=== PATIENT | male | born 1940 | race Caucasian/White ===

== ENCOUNTER → 2016-11-18 | Outpatient (CLI) | payer MEDICARE ==
--- NOTE | 2016-11-18 11:03 | XR ---
EXAMINATION TYPE: XR Hip Complete LT DATE OF EXAM: 11/18/2016 10:59 AM COMPARISON: NONE HISTORY: Hip pain TECHNIQUE: 2 view left hip FINDINGS: Femoral head articulate with the acetabulum. Mild joint space narrowing is present. No acut e fractures are evident. Vascular calcification is noted. IMPRESSION: 1. No acute osseous abnormality left hip
== END | disposition home or self-care (01) ==
LOC: RADXRMAIN 10:39
PROVIDERS: ATTEND Family Medicine
DX: M25.552 Pain in left hip (principal)
CPT/HCPCS: 73502

== ENCOUNTER → 2018-04-13 | Outpatient (CLI) | payer MEDICARE ==
--- NOTE | 2018-04-13 18:49 | BD ---
EXAMINATION TYPE: Axial Bone Density DATE OF EXAM: 04/13/2018 COMPARISON: NONE CLINICAL HISTORY: 77 YR OLD MALE.....ICD-10 CODE M85.89 OTHER , C61 PROSTATE CA Height: 65.5 Weight: 250 FRAX RISK QUESTIONS: Current Tobacco Use: QUIT 1998 RISK FACTORS HISTORY OF: Diet low in dairy products/other sources of calcium: NO Lost more than 2 inches in height since high school: MEDICATIONS: Additional Medications: PROSTATE MEDS, CALCIUM, CHOLESTEROL MEDS, Additional History: PROSTATE CANCER, EXAM MEASUREMENTS: Bone mineral densitometry was performed using the FunnelFire System. Bone mineral density as measured about the Lumbar spine is: ----- L1-L4(G/cm2): 1.162 T Score Values are as follows: ----- L1: 0.0 ----- L2: -0.2 ----- L3: -0.3 ----- L4: -0.2 ----- L1-L4: -0.1 Bone mineral density FIRST BONE DENSITY.....BASELINE STUDY Bone mineral density about the R hip (g/cm2): 0.990 Bone mineral density about the L hip (g/cm2): 1.035 T Score values are as follows: -----R Neck: -1.4 -----L Neck: -1.5 -----R Total: -0.1 -----L Total: 0.2 Bone mineral density BASELINE STUDY FRAX%s: THERE IS A 7.0% CHANCE FOR A MAJOR OSTEOPOROTIC FX AND A 2.3% FOR HIP FX....PROBABILITY OF FX IN 10 YRS TIME IMPRESSION: Osteopenia (T Score between -2.5 and -1). There is slightly increased risk of fracture and the patient may be considered for treatment. Re-Screen 2-5 years. NOTE: T-SCORE=SD OF THE YOUNG ADULT MEAN.
== END | disposition home or self-care (01) ==
LOC: RADBDWWP 12:12
PROVIDERS: ATTEND Nurse Practitioner
DX: M85.80 Other specified disorders of bone density and structure, unspecified site (principal)
CPT/HCPCS: 77080

== ENCOUNTER → 2019-01-04 | Outpatient (CLI) | payer MEDICARE ==
--- NOTE | 2019-01-04 14:15 | US ---
EXAMINATION TYPE: US abdomen complete DATE OF EXAM: 01/04/2019 COMPARISON: NONE CLINICAL HISTORY: R74.8 Elevated liver enzymes, R94.4 Abnormal Kidne. abnormal labs, no pain, NPO EXAM MEASUREMENTS: Liver Length: 14.2 cm Gallbladder Wall: 0.2 cm CBD: 0.5 cm Spleen: 8.2 cm Right Kidney: 10.2 x 5.4 x 5.8 cm Left Kidney: 9.9 x 4.6 x cm Extremely limited exam due to overlying bowel gas and patient body habitus Pancreas: Obscured by bowel gas Liver: Limited visualization, scanned through ribs. There is increased echogenicity of the hepatic p arenchyma with diminished visualization of the portal triads most commonly relating to hepatic steato sis and limiting evaluation for underlying hepatic masses. Gallbladder: Limited visualization, wnl Evidence for sonographic Malone's sign: neg CBD: wnl CHD: wnl Spleen: wnl Right Kidney: Cortical thinning, no prominent masses or lesions seen Left Kidney: Cortical thinning, no prominent masses or lesions seen Upper IVC: Obscured by overlying bowel gas Abd Aorta: Proximal and mid portion obscured by overlying bowel gas IMPRESSION: 1. Sonographic sequela of medical renal disease with cortical renal thinning bilaterally however ther e is no hydronephrosis or nephrolithiasis seen. 2. Sonographic findings most commonly related to hepatic steatosis, correlate with liver function ivelisse t results. 3. Obscuration of the upper inferior vena cava, proximal abdominal aorta, and pancreas by overlying b owel gas.
== END | disposition home or self-care (01) ==
LOC: RADUSWWP 12:55
PROVIDERS: ATTEND Family Medicine
DX: K76.0 Fatty (change of) liver, not elsewhere classified (principal); R94.4 Abnormal results of kidney function studies
CPT/HCPCS: 76700

== ENCOUNTER 2021-12-29 07:23 | Day surgery (SDC) | payer MEDICARE ==
[2021-12-24 14:15] VITALS: BMI 38.7
[~2021-12-29 07:23] MED LIST: ALPRAZolam 0.25 MG TAB PO PRN; ALPRAZolam 0.5 MG TAB PO PRN; ASPIRIN 325 MG TAB PO STA; ATORVASTATIN 80 MG TAB PO STA; HEPARIN SODIUM,PORCINE 10,000 UNIT in SODIUM CHLORIDE 0.9% 1,000 ML IRRIGATION PRN; HEPARIN SODIUM,PORCINE 2,500 UNIT in SODIUM CHLORIDE 0.9% 250 ML IRRIGATION PRN; NITROGLYCERIN SL TABS 0.4 MG TAB SUBLINGUAL PRN
[2021-12-29] MEDS: SODIUM CHLORIDE 0.9% 1,000 ML in EMPTY BAG 1 BAG IV SCH ×2 (08:04→16:40)
[2021-12-29 08:09] LABS: Basophils % (A) 1 %; Eosinophils # (A) 0.3 k/uL (0-0.7); Eosinophils % (A) 5 %; HGB 14.5 gm/dL (13.0-17.5); Lymphocytes # (A) 2.1 k/uL (1.0-4.8); Lymphocytes % (A) 30 %; MCH 31.9 pg (25.0-35.0); MCHC 34.6 g/dL (31.0-37.0); Mean Platelet Volume 7.2; Monocytes # (A) 0.4 k/uL (0-1.0); Monocytes % (A) 6 %; Neutrophils # (A) 3.9 k/uL (1.3-7.7); Neutrophils % (A) 56 %; Platelet Count 267 k/uL (150-450); RBC 4.57 m/uL (4.30-5.90); RDW 13.5 % (11.5-15.5)
[2021-12-29 08:20] LABS: African American GFR (CKD) >90 (>60 ml/min/1.73 sqM); Anion Gap 8 mmol/L; Blood Urea Nitrogen 22 mg/dL (9-20); Calcium 9.1 mg/dL (8.4-10.2); Carbon Dioxide 23 mmol/L (22-30); Chloride 108 mmol/L (98-107); Glucose 109 mg/dL (74-99); Non-African American GFR(CKD) 82 (>60 ml/min/1.73 sqM); Potassium 4.3 mmol/L (3.5-5.1); Sodium 139 mmol/L (137-145)
[2021-12-29] MEDS ORDERED: METOPROLOL SUCCINATE (ER) 50 MG TAB.ER.24H PO STA (08:43)
[2021-12-29] MEDS ORDERED: ISOSORBIDE MONONITRATE ER 30 MG TAB.ER.24H PO STA (08:43)
[2021-12-29] MEDS ORDERED: HEPARIN SODIUM 1,000 UN/ML (10ML VL) ONE (09:09)
[2021-12-29] MEDS ORDERED: VERAPAMIL 2.5 MG/ML 2 ML AMP ONE (09:09)
[2021-12-29] MEDS ORDERED: fentaNYL (PF) 50 MCG/ML 2 ML AMP ONE (09:10)
[2021-12-29] MEDS ORDERED: LIDOCAINE 1% PF 10 MG/ML (5 ML AMP) SQ ONE ×2 (09:31→09:39)
[2021-12-29] MEDS ORDERED: MIDAZOLAM 2 MG/2 ML VIAL IV ONE (09:31)
[2021-12-29] MEDS ORDERED: fentaNYL (PF) 50 MCG/ML 2 ML AMP IV ONE (09:31)
[2021-12-29] MEDS ORDERED: HEPARIN SODIUM 1,000 UN/ML (10ML VL) IV ONE (09:33)
[2021-12-29] MEDS ORDERED: VERAPAMIL SYRINGE (5 MG/10 ML) INTRAARTER ONE (09:33)
[2021-12-29] MEDS ORDERED: IOPAMIDOL-370 125ML BTL INJ ONE (09:53)
[2021-12-29] MEDS ORDERED: RX INFO: IV CONTRAST WAS GIVEN 1 EACH MISC MISCELLANE PRN (09:55)
[2021-12-29] MEDS ORDERED: SODIUM CHLORIDE 0.9% 1,000 ML IV SCH (10:00)
--- NOTE | 2021-12-29 10:01 | P.PCN ---
Date of Procedure: 12/29/21 Operative Findings: CARDIAC CATHETERIZATION PERFORMING PHYSICIAN: José Luis Farris MD, RPVI PROCEDURE PERFORMED: 1. Selective right and left coronary angiogram 2. Left heart catheterization INDICATION: Chest discomfort in this 81-year-old gentleman who underwent myocardial perfusion imaging stress that showed large area of reversibility concerning for ischemia in the inferolateral segment COMPLICATION: None APPROACH: Right common femoral artery LEVEL OF SEDATION: Moderate to sedation length of 20 minutes PROCEDURE DESCRIPTION: After obtaining an informed consent, the patient was brought to cardiac cathode washer. Initially I attempted right radial approach but the right radial artery is very tortuous Local anesthesia was performed using lidocaine subcutaneously. The right common femoral artery was cannulated using Seldinger technique, the guidewire passed easily, following that we advanced a 6 Luxembourger sheath dilator assembly, the wire and dilator were removed and sheath was flushed. Selective right and left coronary angiogram using a 6-Luxembourger JR4 and JL catheters. Following that we did left heart catheterization using 6-Luxembourger pigtail catheter. The procedure was completed there was no complication. SELECTIVE CORONARY ANGIOGRAM: The right coronary artery: Is a large caliber vessel and a dominant vessel. The RCA is calcified. There is proximal lesion appears to be in the range of 70% and mid lesion appeared to be in the range of 60%. [id number] collaterals seen filling the left circumflex Left main: Is a large caliber vessel was mid shaft lesion appeared to be in the range of 70-80%. The left circumflex: Large caliber vessel and a codominant vessel. The proximal LCx has a lesion appeared to be in the range of 50%. Gives rises into an OM branch which worked as a ramus intermedius appeared to be disease in the range of 50%. Second OM branch is a large caliber vessel was mild disease only. There is competitive flow in the mid left circumflex. The competitive flow from the antegrade and retrograde flow from collateral The left anterior descending artery: Is a large caliber vessel. The proximal LAD has a lesion appeared to be in the range of 50% the mid and distal LAD appears to have mild disease only. HEMODYNAMICS: The LVEDP was 12 mmHg was no significant gradient across aortic valve CONCLUSION: 1. Severe disease involving the RCA 2. Severe disease involving the mid shaft of the left main 3. Intermediate disease involving the proximal LAD POSTPROCEDURE MANAGEMENT: Consider referring the patient for evaluation of coronary artery bypass grafting
[2021-12-29] MEDS ORDERED: HYDROmorphone 0.5 MG/0.5 ML SYRINGE IVP STA (11:23)
[2021-12-29 13:56] VITALS: BP 120/65; PULSE 76; RESP 20; TEMP 97.4
== END 2021-12-29 17:58 | disposition home or self-care (01) ==
LOC: CATHCVL 07:23 → 6NMEDSUR 10:00 → CATHCVL 17:58
PROVIDERS: ATTEND Internal Medicine Interventional Cardiology
DX: I25.110 Atherosclerotic heart disease of native coronary artery with unstable angina pectoris (principal); I25.84 Coronary atherosclerosis due to calcified coronary lesion; R94.39 Abnormal result of other cardiovascular function study; E78.5 Hyperlipidemia, unspecified; E66.3 Overweight; Z72.0 Tobacco use; I10 Essential (primary) hypertension; Z86.718 Personal history of other venous thrombosis and embolism; Z85.46 Personal history of malignant neoplasm of prostate; Z95.828 Presence of other vascular implants and grafts; Z79.01 Long term (current) use of anticoagulants; Z79.899 Other long term (current) drug therapy; Z88.0 Allergy status to penicillin
CPT/HCPCS: 93458; 80048; 85025; 87635; C1769 ×4; C1894; J2250; J2001; J3010; J1644; J1170; Q9967

== ENCOUNTER → 2022-01-04 | Outpatient (CLI) | payer MEDICARE ==
--- NOTE | 2022-01-04 16:02 | CT ---
EXAMINATION TYPE: CT chest wo con CT DLP: 569.1 mGycm, Automated exposure control for dose reduction was used. DATE OF EXAM: 01/04/2022 3:46 PM COMPARISON: None. CLINICAL INDICATION:Male, 81 years old with history of I25.10; PHH, pre-op open heart TECHNIQUE: Multiple axial images were obtained through the chest without IV contrast. Lack of IV or o ral contrast limits evaluation of solid and hollow organ viscera. FINDINGS: Examination is limited due to lack of IV contrast. LUNGS/ PLEURA: No pneumothorax or pleural effusion. Scattered subpleural reticular opacities demonstr ated throughout the lungs. A few enlarged pulmonary nodules demonstrated within the bilateral lungs. Examples include a left upper lobe 8 mm nodule (series 4, image 21), left upper lobe 6 mm pulmonary nodule (series 4, image 18). Right upper lobe 8 mm pulmonary nodule (series 4, image 27). Right middl e lobe 8 mm pulmonary nodule (series 4, image 32). Additional smaller nodules identified. AIRWAY: Patent and unremarkable. HEART: Mildly prominent. No pericardial effusion. MEDIASTINUM: No gross evidence of adenopathy. VASCULATURE: Atherosclerotic calcifications are present throughout the aorta and its branches. No th oracic aortic aneurysm. Dense coronary artery calcifications identified. Mitral and aortic valvular c alcification noted. MUSCULOSKELETAL: Mild disc degeneration changes are present throughout the thoracolumbar spine. No ac xavier osseous adenopathy. SOFT TISSUES/LYMPH NODES: Unremarkable. LOWER NECK: No significant findings. UPPER ABDOMEN: No significant findings. IMPRESSION: 1. Several scattered pulmonary nodules with largest measuring up to 8 mm. Follow-up examination in 3- 6 months is recommended to assess for stability. 2. Dense coronary artery calcifications which are indication of coronary atherosclerotic disease.
[2022-01-04 23:27] LABS: Appearance,Urine Clear (Clear); Bilirubin,Urine Negative (Negative); Blood,Urine Negative (Negative); Color,Urine Yellow (Yellow); Ketones,Urine Negative (Negative); Nitrite,Urine Negative (Negative); Specific Gravity,Urine 1.012 (1.001-1.030); Urobilinogen,Urine 0.2 (0.2,1.0)
[2022-01-04 23:35] LABS: ALT 9 U/L (10-49); AST 25 U/L (14-35); African American GFR (CKD) 81.5 (60.0-200.0); Albumin 3.9 g/dL (3.8-4.9); Albumin/Globulin Ratio 1.43 (1.60-3.17); Alkaline Phosphatase 118 U/L (41-126); Blood Urea Nitrogen 20.9 mg/dL (9.0-27.0); Calcium 9.7 mg/dL (8.7-10.3); Carbon Dioxide 23.3 mmol/L (20.0-27.5); Chloride 103 mmol/L (96-109); Chol/HDL Ratio 2.87 Ratio; Globulin 2.7 g/dL (1.6-3.3); Glucose 107 mg/dL (70-110); LDL Cholesterol,Calculated 78.8 mg/dL (0.0-131.0); Non-African American GFR(CKD) 70.3 (60.0-200.0); Potassium 4.2 mmol/L (3.5-5.5); Sodium 138 mmol/L (135-145); Total Protein 6.7 g/dL (6.2-8.2); VLDL Calculation 13.04 mg/dL (5.00-40.00)
[2022-01-04 23:53] LABS: Hepatitis A Antibody IgM Nonreactive (Nonreactive); Hepatitis B Core IgM Nonreactive (Nonreactive); Hepatitis B Surface Antigen Nonreactive (Nonreactive); Hepatitis C IgG Antibody Nonreactive (Nonreactive)
== END | disposition home or self-care (01) ==
LOC: RADCTMAIN 15:27
PROVIDERS: ATTEND Surgery
DX: Z01.812 Encounter for preprocedural laboratory examination (principal); I10 Essential (primary) hypertension; R91.8 Other nonspecific abnormal finding of lung field; I25.10 Atherosclerotic heart disease of native coronary artery without angina pectoris
CPT/HCPCS: 71250; 80053; 80061; 80074; 81003; 83036; 84443; 87070; 87086

== ENCOUNTER → 2022-01-05 | Outpatient (CLI) | payer MEDICARE ==
--- NOTE | 2022-01-05 12:05 | US ---
EXAMINATION TYPE: US carotid duplex BILAT DATE OF EXAM: 01/05/2022 COMPARISON: NONE CLINICAL HISTORY: I25.10 ATHSCL HEART DISEASE OF [place] CORONARY ARTERY W/O AN. Open Heart Surgery EXAM MEASUREMENTS: RIGHT: Peak Systolic Velocity (PSV) cm/sec ----- Right CCA: 63.2 ----- Right ICA: 85.6 ----- Right ECA: 126.4 ICA/CCA ratio: 1.6 RIGHT: End Diastole cm/sec ----- Right CCA: 14.2 ----- Right ICA: 12.1 ----- Right ECA: 0.0 LEFT: Peak Systolic Velocity (PSV) cm/sec ----- Left CCA: 56.4 ----- Left ICA: 82.8 ----- Left ECA: 121.4 ICA/CCA ratio: 1.5 LEFT: End Diastole cm/sec ----- Left CCA: 8.4 ----- Left ICA: 17.5 ----- Left ECA: 13.3 VERTEBRALS (direction of flow): Right Vertebral: Antegrade Left Vertebral: Antegrade Rhythm: Normal Plaque noted in bilateral bulb areas IMPRESSION: No evidence for hemodynamically significant stenosis. Criteria for Assigning % of Stenosis / Diameter reduction (Estimation based on the indirect measurements of the internal carotid artery velocities (ICA PSV). 1. Normal (no stenosis)=ICA PSV < 125 cm/s: ratio < 2.0: ICA EDV<40 cm/s. 2. Less than 50% stenosis=ICA PSV < 125 cm/s: ratio < 2.0: ICA EDV<40 cm/s. 3. 50 to 69% stenosis=ICA PSV of 125 to 230 cm/s: ration 2.0 ? 4.0: ICA EDV 40-100 cm/s. 4. Greater than 70% stenosis to near occlusion= ICA PSV > 230 cm/s: ratio > 4.0: ICA EDV > 100 cm/s. 5. Near occlusion= ICA PSV velocities may be low or undetectable: variable ratio and ICA EDV. 6. Total occlusion=unable to detect flow.
--- NOTE | 2022-01-06 15:23 | US ---
EXAMINATION TYPE: US vein mapping BILAT DATE OF EXAM: 01/05/2022 11:30 AM COMPARISON: NONE CLINICAL HISTORY: I25.10ATHSCL HEART DISEASE OF [place] CORONARY ARTERY W/O ANG. SIDE PERFORMED: Bilateral TECHNIQUE: Lower extremity saphenous vein is examined and measured utilizing real time linear array sonography. Patient History: Vascular Surgery: Yes Discoloration: No Paralysis: No Varicosities: No Edema: No DUPLEX FINDINGS: Greater Saphenous: Color flow seen Measurements in mm: Right Greater Saphenous: Groin: 7.3 x 6.0 mm High Thigh: 5.7 x 4.9 mm Mid Thigh: 3.0 x 2.8 mm Above Knee: 3.5 x 2.5 mm Knee: 4.3 x 3.2 mm Below Knee: 3.9 x 2.3 mm Mid Calf: 3.3 x 2.9 mm At Ankle: 4.6 x 3.8 mm Left Greater Saphenous: Groin: 7.2 x 6.9 mm High Thigh: 5.1 x 5.1 mm Mid Thigh: 4.8 x 4.7 mm Above Knee: 3.8 x 3.8 mm Knee: 4.9 x 3.5 mm Below Knee: 4.4 x 3.2 mm Mid Calf: 2.0 x 2.0 mm At Ankle: 4.7 x 3.5 mm IMPRESSION: 1. Bilateral GSV measurements listed above. 2. Performing surgeon to determine viability as conduit.
== END ==
LOC: CPPFTMAIN 09:16
PROVIDERS: ATTEND Surgery
DX: I25.10 Atherosclerotic heart disease of native coronary artery without angina pectoris (principal); R55 Syncope and collapse; Z88.0 Allergy status to penicillin
CPT/HCPCS: 93880; 93970; 94150

== ENCOUNTER → 2022-01-06 | Outpatient (CLI) | payer MEDICARE ==
[2022-01-06 16:28] LABS: Partial Thromboplastin Time 25.7 sec (22.0-30.0); Prothrombin Time 10.6 sec (9.0-12.0)
--- NOTE | 2022-01-06 17:38 | P.PN ---
Progress Note - Text Progress Note Date: 01/06/22 5 meter walk test completed: #1 3.18 sec #2 3.48 sec #3 3.50 sec Patient tolerated without difficulty
== END | disposition home or self-care (01) ==
LOC: LABWHC1 15:30
PROVIDERS: ATTEND Surgery
DX: I25.10 Atherosclerotic heart disease of native coronary artery without angina pectoris (principal)
CPT/HCPCS: 36415; 83735; 85610; 85730

== ENCOUNTER 2022-01-08 05:38 | Inpatient (IN) | payer MEDICARE ==
[~2022-01-08 05:38] MED LIST changes: +ALBUMIN HUMAN 25% 50 ML IV ONE; +ALBUMIN HUMAN 5% 500 ML IVPB ONE; -ALPRAZolam 0.25 MG TAB PO PRN; -ALPRAZolam 0.5 MG TAB PO PRN; +ASPIRIN 325 MG TAB PO ONE; -ASPIRIN 325 MG TAB PO STA; +ATORVASTATIN 10 MG TAB PO ONE; -ATORVASTATIN 80 MG TAB PO STA; +CALCIUM CHLORIDE 100 MG/ML 10 ML SYRINGE IV ONE; +CHLORHEXIDINE GLUCONATE 15 ML CUP MUCOUS MEM ONE; +CLEVIDIPINE BUTYRATE 25 MG in EMPTY BAG 1 BAG IV ONE; +ELECTROLYTE-A SOLUTION 1,000 ML with POTASSIUM CHLORIDE 100 MEQ, MAGNESIUM SULFATE 16 M... IV ONE; +ELECTROLYTE-A SOLUTION 1,000 ML with POTASSIUM CHLORIDE 40 MEQ, MAGNESIUM SULFATE 16 ME... IV ONE; +HEPARIN SODIUM 1,000 UN/ML (10ML VL) IV ONE; -HEPARIN SODIUM,PORCINE 10,000 UNIT in SODIUM CHLORIDE 0.9% 1,000 ML IRRIGATION PRN; -HEPARIN SODIUM,PORCINE 2,500 UNIT in SODIUM CHLORIDE 0.9% 250 ML IRRIGATION PRN; +HEPARIN SODIUM,PORCINE 5,000 UNIT in SODIUM CHLORIDE 0.9% 500 ML 500 ML IV ONE; +INSULIN REGULAR 100 UNIT in SODIUM CHLORIDE 0.9% 100 ML IV ONE; +LACTATED RINGERS 1,000 ML IV ONE; +LACTATED RINGERS 1,000 ML IV SCH; +MAGNESIUM SULFATE 16.24 MEQ in EMPTY SYRINGE 1 SYR IV ONE; +MANNITOL 25% 12.5 GM/50 ML VIAL IV ONE; +METOPROLOL TARTRATE 12.5 MG TAB PO ONE; +MIDAZOLAM 2 MG/2 ML VIAL IV PRN; +NITROGLYCERIN SL TABS 0.4 MG TAB SUBLINGUAL ONE; -NITROGLYCERIN SL TABS 0.4 MG TAB SUBLINGUAL PRN; +NITROGLYCERIN-D5W PMX 25 MG/250 ML BTL IV ONE; +NITROGLYCERIN-D5W PMX 50 MG in DEXTROSE/WATER 1 250ML.BAG IV ONE; +NOREPINEPHRINE 4 MG in SODIUM CHLORIDE 0.9% 250 ML IV ONE; +PAPAVERINE 360 MG in SODIUM CHLORIDE 0.9% 90 ML IV ONE; +PHENYLEPHRINE 10 MG/ML VIAL IV ONE; +PHENYLEPHRINE 40 MG in SODIUM CHLORIDE 0.9% 250 ML IV ONE; +PROTAMINE SULFATE 10 MG/ML 25 ML VIAL IV ONE; +PROTAMINE SULFATE 250 MG in EMPTY BAG 1 BAG IV ONE; +SODIUM BICARB 8.4% 50 ML SYR (1 MEQ/ML) IV ONE; +SODIUM CHLORIDE 0.9% 1,000 ML IV ONE; +TRANEXAMIC ACID 2,000 MG in SODIUM CHLORIDE 0.9% 80 ML IV ONE; +ceFAZolin 1,000 MG in SODIUM CHLORIDE 0.9% IRRIGATIO 1,000 ML IRRIGATION ONE; +ceFAZolin 3 GM in SODIUM CHLORIDE 0.9% 100 ML IVPB ONE; +propofoL 1,000 MG/100 ML VIAL IV ONE
[2022-01-08] MEDS ORDERED: LACTATED RINGERS 1,000 ML IV ONE (06:27)
[2022-01-08] MEDS ORDERED: WATER FOR INJECTION, STERILE 10 ML VIAL IV ONE (07:40)
[2022-01-08] MEDS ORDERED: LIDOCAINE 2% SYG (PF) 100 MG/5 ML ONE (07:40)
[2022-01-08] MEDS ORDERED: PROPOFOL 10 MG/ML 20 ML VIAL IV ONE (07:40)
[2022-01-08] MEDS ORDERED: MIDAZOLAM HCL 10 MG/10 ML VIAL ONE (07:40)
[2022-01-08] MEDS ORDERED: ALBUMIN HUMAN 5% (25gm) 500 ML VIAL IVPB ONE (07:40)
[2022-01-08] MEDS ORDERED: MAGNESIUM SULFATE 4 MEQ/ML 10ML VIAL ONE (07:40)
[2022-01-08] MEDS ORDERED: PROTAMINE SULFATE 10 MG/ML 25 ML VIAL IV ONE (07:40)
[2022-01-08] MEDS ORDERED: SODIUM CHLORIDE 0.9% IRRIG 1,000 ML BTL IRRIGATION ONE (07:40)
[2022-01-08] MEDS ORDERED: CALCIUM CHLORIDE 100 MG/ML 10 ML SYRINGE ONE (07:40)
[2022-01-08] MEDS ORDERED: HEPARIN SODIUM,PORCINE 10,000 UNIT/ML 1 ML VIAL ONE (07:40)
[2022-01-08] MEDS ORDERED: TRANEXAMIC ACID IN NACL,ISO-OS 1,000 MG/100 ML BAG ONE (07:40)
[2022-01-08] MEDS ORDERED: NITROGLYCERIN-D5W PMX 50 MG/250 ML BOTTLE IV ONE (07:40)
[2022-01-08] MEDS ORDERED: ELECTROLYTE-R (PH 7.4) 1,000 ML IV.SOLN IV ONE (07:40)
[2022-01-08] MEDS ORDERED: fentaNYL (PF) 50 MCG/ML 50 ML VIAL ONE (07:40)
[2022-01-08] MEDS ORDERED: VECURONIUM 10 MG VIAL IV ONE (07:40)
[2022-01-08] MEDS ORDERED: SODIUM CHLORIDE 0.9% 100 ML with ceFAZolin 3,000 MG IV ONE ×2 (08:05)
[2022-01-08] MEDS ORDERED: PAPAVERINE 360 MG in SODIUM CHLORIDE 0.9% 90 ML IV ONE (09:16)
[2022-01-08] MEDS ORDERED: SODIUM CHLORIDE 0.9% 500 ML 500 ML with HEPARIN SODIUM,PORCINE 5,000 UNIT IV ONE ×2 (09:16)
--- NOTE | 2022-01-08 09:19 | P.ANPRN ---
Procedure Note - Anesthesia - Invasive Line Right Arterial Line Time Out Performed: Yes Date of Procedure: 01/08/22 Time of Procedure: 07:10 Location of Patient: PreOp Preparation: Sterile Prep, Sterile Dressing Arterial Line Location: Radial Ultrasound Used: No Narrative: Right radial line placed by LOCAL OWNER OPERATOR TRUCK DRIVER Right Central Line Time Out Performed: Yes Date of Procedure: 01/08/22 Time of Procedure: 07:30 Location of Patient: PreOp Preparation: Sterile Prep, Sterile Dressing Ultrasound Used: Yes Purpose - Visualization and Identification of Vasculature: Yes Needle Guage: 18 Image Stored and Saved: Yes Narrative: 9F cordis placed using Seldinger technique Right [place] Ubaldo Time Out Performed: Yes Date of Procedure: 01/08/22 Time of Procedure: 07:36 Location of Patient: PreOp Preparation: Sterile Prep, Sterile Dressing Narrative: SWAN placed under sterile conditions. Secured at 43 cm with good PA waveform.
[2022-01-08] MEDS ORDERED: NITROGLYCERIN-D5W PMX 50 MG in DEXTROSE/WATER 1 250ML.BAG IV SCH (14:35)
[2022-01-08] MEDS ORDERED: ONDANSETRON 4 MG/2 ML VIAL IVP PRN (14:35)
[2022-01-08] MEDS ORDERED: METOCLOPRAMIDE 5 MG/ML 2 ML VIAL IVP PRN (14:35)
[2022-01-08] MEDS ORDERED: Potassium Replacement Protocol 1 EACH MISC MISCELLANE PRN (14:35)
[2022-01-08] MEDS ORDERED: AMIODARONE 360 MG in DEXTROSE 5% IN WATER 200 ML IV PRN ×2 (14:35)
[2022-01-08] MEDS ORDERED: hydrALAZINE HCL 20 MG/ML 1 ML VIAL IVP PRN (14:35)
[2022-01-08] MEDS ORDERED: INSULIN REGULAR 100 UNIT in SODIUM CHLORIDE 0.9% 100 ML IV SCH (14:35)
[2022-01-08] MEDS ORDERED: BENZOCAINE/MENTHOL LOZENG 1 EACH LOZENGE MUCOUS MEM PRN (14:35)
[2022-01-08] MEDS ORDERED: Magnesium Replacement Protocol 1 EACH MISC MISCELLANE PRN (14:35)
[2022-01-08] MEDS ORDERED: AMIODARONE 450 MG in DEXTROSE 5% IN WATER 250 ML IV PRN ×2 (14:35)
[2022-01-08] MEDS ORDERED: CALCIUM GLUCONATE IN NACL 2 GM in SALINE 1 100ML.BAG IVPB PRN (14:35)
[2022-01-08] MEDS ORDERED: IPRATROPIUM-ALBUTEROL 3 ML NEB INHALATION PRN (14:35)
[2022-01-08] MEDS ORDERED: DEXMEDETOMIDINE/0.9% NACL(PMX) 400 MCG in EMPTY BAG 1 BAG IV SCH (14:35)
[2022-01-08 15:07] LABS: Glucose,Whole Blood 137 mg/dL (70-110)
[2022-01-08 15:23] LABS: Basophils % (A) 0 %; Eosinophils # (A) 0.1 k/uL (0-0.7); Eosinophils % (A) 1 %; Lymphocytes # (A) 1.5 k/uL (1.0-4.8); Lymphocytes % (A) 16 %; MCH 31.5 pg (25.0-35.0); MCHC 34.3 g/dL (31.0-37.0); MCV 91.9 fL (80.0-100.0); Mean Platelet Volume 7.6; Monocytes # (A) 0.5 k/uL (0-1.0); Monocytes % (A) 5 %; Neutrophils # (A) 7.5 k/uL (1.3-7.7); Neutrophils % (A) 78 %; Platelet Count 152 k/uL (150-450); RBC 3.05 m/uL (4.30-5.90); RDW 13.2 % (11.5-15.5); WBC 9.7 k/uL (3.8-10.6)
[2022-01-08 15:24] LABS: Ionized Calcium 4.6 mg/dL (4.5-5.3)
--- NOTE | 2022-01-08 15:26 | P.ANPRN ---
Procedure Note - Anesthesia - JOSUE Intraop Pre Bypass JOSUE Intraop - Anesthesia Indication: CAD AI Date of Procedure: 01/08/22 Pre-operative Diagnosis: CAD, AI Post-operative Diagnosis: same Surgeon: Mark Caruso Left Ventricle: EF 40 Ejection Fraction: Other (Poor visualization in transgastric windows) Regional Wall Motion Abnormalities: None R. Ventricle Function: Normal Anatomy: Trileaflet Aortic Stenosis: None Aortic Regurgitation: Mild Mitral Stenosis: None Mitral Regurgitation: None Tricuspid Stenosis: None Tricuspid Regurgitation: None Pulmonic Stenosis: None Pulmonic Regurgitation: None R. Atrial Dilation: No R. Atrial PFO: No L. Atrial Dilation: No Aortic Dissection: No Aortic Calcification: Moderate Plural Effusion: None - JOSUE Intraop Post Bypass JOSUE Intraop Post Bypass Procedure Performed: CABG Ejection Fraction: Normal (Poor visualization in transgastric windows) R. Ventricle Function: Normal Aortic Valve: increase in AI to mild-moderate Mitral Valve: Mild MR Tricuspid: Unchanged Pulmonic: Unchanged Aortic Dissection: No
[2022-01-08] MEDS: LACTATED RINGERS 1,000 ML IV SCH (15:28)
[2022-01-08] MEDS: MILRINONE-D5W PMX 20 MG in DEXTROSE/WATER 1 100ML.BAG IV SCH (15:28)
[2022-01-08] MEDS: NOREPINEPHRINE 4 MG in SODIUM CHLORIDE 0.9% 250 ML IV SCH ×2 (15:30→22:26)
[2022-01-08 15:31] LABS: INR 1.2 (<1.2); Partial Thromboplastin Time 28.4 sec (22.0-30.0); Prothrombin Time 12.9 sec (9.0-12.0)
[2022-01-08] MEDS: ALBUMIN HUMAN 5% 250 ML in EMPTY BAG 1 BAG IVPB PRN ×3 (15:31→21:29)
[2022-01-08 15:33] LABS: ALT 8 U/L (4-49); AST 50 U/L (17-59); African American GFR (CKD) >90 (>60 ml/min/1.73 sqM); Albumin 3.1 g/dL (3.5-5.0); Alkaline Phosphatase 56 U/L (38-126); Anion Gap 6 mmol/L; Blood Urea Nitrogen 17 mg/dL (9-20); Calcium 7.9 mg/dL (8.4-10.2); Carbon Dioxide 23 mmol/L (22-30); Chloride 109 mmol/L (98-107); Glucose 130 mg/dL (74-99); Magnesium 2.5 mg/dL (1.6-2.3); Non-African American GFR(CKD) >90 (>60 ml/min/1.73 sqM); Potassium 4.4 mmol/L (3.5-5.1); Sodium 138 mmol/L (137-145); Total Bilirubin 1.1 mg/dL (0.2-1.3); Total Protein 4.9 g/dL (6.3-8.2)
[2022-01-08 15:33] LABS: ABG Base Excess -3.5 mmol/L; ABG HCO3 22 mmol/L (21-25); ABG PCO2 42 mmHg (35-45); ABG PH 7.33 (7.35-7.45); ABG PO2 279 mmHg (83-108); ABG TCO2 24 mmol/L (19-24)
[2022-01-08 15:34] LABS: HGB 9.6 gm/dL (13.0-17.5)
[2022-01-08 15:36] LABS: Allen Test Performed? no
--- NOTE | 2022-01-08 15:53 | XR ---
EXAMINATION TYPE: XR chest 1V portable DATE OF EXAM: 01/08/2022 3:39 PM COMPARISON: Chest radiographs from CT chest 01/04/2022 TECHNIQUE: XR chest 1V portable Portable AP radiograph of the chest. CLINICAL INDICATION:Male, 81 years old with history of Post Operative Cardiac Surgery; FINDINGS: Lungs/Pleura: Small bilateral pleural effusions. No evidence of focal consolidation. There is no evid ence of pneumothorax. Pulmonary vascularity: Pulmonary vascular congestion. Heart/mediastinum: Cardiomediastinal silhouette is unremarkable. Left atrial appendage occlusion lucas ce is present. Musculoskeletal: No acute osseous pathology. Midline sternotomy fixation are noted. Lines/Tubes: Endotracheal tube with distal tip 4.2 cm above the chely Nasogastric tube with its distal tip and side-port projecting under the diaphragm. There is a Satanta-Ubaldo catheter with tip projecting over the spine. Drainage tubes with tips projecting over the mediastinum. Left thoracotomy tube is present without evidence of pneumothorax. IMPRESSION: 1. Postsurgical changes with lines and tubes as described above. 2. Cardiomegaly, bilateral pleural effusions and pulmonary vascular congestion.
[2022-01-08 16:02] LABS: Glucose,Whole Blood 119 mg/dL (70-110)
--- NOTE | 2022-01-08 16:09 | P.CNPUL ---
History of Present Illness Consult date: 01/08/22 Requesting physician: Mark Caruso Reason for consult: other (Mechanical ventilator/critical care management) Chief complaint: Coronary artery disease History of present illness: This is a 81-year-old male patient with a known history of hyperlipidemia, hypertension, morbid obesity, prostate cancer, DVT of the left lower extremity with previous IVC filter placement maintained on Xarelto, aortic insufficiency. He had been having issues with chest discomfort and shortness of breath and it undergone cardiac catheterization by Dr. Farris on 12/29/2021 her son has significant coronary artery disease. Pulmonary function testing revealed good lung function with an FEV1 value of 2.21 L and 90% of predicted. He is a nonsmoker. He presented here today for an elective coronary artery bypass aiyana ting surgery done by Dr. Caruso. He did receive a SAMUELS to the LAD, saphenous vein graft to the RCA, saphenous vein graft to the OM1, exclusion of left atrial appendage utilizing the 35mm 8 treat clip. He was returned to the ICU today at approximately 1500. Remains intubated on mechanical ventilator. Current settings reveal assist-control mode with a rate of 14, tidal 500, FiO2 100% and a PEEP of 10 based on his BMI 41.3 kg per metered squared. He has lactated Ringer's running at 50 ML's per hour. Norepinephrine at 0.03 mcg/kg/m. Nitroglycerin drip at 5 mcg/m. Milrinone at 0.3 mcg/kg/m and propofol at 20 mcg/kg/m. Cardiac output 4.7. Cardiac index 2.1. PA pressure 43/21. He is atrial pacing at 80. Right internal jugular Rogers-Ubaldo catheter in place. Right radial arterial line in place. Chest x-ray reveals 2 mediastinal chest tubes and 1 left pleural chest tube. Both connected to wall suction. No leaks noted. White count 9.7. Hemoglobin 9.6. Pletal it's 152. INR 1.2. Sodium 138. Potassium 4.4. Chloride 109. Bicarb 23. BUN 17. Creatinine 0.66. Glucose 130. AST 50. ALT 8. Albumin 3.1. Magnesium 2.5. Calcium 7.9. Ionized calcium 4.6. Review of Systems ROS unobtainable: due to endotracheal tube Past Medical History Past Medical History: Cancer, Chest Pain / Angina, COPD, Deep Vein Thrombosis (DVT), Hyperlipidemia, Hypertension, Prostate Disorder Additional Past Medical History / Comment(s): prostate cancer-radiation tx, edema of legs, "low potassium", chest tightness, SOB, constipation, hx. DVT leg 3 years ago History of Any Multi-Drug Resistant Organisms: None Reported Past Surgical History: Heart Catheterization, Prostate Surgery, Tonsillectomy Additional Past Surgical History / Comment(s): surgery for kidney stones, hemorrhoidectomy, tara cataracts, Past Anesthesia/Blood Transfusion Reactions: No Reported Reaction Smoking Status: Former smoker - Past Family History Mother Family Medical History: No Reported History Medications and Allergies Home Medications Medication Instructions Recorded Confirmed Type Atorvastatin [Lipitor] 80 mg PO HS 12/24/21 01/06/22 History Furosemide [Lasix] 80 mg PO DAILY 12/24/21 01/06/22 History Metoprolol Succinate [Metoprolol 50 mg PO DAILY 12/24/21 01/06/22 History Succinate ER] Potassium Chloride [Klor-Con M10] 10 meq PO DAILY 12/24/21 01/06/22 History Rivaroxaban [Xarelto] 20 mg PO DAILY 12/24/21 01/06/22 History Aspirin 325 mg PO DAILY 12/29/21 01/06/22 History Isosorbide Mononitrate ER [Imdur] 30 mg PO DAILY 12/29/21 01/06/22 History Allergies Allergy/AdvReac Type Severity Reaction Status Date / Time Penicillins Allergy hives Verified 01/06/22 15:40 Physical Exam Vitals: Vital Signs Temp Pulse Resp BP BP Pulse Ox FiO2 01/08/22 15:35 60 01/08/22 15:00 100 01/08/22 14:47 100 01/08/22 06:00 97.3 F L 60 18 153/81 165/79 97 Intake and Output 01/08/22 01/08/22 01/08/22 06:59 14:59 22:59 Intake Total 50 102 Output Total 1999 Balance 50 -1898 Intake: IV 50 102 Output: Urine 1000 Estimated Blood Loss 1000 Other: Weight 119.6 kg GENERAL EXAM: Intubated, sedated, obese 81-year-old male patient on mechanical ventilator, in no apparent distress. HEAD: Normocephalic. EYES: Sluggish reaction of pupils, equal size. NOSE: Clear with pink turbinates. THROAT: Oral endotracheal and gastric tube secured in place. No erythema or exudates. NECK: Right IJ Rogers-Ubaldo catheter in place. No masses, no JVD. CHEST: Sternal dressing dry and intact. Heart Hugger in place. 2 mediastinal, 1 left pleural chest tubes in place. 2 wall suction. No leak. LUNGS: Equal air entry with no crackles, wheeze, rhonchi or dullness. CVS: S1 and S2 normal with no audible murmur, regular rhythm. Paced rhythm at 80 bpm. Pacer wires in place connected generator. ABDOMEN: No hepatosplenomegaly, no guarding or rigidity. SPINE: No scoliosis or deformity SKIN: No rashes CENTRAL NERVOUS SYSTEM: Sedated, intubated. Tone is normal in all 4 extremities. EXTREMITIES: Right radial arterial line in place. Thuan wrap support bilateral lower extremities. There is no peripheral edema. Peripheral pulses are intact. Results - Laboratory Findings CBC and BMP: 01/08/22 15:10 01/08/22 15:10 ABG ABG pH 7.33 (7.35-7.45) L 01/08/22 15:32 ABG pCO2 42 mmHg (35-45) 01/08/22 15:32 ABG pO2 279 mmHg (83-108) H 01/08/22 15:32 ABG O2 Saturation 100.0 % (94-97) H 01/08/22 15:32 PT/INR, D-dimer PT 12.9 sec (9.0-12.0) H 01/08/22 15:10 INR 1.2 (<1.2) H 01/08/22 15:10 Abnormal lab findings: Abnormal Labs 01/06/22 01/08/22 01/08/22 15:45 15:05 15:10 RBC 3.05 L Hgb 9.6 L D Hct 28.0 L PT INR ABG pH ABG pO2 ABG O2 Saturation Chloride Glucose POC Glucose (mg/dL) 137 H Calcium Magnesium Total Protein Albumin Crossmatch See Detail 01/08/22 01/08/22 01/08/22 15:10 15:10 15:32 RBC Hgb Hct PT 12.9 H INR 1.2 H ABG pH 7.33 L ABG pO2 279 H ABG O2 Saturation 100.0 H Chloride 109 H Glucose 130 H POC Glucose (mg/dL) Calcium 7.9 L Magnesium 2.5 H Total Protein 4.9 L Albumin 3.1 L Crossmatch - Diagnostic Findings Chest x-ray: image reviewed Assessment and Plan Assessment: Coronary artery disease, status post coronary artery bypass grafting 3 with a SAMUELS to LAD, SVG to the OM1, SVG to the RCA. Left atrial appendage clipping with a 35 mm Atriclip. Postoperative day #0 Anemia, expected, current hemoglobin 9.6 Morbid obesity with a BMI of 41.3 kg/m Hypertension, history of Hyperlipidemia Prostate cancer History of left lower extremity DVT, previous filter placed, maintained on Xarelto on outpatient setting Nonsmoker, FEV1 value 2.21 L Plan: The patient was seen and evaluated Chest x-ray, ABGs, labs and medications reviewed Decrease the FiO2 to 60% Plan for early extubation protocol as tolerated Encouraged use the incentive spirometer once extubated Follow-up chest x-ray and labs in a.m. We will continue to follow and make further recommendations based on his clinical status I have personally seen and examined the patient, performed the documentation and the assessment and plan as written. Number of minutes spent on the visit: 20.
[2022-01-08] MEDS: IPRATROPIUM-ALBUTEROL 3 ML NEB INHALATION SCH ×3 (16:18→20:00)
[2022-01-08] MEDS: HEPARIN SODIUM,PORCINE/PF 5,000 UNIT/0.5 ML SYRINGE SQ SCH (16:35)
[2022-01-08 17:04] LABS: Glucose,Whole Blood 128 mg/dL (70-110)
[2022-01-08] MEDS: KETOROLAC 15 MG/ML 1 ML VIAL IVP SCH (17:38)
[2022-01-08] MEDS: ACETAMINOPHEN IV (For NPO) 1,000 MG in EMPTY BAG 1 BAG IVPB SCH (17:59)
[2022-01-08 18:10] LABS: Glucose,Whole Blood 154 mg/dL (70-110)
[2022-01-08 18:23] LABS: Basophils % (A) 0 %; Eosinophils % (A) 0 %; HCT 25.6 % (39.0-53.0); HGB 8.7 gm/dL (13.0-17.5); Lymphocytes # (A) 1.2 k/uL (1.0-4.8); Lymphocytes % (A) 13 %; MCH 31.1 pg (25.0-35.0); MCHC 33.9 g/dL (31.0-37.0); MCV 91.6 fL (80.0-100.0); Mean Platelet Volume 7.6; Monocytes # (A) 0.5 k/uL (0-1.0); Monocytes % (A) 6 %; Neutrophils # (A) 7.4 k/uL (1.3-7.7); Neutrophils % (A) 80 %; Platelet Count 185 k/uL (150-450); RBC 2.79 m/uL (4.30-5.90); RDW 13.4 % (11.5-15.5); WBC 9.2 k/uL (3.8-10.6)
[2022-01-08 19:15] LABS: Glucose,Whole Blood 135 mg/dL (70-110)
[2022-01-08 20:14] LABS: Glucose,Whole Blood 164 mg/dL (70-110)
--- NOTE | 2022-01-08 20:41 | OP ---
OPERATIVE REPORT DATE OF SURGERY: 01/08/2022 PREOPERATIVE DIAGNOSIS: Coronary artery disease. POSTOPERATIVE DIAGNOSIS: Coronary artery disease. PROCEDURE: 1. Coronary artery bypass grafting x 3 vessels (left internal mammary artery to left anterior descending artery, saphenous vein graft to obtuse marginal artery, saphenous vein graft to distal right coronary artery). 2. Endoscopic harvest of right greater saphenous vein. 3. Ligation of left atrial appendage using 35 mm AtriClip. 4. Epiaortic ultrasound. 5. Transesophageal echocardiogram. 6. Closure of sternum using titanium plating system. SURGEON: Mark Caruso M.D. ASSISTANTS: 1. Phillip Curiel PA-C. 2. WILY Mendez. ANESTHESIA: General. SPECIMENS: None. COMPLICATIONS: None. INDICATION: The patient is an 81-year-old male with a history of hypertension, morbid obesity, prostate cancer, status post radiation therapy, kidney stones, and a history of lower extremity DVT, status post IVC filter, currently on Xarelto, who reports worsening chest pain with minimal exertion for the past several months. Workup revealed multivessel coronary artery disease. A coronary artery bypass was recommended. The risks, benefits and alternatives of this procedure were discussed with the patient. All of his questions were answered. Consent was obtained. FINDINGS: The left internal mammary artery was a good conduit with brisk flow. The saphenous vein was a good conduit. The LAD was diffusely calcified and measured 1.3 mm in diameter. The obtuse marginal artery measured 1.5 mm. The posterior descending artery was too small for bypass. The distal right coronary was heavily calcified and measured 1.0 mm. PROCEDURE IN DETAIL: The patient was taken to the operating room and placed supine on the operating table. After the induction of general anesthesia, he was prepped and draped in the usual sterile fashion. Preoperative transesophageal echocardiogram confirmed a preserved ejection fraction with mild aortic insufficiency. A median sternotomy was performed. The left internal mammary artery was harvested in the standard fashion, taking care to clip all branches. Intravenous heparin was administered. The vessel was transected distally, revealing brisk flow. Simultaneously, greater saphenous vein was harvested from the right lower extremity using endoscopic technique. All branches were tied. Both the mammary artery and saphenous vein were good conduits. A pericardial cradle was created. The ascending aorta was palpated. There was no significant calcific plaque noted. Epiaortic ultrasound was then performed on the ascending aorta. Again no calcific plaque or atheromatous disease was identified. Of note, there was a significant amount of fat within the mediastinum. An arterial cannula was placed in the distal ascending aorta. A venous cannula was placed through the right atrial appendage and directed into the IVC. Both antegrade and retrograde catheters were placed as well. The patient was then placed on cardiopulmonary bypass with good decompression of the heart. The aortic crossclamp was applied. Cold blood potassium cardioplegia was delivered in both antegrade and retrograde fashion to achieve arrest of the heart. Of note, cardioplegia was delivered every 15 to 20 minutes while the patient remained under crossclamp. I began by identifying the left atrial appendage. A 35 mm AtriClip was placed across its base to ensure ligation. Next, attention was turned to the inferior wall. The posterior descending artery was identified. It was dissected free. It was extremely small in size and not amenable for bypass. Next, the distal right coronary was identified and dissected free. I traced it for several centimeters; however, it contained diffuse calcific disease throughout its course. I found one soft spot that was amenable for bypass. A small arteriotomy was created. Using saphenous vein in a reverse fashion, an end-to-side anastomosis was created. This was performed using a running 7- 0 Prolene suture. The graft was hemostatic and had adequate flow. Next, attention was turned to the lateral wall. The obtuse marginal artery was identified. It was dissected free in a proximal location. A small arteriotomy was created. This vessel accepted a 1.5 mm probe. Using saphenous vein in reverse fashion, an end-to-side anastomosis was created. This was performed using a running 7-0 Prolene suture. The graft was hemostatic and had good flow. Finally, attention was turned to the anterior wall. The left anterior descending artery was palpated. It contained diffuse calcific disease throughout its course. A soft spot amenable for bypass was noted in its mid to distal region. This area was dissected free, but it still contained calcium. A small arteriotomy was created. The vessel barely accepted a 1.0 mm probe. Using the left internal mammary artery, an end-to-side anastomosis was created. This was performed using a running 8-0 Prolene suture. The graft was hemostatic. The mammary pedicle was then tacked down to the anterior surface of the heart. Attention was then turned to the proximal anastomoses. These were both performed in an end-to-side fashion using running 6-0 Prolene suture. One liter of warm blood was delivered in retrograde fashion. Both lidocaine and magnesium were administered as well. The aortic crossclamp was removed. The vein grafts were de-aired in the standard fashion. Distal anastomoses were inspected and appeared to be hemostatic. Temporary atrial and ventricular pacing wires were placed and brought through the skin. The patient was then weaned off cardiopulmonary bypass. He with the addition of low-dose milrinone and low-dose Levophed. Follow-up transesophageal echocardiogram confirmed a preserved ejection fraction with no change in valvular pathology. Protamine was administered. There were no adverse reactions. The remaining cannulas were then removed. The mediastinum was copiously irrigated with warm saline solution. Again, all surgical sites were inspected and appeared to be hemostatic. Soft tissue was reapproximated over the ascending aorta as well as over the apex of the heart. Chest tubes were placed in both the left pleural space and mediastinum. These were all secured to the skin using sutures. Due to the patient's obesity, I elected to reapproximate the sternum using a combination of titanium plates and [place] cables. In total, 3 [place] cables, 2 X plates and a V-plate were used. A combination of 16 mm and 14 mm screws was used as well. At the completion of closure, the sternum was well aligned. The remainder of the wound was closed in layers. Sterile dressing was applied. The patient appeared to tolerate the procedure well. There were no immediate complications. He returned to the ICU in critical but stable condition. He did not receive any intraoperative blood products. MMODL / IJN: [id number] / MTDD
[2022-01-08 21:23] LABS: ABG Base Excess -4.1 mmol/L; ABG HCO3 21 mmol/L (21-25); ABG Oxygen Saturation 99.5 % (94-97); ABG PCO2 37 mmHg (35-45); ABG PH 7.37 (7.35-7.45); ABG PO2 142 mmHg (83-108); ABG TCO2 22 mmol/L (19-24); Allen Test Performed? Yes
[2022-01-08 21:55] LABS: Basophils % (A) 0 %; Eosinophils % (A) 0 %; HCT 24.5 % (39.0-53.0); HGB 8.1 gm/dL (13.0-17.5); Lymphocytes # (A) 0.9 k/uL (1.0-4.8); Lymphocytes % (A) 8 %; MCH 30.4 pg (25.0-35.0); MCHC 33.2 g/dL (31.0-37.0); MCV 91.5 fL (80.0-100.0); Mean Platelet Volume 8.1; Monocytes # (A) 0.6 k/uL (0-1.0); Monocytes % (A) 6 %; Neutrophils % (A) 85 %; Platelet Count 186 k/uL (150-450); RBC 2.67 m/uL (4.30-5.90); RDW 13.5 % (11.5-15.5); WBC 10.6 k/uL (3.8-10.6)
[2022-01-08] MEDS ORDERED: ALBUMIN HUMAN 5% 250 ML in EMPTY BAG 1 BAG IVPB ONE (22:05)
[2022-01-08] MEDS ORDERED: SODIUM BICARB 8.4% 50 ML SYR (1 MEQ/ML) IV STA (22:11)
[2022-01-08 22:18] LABS: Glucose,Whole Blood 181 mg/dL (70-110)
[2022-01-08 23:08] LABS: ABG Base Excess -0.9 mmol/L; ABG HCO3 24 mmol/L (21-25); ABG Oxygen Saturation 99.3 % (94-97); ABG PCO2 37 mmHg (35-45); ABG PH 7.42 (7.35-7.45); ABG PO2 113 mmHg (83-108); ABG TCO2 25 mmol/L (19-24); Allen Test Performed? Yes
[2022-01-08 23:25] LABS: Glucose,Whole Blood 161 mg/dL (70-110)
[2022-01-09 00:28] LABS: Glucose,Whole Blood 143 mg/dL (70-110)
[2022-01-09] MEDS: MILRINONE-D5W PMX 20 MG in DEXTROSE/WATER 1 100ML.BAG IV SCH ×2 (00:29→10:27)
[2022-01-09] MEDS: ACETAMINOPHEN IV (For NPO) 1,000 MG in EMPTY BAG 1 BAG IVPB SCH (00:31)
[2022-01-09] MEDS: HEPARIN SODIUM,PORCINE/PF 5,000 UNIT/0.5 ML SYRINGE SQ SCH ×4 (00:33→23:24)
[2022-01-09] MEDS: KETOROLAC 15 MG/ML 1 ML VIAL IVP SCH ×5 (00:33→23:23)
[2022-01-09 01:09] LABS: Glucose,Whole Blood 137 mg/dL (70-110)
[2022-01-09] MEDS ORDERED: HYDROcodone/APAP 5-325MG 1 EACH TAB PO PRN (02:00)
[2022-01-09 02:12] LABS: Glucose,Whole Blood 152 mg/dL (70-110)
[2022-01-09 03:17] LABS: Glucose,Whole Blood 162 mg/dL (70-110)
[2022-01-09] MEDS: ALBUMIN HUMAN 5% 250 ML in EMPTY BAG 1 BAG IVPB PRN (04:18)
[2022-01-09 04:31] LABS: Glucose,Whole Blood 173 mg/dL (70-110)
[2022-01-09 04:51] LABS: Ionized Calcium 4.6 mg/dL (4.5-5.3)
[2022-01-09 04:54] LABS: Basophils % (A) 0 %; Eosinophils % (A) 0 %; Lymphocytes # (A) 0.9 k/uL (1.0-4.8); Lymphocytes % (A) 10 %; MCH 31.3 pg (25.0-35.0); MCHC 33.6 g/dL (31.0-37.0); MCV 93.1 fL (80.0-100.0); Mean Platelet Volume 8.5; Monocytes # (A) 0.5 k/uL (0-1.0); Monocytes % (A) 6 %; Neutrophils % (A) 82 %; Platelet Count 158 k/uL (150-450); RBC 2.14 m/uL (4.30-5.90); RDW 14.2 % (11.5-15.5); WBC 8.5 k/uL (3.8-10.6)
[2022-01-09 04:58] LABS: ALT 9 U/L (4-49); AST 38 U/L (17-59); African American GFR (CKD) >90 (>60 ml/min/1.73 sqM); Albumin 3.1 g/dL (3.5-5.0); Alkaline Phosphatase 40 U/L (38-126); Anion Gap 8 mmol/L; Blood Urea Nitrogen 20 mg/dL (9-20); Calcium 7.9 mg/dL (8.4-10.2); Carbon Dioxide 26 mmol/L (22-30); Chloride 106 mmol/L (98-107); Glucose 150 mg/dL (74-99); HCT 19.9 % (39.0-53.0); HGB 6.7 gm/dL (13.0-17.5); Magnesium 2.2 mg/dL (1.6-2.3); Non-African American GFR(CKD) 78 (>60 ml/min/1.73 sqM); Potassium 3.9 mmol/L (3.5-5.1); Sodium 140 mmol/L (137-145); Total Bilirubin 0.8 mg/dL (0.2-1.3); Total Protein 4.6 g/dL (6.3-8.2)
[2022-01-09 05:58] LABS: Glucose,Whole Blood 155 mg/dL (70-110)
[2022-01-09 06:28] LABS: Glucose,Whole Blood 141 mg/dL (70-110)
[2022-01-09 06:58] LABS: Glucose,Whole Blood 139 mg/dL (70-110)
--- NOTE | 2022-01-09 07:07 | XR ---
EXAMINATION TYPE: XR chest 1V portable DATE OF EXAM: 01/09/2022 HISTORY: Post Operative Cardiac Surgery COMPARISON: 01/08/2022 TECHNIQUE: Single view of the chest is submitted. FINDINGS: Endotracheal tube and NG tube have been removed. Left-sided chest tube and mediastinal drains remain in place as does the Milroy-Ubaldo catheter. Post operative changes of CABG. No sizeable pneumothorax. Scattered Pleural-parenchymal opacities may reflect atelectasis. The heart is enlarged. IMPRESSION: 1. Post operative changes of CABG.
[2022-01-09] MEDS: IPRATROPIUM-ALBUTEROL 3 ML NEB INHALATION SCH ×4 (08:04→19:47)
[2022-01-09 08:41] LABS: Glucose,Whole Blood 112 mg/dL (70-110)
[2022-01-09] MEDS: ASPIRIN 325 MG TAB PO SCH (08:54)
[2022-01-09] MEDS: ATORVASTATIN 40 MG TAB PO SCH (08:54)
[2022-01-09] MEDS: CLOPIDOGREL 75 MG TAB PO SCH (08:54)
[2022-01-09] MEDS: POTASSIUM CHLORIDE 10 MEQ in WATER FOR INJECTION 1 100ML.BAG IVPB SCH ×2 (08:56→10:28)
[2022-01-09] MEDS ORDERED: MAGNESIUM HYDROXIDE 2,400 MG/10 ML CUP PO PRN (09:00)
[2022-01-09] MEDS ORDERED: METOPROLOL TARTRATE 12.5 MG TAB PO SCH (09:00)
[2022-01-09] MEDS ORDERED: PANTOPRAZOLE 40 MG/10 ML VIAL IVP SCH (09:00)
[2022-01-09 09:55] LABS: Glucose,Whole Blood 155 mg/dL (70-110)
[2022-01-09] MEDS: HYDROcodone/APAP 5-325MG 1 EACH TAB PO PRN (10:28)
--- NOTE | 2022-01-09 11:07 | P.PN ---
Subjective Progress Note Date: 01/09/22 Principal diagnosis: Coronary artery disease. Past medical history significant for hypertension, hyperlipidemia, morbid obesity with a BMI of 41.3 kg/m, history of prostate cancer, status post radiation therapy, left lower extremity DVT with previous IVC filter placement and is maintained on Xarelto on an outpatient basis, history of kidney stones and nonrheumatic aortic valve insufficiency. POD #1 coronary artery bypass grafting 3 vessels with left internal mammary artery to left anterior descending coronary artery, a greater saphenous vein graft to the obtuse marginal coronary artery, and a greater saphenous vein graft to the distal right coronary artery. Endoscopic harvesting of the right greater saphenous vein, ligation of left atrial appendage using a 35 mm Atriclip, epi- aortic ultrasound, intraoperative transesophageal echocardiogram and closure of the sternum using titanium plating system. Postoperative acute blood loss anemia, expected given hemodilution and cardiopulmonary bypass. The patient was seen and examined today 01/09/2022 at his bedside in the intensive care unit. Currently, the patient is laying in bed, is awake, alert and oriented 3 and is in no acute apparent distress. He was successfully extubated at 2:50 AM today and is currently on 4 L nasal cannula with his oxygen saturations 93%. He remains hemodynamically stable and is currently on no inotropic or pressor support. His norepinephrine drip was discontinued this morning around 6:30 AM. He continues on Primacor at 0.01 mcg/kg/m. Right IJ Cordis and Wayne-Ubaldo catheter remains in place with current hemodynamic showing a cardiac output 5.6, cardiac index 2.5, PA pressures 39/14 and a CVP of 12 mmHg. SVR is 699 at this time. Mediastinal and left pleural chest tubes remain in place to low continuous wall suction -20 cm H2O. No air leak is present. Draining thin serosanguineous drainage with 170 mL output from his mediastinal chest tube in the last 8 hours and 470 mL since surgery. Left pleural chest tube drained 440 mL output in the last 8 hours in 900 mL output since surgery. Right lower extremity GUNJAN drain remains in place with 140 mL output of thin sero sanguineous drainage since surgery. Laboratory results this morning show a WBC count of 8.5, hemoglobin 6.7, hematocrit 19.9, platelets 158, sodium 140, potassium 3.9, BUN 20, creatinine 0.92, calcium 7.9, ionized calcium 4.6 and magnesium 2.2. He is being transfused for 1 unit of packed red blood cells at this time. Bedside telemetry is showing normal sinus rhythm heart rate 73 bpm. Objective - Vital Signs Vital signs: Vital Signs Temp 97.7 F 01/09/22 10:00 Pulse 72 01/09/22 10:15 Resp 17 01/09/22 10:15 BP 96/38 01/09/22 10:15 Pulse Ox 94 L 01/09/22 10:15 FiO2 50 01/09/22 08:02 Intake & Output 01/08/22 01/09/22 01/09/22 18:59 06:59 18:59 Intake Total 1854.297 2645.508 849.586 Output Total 2655 1517 395 Balance -1414.503 872.508 454.586 Intake: IV 102 1849 286 ACETAMINOPHEN IV (For NPO 100 ) 1,000 mg In Empty Bag 1 bag @ 400 mls/hr IVPB Q6HR [facility] Rx#:[id number] Albumin Human 5% 250 ml 750 In Empty Bag 1 bag @ 250 mls/hr IVPB ONCE ONE Rx#: [id number] CO/CI flush 300 50 Lactated Ringers 1,000 ml 550 200 @ 50 mls/hr IV .Q20H [facility] Rx#:[id number] Pressure Lines 99 36 ceFAZolin 2 gm In Sodium 50 Chloride 0.9% 50 ml @ 100 mls/hr IVPB Q8HR AUDREY Rx# :[id number] Intake, IV Titration 1138.497 540.508 203.586 Amount ACETAMINOPHEN IV (For NPO 100 ) 1,000 mg In Empty Bag 1 bag @ 400 mls/hr IVPB Q6HR AUDREY Rx#:[id number] Albumin Human 5% 250 ml 500 In Empty Bag 1 bag @ 250 mls/hr IVPB Q1HR PRN Rx#: [id number] Insulin Regular 100 unit 37.401 3.586 In Sodium Chloride 0.9% 100 ml @ Per Protocol IV .Q0M [facility]UD[facility] Rx#:[id number] Lactated Ringers 1,000 ml 200 50 @ 50 mls/hr IV .Q20H [facility] Rx#:[id number] Milrinone-D5w Pmx 20 mg 43.2 110.800 In Dextrose/Water 1 100ml .bag @ 0.3 MCG/KG/MIN 10. 764 mls/hr IV .Q9H18M [facility] Rx#:[id number] Nitroglycerin-D5w Pmx 50 6.0 1.5 mg In Dextrose/Water 1 250ml.bag @ 5 MCG/MIN 1.5 mls/hr IV .Q24H [facility] Rx#: [id number] Norepinephrine 4 mg In 157.706 340.807 Sodium Chloride 0.9% 250 ml @ 0.02 MCG/KG/MIN 9. 114 mls/hr IV .Q24H [facility] Rx#:[id number] Potassium Chloride 10 meq 200 In Water For Injection 1 100ml.bag @ 100 mls/hr IVPB Q1H [facility] Rx#: [id number] ceFAZolin 2 gm In Sodium 50 Chloride 0.9% 50 ml @ 100 mls/hr IVPB Q8HR [facility] Rx# :[id number] propofoL 1,000 mg In 81.591 Empty Bag 1 bag @ Titrate IV .Q0M [facility] Rx#: [id number] Blood Product 0 310 Rc As-1 Unit 0 310 [id number] Other 50 Rc As-1 Unit 50 [id number] Output: Drainage 460 980 230 Left Chest 250 680 140 Medial Chest 190 180 90 Right Thigh 20 120 Urine 1195 537 165 Estimated Blood Loss 1000 Other: Voiding Method Indwelling Catheter Indwelling Catheter ABP, PAP, CO, CI - Last Documented Arterial Blood Pressure 126/37 Pulmonary Artery Pressure 43/16 Cardiac Output 6.0 Cardiac Index 2.6 - Exam CONSTITUTIONAL: Laying in bed in the intensive care unit, appears comfortable, cooperative, no apparent acute distress. HEENT: Neck is supple, no JVD, no lymphadenopathy. Right IJ Cordis and Wayne- Ubaldo catheter in place and functioning. RESPIRATORY: Lungs sounds essentially clear throughout, diminished to his bilateral bases. Respirations are symmetrical and nonlabored. Currently on 3 L nasal cannula with oxygen saturations 93%. Able to achieve 1000 mL on his incentive spirometry. Strong cough. CARDIOVASCULAR: Regular rhythm and rate. S1 and S2 present, negative for S3, gallop or murmur. Sternum is stable. Palpable peripheral pulses bilaterally, +1 edema to his bilateral lower extremities. No calf pain or tenderness noted. Heart hugger in place with patient demonstrating appropriate use. Knee-high AMANDA hose and sequential compression devices in place to his bilateral lower extremities. GASTROINTESTINAL: Abdomen soft, nontender, nondistended. Hypoactive bowel sounds present 4 quadrants. Tolerating diet. Denies passing flatus. No guarding or rigidity. GENITOURINARY: Oconnell present draining clear, yellow urine. Output 350 mL in the last 8 hours INTEGUMENTARY: Skin is warm and dry with no evidence of clubbing or cyanosis. Midline sternal incision clean dry and well approximated, covered with dry intact dressing. Right lower extremity EVH sites well approximated without redness or drainage. MUSKULOSKELETAL: Able to move all extremities, strength equal bilaterally, generalized weakness. PSYCHIATRIC: Alert and oriented to person place and time, appropriate affect, intact judgment and insight. INVASIVE LINES AND TUBES: Mediastinal/left pleural chest tubes present and connected to low continuous wall suction, no air leaks present. Mediastinal tube with 170 mL of thin serosanguineous drainage overnight, 470 mL output since surgery. Left pleural chest tube with 440 mL of thin serosanguineous drainage overnight, 900 mL output since surgery. Atrial and ventricular epicardial pacemaker wires present, connected to generator, VVI backup rate 50 bpm. Right internal jugular Wayne/Cordis, right radial arterial line present. Last CO 5.6, CI 2.5, PA 39/14 and CVP 12 mmHg. Right lower extremity GUNJAN drain in place draining thin serosanguineous drainage with 140 mL output since surgery. - Allied health notes Allied health notes reviewed: nursing - Labs CBC & Chem 7: 01/09/22 04:30 01/09/22 04:30 Labs: Abnormal Lab Results - Last 24 Hours (Table) 01/06/22 01/08/22 01/08/22 Range/Units 15:45 15:05 15:10 RBC 3.05 L (4.30-5.90) m/uL Hgb 9.6 L D (13.0-17.5) gm/dL Hct 28.0 L (39.0-53.0) % Neutrophils # (1.3-7.7) k/uL Lymphocytes # (1.0-4.8) k/uL PT (9.0-12.0) sec INR (<1.2) Fibrinogen (200-500) mg/dL ABG pH (7.35-7.45) ABG pO2 (83-108) mmHg ABG Total CO2 (19-24) mmol/L ABG O2 Saturation (94-97) % Chloride (98-107) mmol/L Glucose (74-99) mg/dL POC Glucose (mg/dL) 137 H (70-110) mg/dL Calcium (8.4-10.2) mg/dL Magnesium (1.6-2.3) mg/dL Total Protein (6.3-8.2) g/dL Albumin (3.5-5.0) g/dL Crossmatch See Detail 01/08/22 01/08/22 01/08/22 Range/Units 15:10 15:10 15:10 RBC (4.30-5.90) m/uL Hgb (13.0-17.5) gm/dL Hct (39.0-53.0) % Neutrophils # (1.3-7.7) k/uL Lymphocytes # (1.0-4.8) k/uL PT 12.9 H (9.0-12.0) sec INR 1.2 H (<1.2) Fibrinogen 194 L (200-500) mg/dL ABG pH (7.35-7.45) ABG pO2 (83-108) mmHg ABG Total CO2 (19-24) mmol/L ABG O2 Saturation (94-97) % Chloride 109 H (98-107) mmol/L Glucose 130 H (74-99) mg/dL POC Glucose (mg/dL) (70-110) mg/dL Calcium 7.9 L (8.4-10.2) mg/dL Magnesium 2.5 H (1.6-2.3) mg/dL Total Protein 4.9 L (6.3-8.2) g/dL Albumin 3.1 L (3.5-5.0) g/dL Crossmatch 01/08/22 01/08/22 01/08/22 Range/Units 15:32 15:59 17:02 RBC (4.30-5.90) m/uL Hgb (13.0-17.5) gm/dL Hct (39.0-53.0) % Neutrophils # (1.3-7.7) k/uL Lymphocytes # (1.0-4.8) k/uL PT (9.0-12.0) sec INR (<1.2) Fibrinogen (200-500) mg/dL ABG pH 7.33 L (7.35-7.45) ABG pO2 279 H (83-108) mmHg ABG Total CO2 (19-24) mmol/L ABG O2 Saturation 100.0 H (94-97) % Chloride (98-107) mmol/L Glucose (74-99) mg/dL POC Glucose (mg/dL) 119 H 128 H (70-110) mg/dL Calcium (8.4-10.2) mg/dL Magnesium (1.6-2.3) mg/dL Total Protein (6.3-8.2) g/dL Albumin (3.5-5.0) g/dL Crossmatch 01/08/22 01/08/22 01/08/22 Range/Units 18:09 18:10 19:13 RBC 2.79 L (4.30-5.90) m/uL Hgb 8.7 L (13.0-17.5) gm/dL Hct 25.6 L (39.0-53.0) % Neutrophils # (1.3-7.7) k/uL Lymphocytes # (1.0-4.8) k/uL PT (9.0-12.0) sec INR (<1.2) Fibrinogen (200-500) mg/dL ABG pH (7.35-7.45) ABG pO2 (83-108) mmHg ABG Total CO2 (19-24) mmol/L ABG O2 Saturation (94-97) % Chloride (98-107) mmol/L Glucose (74-99) mg/dL POC Glucose (mg/dL) 154 H 135 H (70-110) mg/dL Calcium (8.4-10.2) mg/dL Magnesium (1.6-2.3) mg/dL Total Protein (6.3-8.2) g/dL Albumin (3.5-5.0) g/dL Crossmatch 01/08/22 01/08/22 01/08/22 Range/Units 20:12 21:22 21:35 RBC 2.67 L (4.30-5.90) m/uL Hgb 8.1 L (13.0-17.5) gm/dL Hct 24.5 L (39.0-53.0) % Neutrophils # 9.0 H (1.3-7.7) k/uL Lymphocytes # 0.9 L (1.0-4.8) k/uL PT (9.0-12.0) sec INR (<1.2) Fibrinogen (200-500) mg/dL ABG pH (7.35-7.45) ABG pO2 142 H (83-108) mmHg ABG Total CO2 (19-24) mmol/L ABG O2 Saturation 99.5 H (94-97) % Chloride (98-107) mmol/L Glucose (74-99) mg/dL POC Glucose (mg/dL) 164 H (70-110) mg/dL Calcium (8.4-10.2) mg/dL Magnesium (1.6-2.3) mg/dL Total Protein (6.3-8.2) g/dL Albumin (3.5-5.0) g/dL Crossmatch 01/08/22 01/08/22 01/08/22 Range/Units 22:16 22:27 23:06 RBC (4.30-5.90) m/uL Hgb (13.0-17.5) gm/dL Hct (39.0-53.0) % Neutrophils # (1.3-7.7) k/uL Lymphocytes # (1.0-4.8) k/uL PT (9.0-12.0) sec INR (<1.2) Fibrinogen (200-500) mg/dL ABG pH (7.35-7.45) ABG pO2 113 H (83-108) mmHg ABG Total CO2 25 H (19-24) mmol/L ABG O2 Saturation 99.3 H (94-97) % Chloride (98-107) mmol/L Glucose (74-99) mg/dL POC Glucose (mg/dL) 181 H 161 H (70-110) mg/dL Calcium (8.4-10.2) mg/dL Magnesium (1.6-2.3) mg/dL Total Protein (6.3-8.2) g/dL Albumin (3.5-5.0) g/dL Crossmatch 07/16/22 07/16/22 07/16/22 Range/Units 00:08 01:07 02:12 RBC (4.30-5.90) m/uL Hgb (13.0-17.5) gm/dL Hct (39.0-53.0) % Neutrophils # (1.3-7.7) k/uL Lymphocytes # (1.0-4.8) k/uL PT (9.0-12.0) sec INR (<1.2) Fibrinogen (200-500) mg/dL ABG pH (7.35-7.45) ABG pO2 (83-108) mmHg ABG Total CO2 (19-24) mmol/L ABG O2 Saturation (94-97) % Chloride (98-107) mmol/L Glucose (74-99) mg/dL POC Glucose (mg/dL) 143 H 137 H 152 H (70-110) mg/dL Calcium (8.4-10.2) mg/dL Magnesium (1.6-2.3) mg/dL Total Protein (6.3-8.2) g/dL Albumin (3.5-5.0) g/dL Crossmatch 01/09/22 01/09/22 01/09/22 Range/Units 03:15 04:30 04:30 RBC 2.14 L (4.30-5.90) m/uL Hgb 6.7 L* (13.0-17.5) gm/dL Hct 19.9 L* (39.0-53.0) % Neutrophils # (1.3-7.7) k/uL Lymphocytes # 0.9 L (1.0-4.8) k/uL PT (9.0-12.0) sec INR (<1.2) Fibrinogen (200-500) mg/dL ABG pH (7.35-7.45) ABG pO2 (83-108) mmHg ABG Total CO2 (19-24) mmol/L ABG O2 Saturation (94-97) % Chloride (98-107) mmol/L Glucose 150 H (74-99) mg/dL POC Glucose (mg/dL) 162 H (70-110) mg/dL Calcium 7.9 L (8.4-10.2) mg/dL Magnesium (1.6-2.3) mg/dL Total Protein 4.6 L (6.3-8.2) g/dL Albumin 3.1 L (3.5-5.0) g/dL Crossmatch 01/09/22 01/09/22 01/09/22 Range/Units 04:30 05:57 06:26 RBC (4.30-5.90) m/uL Hgb (13.0-17.5) gm/dL Hct (39.0-53.0) % Neutrophils # (1.3-7.7) k/uL Lymphocytes # (1.0-4.8) k/uL PT (9.0-12.0) sec INR (<1.2) Fibrinogen (200-500) mg/dL ABG pH (7.35-7.45) ABG pO2 (83-108) mmHg ABG Total CO2 (19-24) mmol/L ABG O2 Saturation (94-97) % Chloride (98-107) mmol/L Glucose (74-99) mg/dL POC Glucose (mg/dL) 173 H 155 H 141 H (70-110) mg/dL Calcium (8.4-10.2) mg/dL Magnesium (1.6-2.3) mg/dL Total Protein (6.3-8.2) g/dL Albumin (3.5-5.0) g/dL Crossmatch 01/09/22 01/09/22 01/09/22 Range/Units 06:55 08:40 09:48 RBC (4.30-5.90) m/uL Hgb (13.0-17.5) gm/dL Hct (39.0-53.0) % Neutrophils # (1.3-7.7) k/uL Lymphocytes # (1.0-4.8) k/uL PT (9.0-12.0) sec INR (<1.2) Fibrinogen (200-500) mg/dL ABG pH (7.35-7.45) ABG pO2 (83-108) mmHg ABG Total CO2 (19-24) mmol/L ABG O2 Saturation (94-97) % Chloride (98-107) mmol/L Glucose (74-99) mg/dL POC Glucose (mg/dL) 139 H 112 H 155 H (70-110) mg/dL Calcium (8.4-10.2) mg/dL Magnesium (1.6-2.3) mg/dL Total Protein (6.3-8.2) g/dL Albumin (3.5-5.0) g/dL Crossmatch - Imaging and Cardiology Chest x-ray: report reviewed, image reviewed Assessment and Plan Assessment: 1. Coronary artery disease, status post three-vessel coronary artery bypass grafting surgery 2. History of hypertension 3. Hyperlipidemia 4. History of nonrheumatic aortic valve insufficiency 5. History of left lower extremity DVT with previous IVC filter placement, maintained on Xarelto on an outpatient basis 6. Morbid obesity with a BMI of 41.3 kg/m 7. History of prostate cancer, status post radiation therapy 8. History of kidney stones 9. Postoperative acute blood loss anemia, expected Plan: 1. Continue aspirin, statin, Plavix, beta charles. We will increase metoprolol tartrate 25 mg by mouth twice a day. 2. Wean O2 as tolerated. Encourage incentive spirometry is 10 times every hour while awake. Bronchodilators per pulmonology. Patient needs strong encouragement for pulmonary toileting. 3. Increase activity as tolerated. PT/OT/cardiac rehab consulted. 4. Will monitor daily labs and chest x-rays. Electrolyte replacement per protocol. Will transfuse 1 unit PRBCs, for hemoglobin of 6.7. 5. Insulin management per primary care service. Patient is not a diabetic, preoperative hemoglobin A1c 6.0% 6. Pain control with current medication regimen. 7. Continue right IJ cordis and Wayne-Ubaldo catheter for another 24 hours. 8. Continue chest tubes for another 24 hours, monitor output. 9. Continue Oconnell catheter for another 24 hours for strict accurate intake and output. Daily weights. 10. GI/DVT prophylaxis. 11. Discontinue Primacor drip. 12. More recommendations to follow based on patient's progress Time with Patient: Greater than 30
--- NOTE | 2022-01-09 11:20 | P.PN ---
Subjective Progress Note Date: 01/09/22 Principal diagnosis: Coronary artery disease status post coronary artery bypass grafting This is a 81-year-old male patient with a known history of hyperlipidemia, hypertension, morbid obesity, prostate cancer, DVT of the left lower extremity with previous IVC filter placement maintained on Xarelto, aortic insufficiency. He had been having issues with chest discomfort and shortness of breath and it undergone cardiac catheterization by Dr. Farris on 12/29/2021 her son has sign ificant coronary artery disease. Pulmonary function testing revealed good lung function with an FEV1 value of 2.21 L and 90% of predicted. He is a nonsmoker. He presented here today for an elective coronary artery bypass grafting surgery done by Dr. Caruso. He did receive a SAMUELS to the LAD, saphenous vein graft to the RCA, saphenous vein graft to the OM1, exclusion of left atrial appendage utilizing the 35mm 8 treat clip. He was returned to the ICU today at approximately 1500. Remains intubated on mechanical ventilator. Current settings reveal assist-control mode with a rate of 14, tidal 500, FiO2 100% and a PEEP of 10 based on his BMI 41.3 kg per metered squared. He has lactated Ringer's running at 50 ML's per hour. Norepinephrine at 0.03 mcg/kg/m. Nitroglycerin drip at 5 mcg/m. Milrinone at 0.3 mcg/kg/m and propofol at 20 mcg/kg/m. Cardiac output 4.7. Cardiac index 2.1. PA pressure 43/21. He is atrial pacing at 80. Right internal jugular Ewing-Ubaldo catheter in place. Right radial arterial line in place. Chest x-ray reveals 2 mediastinal chest tubes and 1 left pleural chest tube. Both connected to wall suction. No leaks noted. White count 9.7. Hemoglobin 9.6. Pletal it's 152. INR 1.2. Sodium 138. Potassium 4.4. Chloride 109. Bicarb 23. BUN 17. Creatinine 0.66. Glucose 130. AST 50. ALT 8. Albumin 3.1. Magnesium 2.5. Calcium 7.9. Ionized calcium 4.6. The patient is seen today 01/09/2022 in follow-up. Postoperative day #1. He was extubated approximately 3:00 this morning. He is having issues with labile blood pressure and required a unit of packed red blood cells. Current hemoglobin 6.7. Platelets 158. Another unit of packed red blood cells are pending. White count 8.5. Sodium 140. Potassium 3.9. Bicarb 26. BUN 20. Creatinine 0.92. Glucose 150. Calcium 7.9. Albumin 3.1. AST 30. ALT 9. He is currently on lactated Ringer's at 50 MLS per hour. Milrinone at 0.1 mcg/kg/m. Insulin drip at 1.5 units per hour. He is maintaining good O2 saturations in the 90s on 4 L/m per nasal cannula. He is afebrile. Mean arterial pressure 59. PA pressure 43/16. CVP 13. Cardiac output 6.0. Cardiac index 2.6. Chest x-ray reveals no sizable pneumothorax. Left-sided and mediastinal chest tubes remain in place. Some scattered pleural parenchymal opacities most likely atelectasis. Encouraged regarding these incentive rasheed meter. Continue bronchodilators. Heparin for DVT prophylaxis. He did receive albumin earlier this morning. Currently in a -541, balance. Objective - Vital Signs Vital signs: Vital Signs Temp 97.7 F 01/09/22 10:00 Pulse 72 01/09/22 10:15 Resp 17 01/09/22 10:15 BP 96/38 01/09/22 10:15 Pulse Ox 94 L 01/09/22 10:15 FiO2 50 01/09/22 08:02 Intake & Output 01/08/22 01/09/22 01/09/22 18:59 06:59 18:59 Intake Total 1118.996 0236.508 849.586 Output Total 2655 1517 395 Balance -1414.503 872.508 454.586 Intake: IV 102 1849 286 ACETAMINOPHEN IV (For NPO 100 ) 1,000 mg In Empty Bag 1 bag @ 400 mls/hr IVPB Q6HR [facility] Rx#:[id number] Albumin Human 5% 250 ml 750 In Empty Bag 1 bag @ 250 mls/hr IVPB ONCE ONE Rx#: [id number] CO/CI flush 300 50 Lactated Ringers 1,000 ml 550 200 @ 50 mls/hr IV .Q20H [facility] Rx#:[id number] Pressure Lines 99 36 ceFAZolin 2 gm In Sodium 50 Chloride 0.9% 50 ml @ 100 mls/hr IVPB Q8HR [facility] Rx# :[id number] Intake, IV Titration 1138.497 540.508 203.586 Amount ACETAMINOPHEN IV (For NPO 100 ) 1,000 mg In Empty Bag 1 bag @ 400 mls/hr IVPB Q6HR [facility] Rx#:[id number] Albumin Human 5% 250 ml 500 In Empty Bag 1 bag @ 250 mls/hr IVPB Q1HR PRN Rx#: [id number] Insulin Regular 100 unit 37.401 3.586 In Sodium Chloride 0.9% 100 ml @ Per Protocol IV .Q0M [facility] Rx#:[id number] Lactated Ringers 1,000 ml 200 50 @ 50 mls/hr IV .Q20H [facility] Rx#:[id number] Milrinone-D5w Pmx 20 mg 43.2 110.800 In Dextrose/Water 1 100ml .bag @ 0.3 MCG/KG/MIN 10. 764 mls/hr IV .Q9H18M [facility] Rx#:[id number] Nitroglycerin-D5w Pmx 50 6.0 1.5 mg In Dextrose/Water 1 250ml.bag @ 5 MCG/MIN 1.5 mls/hr IV .Q24H [facility] Rx#: [id number] Norepinephrine 4 mg In 157.706 340.807 Sodium Chloride 0.9% 250 ml @ 0.02 MCG/KG/MIN 9. 114 mls/hr IV .Q24H [facility] Rx#:[id number] Potassium Chloride 10 meq 200 In Water For Injection 1 100ml.bag @ 100 mls/hr IVPB Q1H [facility] Rx#: [id number] ceFAZolin 2 gm In Sodium 50 Chloride 0.9% 50 ml @ 100 mls/hr IVPB Q8HR [facility] Rx# :[id number] propofoL 1,000 mg In 81.591 Empty Bag 1 bag @ Titrate IV .Q0M [facility] Rx#: [id number] Blood Product 0 310 Rc As-1 Unit 0 310 [id number] Other 50 Rc As-1 Unit 50 [id number] Output: Drainage 460 980 230 Left Chest 250 680 140 Medial Chest 190 180 90 Right Thigh 20 120 Urine 1195 537 165 Estimated Blood Loss 1000 Other: Voiding Method Indwelling Catheter Indwelling Catheter ABP, PAP, CO, CI - Last Documented Arterial Blood Pressure 126/37 Pulmonary Artery Pressure 43/16 Cardiac Output 6.0 Cardiac Index 2.6 - Exam GENERAL EXAM: Awake, alert obese 81-year-old male patient on 4 L nasal cannula, in no apparent distress. HEAD: Normocephalic. EYES: Normal reaction of pupils, equal size. NOSE: Clear with pink turbinates. THROAT: No erythema or exudates. NECK: Right IJ Ewing-Ubaldo catheter in place. No masses, no JVD. CHEST: Sternal dressing dry and intact. Heart Hugger in place. 2 mediastinal, 1 left pleural chest tubes in place. To wall suction. No leak. LUNGS: Equal air entry with no crackles, wheeze, rhonchi or dullness. CVS: S1 and S2 normal with no audible murmur, regular rhythm. Back pacing at 50 bpm Pacer wires in place connected generator. ABDOMEN: No hepatosplenomegaly, no guarding or rigidity. SPINE: No scoliosis or deformity SKIN: No rashes CENTRAL NERVOUS SYSTEM: Alert, oriented. Tone is normal in all 4 extremities. EXTREMITIES: Right radial arterial line in place. Thuan wrap support bilateral lower extremities. GUNJAN in place to the right lower extremity. There is 1+ peripheral edema. Peripheral pulses are intact. - Labs CBC & Chem 7: 01/09/22 04:30 01/09/22 04:30 Labs: Abnormal Lab Results - Last 24 Hours (Table) 01/06/22 01/08/22 01/08/22 Range/Units 15:45 15:05 15:10 RBC 3.05 L (4.30-5.90) m/uL Hgb 9.6 L D (13.0-17.5) gm/dL Hct 28.0 L (39.0-53.0) % Neutrophils # (1.3-7.7) k/uL Lymphocytes # (1.0-4.8) k/uL PT (9.0-12.0) sec INR (<1.2) Fibrinogen (200-500) mg/dL ABG pH (7.35-7.45) ABG pO2 (83-108) mmHg ABG Total CO2 (19-24) mmol/L ABG O2 Saturation (94-97) % Chloride (98-107) mmol/L Glucose (74-99) mg/dL POC Glucose (mg/dL) 137 H (70-110) mg/dL Calcium (8.4-10.2) mg/dL Magnesium (1.6-2.3) mg/dL Total Protein (6.3-8.2) g/dL Albumin (3.5-5.0) g/dL Crossmatch See Detail 01/08/22 01/08/22 01/08/22 Range/Units 15:10 15:10 15:10 RBC (4.30-5.90) m/uL Hgb (13.0-17.5) gm/dL Hct (39.0-53.0) % Neutrophils # (1.3-7.7) k/uL Lymphocytes # (1.0-4.8) k/uL PT 12.9 H (9.0-12.0) sec INR 1.2 H (<1.2) Fibrinogen 194 L (200-500) mg/dL ABG pH (7.35-7.45) ABG pO2 (83-108) mmHg ABG Total CO2 (19-24) mmol/L ABG O2 Saturation (94-97) % Chloride 109 H (98-107) mmol/L Glucose 130 H (74-99) mg/dL POC Glucose (mg/dL) (70-110) mg/dL Calcium 7.9 L (8.4-10.2) mg/dL Magnesium 2.5 H (1.6-2.3) mg/dL Total Protein 4.9 L (6.3-8.2) g/dL Albumin 3.1 L (3.5-5.0) g/dL Crossmatch 01/08/22 01/08/22 01/08/22 Range/Units 15:32 15:59 17:02 RBC (4.30-5.90) m/uL Hgb (13.0-17.5) gm/dL Hct (39.0-53.0) % Neutrophils # (1.3-7.7) k/uL Lymphocytes # (1.0-4.8) k/uL PT (9.0-12.0) sec INR (<1.2) Fibrinogen (200-500) mg/dL ABG pH 7.33 L (7.35-7.45) ABG pO2 279 H (83-108) mmHg ABG Total CO2 (19-24) mmol/L ABG O2 Saturation 100.0 H (94-97) % Chloride (98-107) mmol/L Glucose (74-99) mg/dL POC Glucose (mg/dL) 119 H 128 H (70-110) mg/dL Calcium (8.4-10.2) mg/dL Magnesium (1.6-2.3) mg/dL Total Protein (6.3-8.2) g/dL Albumin (3.5-5.0) g/dL Crossmatch 01/08/22 01/08/22 01/08/22 Range/Units 18:09 18:10 19:13 RBC 2.79 L (4.30-5.90) m/uL Hgb 8.7 L (13.0-17.5) gm/dL Hct 25.6 L (39.0-53.0) % Neutrophils # (1.3-7.7) k/uL Lymphocytes # (1.0-4.8) k/uL PT (9.0-12.0) sec INR (<1.2) Fibrinogen (200-500) mg/dL ABG pH (7.35-7.45) ABG pO2 (83-108) mmHg ABG Total CO2 (19-24) mmol/L ABG O2 Saturation (94-97) % Chloride (98-107) mmol/L Glucose (74-99) mg/dL POC Glucose (mg/dL) 154 H 135 H (70-110) mg/dL Calcium (8.4-10.2) mg/dL Magnesium (1.6-2.3) mg/dL Total Protein (6.3-8.2) g/dL Albumin (3.5-5.0) g/dL Crossmatch 01/08/22 01/08/22 01/08/22 Range/Units 20:12 21:22 21:35 RBC 2.67 L (4.30-5.90) m/uL Hgb 8.1 L (13.0-17.5) gm/dL Hct 24.5 L (39.0-53.0) % Neutrophils # 9.0 H (1.3-7.7) k/uL Lymphocytes # 0.9 L (1.0-4.8) k/uL PT (9.0-12.0) sec INR (<1.2) Fibrinogen (200-500) mg/dL ABG pH (7.35-7.45) ABG pO2 142 H (83-108) mmHg ABG Total CO2 (19-24) mmol/L ABG O2 Saturation 99.5 H (94-97) % Chloride (98-107) mmol/L Glucose (74-99) mg/dL POC Glucose (mg/dL) 164 H (70-110) mg/dL Calcium (8.4-10.2) mg/dL Magnesium (1.6-2.3) mg/dL Total Protein (6.3-8.2) g/dL Albumin (3.5-5.0) g/dL Crossmatch 01/08/22 01/08/22 01/08/22 Range/Units 22:16 22:27 23:06 RBC (4.30-5.90) m/uL Hgb (13.0-17.5) gm/dL Hct (39.0-53.0) % Neutrophils # (1.3-7.7) k/uL Lymphocytes # (1.0-4.8) k/uL PT (9.0-12.0) sec INR (<1.2) Fibrinogen (200-500) mg/dL ABG pH (7.35-7.45) ABG pO2 113 H (83-108) mmHg ABG Total CO2 25 H (19-24) mmol/L ABG O2 Saturation 99.3 H (94-97) % Chloride (98-107) mmol/L Glucose (74-99) mg/dL POC Glucose (mg/dL) 181 H 161 H (70-110) mg/dL Calcium (8.4-10.2) mg/dL Magnesium (1.6-2.3) mg/dL Total Protein (6.3-8.2) g/dL Albumin (3.5-5.0) g/dL Crossmatch 01/09/22 01/09/22 01/09/22 Range/Units 00:08 01:07 02:12 RBC (4.30-5.90) m/uL Hgb (13.0-17.5) gm/dL Hct (39.0-53.0) % Neutrophils # (1.3-7.7) k/uL Lymphocytes # (1.0-4.8) k/uL PT (9.0-12.0) sec INR (<1.2) Fibrinogen (200-500) mg/dL ABG pH (7.35-7.45) ABG pO2 (83-108) mmHg ABG Total CO2 (19-24) mmol/L ABG O2 Saturation (94-97) % Chloride (98-107) mmol/L Glucose (74-99) mg/dL POC Glucose (mg/dL) 143 H 137 H 152 H (70-110) mg/dL Calcium (8.4-10.2) mg/dL Magnesium (1.6-2.3) mg/dL Total Protein (6.3-8.2) g/dL Albumin (3.5-5.0) g/dL Crossmatch 01/09/22 01/09/22 01/09/22 Range/Units 03:15 04:30 04:30 RBC 2.14 L (4.30-5.90) m/uL Hgb 6.7 L* (13.0-17.5) gm/dL Hct 19.9 L* (39.0-53.0) % Neutrophils # (1.3-7.7) k/uL Lymphocytes # 0.9 L (1.0-4.8) k/uL PT (9.0-12.0) sec INR (<1.2) Fibrinogen (200-500) mg/dL ABG pH (7.35-7.45) ABG pO2 (83-108) mmHg ABG Total CO2 (19-24) mmol/L ABG O2 Saturation (94-97) % Chloride (98-107) mmol/L Glucose 150 H (74-99) mg/dL POC Glucose (mg/dL) 162 H (70-110) mg/dL Calcium 7.9 L (8.4-10.2) mg/dL Magnesium (1.6-2.3) mg/dL Total Protein 4.6 L (6.3-8.2) g/dL Albumin 3.1 L (3.5-5.0) g/dL Crossmatch 01/09/22 01/09/22 01/09/22 Range/Units 04:30 05:57 06:26 RBC (4.30-5.90) m/uL Hgb (13.0-17.5) gm/dL Hct (39.0-53.0) % Neutrophils # (1.3-7.7) k/uL Lymphocytes # (1.0-4.8) k/uL PT (9.0-12.0) sec INR (<1.2) Fibrinogen (200-500) mg/dL ABG pH (7.35-7.45) ABG pO2 (83-108) mmHg ABG Total CO2 (19-24) mmol/L ABG O2 Saturation (94-97) % Chloride (98-107) mmol/L Glucose (74-99) mg/dL POC Glucose (mg/dL) 173 H 155 H 141 H (70-110) mg/dL Calcium (8.4-10.2) mg/dL Magnesium (1.6-2.3) mg/dL Total Protein (6.3-8.2) g/dL Albumin (3.5-5.0) g/dL Crossmatch 01/09/22 01/09/22 01/09/22 Range/Units 06:55 08:40 09:48 RBC (4.30-5.90) m/uL Hgb (13.0-17.5) gm/dL Hct (39.0-53.0) % Neutrophils # (1.3-7.7) k/uL Lymphocytes # (1.0-4.8) k/uL PT (9.0-12.0) sec INR (<1.2) Fibrinogen (200-500) mg/dL ABG pH (7.35-7.45) ABG pO2 (83-108) mmHg ABG Total CO2 (19-24) mmol/L ABG O2 Saturation (94-97) % Chloride (98-107) mmol/L Glucose (74-99) mg/dL POC Glucose (mg/dL) 139 H 112 H 155 H (70-110) mg/dL Calcium (8.4-10.2) mg/dL Magnesium (1.6-2.3) mg/dL Total Protein (6.3-8.2) g/dL Albumin (3.5-5.0) g/dL Crossmatch Assessment and Plan Assessment: Coronary artery disease, status post coronary artery bypass grafting 3 with a SAMUELS to LAD, SVG to the OM1, SVG to the RCA. Left atrial appendage clipping with a 35 mm Atriclip. Postoperative day #1 Anemia, expected, current hemoglobin 6.7, receiving a second unit of packed red blood cells Morbid obesity with a BMI of 41.3 kg/m Hypertension, history of Hyperlipidemia Prostate cancer History of left lower extremity DVT, previous filter placed, maintained on Xarelto on outpatient setting Nonsmoker, FEV1 value 2.21 L Plan: The patient was seen and evaluated Chest x-ray, labs and medications reviewed Encouraged the use of the incentive spirometer Continue bronchodilators Titrate the FiO2 as tolerated Increase his activity as tolerated Follow-up chest x-ray and labs in a.m. We will continue to follow I have personally seen and examined the patient, performed the documentation and the assessment and plan as written. Number of minutes spent on the visit: 10.
[2022-01-09 11:21] LABS: Glucose,Whole Blood 150 mg/dL (70-110)
[2022-01-09] MEDS: LACTATED RINGERS 1,000 ML IV SCH (11:24)
[2022-01-09 11:29] LABS: HCT 22.7 % (39.0-53.0); HGB 7.8 gm/dL (13.0-17.5); MCH 32.1 pg (25.0-35.0); MCHC 34.2 g/dL (31.0-37.0); MCV 94.1 fL (80.0-100.0); Mean Platelet Volume 8.8; Platelet Count 122 k/uL (150-450); RBC 2.41 m/uL (4.30-5.90); RDW 14.2 % (11.5-15.5); WBC 7.2 k/uL (3.8-10.6)
[2022-01-09 11:52] LABS: Glucose,Whole Blood 133 mg/dL (70-110)
--- NOTE | 2022-01-09 12:10 | P.CONS ---
History of Present Illness - Reason for Consult Consult date: 01/09/22 medical management - Chief Complaint chest pain - History of Present Illness 81 yo male with a Hx of CAD, HTN, DVT on Xarelto who has been complaining of ongoing chest discomfort and shortness of breath for several weeks. On 12/29/2021, he underwent a cardiac catheterization by Dr. Farris which revealed significant coronary disease and then underwent elective coronary artery bypass graft surgery done by Dr. Caruso. She remained intubated after surgery and returned to the ICU, he was extubated at 3 AM today. He appears to be doing fairly well this morning, his pain is well-controlled, he is on nasal cannula oxygen saturation high 90s, denies any shortness of breath, no chest pain, but he is complaining of a persistent dry cough that is causing chest wall pain. His hemoglobin dropped down to 6.7 from 8.6 today, he received 1 unit of blood. He is currently on a norepinephrine drip, milrinone, IV fluids. His blood pressure and heart rate have been fairly stable. He has 2 mediastinal chest tubes and one left pleural chest tube, all of which are connected to suction with no leaks. Review of Systems Constitutional: Reports lethargy, Denies chills, Denies fever Cardiovascular: Reports chest pain, Reports dyspnea on exertion, Reports high blood pressure, Reports leg edema Gastrointestinal: Reports nausea, Denies vomiting Musculoskeletal: Denies frequent falls, Denies myalgias, Denies neck pain Integumentary: Denies rash Neurological: Denies confusion, Denies headaches, Denies lack of coordination, Denies motor disturbance, Denies numbness, Denies syncope Past Medical History Past Medical History: Cancer, Chest Pain / Angina, COPD, Deep Vein Thrombosis (DVT), Hyperlipidemia, Hypertension, Prostate Disorder Additional Past Medical History / Comment(s): prostate cancer-radiation tx, edema of legs, "low potassium", chest tightness, SOB, constipation, hx. DVT leg 3 years ago History of Any Multi-Drug Resistant Organisms: None Reported Past Surgical History: Heart Catheterization, Prostate Surgery, Tonsillectomy Additional Past Surgical History / Comment(s): surgery for kidney stones, hemorrhoidectomy, tara cataracts, Past Anesthesia/Blood Transfusion Reactions: No Reported Reaction Smoking Status: Former smoker - Past Family History Mother Family Medical History: No Reported History Medications and Allergies Home Medications Medication Instructions Recorded Confirmed Type Atorvastatin [Lipitor] 80 mg PO HS 12/24/21 01/06/22 History Furosemide [Lasix] 80 mg PO DAILY 12/24/21 01/06/22 History Metoprolol Succinate [Metoprolol 50 mg PO DAILY 12/24/21 01/06/22 History Succinate ER] Potassium Chloride [Klor-Con M10] 10 meq PO DAILY 12/24/21 01/06/22 History Rivaroxaban [Xarelto] 20 mg PO DAILY 12/24/21 01/06/22 History Aspirin 325 mg PO DAILY 12/29/21 01/06/22 History Isosorbide Mononitrate ER [Imdur] 30 mg PO DAILY 12/29/21 01/06/22 History Allergies Allergy/AdvReac Type Severity Reaction Status Date / Time Penicillins Allergy hives Verified 01/06/22 15:40 Physical Exam Osteopathic Statement: *. No significant issues noted on an osteopathic structural exam other than those noted in the History and Physical/Consult. Vitals: Vital Signs Temp Pulse Resp BP Pulse Ox FiO2 01/09/22 11:00 86 20 96/38 94 L 01/09/22 10:30 73 17 92 L 01/09/22 10:15 72 17 96/38 94 L 01/09/22 10:00 97.7 F 70 16 94/42 94 L 01/09/22 09:45 78 21 94/42 93 L 01/09/22 09:30 78 21 94/42 90 L 01/09/22 09:15 75 16 94/42 92 L 01/09/22 09:00 97.5 F L 78 20 106/42 93 L 01/09/22 08:45 74 17 106/42 93 L 01/09/22 08:30 71 17 106/42 97 01/09/22 08:16 71 16 01/09/22 08:15 69 17 106/42 99 01/09/22 08:04 73 20 01/09/22 08:02 98 50 01/09/22 08:00 97.5 F L 67 16 93/37 97 50 01/09/22 07:45 72 18 93/37 96 01/09/22 07:30 78 19 93/37 96 01/09/22 07:15 75 20 93/44 96 01/09/22 07:00 75 22 101/48 96 01/09/22 06:55 97.7 F 75 22 101/48 01/09/22 06:45 83 19 103/47 95 01/09/22 06:30 80 19 116/49 95 01/09/22 06:25 97.7 F 80 24 116/49 95 01/09/22 06:15 97.7 F 77 20 100/47 95 01/09/22 06:00 76 19 98 01/09/22 05:45 73 15 100/50 97 01/09/22 05:30 82 18 100/50 95 01/09/22 05:15 89 6 L 86/50 86 L 01/09/22 05:00 86 13 97/42 93 L 01/09/22 04:45 78 17 93 L 01/09/22 04:30 68 21 95 01/09/22 04:15 76 21 97/42 93 L 01/09/22 04:00 81 15 94 L 01/09/22 03:45 75 19 93 L 01/09/22 03:30 79 16 94 L 01/09/22 03:24 93 L 50 01/09/22 03:15 75 18 90/47 98 01/09/22 03:00 76 15 91 L 01/09/22 02:45 81 3 L 97 01/09/22 02:30 77 20 98 01/09/22 02:15 76 2 L 94/43 98 01/09/22 02:00 76 18 107/51 100 01/09/22 01:45 89 0 L 107/51 97 01/09/22 01:30 80 22 107/51 98 01/09/22 01:15 76 25 H 107/51 98 01/09/22 01:00 84 8 L 98/48 99 01/09/22 00:45 74 18 98/48 100 01/09/22 00:30 86 8 L 98/48 99 01/09/22 00:15 84 20 98/48 100 01/09/22 00:00 76 24 105/44 99 50 01/08/22 23:45 84 26 H 105/44 99 01/08/22 23:30 88 23 105/44 100 01/08/22 23:15 88 17 105/44 100 01/08/22 23:13 50 01/08/22 23:00 89 26 H 100 07/15/22 22:45 87 24 100 01/08/22 22:30 84 24 100 01/08/22 22:15 82 23 112/44 100 01/08/22 22:00 84 24 120/43 99 01/08/22 21:45 82 24 98 01/08/22 21:30 91 26 H 98 01/08/22 21:15 91 25 H 98 01/08/22 21:00 91 24 98 01/08/22 20:45 90 22 99 01/08/22 20:30 90 24 98 01/08/22 20:15 75 22 99 01/08/22 20:11 92 01/08/22 20:02 71 01/08/22 20:00 74 22 100 60 01/08/22 19:45 75 20 100 01/08/22 19:30 78 19 100 01/08/22 19:15 82 22 100 01/08/22 19:00 98.1 F 72 22 100 01/08/22 18:45 20 100 01/08/22 18:30 85 23 100 01/08/22 18:15 86 19 100 01/08/22 18:00 98.1 F 86 20 100 01/08/22 17:45 84 19 100 01/08/22 17:30 80 18 100 01/08/22 17:15 84 21 100 01/08/22 17:00 97.5 F L 83 23 100 01/08/22 16:45 81 14 100 01/08/22 16:30 71 14 100 01/08/22 16:20 67 01/08/22 16:19 50 01/08/22 16:15 71 14 100 01/08/22 16:00 96.6 F L 80 14 100 60 01/08/22 15:45 80 14 100 01/08/22 15:35 60 01/08/22 15:30 80 14 100 01/08/22 15:15 96.4 F L 80 14 01/08/22 15:00 14 100 01/08/22 14:47 100 Intake and Output 01/08/22 01/09/22 01/09/22 22:59 06:59 14:59 Intake Total 2236.891 1291.114 961.995 Output Total 1085 1087 550 Balance 1151.891 204.114 411.995 Intake: IV 767 1082 395 ACETAMINOPHEN IV (For NPO 100 ) 1,000 mg In Empty Bag 1 bag @ 400 mls/hr IVPB Q6HR [facility] Rx#:[id number] Albumin Human 5% 250 ml 500 250 In Empty Bag 1 bag @ 250 mls/hr IVPB ONCE ONE Rx#: [id number] CO/CI flush 90 210 50 Lactated Ringers 1,000 ml 150 400 250 @ 20 mls/hr IV .Q24H [facility] Rx#:[id number] Pressure Lines 27 72 45 ceFAZolin 2 gm In Sodium 50 50 Chloride 0.9% 50 ml @ 100 mls/hr IVPB Q8HR [facility] Rx# :[id number] Intake, IV Titration 1469.891 209.114 206.995 Amount ACETAMINOPHEN IV (For NPO 100 ) 1,000 mg In Empty Bag 1 bag @ 400 mls/hr IVPB Q6HR [facility] Rx#:[id number] Albumin Human 5% 250 ml 500 In Empty Bag 1 bag @ 250 mls/hr IVPB Q1HR PRN Rx#: [id number] Insulin Regular 100 unit 12.218 25.183 3.586 In Sodium Chloride 0.9% 100 ml @ Per Protocol IV .Q0M [facility] Rx#:[id number] Lactated Ringers 1,000 ml 250 @ 20 mls/hr IV .Q24H [facility] Rx#:[id number] Milrinone-D5w Pmx 20 mg 115.355 38.645 3.409 In Dextrose/Water 1 100ml .bag @ 0.3 MCG/KG/MIN 10. 764 mls/hr IV .Q9H18M [facility] Rx#:[id number] Nitroglycerin-D5w Pmx 50 7.5 mg In Dextrose/Water 1 250ml.bag @ 5 MCG/MIN 1.5 mls/hr IV .Q24H [facility] Rx#: [id number] Norepinephrine 4 mg In 353.227 145.286 Sodium Chloride 0.9% 250 ml @ 0.02 MCG/KG/MIN 9. 114 mls/hr IV .Q24H [facility] Rx#:[id number] Potassium Chloride 10 meq 200 In Water For Injection 1 100ml.bag @ 100 mls/hr IVPB Q1H [facility] Rx#: [id number] ceFAZolin 2 gm In Sodium 50 Chloride 0.9% 50 ml @ 100 mls/hr IVPB Q8HR [facility] Rx# :[id number] propofoL 1,000 mg In 81.591 Empty Bag 1 bag @ Titrate IV .Q0M [facility] Rx#: [id number] Blood Product 0 310 Rc As-1 Unit 0 310 [id number] Other 50 Rc As-1 Unit 50 [id number] Output: Drainage 710 730 340 Left Chest 490 440 190 Medial Chest 200 170 150 Right Thigh 20 120 Urine 375 357 210 Other: Voiding Method Indwelling Catheter Indwelling Catheter ABP, PAP, CO, CI - Last 8 Hours Arterial Blood Pressure 140/39 Arterial Blood Pressure 129/37 Arterial Blood Pressure 126/37 Arterial Blood Pressure 128/38 Arterial Blood Pressure 131/39 Arterial Blood Pressure 130/38 Arterial Blood Pressure 135/39 Arterial Blood Pressure 144/43 Arterial Blood Pressure 134/39 Arterial Blood Pressure 128/38 Arterial Blood Pressure 129/40 Arterial Blood Pressure 142/45 Arterial Blood Pressure 132/39 Arterial Blood Pressure 132/41 Arterial Blood Pressure 124/31 Arterial Blood Pressure 125/35 Arterial Blood Pressure 151/41 Arterial Blood Pressure 139/40 Arterial Blood Pressure 137/40 Arterial Blood Pressure 121/35 Arterial Blood Pressure 135/40 Arterial Blood Pressure 128/42 Arterial Blood Pressure 131/41 Arterial Blood Pressure 110/36 Arterial Blood Pressure 137/42 Arterial Blood Pressure 140/42 Arterial Blood Pressure 134/40 Pulmonary Artery Pressure 38/12 Pulmonary Artery Pressure 45/16 Pulmonary Artery Pressure 43/16 Pulmonary Artery Pressure 44/15 Pulmonary Artery Pressure 46/19 Pulmonary Artery Pressure 41/18 Pulmonary Artery Pressure 43/16 Pulmonary Artery Pressure 43/19 Pulmonary Artery Pressure 44/18 Pulmonary Artery Pressure 41/14 Pulmonary Artery Pressure 41/16 Pulmonary Artery Pressure 42/15 Pulmonary Artery Pressure 40/14 Pulmonary Artery Pressure 43/17 Pulmonary Artery Pressure 33/8 Pulmonary Artery Pressure 31/10 Pulmonary Artery Pressure 29/9 Pulmonary Artery Pressure 43/14 Pulmonary Artery Pressure 36/10 Pulmonary Artery Pressure 41/10 Pulmonary Artery Pressure 40/9 Pulmonary Artery Pressure 40/11 Pulmonary Artery Pressure 34/10 Pulmonary Artery Pressure 40/11 Pulmonary Artery Pressure 45/10 Pulmonary Artery Pressure 40/9 Pulmonary Artery Pressure 40/10 Pulmonary Artery Pressure 37/7 Cardiac Output 6.0 Cardiac Output 5.6 Cardiac Output 5.7 Cardiac Output 5.7 Cardiac Output 5.7 Cardiac Output 5.7 Cardiac Index 2.6 Cardiac Index 2.5 Cardiac Index 2.5 Cardiac Index 2.5 Cardiac Index 2.5 Cardiac Index 2.5 GENERAL EXAM: Ax0x3, in NAD HEAD: Normocephalic, atraumatic EYES: Pupils equal round reactive to light, extraocular muscles intact, dry mucous membranes NECK: Right IJ [place]Ubaldo catheter in place. No masses, no JVD. CHEST: Sternal dressing dry and intact. Heart Hugger in place. [address], minimal serosanguineous fluid, connected to suction, no leak LUNGS: Diminished breath sounds in the bases, no wheezing, no rhonchi, symmetrical chest rise CVS: S1 and S2 normal with no audible murmur, regular rhythm. ABDOMEN: Soft, nontender, nondistended, hypoactive bowel sounds SKIN: No rashes Neuro: No cranial nerve deficits, moving all extremities spontaneously, strength is equal bilaterally Results CBC & Chem 7: 01/09/22 11:20 01/09/22 04:30 Labs: Abnormal Lab Results - Last 24 Hours (Table) 01/06/22 01/08/22 01/08/22 Range/Units 15:45 15:05 15:10 RBC 3.05 L (4.30-5.90) m/uL Hgb 9.6 L D (13.0-17.5) gm/dL Hct 28.0 L (39.0-53.0) % Plt Count (150-450) k/uL Neutrophils # (1.3-7.7) k/uL Lymphocytes # (1.0-4.8) k/uL PT (9.0-12.0) sec INR (<1.2) Fibrinogen (200-500) mg/dL ABG pH (7.35-7.45) ABG pO2 (83-108) mmHg ABG Total CO2 (19-24) mmol/L ABG O2 Saturation (94-97) % Chloride (98-107) mmol/L Glucose (74-99) mg/dL POC Glucose (mg/dL) 137 H (70-110) mg/dL Calcium (8.4-10.2) mg/dL Magnesium (1.6-2.3) mg/dL Total Protein (6.3-8.2) g/dL Albumin (3.5-5.0) g/dL Crossmatch See Detail 01/08/22 01/08/22 01/08/22 Range/Units 15:10 15:10 15:10 RBC (4.30-5.90) m/uL Hgb (13.0-17.5) gm/dL Hct (39.0-53.0) % Plt Count (150-450) k/uL Neutrophils # (1.3-7.7) k/uL Lymphocytes # (1.0-4.8) k/uL PT 12.9 H (9.0-12.0) sec INR 1.2 H (<1.2) Fibrinogen 194 L (200-500) mg/dL ABG pH (7.35-7.45) ABG pO2 (83-108) mmHg ABG Total CO2 (19-24) mmol/L ABG O2 Saturation (94-97) % Chloride 109 H (98-107) mmol/L Glucose 130 H (74-99) mg/dL POC Glucose (mg/dL) (70-110) mg/dL Calcium 7.9 L (8.4-10.2) mg/dL Magnesium 2.5 H (1.6-2.3) mg/dL Total Protein 4.9 L (6.3-8.2) g/dL Albumin 3.1 L (3.5-5.0) g/dL Crossmatch 01/08/22 01/08/22 01/08/22 Range/Units 15:32 15:59 17:02 RBC (4.30-5.90) m/uL Hgb (13.0-17.5) gm/dL Hct (39.0-53.0) % Plt Count (150-450) k/uL Neutrophils # (1.3-7.7) k/uL Lymphocytes # (1.0-4.8) k/uL PT (9.0-12.0) sec INR (<1.2) Fibrinogen (200-500) mg/dL ABG pH 7.33 L (7.35-7.45) ABG pO2 279 H (83-108) mmHg ABG Total CO2 (19-24) mmol/L ABG O2 Saturation 100.0 H (94-97) % Chloride (98-107) mmol/L Glucose (74-99) mg/dL POC Glucose (mg/dL) 119 H 128 H (70-110) mg/dL Calcium (8.4-10.2) mg/dL Magnesium (1.6-2.3) mg/dL Total Protein (6.3-8.2) g/dL Albumin (3.5-5.0) g/dL Crossmatch 01/08/22 01/08/22 01/08/22 Range/Units 18:09 18:10 19:13 RBC 2.79 L (4.30-5.90) m/uL Hgb 8.7 L (13.0-17.5) gm/dL Hct 25.6 L (39.0-53.0) % Plt Count (150-450) k/uL Neutrophils # (1.3-7.7) k/uL Lymphocytes # (1.0-4.8) k/uL PT (9.0-12.0) sec INR (<1.2) Fibrinogen (200-500) mg/dL ABG pH (7.35-7.45) ABG pO2 (83-108) mmHg ABG Total CO2 (19-24) mmol/L ABG O2 Saturation (94-97) % Chloride (98-107) mmol/L Glucose (74-99) mg/dL POC Glucose (mg/dL) 154 H 135 H (70-110) mg/dL Calcium (8.4-10.2) mg/dL Magnesium (1.6-2.3) mg/dL Total Protein (6.3-8.2) g/dL Albumin (3.5-5.0) g/dL Crossmatch 01/08/22 01/08/22 01/08/22 Range/Units 20:12 21:22 21:35 RBC 2.67 L (4.30-5.90) m/uL Hgb 8.1 L (13.0-17.5) gm/dL Hct 24.5 L (39.0-53.0) % Plt Count (150-450) k/uL Neutrophils # 9.0 H (1.3-7.7) k/uL Lymphocytes # 0.9 L (1.0-4.8) k/uL PT (9.0-12.0) sec INR (<1.2) Fibrinogen (200-500) mg/dL ABG pH (7.35-7.45) ABG pO2 142 H (83-108) mmHg ABG Total CO2 (19-24) mmol/L ABG O2 Saturation 99.5 H (94-97) % Chloride (98-107) mmol/L Glucose (74-99) mg/dL POC Glucose (mg/dL) 164 H (70-110) mg/dL Calcium (8.4-10.2) mg/dL Magnesium (1.6-2.3) mg/dL Total Protein (6.3-8.2) g/dL Albumin (3.5-5.0) g/dL Crossmatch 01/08/22 01/08/22 01/08/22 Range/Units 22:16 22:27 23:06 RBC (4.30-5.90) m/uL Hgb (13.0-17.5) gm/dL Hct (39.0-53.0) % Plt Count (150-450) k/uL Neutrophils # (1.3-7.7) k/uL Lymphocytes # (1.0-4.8) k/uL PT (9.0-12.0) sec INR (<1.2) Fibrinogen (200-500) mg/dL ABG pH (7.35-7.45) ABG pO2 113 H (83-108) mmHg ABG Total CO2 25 H (19-24) mmol/L ABG O2 Saturation 99.3 H (94-97) % Chloride (98-107) mmol/L Glucose (74-99) mg/dL POC Glucose (mg/dL) 181 H 161 H (70-110) mg/dL Calcium (8.4-10.2) mg/dL Magnesium (1.6-2.3) mg/dL Total Protein (6.3-8.2) g/dL Albumin (3.5-5.0) g/dL Crossmatch 01/09/22 01/09/22 01/09/22 Range/Units 00:08 01:07 02:12 RBC (4.30-5.90) m/uL Hgb (13.0-17.5) gm/dL Hct (39.0-53.0) % Plt Count (150-450) k/uL Neutrophils # (1.3-7.7) k/uL Lymphocytes # (1.0-4.8) k/uL PT (9.0-12.0) sec INR (<1.2) Fibrinogen (200-500) mg/dL ABG pH (7.35-7.45) ABG pO2 (83-108) mmHg ABG Total CO2 (19-24) mmol/L ABG O2 Saturation (94-97) % Chloride (98-107) mmol/L Glucose (74-99) mg/dL POC Glucose (mg/dL) 143 H 137 H 152 H (70-110) mg/dL Calcium (8.4-10.2) mg/dL Magnesium (1.6-2.3) mg/dL Total Protein (6.3-8.2) g/dL Albumin (3.5-5.0) g/dL Crossmatch 01/09/22 01/09/22 01/09/22 Range/Units 03:15 04:30 04:30 RBC 2.14 L (4.30-5.90) m/uL Hgb 6.7 L* (13.0-17.5) gm/dL Hct 19.9 L* (39.0-53.0) % Plt Count (150-450) k/uL Neutrophils # (1.3-7.7) k/uL Lymphocytes # 0.9 L (1.0-4.8) k/uL PT (9.0-12.0) sec INR (<1.2) Fibrinogen (200-500) mg/dL ABG pH (7.35-7.45) ABG pO2 (83-108) mmHg ABG Total CO2 (19-24) mmol/L ABG O2 Saturation (94-97) % Chloride (98-107) mmol/L Glucose 150 H (74-99) mg/dL POC Glucose (mg/dL) 162 H (70-110) mg/dL Calcium 7.9 L (8.4-10.2) mg/dL Magnesium (1.6-2.3) mg/dL Total Protein 4.6 L (6.3-8.2) g/dL Albumin 3.1 L (3.5-5.0) g/dL Crossmatch 01/09/22 01/09/22 01/09/22 Range/Units 04:30 05:57 06:26 RBC (4.30-5.90) m/uL Hgb (13.0-17.5) gm/dL Hct (39.0-53.0) % Plt Count (150-450) k/uL Neutrophils # (1.3-7.7) k/uL Lymphocytes # (1.0-4.8) k/uL PT (9.0-12.0) sec INR (<1.2) Fibrinogen (200-500) mg/dL ABG pH (7.35-7.45) ABG pO2 (83-108) mmHg ABG Total CO2 (19-24) mmol/L ABG O2 Saturation (94-97) % Chloride (98-107) mmol/L Glucose (74-99) mg/dL POC Glucose (mg/dL) 173 H 155 H 141 H (70-110) mg/dL Calcium (8.4-10.2) mg/dL Magnesium (1.6-2.3) mg/dL Total Protein (6.3-8.2) g/dL Albumin (3.5-5.0) g/dL Crossmatch 01/09/22 01/09/22 01/09/22 Range/Units 06:55 08:40 09:48 RBC (4.30-5.90) m/uL Hgb (13.0-17.5) gm/dL Hct (39.0-53.0) % Plt Count (150-450) k/uL Neutrophils # (1.3-7.7) k/uL Lymphocytes # (1.0-4.8) k/uL PT (9.0-12.0) sec INR (<1.2) Fibrinogen (200-500) mg/dL ABG pH (7.35-7.45) ABG pO2 (83-108) mmHg ABG Total CO2 (19-24) mmol/L ABG O2 Saturation (94-97) % Chloride (98-107) mmol/L Glucose (74-99) mg/dL POC Glucose (mg/dL) 139 H 112 H 155 H (70-110) mg/dL Calcium (8.4-10.2) mg/dL Magnesium (1.6-2.3) mg/dL Total Protein (6.3-8.2) g/dL Albumin (3.5-5.0) g/dL Crossmatch 01/09/22 01/09/22 Range/Units 11:19 11:20 RBC 2.41 L (4.30-5.90) m/uL Hgb 7.8 L (13.0-17.5) gm/dL Hct 22.7 L (39.0-53.0) % Plt Count 122 L (150-450) k/uL Neutrophils # (1.3-7.7) k/uL Lymphocytes # (1.0-4.8) k/uL PT (9.0-12.0) sec INR (<1.2) Fibrinogen (200-500) mg/dL ABG pH (7.35-7.45) ABG pO2 (83-108) mmHg ABG Total CO2 (19-24) mmol/L ABG O2 Saturation (94-97) % Chloride (98-107) mmol/L Glucose (74-99) mg/dL POC Glucose (mg/dL) 150 H (70-110) mg/dL Calcium (8.4-10.2) mg/dL Magnesium (1.6-2.3) mg/dL Total Protein (6.3-8.2) g/dL Albumin (3.5-5.0) g/dL Crossmatch Assessment and Plan Assessment: # Coronary artery disease -s/p cardiac cath on 12/29/21 -status post coronary artery bypass grafting 3 on 01/08/22. Postoperative day # 1 -extubated early this am, respiratory status stable on 4L N/C # Anemia of acute blood loss -Hemoglobin 6.7 today -Secondary to operative blood loss -Received 1 unit of care to see transfuse today -Repeat hemoglobin this afternoon and transfuse as needed # History of left lower extremity DVT IVC filter in place patient is also on Eliquis, resume once cleared by cardiovascular surgery # Acute Hypoxic Respiratory Failure -extubated early this am -no Hx of home oxygen, currently on 4L -continue to wean -most likely secondary to post surgical atelectasis -incentive spirometry, Duoneb as needed # Hx of Hypertension -currently hypotensive on Levophed -resume home meds once pressors discontinued and BP stable # Morbid obesity with a BMI of 41.3 kg/m #Hyperlipidemia -continue statin # Hx of Prostate cancer Time with Patient: Greater than 30
[2022-01-09] MEDS: ASCORBIC ACID 500 MG TAB PO SCH (12:29)
[2022-01-09] MEDS: FERROUS SULFATE 325 MG TAB PO SCH (12:29)
--- NOTE | 2022-01-09 12:46 | P.CRDCN ---
History of Present Illness Consult date: 01/09/22 Reason for Consult (text): CABG 3 Chief complaint: Status post CABG 3 History of present illness: This is Alton Givens NP, I'm dictating on behalf of Dr. Philip's H&P and A&P The patient was interviewed and examined. HPI: Patient is a pleasant 81-year-old male who presented to the hospital with a scheduled CABG, and had three-vessel grafting completed on 01/08/2022. We are consulted post cardiac surgery. Patient has a past history of hypertension, morbid obesity, prostate cancer, radiation therapy, kidney stones, lower extremity DVT with IVC filter placement, who had reported worsening chest pain with minimal exertion. Patient underwent three-vessel grafting as previously described, and currently reports he is doing well today. He has not reporting any chest pain or shortness of breath symptoms at this time. Telemetry demonstrates normal sinus rhythm, his blood pressure, pulse, and respirations are all within normal limits. Patient has a backup external pacemaker that is functioning. ROS: [No fever, chills, or rigors] [no cough, phlegm, or expectoration] [no nausea, vomiting, or diarrhea] [no hematuria, dysuria] [no musculoskelatal complaints] [no strokes or seizures] [no skin lesions] EXAMINATION: GENERAL: Well-appearing, well-nourished and in no acute distress. NECK: Supple without JVD or thyromegaly. LUNGS: Breath sounds clear to auscultation bilaterally. Respiration equal and unlabored. No wheezes, rales or rhonchi. HEART: Regular rate and rhythm without murmurs, rubs or gallops. S1 and S2 heard. EXTREMITIES: Normal range of motion, no edema. No clubbing or cyanosis. Peripheral pulses intact and strong. REVIEW OF LABS, ECG & MEDICAL DATA: LABS: White count 7.2, hemoglobin 7.8, sodium 140, potassium 3.9, BUN 20, creatinine 0.92, calcium 7.9, magnesium 2.2 EKG: Normal sinus rhythm IMAGING: Chest x-ray dated 01/08/2022 demonstrates postsurgical changes with lines and tubes in place, and cardiomegaly with bilateral pleural effusions and pulmonary vascular congestion. Chest x-ray dated 01/09/2022 demonstrates postoperative changes of CABG. VITALS: Temp 98.1, pulse 71, respirations 18, blood pressure 109/62, O2 saturation 98% on 4 L supplemental oxygen via nasal cannula IMPRESSION: 1. Coronary artery disease, status post triple-vessel bypass 2. Postoperative acute blood loss anemia 3. History of hypertension 4. History hyperlipidemia PLAN: Continue medications as ordered Recommend patient increase activity Surgical management from cardiothoracic team Incentive spirometry Further recommendations based on the patient's clinical course Thank you for the consult and allowing us to participate in the care of this patient. Past Medical History Past Medical History: Cancer, Chest Pain / Angina, COPD, Deep Vein Thrombosis (DVT), Hyperlipidemia, Hypertension, Prostate Disorder Additional Past Medical History / Comment(s): prostate cancer-radiation tx, edema of legs, "low potassium", chest tightness, SOB, constipation, hx. DVT leg 3 years ago History of Any Multi-Drug Resistant Organisms: None Reported Past Surgical History: Heart Catheterization, Prostate Surgery, Tonsillectomy Additional Past Surgical History / Comment(s): surgery for kidney stones, hemorrhoidectomy, tara cataracts, Past Anesthesia/Blood Transfusion Reactions: No Reported Reaction Smoking Status: Former smoker - Past Family History Mother Family Medical History: No Reported History Medications and Allergies Home Medications Medication Instructions Recorded Confirmed Type Atorvastatin [Lipitor] 80 mg PO HS 12/24/21 01/06/22 History Furosemide [Lasix] 80 mg PO DAILY 12/24/21 01/06/22 History Metoprolol Succinate [Metoprolol 50 mg PO DAILY 12/24/21 01/06/22 History Succinate ER] Potassium Chloride [Klor-Con M10] 10 meq PO DAILY 12/24/21 01/06/22 History Rivaroxaban [Xarelto] 20 mg PO DAILY 12/24/21 01/06/22 History Aspirin 325 mg PO DAILY 12/29/21 01/06/22 History Isosorbide Mononitrate ER [Imdur] 30 mg PO DAILY 12/29/21 01/06/22 History Allergies Allergy/AdvReac Type Severity Reaction Status Date / Time Penicillins Allergy hives Verified 01/06/22 15:40 Physical Exam Vitals: Vital Signs Temp Pulse Resp BP Pulse Ox FiO2 01/09/22 12:00 98.1 F 71 18 109/62 98 01/09/22 11:58 72 20 01/09/22 11:49 72 20 01/09/22 11:30 72 18 94 L 01/09/22 11:00 86 20 96/38 94 L 01/09/22 10:30 73 17 92 L 01/09/22 10:15 72 17 96/38 94 L 01/09/22 10:00 97.7 F 70 16 94/42 94 L 01/09/22 09:45 78 21 94/42 93 L 01/09/22 09:30 78 21 94/42 90 L 01/09/22 09:15 75 16 94/42 92 L 01/09/22 09:00 97.5 F L 78 20 106/42 93 L 01/09/22 08:45 74 17 106/42 93 L 01/09/22 08:30 71 17 106/42 97 01/09/22 08:16 71 16 01/09/22 08:15 69 17 106/42 99 01/09/22 08:04 73 20 01/09/22 08:02 98 50 01/09/22 08:00 97.5 F L 67 16 93/37 97 50 01/09/22 07:45 72 18 93/37 96 01/09/22 07:30 78 19 93/37 96 01/09/22 07:15 75 20 93/44 96 01/09/22 07:00 75 22 101/48 96 01/09/22 06:55 97.7 F 75 22 101/48 01/09/22 06:45 83 19 103/47 95 01/09/22 06:30 80 19 116/49 95 01/09/22 06:25 97.7 F 80 24 116/49 95 01/09/22 06:15 97.7 F 77 20 100/47 95 01/09/22 06:00 76 19 98 01/09/22 05:45 73 15 100/50 97 01/09/22 05:30 82 18 100/50 95 01/09/22 05:15 89 6 L 86/50 86 L 01/09/22 05:00 86 13 97/42 93 L 01/09/22 04:45 78 17 93 L 01/09/22 04:30 68 21 95 01/09/22 04:15 76 21 97/42 93 L 01/09/22 04:00 81 15 94 L 01/09/22 03:45 75 19 93 L 01/09/22 03:30 79 16 94 L 01/09/22 03:24 93 L 50 01/09/22 03:15 75 18 90/47 98 01/09/22 03:00 76 15 91 L 01/09/22 02:45 81 3 L 97 01/09/22 02:30 77 20 98 01/09/22 02:15 76 2 L 94/43 98 01/09/22 02:00 76 18 107/51 100 01/09/22 01:45 89 0 L 107/51 97 01/09/22 01:30 80 22 107/51 98 01/09/22 01:15 76 25 H 107/51 98 01/09/22 01:00 84 8 L 98/48 99 01/09/22 00:45 74 18 98/48 100 01/09/22 00:30 86 8 L 98/48 99 01/09/22 00:15 84 20 98/48 100 01/09/22 00:00 76 24 105/44 99 50 01/08/22 23:45 84 26 H 105/44 99 01/08/22 23:30 88 23 105/44 100 01/08/22 23:15 88 17 105/44 100 01/08/22 23:13 50 01/08/22 23:00 89 26 H 100 01/08/22 22:45 87 24 100 01/08/22 22:30 84 24 100 01/08/22 22:15 82 23 112/44 100 01/08/22 22:00 84 24 120/43 99 01/08/22 21:45 82 24 98 01/08/22 21:30 91 26 H 98 01/08/22 21:15 91 25 H 98 01/08/22 21:00 91 24 98 01/08/22 20:45 90 22 99 01/08/22 20:30 90 24 98 01/08/22 20:15 75 22 99 01/08/22 20:11 92 01/08/22 20:02 71 01/08/22 20:00 74 22 100 60 01/08/22 19:45 75 20 100 01/08/22 19:30 78 19 100 01/08/22 19:15 82 22 100 01/08/22 19:00 98.1 F 72 22 100 01/08/22 18:45 20 100 01/08/22 18:30 85 23 100 01/08/22 18:15 86 19 100 01/08/22 18:00 98.1 F 86 20 100 01/08/22 17:45 84 19 100 01/08/22 17:30 80 18 100 01/08/22 17:15 84 21 100 01/08/22 17:00 97.5 F L 83 23 100 01/08/22 16:45 81 14 100 01/08/22 16:30 71 14 100 01/08/22 16:20 67 01/08/22 16:19 50 01/08/22 16:15 71 14 100 01/08/22 16:00 96.6 F L 80 14 100 60 01/08/22 15:45 80 14 100 01/08/22 15:35 60 01/08/22 15:30 80 14 100 01/08/22 15:15 96.4 F L 80 14 01/08/22 15:00 14 100 01/08/22 14:47 100 Intake and Output 01/08/22 01/09/22 01/09/22 22:59 06:59 14:59 Intake Total 2236.891 2515.154 1022.050 Output Total 1085 1087 610 Balance 1151.891 204.114 404.050 Intake: IV 767 1082 444 ACETAMINOPHEN IV (For NPO 100 ) 1,000 mg In Empty Bag 1 bag @ 400 mls/hr IVPB Q6HR [facility] Rx#:[id number] Albumin Human 5% 250 ml 500 250 In Empty Bag 1 bag @ 250 mls/hr IVPB ONCE ONE Rx#: [id number] CO/CI flush 90 210 70 Lactated Ringers 1,000 ml 150 400 270 @ 20 mls/hr IV .Q24H [facility] Rx#:[id number] Pressure Lines 27 72 54 ceFAZolin 2 gm In Sodium 50 50 Chloride 0.9% 50 ml @ 100 mls/hr IVPB Q8HR [facility] Rx# :[id number] Intake, IV Titration 1469.891 209.114 210.050 Amount ACETAMINOPHEN IV (For NPO 100 ) 1,000 mg In Empty Bag 1 bag @ 400 mls/hr IVPB Q6HR [facility] Rx#:[id number] Albumin Human 5% 250 ml 500 In Empty Bag 1 bag @ 250 mls/hr IVPB Q1HR PRN Rx#: [id number] Insulin Regular 100 unit 12.218 25.183 6.641 In Sodium Chloride 0.9% 100 ml @ Per Protocol IV .Q0M [facility] Rx#:[id number] Lactated Ringers 1,000 ml 250 @ 20 mls/hr IV .Q24H [facility] Rx#:[id number] Milrinone-D5w Pmx 20 mg 115.355 38.645 3.409 In Dextrose/Water 1 100ml .bag @ 0.3 MCG/KG/MIN 10. 764 mls/hr IV .Q9H18M [facility] Rx#:[id number] Nitroglycerin-D5w Pmx 50 7.5 mg In Dextrose/Water 1 250ml.bag @ 5 MCG/MIN 1.5 mls/hr IV .Q24H [facility] Rx#: [id number] Norepinephrine 4 mg In 353.227 145.286 Sodium Chloride 0.9% 250 ml @ 0.02 MCG/KG/MIN 9. 114 mls/hr IV .Q24H [facility] Rx#:[id number] Potassium Chloride 10 meq 200 In Water For Injection 1 100ml.bag @ 100 mls/hr IVPB Q1H [facility] Rx#: [id number] ceFAZolin 2 gm In Sodium 50 Chloride 0.9% 50 ml @ 100 mls/hr IVPB Q8HR [facility] Rx# :[id number] propofoL 1,000 mg In 81.591 Empty Bag 1 bag @ Titrate IV .Q0M [facility] Rx#: [id number] Blood Product 0 310 Rc As-1 Unit 0 310 [id number] Other 50 Rc As-1 Unit 50 [id number] Output: Drainage 710 730 370 Left Chest 490 440 190 Medial Chest 200 170 180 Right Thigh 20 120 Urine 375 357 240 Other: Voiding Method Indwelling Catheter Indwelling Catheter Weight 119.6 kg ABP, PAP, CO, CI - Last 8 Hours Arterial Blood Pressure 104/37 Arterial Blood Pressure 106/36 Arterial Blood Pressure 140/39 Arterial Blood Pressure 129/37 Arterial Blood Pressure 126/37 Arterial Blood Pressure 128/38 Arterial Blood Pressure 131/39 Arterial Blood Pressure 130/38 Arterial Blood Pressure 135/39 Arterial Blood Pressure 144/43 Arterial Blood Pressure 134/39 Arterial Blood Pressure 128/38 Arterial Blood Pressure 129/40 Arterial Blood Pressure 142/45 Arterial Blood Pressure 132/39 Arterial Blood Pressure 132/41 Arterial Blood Pressure 124/31 Arterial Blood Pressure 125/35 Arterial Blood Pressure 151/41 Arterial Blood Pressure 139/40 Arterial Blood Pressure 137/40 Arterial Blood Pressure 121/35 Arterial Blood Pressure 135/40 Arterial Blood Pressure 128/42 Arterial Blood Pressure 131/41 Arterial Blood Pressure 110/36 Arterial Blood Pressure 137/42 Pulmonary Artery Pressure 35/15 Pulmonary Artery Pressure 41/13 Pulmonary Artery Pressure 38/12 Pulmonary Artery Pressure 45/16 Pulmonary Artery Pressure 43/16 Pulmonary Artery Pressure 44/15 Pulmonary Artery Pressure 46/19 Pulmonary Artery Pressure 41/18 Pulmonary Artery Pressure 43/16 Pulmonary Artery Pressure 43/19 Pulmonary Artery Pressure 44/18 Pulmonary Artery Pressure 41/14 Pulmonary Artery Pressure 41/16 Pulmonary Artery Pressure 42/15 Pulmonary Artery Pressure 40/14 Pulmonary Artery Pressure 43/17 Pulmonary Artery Pressure 33/8 Pulmonary Artery Pressure 31/10 Pulmonary Artery Pressure 29/9 Pulmonary Artery Pressure 43/14 Pulmonary Artery Pressure 36/10 Pulmonary Artery Pressure 41/10 Pulmonary Artery Pressure 40/9 Pulmonary Artery Pressure 40/11 Pulmonary Artery Pressure 34/10 Pulmonary Artery Pressure 40/11 Pulmonary Artery Pressure 45/10 Pulmonary Artery Pressure 40/9 Cardiac Output 5.4 Cardiac Output 6.0 Cardiac Output 5.6 Cardiac Output 5.7 Cardiac Output 5.7 Cardiac Output 5.7 Cardiac Index 2.4 Cardiac Index 2.6 Cardiac Index 2.5 Cardiac Index 2.5 Cardiac Index 2.5 Cardiac Index 2.5 Results 01/09/22 11:20 01/09/22 04:30 Cardiac Enzymes 01/08/22 01/09/22 Range/Units 15:10 04:30 AST 50 38 (17-59) U/L Coagulation 01/08/22 Range/Units 15:10 PT 12.9 H (9.0-12.0) sec APTT 28.4 (22.0-30.0) sec CBC 01/08/22 01/08/22 01/08/22 Range/Units 15:10 18:10 21:35 WBC 9.7 9.2 10.6 (3.8-10.6) k/uL RBC 3.05 L 2.79 L 2.67 L (4.30-5.90) m/uL Hgb 9.6 L D 8.7 L 8.1 L (13.0-17.5) gm/dL Hct 28.0 L 25.6 L 24.5 L (39.0-53.0) % Plt Count 152 185 186 (150-450) k/uL 01/09/22 01/09/22 Range/Units 04:30 11:20 WBC 8.5 7.2 (3.8-10.6) k/uL RBC 2.14 L 2.41 L (4.30-5.90) m/uL Hgb 6.7 L* 7.8 L (13.0-17.5) gm/dL Hct 19.9 L* 22.7 L (39.0-53.0) % Plt Count 158 122 L (150-450) k/uL Comprehensive Metabolic Panel 01/08/22 01/09/22 Range/Units 15:10 04:30 Sodium 138 140 (137-145) mmol/L Potassium 4.4 3.9 (3.5-5.1) mmol/L Chloride 109 H 106 (98-107) mmol/L Carbon Dioxide 23 26 (22-30) mmol/L BUN 17 20 (9-20) mg/dL Creatinine 0.66 0.92 (0.66-1.25) mg/dL Glucose 130 H 150 H (74-99) mg/dL Calcium 7.9 L 7.9 L (8.4-10.2) mg/dL AST 50 38 (17-59) U/L ALT 8 9 (4-49) U/L Alkaline Phosphatase 56 40 (38-126) U/L Total Protein 4.9 L 4.6 L (6.3-8.2) g/dL Albumin 3.1 L 3.1 L (3.5-5.0) g/dL Current Medications Generic Name Dose Route Start Last Admin Trade Name Freq PRN Reason Stop Dose Admin Hydrocodone Bitart/Acetaminophen 2 each 01/09/22 02:00 Hydrocodone/Apap 5-325mg 1 Each Tab PO Q4HR PRN Severe Pain Hydrocodone Bitart/Acetaminophen 1 each 01/09/22 02:00 01/09/22 10:28 Hydrocodone/Apap 5-325mg 1 Each Tab PO 1 each Q4HR PRN Administration Moderate Pain Albuterol/Ipratropium 3 ml 01/08/22 14:35 Ipratropium-Albuterol 3 Ml Neb INHALATION RT-Q2H PRN Shortness Of Breath Or Wheezing Albuterol/Ipratropium 3 ml 01/08/22 20:00 01/09/22 11:49 Ipratropium-Albuterol 3 Ml Neb INHALATION 3 ml RT-QID [facility] Administration Ascorbic Acid 500 mg 01/09/22 12:30 Ascorbic Acid 500 Mg Tab PO W/LUNCH [facility] Aspirin 325 mg 01/09/22 09:00 01/09/22 08:54 Aspirin 325 Mg Tab PO 325 mg DAILY [facility] Administration Atorvastatin Calcium 40 mg 01/09/22 09:00 01/09/22 08:54 Atorvastatin 40 Mg Tab PO 40 mg DAILY [facility] Administration Benzocaine/Menthol 1 each 01/08/22 14:35 Benzocaine/Menthol Lozeng 1 Each Lozenge MUCOUS MEM Q2H PRN Sore Throat Bisacodyl 10 mg 01/09/22 09:00 Bisacodyl 10 Mg Supp RECTAL DAILY PRN Constipation Clopidogrel Bisulfate 75 mg 01/09/22 09:00 01/09/22 08:54 Clopidogrel 75 Mg Tab PO 75 mg DAILY [facility] Administration Ferrous Sulfate 325 mg 01/09/22 12:30 Ferrous Sulfate 325 Mg Tab PO W/LUNCH [facility] Heparin Sodium (Porcine) 5,000 unit 01/08/22 16:00 01/09/22 08:54 Heparin Sodium,Porcine/Pf 5,000 Unit/0.5 Ml Syringe SQ 5,000 unit Q8HR [facility] Administration Hydralazine HCl 10 mg 01/08/22 14:35 Hydralazine Hcl 20 Mg/Ml 1 Ml Vial IVP Q1H PRN Blood Pressure - High Amiodarone HCl 150 mg/ 103 mls @ 618 mls/hr 01/08/22 14:35 Dextrose/Water IV .Q10M PRN A.FIB/FLUTTER Protocol Amiodarone HCl 360 mg/ 207.2 mls @ 34.533 mls/hr 01/08/22 14:35 Dextrose/Water IV .Q6H PRN A.FIB/FLUTTER Protocol 1 MG/MIN Amiodarone HCl 450 mg/ 250 mls @ 16.667 mls/hr 01/08/22 14:35 Dextrose/Water IV .Q15H PRN A.FIB/FLUTTER Protocol 0.5 MG/MIN Albumin Human 250 ml/ IV 250 mls @ 250 mls/hr 01/08/22 14:35 01/09/22 04:18 Solution IVPB 01/10/22 14:36 250 mls/hr Q1HR PRN Administration For Volume Protocol Dexmedetomidine HCl 400 mcg/ 100 mls @ 0 mls/hr 01/08/22 14:35 IV Solution IV 01/09/22 14:35 .Q0M [facility] Protocol Titrate Calcium Gluconate/Sodium 100 mls @ 100 mls/hr 01/08/22 14:35 Chloride 2 gm/ IV Solution IVPB 01/17/22 14:36 ONCE PRN Ionized Calcium less than 4.4 Lactated Ringer's 1,000 mls @ 20 mls/hr 01/08/22 14:35 01/09/22 11:24 Lactated Ringers IV 20 mls/hr .Q24H [facility] Administration Insulin Human Regular 100 unit 101 mls @ 0 mls/hr 01/08/22 14:35 01/09/22 11:51 / Sodium Chloride IV 1 unit/hr .Q0M [facility] 1.01 mls/hr Titration Protocol Per Protocol Calcium Gluconate/Sodium 100 mls @ 100 mls/hr 01/09/22 13:00 Chloride 1 gm/ IV Solution IVPB 01/09/22 13:59 ONCE ONE Ketorolac Tromethamine 15 mg 01/08/22 18:00 01/09/22 07:30 Ketorolac 15 Mg/Ml 1 Ml Vial IVP 01/11/22 16:02 15 mg Q6HR [facility] Administration Magnesium Hydroxide 2,400 mg 01/09/22 09:00 Magnesium Hydroxide 2,400 Mg/10 Ml Cup PO BID PRN Constipation Metoclopramide HCl 10 mg 01/08/22 14:35 Metoclopramide 5 Mg/Ml 2 Ml Vial IVP Q4H PRN Nausea And Vomiting Metoprolol Tartrate 25 mg 01/09/22 21:00 Metoprolol Tartrate 25 Mg Tab PO BID [facility] Miscellaneous Information 1 each 01/08/22 14:35 Potassium Replacement Protocol 1 Each Misc MISCELLANE DAILY PRN Per Protocol Protocol Miscellaneous Information 1 each 01/08/22 14:35 Magnesium Replacement Protocol 1 Each Misc MISCELLANE DAILY PRN Per Protocol Protocol Ondansetron HCl 4 mg 01/08/22 14:35 Ondansetron 4 Mg/2 Ml Vial IVP Q6HR PRN Nausea And Vomiting Senna/Docusate Sodium 2 each 01/09/22 21:00 Sennosides-Docusate Sodium 1 Each Tab PO HS [facility] Sodium Chloride 10 ml 01/08/22 21:00 01/09/22 08:57 Sodium Chloride 0.9% Flush 10 Ml Syringe IV Not Given BID [facility] Intake and Output 01/08/22 01/09/22 01/09/22 22:59 06:59 14:59 Intake Total 2236.891 5840.113 9742.050 Output Total 1085 1087 610 Balance 1151.891 204.114 404.050 Intake: IV 767 1082 444 ACETAMINOPHEN IV (For NPO 100 ) 1,000 mg In Empty Bag 1 bag @ 400 mls/hr IVPB Q6HR [facility] Rx#:[id number] Albumin Human 5% 250 ml 500 250 In Empty Bag 1 bag @ 250 mls/hr IVPB ONCE ONE Rx#: [id number] CO/CI flush 90 210 70 Lactated Ringers 1,000 ml 150 400 270 @ 20 mls/hr IV .Q24H [facility] Rx#:[id number] Pressure Lines 27 72 54 ceFAZolin 2 gm In Sodium 50 50 Chloride 0.9% 50 ml @ 100 mls/hr IVPB Q8HR [facility] Rx# :[id number] Intake, IV Titration 1469.891 209.114 210.050 Amount ACETAMINOPHEN IV (For NPO 100 ) 1,000 mg In Empty Bag 1 bag @ 400 mls/hr IVPB Q6HR [facility] Rx#:[id number] Albumin Human 5% 250 ml 500 In Empty Bag 1 bag @ 250 mls/hr IVPB Q1HR PRN Rx#: [id number] Insulin Regular 100 unit 12.218 25.183 6.641 In Sodium Chloride 0.9% 100 ml @ Per Protocol IV .Q0M [facility] Rx#:[id number] Lactated Ringers 1,000 ml 250 @ 20 mls/hr IV .Q24H [facility] Rx#:[id number] Milrinone-D5w Pmx 20 mg 115.355 38.645 3.409 In Dextrose/Water 1 100ml .bag @ 0.3 MCG/KG/MIN 10. 764 mls/hr IV .Q9H18M [facility] Rx#:[id number] Nitroglycerin-D5w Pmx 50 7.5 mg In Dextrose/Water 1 250ml.bag @ 5 MCG/MIN 1.5 mls/hr IV .Q24H [facility] Rx#: [id number] Norepinephrine 4 mg In 353.227 145.286 Sodium Chloride 0.9% 250 ml @ 0.02 MCG/KG/MIN 9. 114 mls/hr IV .Q24H [facility] Rx#:[id number] Potassium Chloride 10 meq 200 In Water For Injection 1 100ml.bag @ 100 mls/hr IVPB Q1H [facility] Rx#: [id number] ceFAZolin 2 gm In Sodium 50 Chloride 0.9% 50 ml @ 100 mls/hr IVPB Q8HR [facility] Rx# :[id number] propofoL 1,000 mg In 81.591 Empty Bag 1 bag @ Titrate IV .Q0M [facility] Rx#: [id number] Blood Product 0 310 Rc As-1 Unit 0 310 [id number] Other 50 Rc As-1 Unit 50 [id number] Output: Drainage 710 730 370 Left Chest 490 440 190 Medial Chest 200 170 180 Right Thigh 20 120 Urine 375 357 240 Other: Voiding Method Indwelling Catheter Indwelling Catheter Weight 119.6 kg Patient Weight 01/10/22 06:59 Weight 119.6 kg 01/09/22 11:20 01/09/22 04:30
[2022-01-09] MEDS ORDERED: CALCIUM GLUCONATE IN NACL 1 GM in SALINE 1 100ML.BAG IVPB ONE (13:00)
[2022-01-09 13:32] LABS: Glucose,Whole Blood 128 mg/dL (70-110)
[2022-01-09 15:04] LABS: Glucose,Whole Blood 138 mg/dL (70-110)
[2022-01-09 16:50] LABS: Glucose,Whole Blood 123 mg/dL (70-110)
[2022-01-09] MEDS: DEXTROSE 5% IN WATER 100 ML with AMIODARONE 150 MG IV PRN ×3 (17:31→23:22)
[2022-01-09 18:19] LABS: Glucose,Whole Blood 142 mg/dL (70-110)
[2022-01-09] MEDS: METOPROLOL TARTRATE 25 MG TAB PO SCH (20:52)
[2022-01-09] MEDS: SENNOSIDES-DOCUSATE SODIUM 1 EACH TAB PO SCH (21:15)
[2022-01-09 21:24] LABS: Glucose,Whole Blood 179 mg/dL (70-110)
[2022-01-09 23:33] LABS: Glucose,Whole Blood 145 mg/dL (70-110)
[2022-01-10 01:21] LABS: Glucose,Whole Blood 140 mg/dL (70-110)
[2022-01-10] MEDS: HYDROcodone/APAP 5-325MG 1 EACH TAB PO PRN ×3 (04:38→21:42)
[2022-01-10 04:49] LABS: Glucose,Whole Blood 147 mg/dL (70-110)
[2022-01-10] MEDS: DEXTROSE 5% IN WATER 100 ML with AMIODARONE 150 MG IV PRN (05:08)
[2022-01-10 05:29] LABS: Basophils % (A) 0 %; Eosinophils % (A) 1 %; HCT 22.8 % (39.0-53.0); HGB 7.9 gm/dL (13.0-17.5); Lymphocytes # (A) 0.9 k/uL (1.0-4.8); Lymphocytes % (A) 11 %; MCH 32.5 pg (25.0-35.0); MCHC 34.5 g/dL (31.0-37.0); MCV 94.2 fL (80.0-100.0); Mean Platelet Volume 8.1; Monocytes # (A) 0.6 k/uL (0-1.0); Monocytes % (A) 8 %; Neutrophils # (A) 6.2 k/uL (1.3-7.7); Neutrophils % (A) 79 %; Platelet Count 126 k/uL (150-450); RBC 2.43 m/uL (4.30-5.90); RDW 13.9 % (11.5-15.5); WBC 7.8 k/uL (3.8-10.6)
[2022-01-10 05:35] LABS: Ionized Calcium 4.8 mg/dL (4.5-5.3)
[2022-01-10 05:43] LABS: ALT 7 U/L (4-49); AST 35 U/L (17-59); African American GFR (CKD) >90 (>60 ml/min/1.73 sqM); Alkaline Phosphatase 52 U/L (38-126); Anion Gap 5 mmol/L; Blood Urea Nitrogen 23 mg/dL (9-20); Calcium 8.2 mg/dL (8.4-10.2); Carbon Dioxide 25 mmol/L (22-30); Chloride 105 mmol/L (98-107); Glucose 131 mg/dL (74-99); Non-African American GFR(CKD) 80 (>60 ml/min/1.73 sqM); Potassium 3.9 mmol/L (3.5-5.1); Sodium 135 mmol/L (137-145); Total Bilirubin 0.7 mg/dL (0.2-1.3); Total Protein 4.9 g/dL (6.3-8.2)
[2022-01-10] MEDS ORDERED: POTASSIUM CHLORIDE ER 20 MEQ TAB.ER PO SCH (07:00)
[2022-01-10] MEDS: IPRATROPIUM-ALBUTEROL 3 ML NEB INHALATION SCH ×4 (07:44→19:53)
--- NOTE | 2022-01-10 07:45 | XR ---
EXAMINATION TYPE: XR chest 1V portable DATE OF EXAM: 01/10/2022 COMPARISON: 01/09/2022 HISTORY: Postoperative cardiac surgery FINDINGS: [place] catheter, mediastinal drains and left-sided chest tubes remain in place. No evidence for pn eumothorax. No change in bibasilar opacities. Stable appearance of the cardio-mediastinal structures at this time. Small Pleural effusion unchanged. IMPRESSION: 1. Stable portable chest. Clinical correlation and follow up until resolution is recommended.
[2022-01-10 08:13] LABS: Glucose,Whole Blood 134 mg/dL (70-110)
[2022-01-10] MEDS: KETOROLAC 15 MG/ML 1 ML VIAL IVP SCH ×4 (08:17→23:24)
[2022-01-10] MEDS ORDERED: POTASSIUM CHLORIDE ER 10 MEQ TAB.ER.PRT PO STA (08:32)
[2022-01-10] MEDS: AMIODARONE 200 MG TAB PO SCH ×2 (08:34→21:43)
[2022-01-10] MEDS: ATORVASTATIN 40 MG TAB PO SCH (08:34)
[2022-01-10] MEDS: CLOPIDOGREL 75 MG TAB PO SCH (08:34)
[2022-01-10] MEDS: HEPARIN SODIUM,PORCINE/PF 5,000 UNIT/0.5 ML SYRINGE SQ SCH ×3 (08:35→23:24)
[2022-01-10] MEDS: ASPIRIN 325 MG TAB PO SCH (08:35)
[2022-01-10] MEDS: METOPROLOL TARTRATE 25 MG TAB PO SCH (08:35)
[2022-01-10] MEDS ORDERED: FUROSEMIDE 10 MG/ML 2 ML VIAL IV ONE (08:45)
[2022-01-10] MEDS ORDERED: METOPROLOL TARTRATE 25 MG TAB PO STA (09:02)
--- NOTE | 2022-01-10 10:02 | P.PN ---
Subjective Progress Note Date: 01/10/22 Principal diagnosis: Coronary artery disease. Past medical history significant for hypertension, hyperlipidemia, morbid obesity with a BMI of 41.3 kg/m, history of prostate cancer, status post radiation therapy, left lower extremity DVT with previous IVC filter placement and is maintained on Xarelto on an outpatient basis, history of kidney stones and nonrheumatic aortic valve insufficiency. POD #2 coronary artery bypass grafting 3 vessels with left internal mammary artery to left anterior descending coronary artery, a greater saphenous vein graft to the obtuse marginal coronary artery, and a greater saphenous vein graft to the distal right coronary artery. Endoscopic harvesting of the right greater saphenous vein, ligation of left atrial appendage using a 35 mm Atriclip, epi- aortic ultrasound, intraoperative transesophageal echocardiogram and closure of the sternum using titanium plating system. Postoperative acute blood loss anemia, expected given hemodilution and cardiopulmonary bypass. Paroxysmal atrial fibrillation, a known common occurrence after cardiac surgery. The patient was seen and examined today 01/10/2022 at his bedside in the intensive care unit. Currently the patient is sitting up to the bedside chair, is awake, alert, oriented 3 and is in no acute apparent distress. Denies any complaints of shortness of breath or pain at this time, although is complaining of some generalized postoperative weakness. Oxygen saturation are 95% on 4 L nasal cannula and he is achieving 1000 mL on his incentive spirometry with much encouragement. Bedside telemetry showing atrial fibrillation heart rate 90 BPM. Amiodarone drip is infusing at 0.5 mg per hour per amiodarone protocol. He remains hemodynamically stable and is currently on no inotropic or pressor support. Right IJ Cordis and Ponce De Leon-Ubaldo catheter remains in place with current hemodynamic showing a cardiac output of 5.0, cardiac index 2.2, PA pressures 36/16 and a CVP of 12 mmHg. Oconnell catheter remains in place for accurate I's and O's with 240 mL of urine output in the last 8 hours. Laboratory results this morning show a WBC count of 7.8, hemoglobin 7.9, hematocrit 22.8, platelets 126, sodium 135, potassium 3.9, BUN 23, creatinine 0.90, glucose 131, calcium 8.2 and ionized calcium 4.8. Mediastinal and left pleural chest tubes remain in place to low continuous wall suction -20 cm H2O. No air leak is present. Mediastinal chest tubes drained 110 mL output in the last 8 hours and 400 mL output in the last 24 hours. Left pleural chest tube drained 50 mL output in th e last 8 hours and 480 mL in the last 24 hours. Left leg GUNJAN drain remains in place with 60 mL of thin serosanguineous drainage output in the last 8 hours. Objective - Vital Signs Vital signs: Vital Signs Temp 98.1 F 01/09/22 16:00 Pulse 106 H 01/10/22 09:00 Resp 17 01/10/22 09:00 BP 106/43 01/10/22 09:00 Pulse Ox 92 L 01/10/22 09:00 FiO2 50 01/09/22 08:02 Intake & Output 01/09/22 01/10/22 01/10/22 18:59 06:59 18:59 Intake Total 6816.748 1651.137 288.545 Output Total 965 740 105 Balance 667.175 390.137 183.545 Weight 119.6 kg 119.4 kg Intake: IV 658 629 168 CO/CI flush 110 60 80 Lactated Ringers 1,000 ml 390 470 70 @ 20 mls/hr IV .Q24H [facility] Rx#:[id number] Pressure Lines 108 99 18 ceFAZolin 2 gm In Sodium 50 Chloride 0.9% 50 ml @ 100 mls/hr IVPB Q8HR [facility] Rx# :[id number] Intake, IV Titration 314.175 351.137 20.545 Amount Amiodarone 360 mg In 34 16 Dextrose 5% in Water 200 ml @ 1 MG/MIN 34.533 mls/ hr IV .Q6H PRN Rx#: [id number] Calcium Gluconate in NaCl 100 1 gm In Saline 1 100ml. bag @ 100 mls/hr IVPB ONCE ONE Rx#:[id number] Dextrose 5% in Water 100 300 ml @ 618 mls/hr IV .Q10M PRN with Amiodarone 150 mg Rx#:[id number] Insulin Regular 100 unit 10.766 17.137 4.545 In Sodium Chloride 0.9% 100 ml @ Per Protocol IV .Q0M [facility] Rx#:[id number] Milrinone-D5w Pmx 20 mg 3.409 In Dextrose/Water 1 100ml .bag @ 0.3 MCG/KG/MIN 10. 764 mls/hr IV .Q9H18M ON LICENSE OF [facility] Rx#:[id number] Potassium Chloride 10 meq 200 In Water For Injection 1 100ml.bag @ 100 mls/hr IVPB Q1H [facility] Rx#: [id number] Oral 100 150 100 Tube Feeding 200 Blood Product 310 Rc As-1 Unit 310 [id number] Other 50 Rc As-1 Unit 50 [id number] Output: Drainage 520 310 40 Left Chest 250 60 20 Medial Chest 270 130 20 Right Thigh 120 Urine 445 430 65 Other: Voiding Method Indwelling Catheter Indwelling Catheter ABP, PAP, CO, CI - Last Documented Arterial Blood Pressure 140/48 Pulmonary Artery Pressure 37/18 Cardiac Output 5 Cardiac Index 2.2 - Exam CONSTITUTIONAL: Sitting up to the bedside chair in the intensive care unit, appears comfortable, cooperative, no apparent acute distress. HEENT: Neck is supple, no JVD, no lymphadenopathy. Right IJ Cordis and Ponce De Leon- Ubaldo catheter in place and functioning. RESPIRATORY: Lungs sounds essentially clear throughout, diminished to his bilateral bases. Respirations are symmetrical and nonlabored. Currently on 4 L nasal cannula with oxygen saturations 95%. Able to achieve 1000 mL on his incentive spirometry. Strong cough. CARDIOVASCULAR: Regular rhythm and rate. S1 and S2 present, negative for S3, gallop or murmur. Sternum is stable. Palpable peripheral pulses bilaterally, +2 edema to his bilateral lower extremities. No calf pain or tenderness noted. Heart hugger in place with patient demonstrating appropriate use. Knee-high AMANDA hose and sequential compression devices in place to his bilateral lower extremities. GASTROINTESTINAL: Abdomen soft, nontender, nondistended. Hypoactive bowel sounds present 4 quadrants. Tolerating diet. Passing flatus. No guarding or rigidity. GENITOURINARY: Oconnell present draining clear, yellow urine. Output 240 mL in the last 8 hours INTEGUMENTARY: Skin is warm and dry with no evidence of clubbing or cyanosis. Midline sternal incision clean dry and well approximated, covered with dry intact dressing. Right lower extremity EVH sites well approximated without redness or drainage. MUSKULOSKELETAL: Able to move all extremities, strength equal bilaterally, generalized weakness. PSYCHIATRIC: Alert and oriented to person place and time, appropriate affect, intact judgment and insight. INVASIVE LINES AND TUBES: Mediastinal/left pleural chest tubes present and connected to low continuous wall suction, no air leaks present. Mediastinal tube with 110 mL of thin serosanguineous drainage overnight, 400 mL output in the last 24 hours. Left pleural chest tube with 50 mL of thin serosanguineous drainage overnight, 480 mL output in the last 24 hours. Atrial and ventricular epicardial pacemaker wires present, connected to generator, VVI backup rate 50 bpm. Right internal jugular Ponce De Leon/Cordis, right radial arterial line present. Last CO 5.0, CI 2.2, PA 36/16 and CVP 12 mmHg. Right lower extremity GUNJAN drain in place draining thin serosanguineous drainage with 120 mL output in the last 24 hours. - Allied health notes Allied health notes reviewed: nursing - Labs CBC & Chem 7: 01/10/22 04:50 01/10/22 04:50 Labs: Abnormal Lab Results - Last 24 Hours (Table) 01/06/22 01/09/22 01/09/22 Range/Units 15:45 09:48 11:19 RBC (4.30-5.90) m/uL Hgb (13.0-17.5) gm/dL Hct (39.0-53.0) % Plt Count (150-450) k/uL Lymphocytes # (1.0-4.8) k/uL Sodium (137-145) mmol/L BUN (9-20) mg/dL Glucose (74-99) mg/dL POC Glucose (mg/dL) 155 H 150 H (70-110) mg/dL Calcium (8.4-10.2) mg/dL Total Protein (6.3-8.2) g/dL Albumin (3.5-5.0) g/dL Crossmatch See Detail 01/09/22 01/09/22 01/09/22 Range/Units 11:20 11:50 13:31 RBC 2.41 L (4.30-5.90) m/uL Hgb 7.8 L (13.0-17.5) gm/dL Hct 22.7 L (39.0-53.0) % Plt Count 122 L (150-450) k/uL Lymphocytes # (1.0-4.8) k/uL Sodium (137-145) mmol/L BUN (9-20) mg/dL Glucose (74-99) mg/dL POC Glucose (mg/dL) 133 H 128 H (70-110) mg/dL Calcium (8.4-10.2) mg/dL Total Protein (6.3-8.2) g/dL Albumin (3.5-5.0) g/dL Crossmatch 01/09/22 01/09/22 01/09/22 Range/Units 15:02 16:48 18:17 RBC (4.30-5.90) m/uL Hgb (13.0-17.5) gm/dL Hct (39.0-53.0) % Plt Count (150-450) k/uL Lymphocytes # (1.0-4.8) k/uL Sodium (137-145) mmol/L BUN (9-20) mg/dL Glucose (74-99) mg/dL POC Glucose (mg/dL) 138 H 123 H 142 H (70-110) mg/dL Calcium (8.4-10.2) mg/dL Total Protein (6.3-8.2) g/dL Albumin (3.5-5.0) g/dL Crossmatch 01/09/22 01/09/22 01/10/22 Range/Units 21:23 23:32 01:20 RBC (4.30-5.90) m/uL Hgb (13.0-17.5) gm/dL Hct (39.0-53.0) % Plt Count (150-450) k/uL Lymphocytes # (1.0-4.8) k/uL Sodium (137-145) mmol/L BUN (9-20) mg/dL Glucose (74-99) mg/dL POC Glucose (mg/dL) 179 H 145 H 140 H (70-110) mg/dL Calcium (8.4-10.2) mg/dL Total Protein (6.3-8.2) g/dL Albumin (3.5-5.0) g/dL Crossmatch 01/10/22 01/10/22 01/10/22 Range/Units 04:47 04:50 04:50 RBC 2.43 L (4.30-5.90) m/uL Hgb 7.9 L (13.0-17.5) gm/dL Hct 22.8 L (39.0-53.0) % Plt Count 126 L (150-450) k/uL Lymphocytes # 0.9 L (1.0-4.8) k/uL Sodium 135 L (137-145) mmol/L BUN 23 H (9-20) mg/dL Glucose 131 H (74-99) mg/dL POC Glucose (mg/dL) 147 H (70-110) mg/dL Calcium 8.2 L (8.4-10.2) mg/dL Total Protein 4.9 L (6.3-8.2) g/dL Albumin 3.0 L (3.5-5.0) g/dL Crossmatch 01/10/22 Range/Units 08:12 RBC (4.30-5.90) m/uL Hgb (13.0-17.5) gm/dL Hct (39.0-53.0) % Plt Count (150-450) k/uL Lymphocytes # (1.0-4.8) k/uL Sodium (137-145) mmol/L BUN (9-20) mg/dL Glucose (74-99) mg/dL POC Glucose (mg/dL) 134 H (70-110) mg/dL Calcium (8.4-10.2) mg/dL Total Protein (6.3-8.2) g/dL Albumin (3.5-5.0) g/dL Crossmatch - Imaging and Cardiology Chest x-ray: report reviewed, image reviewed Assessment and Plan Assessment: 1. Coronary artery disease, status post three-vessel coronary artery bypass grafting surgery 2. History of hypertension 3. Hyperlipidemia 4. History of nonrheumatic aortic valve insufficiency 5. History of left lower extremity DVT with previous IVC filter placement, maintained on Xarelto on an outpatient basis 6. Morbid obesity with a BMI of 41.3 kg/m 7. History of prostate cancer, status post radiation therapy 8. History of kidney stones 9. Postoperative acute blood loss anemia, expected 10. Paroxysmal atrial fibrillation, a known common occurrence after cardiac surgery Plan: 1. Continue aspirin, statin, Plavix, beta charles. We will increase metoprolol tartrate 50 mg by mouth twice a day. 2. Wean O2 as tolerated. Encourage incentive spirometry is 10 times every hour while awake. Bronchodilators per pulmonology. Patient needs strong encouragement for pulmonary toileting. 3. Increase activity as tolerated. PT/OT/cardiac rehab following. 4. Will monitor daily labs and chest x-rays. Electrolyte replacement per protocol. No blood transfusion today. 5. Insulin management per primary care service. Patient is not a diabetic, preoperative hemoglobin A1c 6.0% 6. Pain control with current medication regimen. 7. Remove Ponce De Leon-Ubaldo catheter, keep right IJ cordis in place with continuous CVP monitoring. 8. Continue chest tubes for another 24 hours, monitor output. 9. Continue Oconnell catheter for another 24 hours for strict accurate intake and output. Daily weights. 10. GI/DVT prophylaxis. 11. Continue amiodarone drip until current IV piggyback bag is infused, start amiodarone 400 mg by mouth twice a day for atrial fibrillation prophylaxis. 12. Start melatonin 5 mg by mouth daily at bedtime. 13. Keep right lower extremity GUNJAN drain in place for another 24 hours. 14. Lasix 20 mg IV 1 now and potassium chloride 10 mEq by mouth 1 now. 15. More recommendations to follow based on patient's progress Time with Patient: Greater than 30
--- NOTE | 2022-01-10 10:33 | P.PN ---
Subjective Progress Note Date: 01/10/22 Principal diagnosis: Coronary artery disease status post coronary artery bypass grafting This is a 81-year-old male patient with a known history of hyperlipidemia, hypertension, morbid obesity, prostate cancer, DVT of the left lower extremity with previous IVC filter placement maintained on Xarelto, aortic insufficiency. He had been having issues with chest discomfort and shortness of breath and it undergone cardiac catheterization by Dr. Farris on 12/29/2021 her son has sign ificant coronary artery disease. Pulmonary function testing revealed good lung function with an FEV1 value of 2.21 L and 90% of predicted. He is a nonsmoker. He presented here today for an elective coronary artery bypass grafting surgery done by Dr. Caruso. He did receive a SAMUELS to the LAD, saphenous vein graft to the RCA, saphenous vein graft to the OM1, exclusion of left atrial appendage utilizing the 35mm 8 treat clip. He was returned to the ICU today at approximately 1500. Remains intubated on mechanical ventilator. Current settings reveal assist-control mode with a rate of 14, tidal 500, FiO2 100% and a PEEP of 10 based on his BMI 41.3 kg per metered squared. He has lactated Ringer's running at 50 ML's per hour. Norepinephrine at 0.03 mcg/kg/m. Nitroglycerin drip at 5 mcg/m. Milrinone at 0.3 mcg/kg/m and propofol at 20 mcg/kg/m. Cardiac output 4.7. Cardiac index 2.1. PA pressure 43/21. He is atrial pacing at 80. Right internal jugular Norris-Ubaldo catheter in place. Right radial arterial line in place. Chest x-ray reveals 2 mediastinal chest tubes and 1 left pleural chest tube. Both connected to wall suction. No leaks noted. White count 9.7. Hemoglobin 9.6. Pletal it's 152. INR 1.2. Sodium 138. Potassium 4.4. Chloride 109. Bicarb 23. BUN 17. Creatinine 0.66. Glucose 130. AST 50. ALT 8. Albumin 3.1. Magnesium 2.5. Calcium 7.9. Ionized calcium 4.6. The patient is seen today 01/09/2022 in follow-up. Postoperative day #1. He was extubated approximately 3:00 this morning. He is having issues with labile blood pressure and required a unit of packed red blood cells. Current hemoglobin 6.7. Platelets 158. Another unit of packed red blood cells are pending. White count 8.5. Sodium 140. Potassium 3.9. Bicarb 26. BUN 20. Creatinine 0.92. Glucose 150. Calcium 7.9. Albumin 3.1. AST 30. ALT 9. He is currently on lactated Ringer's at 50 MLS per hour. Milrinone at 0.1 mcg/kg/m. Insulin drip at 1.5 units per hour. He is maintaining good O2 saturations in the 90s on 4 L/m per nasal cannula. He is afebrile. Mean arterial pressure 59. PA pressure 43/16. CVP 13. Cardiac output 6.0. Cardiac index 2.6. Chest x-ray reveals no sizable pneumothorax. Left-sided and mediastinal chest tubes remain in place. Some scattered pleural parenchymal opacities most likely atelectasis. Encouraged regarding these incentive rasheed meter. Continue bronchodilators. Heparin for DVT prophylaxis. He did receive albumin earlier this morning. Currently in a -541, balance. The patient is seen today 01/10/2022 in follow-up. Postoperative day #2. He is currently sitting up in a chair at the bedside. Awake and alert in no acute distress. He is maintaining O2 saturations in the 90s on 4 L/m per nasal cannula. Lactated Ringer's at 20 ML's per hour. Chest x-ray reveals bibasilar opacities. Stable. Norris-Ubaldo catheter, mediastinal and left chest tubes remain in place. No evidence of pneumothorax. He is status post 1 unit of packed red blood cells. Current hemoglobin 7.9. Platelets 126. White count 7.8. Sodium 135. Potassium 3.9. BUN 23. Creatinine 0.90. Glucose 131. He is currently in a -540 ML balance. Currently sinus rhythm. He remains on oral amiodarone. Heparin for DVT prophylaxis. He needs to need increased encouragement regarding the incentive spirometer use. Mean arterial pressure 66. PA pressures 38/19. CVP 15. Cardiac output 5. Cardiac index 2.2. Objective - Vital Signs Vital signs: Vital Signs Temp 98.1 F 01/09/22 16:00 Pulse 106 H 01/10/22 09:00 Resp 17 01/10/22 09:00 BP 106/43 01/10/22 09:00 Pulse Ox 92 L 01/10/22 09:00 FiO2 50 01/09/22 08:02 Intake & Output 01/09/22 01/10/22 01/10/22 18:59 06:59 18:59 Intake Total 6895.776 7236.137 288.545 Output Total 965 740 105 Balance 667.175 390.137 183.545 Weight 119.6 kg 119.4 kg Intake: IV 658 629 168 CO/CI flush 110 60 80 Lactated Ringers 1,000 ml 390 470 70 @ 20 mls/hr IV .Q24H [facility] Rx#:[id number] Pressure Lines 108 99 18 ceFAZolin 2 gm In Sodium 50 Chloride 0.9% 50 ml @ 100 mls/hr IVPB Q8HR [facility] Rx# :[id number] Intake, IV Titration 314.175 351.137 20.545 Amount Amiodarone 360 mg In 34 16 Dextrose 5% in Water 200 ml @ 1 MG/MIN 34.533 mls/ hr IV .Q6H [facility] Rx#: [id number] Calcium Gluconate in NaCl 100 1 gm In Saline 1 100ml. bag @ 100 mls/hr IVPB ONCE ONE Rx#:[id number] Dextrose 5% in Water 100 300 ml @ 618 mls/hr IV .Q10M PRN with Amiodarone 150 mg Rx#:[id number] Insulin Regular 100 unit 10.766 17.137 4.545 In Sodium Chloride 0.9% 100 ml @ Per Protocol IV .Q0M [facility] Rx#:[id number] Milrinone-D5w Pmx 20 mg 3.409 In Dextrose/Water 1 100ml .bag @ 0.3 MCG/KG/MIN 10. 764 mls/hr IV .Q9H18M [facility] Rx#:[id number] Potassium Chloride 10 meq 200 In Water For Injection 1 100ml.bag @ 100 mls/hr IVPB Q1H [facility] Rx#: [id number] Oral 100 150 100 Tube Feeding 200 Blood Product 310 Rc As-1 Unit 310 [id number] Other 50 Rc As-1 Unit 50 [id number] Output: Drainage 520 310 40 Left Chest 250 60 20 Medial Chest 270 130 20 Right Thigh 120 Urine 445 430 65 Other: Voiding Method Indwelling Catheter Indwelling Catheter ABP, PAP, CO, CI - Last Documented Arterial Blood Pressure 140/48 Pulmonary Artery Pressure 37/18 Cardiac Output 5 Cardiac Index 2.2 - Exam GENERAL EXAM: Awake, alert, obese 81-year-old male patient on 4 L nasal cannula, up in a chair at the bedside, in no apparent distress. HEAD: Normocephalic. EYES: Normal reaction of pupils, equal size. NOSE: Clear with pink turbinates. THROAT: No erythema or exudates. NECK: Right IJ Norris-Ubaldo catheter in place. No masses, no JVD. CHEST: Sternal dressing dry and intact. Heart Hugger in place. 2 mediastinal, 1 left pleural chest tubes in place. To wall suction. No leak. LUNGS: Equal air entry with no crackles, wheeze, rhonchi or dullness. CVS: S1 and S2 normal with no audible murmur, regular rhythm. Back pacing at 50 bpm Pacer wires in place connected generator. ABDOMEN: No hepatosplenomegaly, no guarding or rigidity. SPINE: No scoliosis or deformity SKIN: No rashes CENTRAL NERVOUS SYSTEM: Alert, oriented. Tone is normal in all 4 extremities. EXTREMITIES: Right radial arterial line in place. Thuan wrap support bilateral lower extremities. GUNJAN in place to the right lower extremity. There is 1+ perip heral edema. Peripheral pulses are intact. - Labs CBC & Chem 7: 01/10/22 04:50 01/10/22 04:50 Labs: Abnormal Lab Results - Last 24 Hours (Table) 01/06/22 01/09/22 01/09/22 Range/Units 15:45 11:19 11:20 RBC 2.41 L (4.30-5.90) m/uL Hgb 7.8 L (13.0-17.5) gm/dL Hct 22.7 L (39.0-53.0) % Plt Count 122 L (150-450) k/uL Lymphocytes # (1.0-4.8) k/uL Sodium (137-145) mmol/L BUN (9-20) mg/dL Glucose (74-99) mg/dL POC Glucose (mg/dL) 150 H (70-110) mg/dL Calcium (8.4-10.2) mg/dL Total Protein (6.3-8.2) g/dL Albumin (3.5-5.0) g/dL Crossmatch See Detail 01/09/22 01/09/22 01/09/22 Range/Units 11:50 13:31 15:02 RBC (4.30-5.90) m/uL Hgb (13.0-17.5) gm/dL Hct (39.0-53.0) % Plt Count (150-450) k/uL Lymphocytes # (1.0-4.8) k/uL Sodium (137-145) mmol/L BUN (9-20) mg/dL Glucose (74-99) mg/dL POC Glucose (mg/dL) 133 H 128 H 138 H (70-110) mg/dL Calcium (8.4-10.2) mg/dL Total Protein (6.3-8.2) g/dL Albumin (3.5-5.0) g/dL Crossmatch 01/09/22 01/09/22 01/09/22 Range/Units 16:48 18:17 21:23 RBC (4.30-5.90) m/uL Hgb (13.0-17.5) gm/dL Hct (39.0-53.0) % Plt Count (150-450) k/uL Lymphocytes # (1.0-4.8) k/uL Sodium (137-145) mmol/L BUN (9-20) mg/dL Glucose (74-99) mg/dL POC Glucose (mg/dL) 123 H 142 H 179 H (70-110) mg/dL Calcium (8.4-10.2) mg/dL Total Protein (6.3-8.2) g/dL Albumin (3.5-5.0) g/dL Crossmatch 01/09/22 01/10/22 01/10/22 Range/Units 23:32 01:20 04:47 RBC (4.30-5.90) m/uL Hgb (13.0-17.5) gm/dL Hct (39.0-53.0) % Plt Count (150-450) k/uL Lymphocytes # (1.0-4.8) k/uL Sodium (137-145) mmol/L BUN (9-20) mg/dL Glucose (74-99) mg/dL POC Glucose (mg/dL) 145 H 140 H 147 H (70-110) mg/dL Calcium (8.4-10.2) mg/dL Total Protein (6.3-8.2) g/dL Albumin (3.5-5.0) g/dL Crossmatch 01/10/22 01/10/22 01/10/22 Range/Units 04:50 04:50 08:12 RBC 2.43 L (4.30-5.90) m/uL Hgb 7.9 L (13.0-17.5) gm/dL Hct 22.8 L (39.0-53.0) % Plt Count 126 L (150-450) k/uL Lymphocytes # 0.9 L (1.0-4.8) k/uL Sodium 135 L (137-145) mmol/L BUN 23 H (9-20) mg/dL Glucose 131 H (74-99) mg/dL POC Glucose (mg/dL) 134 H (70-110) mg/dL Calcium 8.2 L (8.4-10.2) mg/dL Total Protein 4.9 L (6.3-8.2) g/dL Albumin 3.0 L (3.5-5.0) g/dL Crossmatch Assessment and Plan Assessment: Coronary artery disease, status post coronary artery bypass grafting 3 with a SAMUELS to LAD, SVG to the OM1, SVG to the RCA. Left atrial appendage clipping with a 35 mm Atriclip. Postoperative day #2 Anemia, expected, current hemoglobin 7.9, received 1 unit of packed red blood cells this admission Morbid obesity with a BMI of 41.3 kg/m Hypertension, history of Hyperlipidemia Prostate cancer History of left lower extremity DVT, previous filter placed, maintained on Xarelto on outpatient setting Nonsmoker, FEV1 value 2.21 L Plan: The patient was seen and evaluated Chest x-ray, labs and medications reviewed Again, encouraged the use of the incentive spirometer Increase his activity as tolerated Follow-up chest x-ray and labs in a.m. We will continue to follow I have personally seen and examined the patient, performed the documentation and the assessment and plan as written. Number of minutes spent on the visit: 10.
--- NOTE | 2022-01-10 11:17 | P.PN ---
Subjective Progress Note Date: 01/10/22 This is Alton Givens NP, I'm dictating on behalf of Dr. Philip's H&P and A&P. Patient was interviewed and examined. Patient is a pleasant 81-year-old male who initially presented to the hospital with CAD and is currently status post 3 vessel grafting completed on 01/08/2022. Patient is doing okay at this time. Nursing reports following cardiothoracic surgery general protocol, and switch the patient's amiodarone to by mouth this morning. His blood pressure is doing well at this time. Breath sounds are diminished in the lower lung rivera. Otherwise the patient does not complain of any significant chest pain, shortness of breath with ambulation. GENERAL: Well-appearing, well-nourished and in no acute distress. NECK: Supple without JVD or thyromegaly. LUNGS: Breath sounds clear to auscultation bilaterally. Respiration equal and unlabored. No wheezes, rales or rhonchi. HEART: Regular rate and rhythm without murmurs, rubs or gallops. S1 and S2 heard. EXTREMITIES: Normal range of motion, no edema. No clubbing or cyanosis. Peripheral pulses intact and strong. VITALS: Pulse 95, respirations 21, blood pressure 116/53, O2 saturation 91% on 4 L via nasal cannula TELEMETRY: Normal sinus rhythm LABS: White count 7.8, hemoglobin 7.9, platelets 126, sodium 135, potassium 3.9, BUN 23, creatinine 0.9, calcium 8.2 IMPRESSION: 1. Coronary artery disease, status post triple-vessel bypass 2. Postoperative acute blood loss anemia 3. History of hypertension 4. History of hyperlipidemia PLAN: Continue medications as ordered Continue to increase activity Surgical management from cardiothoracic team Patient needs to continue incentive spirometry, he may need coaching and encouragement to complete this Further recommendations based on the patient's clinical course Objective - Vital Signs Vital signs: Vital Signs Temp 98.1 F 01/09/22 16:00 Pulse 106 H 01/10/22 09:00 Resp 17 01/10/22 09:00 BP 106/43 01/10/22 09:00 Pulse Ox 92 L 01/10/22 09:00 FiO2 50 01/09/22 08:02 Intake & Output 01/09/22 01/10/22 01/10/22 18:59 06:59 18:59 Intake Total 5660.342 4910.137 288.545 Output Total 965 740 105 Balance 667.175 390.137 183.545 Weight 119.6 kg 119.4 kg Intake: IV 658 629 168 CO/CI flush 110 60 80 Lactated Ringers 1,000 ml 390 470 70 @ 20 mls/hr IV .Q24H [facility] Rx#:[id number] Pressure Lines 108 99 18 ceFAZolin 2 gm In Sodium 50 Chloride 0.9% 50 ml @ 100 mls/hr IVPB Q8HR [facility] Rx# :[id number] Intake, IV Titration 314.175 351.137 20.545 Amount Amiodarone 360 mg In 34 16 Dextrose 5% in Water 200 ml @ 1 MG/MIN 34.533 mls/ hr IV .Q6H [facility] Rx#: [id number] Calcium Gluconate in NaCl 100 1 gm In Saline 1 100ml. bag @ 100 mls/hr IVPB ONCE ONE Rx#:[id number] Dextrose 5% in Water 100 300 ml @ 618 mls/hr IV .Q10M PRN with Amiodarone 150 mg Rx#:[id number] Insulin Regular 100 unit 10.766 17.137 4.545 In Sodium Chloride 0.9% 100 ml @ Per Protocol IV .Q0M [facility] Rx#:[id number] Milrinone-D5w Pmx 20 mg 3.409 In Dextrose/Water 1 100ml .bag @ 0.3 MCG/KG/MIN 10. 764 mls/hr IV .Q9H18M [facility] Rx#:[id number] Potassium Chloride 10 meq 200 In Water For Injection 1 100ml.bag @ 100 mls/hr IVPB Q1H [facility] Rx#: [id number] Oral 100 150 100 Tube Feeding 200 Blood Product 310 Rc As-1 Unit 310 [id number] Other 50 Rc As-1 Unit 50 [id number] Output: Drainage 520 310 40 Left Chest 250 60 20 Medial Chest 270 130 20 Right Thigh 120 Urine 445 430 65 Other: Voiding Method Indwelling Catheter Indwelling Catheter ABP, PAP, CO, CI - Last Documented Arterial Blood Pressure 140/48 Pulmonary Artery Pressure 37/18 Cardiac Output 5 Cardiac Index 2.2 - Labs CBC & Chem 7: 01/10/22 04:50 01/10/22 04:50 Labs: Abnormal Lab Results - Last 24 Hours (Table) 01/06/22 01/09/22 01/09/22 Range/Units 15:45 11:19 11:20 RBC 2.41 L (4.30-5.90) m/uL Hgb 7.8 L (13.0-17.5) gm/dL Hct 22.7 L (39.0-53.0) % Plt Count 122 L (150-450) k/uL Lymphocytes # (1.0-4.8) k/uL Sodium (137-145) mmol/L BUN (9-20) mg/dL Glucose (74-99) mg/dL POC Glucose (mg/dL) 150 H (70-110) mg/dL Calcium (8.4-10.2) mg/dL Total Protein (6.3-8.2) g/dL Albumin (3.5-5.0) g/dL Crossmatch See Detail 01/09/22 01/09/22 01/09/22 Range/Units 11:50 13:31 15:02 RBC (4.30-5.90) m/uL Hgb (13.0-17.5) gm/dL Hct (39.0-53.0) % Plt Count (150-450) k/uL Lymphocytes # (1.0-4.8) k/uL Sodium (137-145) mmol/L BUN (9-20) mg/dL Glucose (74-99) mg/dL POC Glucose (mg/dL) 133 H 128 H 138 H (70-110) mg/dL Calcium (8.4-10.2) mg/dL Total Protein (6.3-8.2) g/dL Albumin (3.5-5.0) g/dL Crossmatch 01/09/22 01/09/22 01/09/22 Range/Units 16:48 18:17 21:23 RBC (4.30-5.90) m/uL Hgb (13.0-17.5) gm/dL Hct (39.0-53.0) % Plt Count (150-450) k/uL Lymphocytes # (1.0-4.8) k/uL Sodium (137-145) mmol/L BUN (9-20) mg/dL Glucose (74-99) mg/dL POC Glucose (mg/dL) 123 H 142 H 179 H (70-110) mg/dL Calcium (8.4-10.2) mg/dL Total Protein (6.3-8.2) g/dL Albumin (3.5-5.0) g/dL Crossmatch 01/09/22 01/10/22 01/10/22 Range/Units 23:32 01:20 04:47 RBC (4.30-5.90) m/uL Hgb (13.0-17.5) gm/dL Hct (39.0-53.0) % Plt Count (150-450) k/uL Lymphocytes # (1.0-4.8) k/uL Sodium (137-145) mmol/L BUN (9-20) mg/dL Glucose (74-99) mg/dL POC Glucose (mg/dL) 145 H 140 H 147 H (70-110) mg/dL Calcium (8.4-10.2) mg/dL Total Protein (6.3-8.2) g/dL Albumin (3.5-5.0) g/dL Crossmatch 01/10/22 01/10/22 01/10/22 Range/Units 04:50 04:50 08:12 RBC 2.43 L (4.30-5.90) m/uL Hgb 7.9 L (13.0-17.5) gm/dL Hct 22.8 L (39.0-53.0) % Plt Count 126 L (150-450) k/uL Lymphocytes # 0.9 L (1.0-4.8) k/uL Sodium 135 L (137-145) mmol/L BUN 23 H (9-20) mg/dL Glucose 131 H (74-99) mg/dL POC Glucose (mg/dL) 134 H (70-110) mg/dL Calcium 8.2 L (8.4-10.2) mg/dL Total Protein 4.9 L (6.3-8.2) g/dL Albumin 3.0 L (3.5-5.0) g/dL Crossmatch
[2022-01-10] MEDS: FERROUS SULFATE 325 MG TAB PO SCH (11:53)
[2022-01-10] MEDS: LACTATED RINGERS 1,000 ML IV SCH (11:53)
[2022-01-10] MEDS: ASCORBIC ACID 500 MG TAB PO SCH (11:53)
[2022-01-10 11:55] LABS: Glucose,Whole Blood 134 mg/dL (70-110)
[2022-01-10] MEDS: INSULIN ASPART (NovoLOG) 100 UNIT/ML VIAL SQ SCH ×3 (12:10→21:04)
--- NOTE | 2022-01-10 13:44 | P.PN ---
Subjective Progress Note Date: 01/10/22 Hospital course Patient is a pleasant 81-year-old male who presented to the hospital with a scheduled CABG, and had three-vessel grafting completed on 01/08/2022. We are consulted post cardiac surgery. Patient has a past history of hypertension, morbid obesity, prostate cancer, radiation therapy, kidney stones, lower extremity DVT with IVC filter placement, Patient underwent three-vessel grafting as previously described, and currently reports he is doing well today. He has not reporting any chest pain or shortness of breath symptoms at this time. His blood pressure is doing well at this time. Breath sounds are diminished in the lower lung rivera. Otherwise the patient does not complain of any significant chest pain, shortness of breath with ambulation. Subjective Patient seen at bedside , he sitting in chair, chest drains in place, patient hemodynamically stable no acute distress Objective Physicial exam GENERAL EXAM: Awake, alert x 3 HEAD: Normocephalic. EYES: Normal reaction of pupils, equal size. NOSE: Clear with pink turbinates. THROAT: No erythema or exudates. NECK: Right IJ [place]-Ubaldo catheter in place. No masses, no JVD. CHEST: Sternal dressing dry and intact. Heart Hugger in place. 2 mediastinal, 1 left pleural chest tubes in place. To wall suction. No leak. LUNGS: Equal air entry with no crackles, wheeze, rhonchi or dullness. CVS: S1 and S2 normal with no audible murmur, regular rhythm. Back pacing at 50 bpm Pacer wires in place connected generator. ABDOMEN: No hepatosplenomegaly, no guarding or rigidity. EXTREMITIES: Right radial arterial line in place. Thuan wrap support bilateral lower extremities. GUNJAN in place to the right lower extremity. There is 1+ peripheral edema. Peripheral pulses are intact. CENTRAL NERVOUS SYSTEM: Alert, oriented. Tone is normal in all 4 extremities. Assessment and Plan # Coronary artery disease s/p cardiac cath on 12/29/21 -status post coronary artery bypass grafting 3 on 01/08/22. -Currently on aspirin and Plavix statin and metoprolol and amiodarone -Cardiology and cardiology thoracic surgery following # Acute Hypoxic Respiratory Failure - Postoperative status post extubation on 01/09/2022 # Anemia of acute blood loss -Secondary to operative blood loss -Received 1 unit of care to see transfuse on 01/09/2022 -Repeat hemoglobin this afternoon and transfuse as needed # History of left lower extremity DVT - IVC filter on place was on Eliquis at home, decision to resume anticoagulation pending clearance from cardiology thoracic surgery # Hx of Hypertension -Currently on metoprolol #Hyperlipidemia -continue statin # Morbid obesity with a BMI of 41.3 kg/m -Will benefit from outpatient sleep study # Hx of Prostate cancer Disposal: Likely to rehab pending clinical improvement in clearance from cardiac thoracic surgery Objective - Vital Signs Vital signs: Vital Signs Temp 98.8 F 01/10/22 12:00 Pulse 90 01/10/22 13:00 Resp 15 01/10/22 13:00 BP 96/62 01/10/22 13:00 Pulse Ox 96 01/10/22 13:00 FiO2 50 01/09/22 08:02 Intake & Output 01/09/22 01/10/22 01/10/22 18:59 06:59 18:59 Intake Total 5468.954 6304.137 780.055 Output Total 965 740 400 Balance 667.175 390.137 380.055 Weight 119.6 kg 119.4 kg Intake: IV 658 629 298 CO/CI flush 110 60 80 Lactated Ringers 1,000 ml 390 470 170 @ 20 mls/hr IV .Q24H [facility] Rx#:[id number] Pressure Lines 108 99 48 ceFAZolin 2 gm In Sodium 50 Chloride 0.9% 50 ml @ 100 mls/hr IVPB Q8HR [facility] Rx# :[id number] Intake, IV Titration 314.175 351.137 182.055 Amount Amiodarone 360 mg In 34 16 Dextrose 5% in Water 200 ml @ 1 MG/MIN 34.533 mls/ hr IV .Q6H [facility]N Rx#: [id number] Amiodarone 450 mg In 161.114 Dextrose 5% in Water 250 ml @ 0.5 MG/MIN 16.667 mls/hr IV .Q15H PRN Rx#: [id number] Calcium Gluconate in NaCl 100 1 gm In Saline 1 100ml. bag @ 100 mls/hr IVPB ONCE ONE Rx#:[id number] Dextrose 5% in Water 100 300 ml @ 618 mls/hr IV .Q10M PRN with Amiodarone 150 mg Rx#:[id number] Insulin Regular 100 unit 10.766 17.137 4.941 In Sodium Chloride 0.9% 100 ml @ Per Protocol IV .Q0M [facility] Rx#:[id number] Milrinone-D5w Pmx 20 mg 3.409 In Dextrose/Water 1 100ml .bag @ 0.3 MCG/KG/MIN 10. 764 mls/hr IV .Q9H18M [facility] Rx#:[id number] Potassium Chloride 10 meq 200 In Water For Injection 1 100ml.bag @ 100 mls/hr IVPB Q1H [facility] Rx#: [id number] Oral 100 150 300 Tube Feeding 200 Blood Product 310 Rc As-1 Unit 310 [id number] Other 50 Rc As-1 Unit 50 [id number] Output: Drainage 520 310 100 Left Chest 250 60 50 Medial Chest 270 130 50 Right Thigh 120 Urine 445 430 300 Other: Voiding Method Indwelling Catheter Indwelling Catheter Indwelling Catheter ABP, PAP, CO, CI - Last Documented Arterial Blood Pressure 107/47 Pulmonary Artery Pressure 37/18 Cardiac Output 5 Cardiac Index 2.2 - Labs CBC & Chem 7: 01/10/22 04:50 01/10/22 04:50 Labs: Abnormal Lab Results - Last 24 Hours (Table) 01/06/22 01/09/22 01/09/22 Range/Units 15:45 15:02 16:48 RBC (4.30-5.90) m/uL Hgb (13.0-17.5) gm/dL Hct (39.0-53.0) % Plt Count (150-450) k/uL Lymphocytes # (1.0-4.8) k/uL Sodium (137-145) mmol/L BUN (9-20) mg/dL Glucose (74-99) mg/dL POC Glucose (mg/dL) 138 H 123 H (70-110) mg/dL Calcium (8.4-10.2) mg/dL Total Protein (6.3-8.2) g/dL Albumin (3.5-5.0) g/dL Crossmatch See Detail 01/09/22 01/09/22 01/09/22 Range/Units 18:17 21:23 23:32 RBC (4.30-5.90) m/uL Hgb (13.0-17.5) gm/dL Hct (39.0-53.0) % Plt Count (150-450) k/uL Lymphocytes # (1.0-4.8) k/uL Sodium (137-145) mmol/L BUN (9-20) mg/dL Glucose (74-99) mg/dL POC Glucose (mg/dL) 142 H 179 H 145 H (70-110) mg/dL Calcium (8.4-10.2) mg/dL Total Protein (6.3-8.2) g/dL Albumin (3.5-5.0) g/dL Crossmatch 01/10/22 01/10/22 01/10/22 Range/Units 01:20 04:47 04:50 RBC 2.43 L (4.30-5.90) m/uL Hgb 7.9 L (13.0-17.5) gm/dL Hct 22.8 L (39.0-53.0) % Plt Count 126 L (150-450) k/uL Lymphocytes # 0.9 L (1.0-4.8) k/uL Sodium (137-145) mmol/L BUN (9-20) mg/dL Glucose (74-99) mg/dL POC Glucose (mg/dL) 140 H 147 H (70-110) mg/dL Calcium (8.4-10.2) mg/dL Total Protein (6.3-8.2) g/dL Albumin (3.5-5.0) g/dL Crossmatch 01/10/22 01/10/22 01/10/22 Range/Units 04:50 08:12 11:53 RBC (4.30-5.90) m/uL Hgb (13.0-17.5) gm/dL Hct (39.0-53.0) % Plt Count (150-450) k/uL Lymphocytes # (1.0-4.8) k/uL Sodium 135 L (137-145) mmol/L BUN 23 H (9-20) mg/dL Glucose 131 H (74-99) mg/dL POC Glucose (mg/dL) 134 H 134 H (70-110) mg/dL Calcium 8.2 L (8.4-10.2) mg/dL Total Protein 4.9 L (6.3-8.2) g/dL Albumin 3.0 L (3.5-5.0) g/dL Crossmatch
[2022-01-10 16:35] LABS: Glucose,Whole Blood 116 mg/dL (70-110)
[2022-01-10 20:33] LABS: Glucose,Whole Blood 115 mg/dL (70-110)
[2022-01-10] MEDS ORDERED: METOPROLOL TARTRATE 25 MG TAB PO SCH (21:00)
[2022-01-10] MEDS ORDERED: METOPROLOL TARTRATE 50 MG TAB PO SCH (21:00)
[2022-01-10] MEDS: SENNOSIDES-DOCUSATE SODIUM 1 EACH TAB PO SCH (21:42)
[2022-01-10] MEDS: MELATONIN 5 MG TABLET PO SCH (21:42)
[2022-01-10] MEDS ORDERED: ALBUMIN HUMAN 5% 250 ML in EMPTY BAG 1 BAG IVPB STA (23:13)
[2022-01-11] MEDS ORDERED: FUROSEMIDE 10 MG/ML 4 ML VIAL IV STA ×2 (00:46→08:03)
[2022-01-11] MEDS: NOREPINEPHRINE 4 MG in SODIUM CHLORIDE 0.9% 250 ML IV SCH (00:59)
[2022-01-11 04:17] LABS: Basophils % (A) 0 %; Eosinophils # (A) 0.2 k/uL (0-0.7); Eosinophils % (A) 2 %; HGB 7.3 gm/dL (13.0-17.5); Lymphocytes # (A) 1.3 k/uL (1.0-4.8); Lymphocytes % (A) 15 %; MCH 31.2 pg (25.0-35.0); MCHC 33.1 g/dL (31.0-37.0); MCV 94.2 fL (80.0-100.0); Mean Platelet Volume 8.7; Monocytes # (A) 0.6 k/uL (0-1.0); Monocytes % (A) 6 %; Neutrophils # (A) 6.5 k/uL (1.3-7.7); Neutrophils % (A) 74 %; Platelet Count 136 k/uL (150-450); RBC 2.34 m/uL (4.30-5.90); RDW 13.9 % (11.5-15.5); WBC 8.7 k/uL (3.8-10.6)
[2022-01-11 04:35] LABS: Albumin 3.1 g/dL (3.5-5.0); Potassium 4.3 mmol/L (3.5-5.1); Total Bilirubin 0.7 mg/dL (0.2-1.3); Total Protein 5.1 g/dL (6.3-8.2)
[2022-01-11 06:33] LABS: Glucose,Whole Blood 107 mg/dL (70-110)
[2022-01-11] MEDS: INSULIN ASPART (NovoLOG) 100 UNIT/ML VIAL SQ SCH ×4 (06:52→20:58)
[2022-01-11] MEDS: KETOROLAC 15 MG/ML 1 ML VIAL IVP SCH ×2 (06:54→12:39)
--- NOTE | 2022-01-11 07:25 | XR ---
EXAMINATION TYPE: XR chest 1V portable DATE OF EXAM: 01/11/2022 COMPARISON: 01/10/2022 HISTORY: Postoperative cardiac surgery FINDINGS: [place]-Ubaldo catheter has been removed. Right IJ sheath is in place. Left-sided chest tube and mediastin al drain remain in place. Left atrial clip identified. No change in bibasilar opacities. Stable appearance of the cardio-mediastinal structures at this time. IMPRESSION: 1. Stable portable chest. Indwelling tubes and lines as noted. Clinical correlation and follow up u ntil resolution is recommended.
[2022-01-11] MEDS ORDERED: POTASSIUM CHLORIDE ER 10 MEQ TAB.ER.PRT PO STA (08:03)
[2022-01-11] MEDS: ASPIRIN 325 MG TAB PO SCH (08:23)
[2022-01-11] MEDS: METOPROLOL TARTRATE 12.5 MG TAB PO SCH ×2 (08:23→21:01)
[2022-01-11] MEDS: CLOPIDOGREL 75 MG TAB PO SCH (08:24)
[2022-01-11] MEDS: ATORVASTATIN 40 MG TAB PO SCH (08:24)
[2022-01-11] MEDS: HEPARIN SODIUM,PORCINE/PF 5,000 UNIT/0.5 ML SYRINGE SQ SCH ×3 (08:24→23:52)
[2022-01-11] MEDS: AMIODARONE 200 MG TAB PO SCH ×2 (08:24→21:01)
[2022-01-11] MEDS: IPRATROPIUM-ALBUTEROL 3 ML NEB INHALATION SCH ×4 (08:53→21:40)
--- NOTE | 2022-01-11 09:17 | P.PN ---
Subjective Progress Note Date: 01/11/22 The patient is an 81-year-old male who is currently admitted to the hospital after undergoing coronary bypass 3. Postoperative complications include acute blood loss anemia. The patient was interviewed and examined lying in bed. Chest tubes being removed by cardiothoracic team. The patient does report chest discomfort at this time. Overnight the patient developed hypotension and was placed on norep inephrine. GENERAL: Well-appearing, well-nourished and in no acute distress. NECK: Supple without JVD or thyromegaly. LUNGS: Breath sounds diminished to auscultation bilaterally. Respiration equal and unlabored. No wheezes, rales or rhonchi. HEART: Regular rate and rhythm without murmurs, rubs or gallops. S1 and S2 heard. EXTREMITIES: Normal range of motion, no edema. No clubbing or cyanosis. P eripheral pulses intact and strong. VITALS: Blood pressure 118/47, pulse 68, respiratory rate 16, SpO2 97% on 4 L nasal cannula TELEMETRY: Sinus rhythm overnight LABS: WBC 8.7, hemoglobin 7.3, hematocrit 22.0, platelet 136, sodium 135, potassium 4.3, BUN 28, creatinine 1.01 IMPRESSION: Multivessel coronary artery disease Status post triple-vessel bypass Postoperative acute blood loss anemia History of hypertension History of hyperlipidemia PLAN: Continue supportive treatment Aggressive pulmonary hygiene Further recommendations will be based on patient's clinical course I am dictating on behalf of Dr Beto Philip's history/physical and assessment/plan. Objective - Vital Signs Vital signs: Vital Signs Temp 97.5 F L 01/11/22 04:00 Pulse 68 01/11/22 07:00 Resp 16 01/11/22 07:00 BP 112/46 01/11/22 07:00 Pulse Ox 97 01/11/22 07:00 FiO2 50 01/09/22 08:02 Intake & Output 01/10/22 01/11/22 01/11/22 18:59 06:59 18:59 Intake Total 1010.055 618.099 47.38 Output Total 740 810 60 Balance 270.055 -191.901 -12.62 Weight 127.5 kg Intake: IV 428 338 26 CO/CI flush 80 Lactated Ringers 1,000 ml 270 260 20 @ 20 mls/hr IV .Q24H [facility] Rx#:[id number] Pressure Lines 78 78 6 Intake, IV Titration 182.055 280.099 21.38 Amount Albumin Human 5% 250 ml 250 In Empty Bag 1 bag @ 250 mls/hr IVPB ONCE [facility] Rx#: [id number] Amiodarone 360 mg In 16 Dextrose 5% in Water 200 ml @ 1 MG/MIN 34.533 mls/ hr IV .Q6H [facility] Rx#: [id number] Amiodarone 450 mg In 161.114 Dextrose 5% in Water 250 ml @ 0.5 MG/MIN 16.667 mls/hr IV .Q15H [facility] Rx#: [id number] Insulin Regular 100 unit 4.941 In Sodium Chloride 0.9% 100 ml @ Per Protocol IV .Q0M [facility] Rx#:[id number] Norepinephrine 4 mg In 30.099 21.38 Sodium Chloride 0.9% 250 ml @ 0.02 MCG/KG/MIN 9. 098 mls/hr IV .Q24H [facility] Rx#:[id number] Oral 400 Output: Chest Tube Drainage 110 Left Pleaural 50 Mediastinal 60 Drainage 250 120 Left Chest 100 0 Medial Chest 100 0 Right Thigh 50 120 Urine 490 580 60 Other: Voiding Method Indwelling Catheter Indwelling Catheter ABP, PAP, CO, CI - Last Documented Arterial Blood Pressure 118/47 Pulmonary Artery Pressure 37/18 Cardiac Output 6 Cardiac Index 2.6 - Labs CBC & Chem 7: 01/11/22 04:00 01/11/22 04:00 Labs: Abnormal Lab Results - Last 24 Hours (Table) 01/10/22 01/10/22 01/10/22 Range/Units 11:53 16:33 20:31 RBC (4.30-5.90) m/uL Hgb (13.0-17.5) gm/dL Hct (39.0-53.0) % Plt Count (150-450) k/uL Sodium (137-145) mmol/L BUN (9-20) mg/dL Glucose (74-99) mg/dL POC Glucose (mg/dL) 134 H 116 H 115 H (70-110) mg/dL Calcium (8.4-10.2) mg/dL Total Protein (6.3-8.2) g/dL Albumin (3.5-5.0) g/dL 01/11/22 01/11/22 Range/Units 04:00 04:00 RBC 2.34 L (4.30-5.90) m/uL Hgb 7.3 L (13.0-17.5) gm/dL Hct 22.0 L (39.0-53.0) % Plt Count 136 L (150-450) k/uL Sodium 135 L (137-145) mmol/L BUN 28 H (9-20) mg/dL Glucose 118 H (74-99) mg/dL POC Glucose (mg/dL) (70-110) mg/dL Calcium 8.0 L (8.4-10.2) mg/dL Total Protein 5.1 L (6.3-8.2) g/dL Albumin 3.1 L (3.5-5.0) g/dL
--- NOTE | 2022-01-11 10:43 | P.PN ---
Subjective Progress Note Date: 01/11/22 Principal diagnosis: Coronary artery disease. Past medical history significant for hypertension, hyperlipidemia, morbid obesity with a BMI of 41.3 kg/m, history of prostate cancer, status post radiation therapy, left lower extremity DVT with previous IVC filter placement and is maintained on Xarelto on an outpatient basis, history of kidney stones and nonrheumatic aortic valve insufficiency. POD #3 coronary artery bypass grafting 3 vessels with left internal mammary artery to left anterior descending coronary artery, a greater saphenous vein graft to the obtuse marginal coronary artery, and a greater saphenous vein graft to the distal right coronary artery. Endoscopic harvesting of the right greater saphenous vein, ligation of left atrial appendage using a 35 mm Atriclip, epi- aortic ultrasound, intraoperative transesophageal echocardiogram and closure of the sternum using titanium plating system. Postoperative acute blood loss anemia, expected given hemodilution and cardiopulmonary bypass. Paroxysmal atrial fibrillation, a known common occurrence after cardiac surgery. The patient was seen and examined today 01/11/2022 at his bedside in the intensive care unit. The patient is sitting up to the bedside chair, is awake, alert, oriented 3 and is in no acute distress. Denies any complaints of pain or shortness of breath at this time, although is complaining of some generalized postoperative weakness. Oxygen saturations are 97% on 4 L nasal cannula and he is achieving 1000 mL on his incentive spirometry with much encouragement. Bedside telemetry showing atrial fibrillation with heart rate 93 BPM. He remains on amiodarone 400 mg by mouth twice. Currently is on norepinephrine drip at 0.01 mcg/kg/m as he had an episode of hypotension throughout the night. Right IJ cordis remains in place with current CVP pressure 8 mmHg. Current blood pressure is 129/46 on the arterial line with a map of 74 mmHg. Mediastinal and left pleural chest tubes remain in place to low continuous wall suction -20 cm H2O. No air leak is present. Draining thin serosanguineous drainage. Left pleural chest tube drained 30 mL output in the last 8 hours and 150 mL output in the last 24 hours. Mediastinal chest tubes put out 40 mL output in the last 8 hours and 160 mL output in the last 24 hours. Laboratory results morning show a WBC count of 8.7, hemoglobin 7.3, hematocrit 22.0, platelets 136, sodium 135, potassium 4.3, BUN 28, creatinine 1.01, glucose 118, calcium 8.0 and magnesium 2.2. Oconnell catheter remains in place for accurate I's and O's at he had 480 mL of urine output in the last 8 hours. He has been up ambulating with assistance from nursing and therapy staff. Objective - Vital Signs Vital signs: Vital Signs Temp 97.5 F L 01/11/22 04:00 Pulse 68 01/11/22 07:00 Resp 16 01/11/22 07:00 BP 112/46 01/11/22 07:00 Pulse Ox 97 01/11/22 07:00 FiO2 50 01/09/22 08:02 Intake & Output 01/10/22 01/11/22 01/11/22 18:59 06:59 18:59 Intake Total 1010.055 618.099 103.853 Output Total 740 810 235 Balance 270.055 -191.901 -131.147 Weight 127.5 kg Intake: IV 428 338 78 CO/CI flush 80 Lactated Ringers 1,000 ml 270 260 60 @ 20 mls/hr IV .Q24H [facility] Rx#:[id number] Pressure Lines 78 78 18 Intake, IV Titration 182.055 280.099 25.853 Amount Albumin Human 5% 250 ml 250 In Empty Bag 1 bag @ 250 mls/hr IVPB ONCE [facility] Rx#: [id number] Amiodarone 360 mg In 16 Dextrose 5% in Water 200 ml @ 1 MG/MIN 34.533 mls/ hr IV .Q6H PRN Rx#: [id number] Amiodarone 450 mg In 161.114 Dextrose 5% in Water 250 ml @ 0.5 MG/MIN 16.667 mls/hr IV .Q15H [facility]N Rx#: [id number] Insulin Regular 100 unit 4.941 In Sodium Chloride 0.9% 100 ml @ Per Protocol IV .Q0M [facility] Rx#:[id number] Norepinephrine 4 mg In 30.099 25.853 Sodium Chloride 0.9% 250 ml @ 0.02 MCG/KG/MIN 9. 098 mls/hr IV .Q24H [facility] Rx#:[id number] Oral 400 Output: Chest Tube Drainage 110 Left Pleaural 50 Mediastinal 60 Drainage 250 120 Left Chest 100 0 Medial Chest 100 0 Right Thigh 50 120 Urine 490 580 235 Other: Voiding Method Indwelling Catheter Indwelling Catheter ABP, PAP, CO, CI - Last Documented Arterial Blood Pressure 118/47 Pulmonary Artery Pressure 37/18 Cardiac Output 6 Cardiac Index 2.6 - Exam CONSTITUTIONAL: Sitting up to the bedside chair in the intensive care unit, appears comfortable, cooperative, no apparent acute distress. HEENT: Neck is supple, no JVD, no lymphadenopathy. Right IJ Cordis in place and functioning. RESPIRATORY: Lungs sounds essentially clear throughout, diminished to his bilateral bases. Respirations are symmetrical and nonlabored. Currently on 4 L nasal cannula with oxygen saturations 97%. Able to achieve 1000 mL on his incentive spirometry with much encouragement. Strong cough. CARDIOVASCULAR: Irregular rhythm and controlled rate. S1 and S2 present, negative for S3, gallop or murmur. Sternum is stable. Palpable peripheral pulses bilaterally, +2 edema to his bilateral lower extremities. No calf pain or tenderness noted. Heart hugger in place with patient demonstrating appropriate use. Knee-high AMANDA hose and sequential compression devices in place to his bilateral lower extremities. Bedside telemetry showing atrial fibrillation heart rate 93 BPM. GASTROINTESTINAL: Abdomen soft, nontender, nondistended. Active bowel sounds present 4 quadrants. Tolerating diet. Passing flatus. No guarding or rigidity. GENITOURINARY: Oconnell present draining clear, yellow urine. Output 480 mL in the last 8 hours. INTEGUMENTARY: Skin is warm and dry with no evidence of clubbing or cyanosis. Midline sternal incision clean dry and well approximated, covered with dry intact dressing. Right lower extremity EVH sites well approximated without redness or drainage. Pale. MUSKULOSKELETAL: Able to move all extremities, strength equal bilaterally, generalized weakness. PSYCHIATRIC: Alert and oriented to person place and time, appropriate affect, intact judgment and insight. INVASIVE LINES AND TUBES: Mediastinal/left pleural chest tubes present and connected to low continuous wall suction, no air leaks present. Mediastinal tube with 40 mL of thin serosanguineous drainage overnight, 160 mL output in the last 24 hours. Left pleural chest tube with 30 mL of thin serosanguineous drainage overnight, 150 mL output in the last 24 hours. Atrial and ventricular epicardial pacemaker wires present, connected to generator, VVI backup rate 50 bpm. Right internal jugular Cordis, right radial arterial line present. Current CVP 8 mmHg. Right lower extremity GUNJAN drain in place draining thin serosanguineous drainage with 160 mL output in the last 24 hours. - Allied health notes Allied health notes reviewed: nursing - Labs CBC & Chem 7: 01/11/22 04:00 01/11/22 04:00 Labs: Abnormal Lab Results - Last 24 Hours (Table) 01/10/22 01/10/22 01/10/22 Range/Units 11:53 16:33 20:31 RBC (4.30-5.90) m/uL Hgb (13.0-17.5) gm/dL Hct (39.0-53.0) % Plt Count (150-450) k/uL Sodium (137-145) mmol/L BUN (9-20) mg/dL Glucose (74-99) mg/dL POC Glucose (mg/dL) 134 H 116 H 115 H (70-110) mg/dL Calcium (8.4-10.2) mg/dL Total Protein (6.3-8.2) g/dL Albumin (3.5-5.0) g/dL 01/11/22 01/11/22 Range/Units 04:00 04:00 RBC 2.34 L (4.30-5.90) m/uL Hgb 7.3 L (13.0-17.5) gm/dL Hct 22.0 L (39.0-53.0) % Plt Count 136 L (150-450) k/uL Sodium 135 L (137-145) mmol/L BUN 28 H (9-20) mg/dL Glucose 118 H (74-99) mg/dL POC Glucose (mg/dL) (70-110) mg/dL Calcium 8.0 L (8.4-10.2) mg/dL Total Protein 5.1 L (6.3-8.2) g/dL Albumin 3.1 L (3.5-5.0) g/dL - Imaging and Cardiology Chest x-ray: report reviewed, image reviewed Assessment and Plan Assessment: 1. Coronary artery disease, status post three-vessel coronary artery bypass grafting surgery 2. History of hypertension 3. Hyperlipidemia 4. History of nonrheumatic aortic valve insufficiency 5. History of left lower extremity DVT with previous IVC filter placement, main tained on Xarelto on an outpatient basis 6. Morbid obesity with a BMI of 41.3 kg/m 7. History of prostate cancer, status post radiation therapy 8. History of kidney stones 9. Postoperative acute blood loss anemia, expected 10. Paroxysmal atrial fibrillation, a known common occurrence after cardiac surgery Plan: 1. Continue aspirin, statin, Plavix, beta charles. We will decrease metoprolol tartrate 12.5 mg by mouth twice a day. Continue amiodarone 400 mg by mouth twice a day for atrial fibrillation prophylaxis. 2. Wean O2 as tolerated. Encourage incentive spirometry is 10 times every hour while awake. Bronchodilators per pulmonology. Patient needs strong encouragement for pulmonary toileting. 3. Increase activity as tolerated. PT/OT/cardiac rehab following. 4. Will monitor daily labs and chest x-rays. Electrolyte replacement per protocol. No blood transfusion today. 5. Insulin management per primary care service. Patient is not a diabetic, p reoperative hemoglobin A1c 6.0% 6. Pain control with current medication regimen. [place] has been discontinued. 7. Continue right IJ cordis with continuous CVP monitoring. 8. We will remove his mediastinal and left pleural chest tubes today. 9. We will remove his Oconnell catheter after he has diuresed from his Lasix. Continue to record strict accurate intake and output. Daily weights. 10. GI/DVT prophylaxis. 11. Lasix 40 mg IV 1 now. 12. Continue melatonin 5 mg by mouth daily at bedtime. 13. Remove the right lower extremity GUNJAN drain. 14. Calcium gluconate 1 g IV piggyback 1 now. 15. More recommendations to follow based on patient's clinical course. Time with Patient: Greater than 30
[2022-01-11] MEDS: LACTATED RINGERS 1,000 ML IV SCH (10:52)
[2022-01-11 11:42] LABS: Glucose,Whole Blood 106 mg/dL (70-110)
[2022-01-11 12:01] VITALS: BMI 44.0
[2022-01-11] MEDS: FERROUS SULFATE 325 MG TAB PO SCH (12:39)
[2022-01-11] MEDS: ASCORBIC ACID 500 MG TAB PO SCH (12:39)
--- NOTE | 2022-01-11 13:34 | P.PN ---
Subjective Progress Note Date: 01/11/22 On today's evaluation on 01/12/2072, the patient is being seen for a follow-up. The patient is calm and comfortable. The patient has been doing very well. The patient is postop day #3 and the patient undergone three-vessel bypass surgery involving a SAMUELS to the LAD. The patient's is a morbidly obese male patient with a body mass index of 44. He is known to have other medical problems and comorbidities including previous history of a left lower extremity DVT and the patient has an IVC filter in place. The patient has a history of prostatism and prostate cancer and the patient has a Oconnell catheter in place and the patient was started on Flomax. The patient is also known to have history of kidney stones and hypertension hyperlipidemia. On today's evaluation, the patient using incentive spirometer rather adequately. The patient is able to generate adequate 1.5 L on his incentive spirometer. His cardiac rhythm is in atrial fibrillation and the patient is well-controlled with amiodarone. The patient remains on low-dose norepinephrine infusion which is running at 0.01 g respiratory and per minute and I'm hoping this to be discontinued today. The patient has a left pleural chest tube isn't draining around 30 mL over the past 8 hours and 150 mL over the past 24 hours. Mediastinal chest tubes and drains 40 she is over the past 8 hours and 160s over the past 24 hours. Rest of the blood work shows a hemoglobin of 7.3 with a white cell count of 8.7. Platelet counts are normal at 136. The BNP is a 28 with a creatinine of 1.0. No altered mentation. No focal neurological deficit. No other significant events overnight. No cardiac arrhythmias have been noted. Urology and the case regarding the patient's urine retention. Objective - Vital Signs Vital signs: Vital Signs Temp 97.5 F L 01/11/22 04:00 Pulse 68 01/11/22 07:00 Resp 16 01/11/22 07:00 BP 112/46 01/11/22 07:00 Pulse Ox 97 01/11/22 07:00 FiO2 50 01/09/22 08:02 Intake & Output 01/10/22 01/11/22 01/11/22 18:59 06:59 18:59 Intake Total 1010.055 618.099 77.853 Output Total 740 810 85 Balance 270.055 -191.901 -7.147 Weight 127.5 kg Intake: IV 428 338 52 CO/CI flush 80 Lactated Ringers 1,000 ml 270 260 40 @ 20 mls/hr IV .Q24H [facility] Rx#:[id number] Pressure Lines 78 78 12 Intake, IV Titration 182.055 280.099 25.853 Amount Albumin Human 5% 250 ml 250 In Empty Bag 1 bag @ 250 mls/hr IVPB ONCE STA Rx#: [id number] Amiodarone 360 mg In 16 Dextrose 5% in Water 200 ml @ 1 MG/MIN 34.533 mls/ hr IV .Q6H PRN Rx#: [id number] Amiodarone 450 mg In 161.114 Dextrose 5% in Water 250 ml @ 0.5 MG/MIN 16.667 mls/hr IV .Q15H [facility] Rx#: [id number] Insulin Regular 100 unit 4.941 In Sodium Chloride 0.9% 100 ml @ Per Protocol IV .Q0M [facility] Rx#:[id number] Norepinephrine 4 mg In 30.099 25.853 Sodium Chloride 0.9% 250 ml @ 0.02 MCG/KG/MIN 9. 098 mls/hr IV .Q24H [facility] Rx#:[id number] Oral 400 Output: Chest Tube Drainage 110 Left Pleaural 50 Mediastinal 60 Drainage 250 120 Left Chest 100 0 Medial Chest 100 0 Right Thigh 50 120 Urine 490 580 85 Other: Voiding Method Indwelling Catheter Indwelling Catheter ABP, PAP, CO, CI - Last Documented Arterial Blood Pressure 118/47 Pulmonary Artery Pressure 37/18 Cardiac Output 6 Cardiac Index 2.6 - Exam CONSTITUTIONAL: Sitting up to the bedside chair in the intensive care unit, appears comfortable, cooperative, no apparent acute distress. HEENT: Neck is supple, no JVD, no lymphadenopathy. Right IJ Cordis in place and functioning. RESPIRATORY: Lungs sounds essentially clear throughout, diminished to his bila teral bases. Respirations are symmetrical and nonlabored. Currently on 4 L nasal cannula with oxygen saturations 97%. Able to achieve 1000 mL on his incentive spirometry with much encouragement. Strong cough. CARDIOVASCULAR: Irregular rhythm and controlled rate. S1 and S2 present, negative for S3, gallop or murmur. Sternum is stable. Palpable peripheral pulses bilaterally, +2 edema to his bilateral lower extremities. No calf pain or tenderness noted. Heart hugger in place with patient demonstrating appropriate use. Knee-high AMANDA hose and sequential compression devices in place to his bilateral lower extremities. Bedside telemetry showing atrial fibrillation heart rate 93 BPM. GASTROINTESTINAL: Abdomen soft, nontender, nondistended. Active bowel sounds present 4 quadrants. Tolerating diet. Passing flatus. No guarding or rigidity. GENITOURINARY: Oconnell present draining clear, yellow urine. Output 480 mL in the last 8 hours. INTEGUMENTARY: Skin is warm and dry with no evidence of clubbing or cyanosis. Midline sternal incision clean dry and well approximated, covered with dry intact dressing. Right lower extremity EVH sites well approximated without redness or drainage. Pale. MUSKULOSKELETAL: Able to move all extremities, strength equal bilaterally, generalized weakness. PSYCHIATRIC: Alert and oriented to person place and time, appropriate affect, intact judgment and insight. INVASIVE LINES AND TUBES: Mediastinal/left pleural chest tubes present and con nected to low continuous wall suction, no air leaks present. Mediastinal tube with 40 mL of thin serosanguineous drainage overnight, 160 mL output in the last 24 hours. Left pleural chest tube with 30 mL of thin serosanguineous drainage overnight, 150 mL output in the last 24 hours. Atrial and ventricular epicardial pacemaker wires present, connected to generator, VVI backup rate 50 bpm. Right internal jugular Cordis, right radial arterial line present. Current CVP 8 mmHg. Right lower extremity GUNJAN drain in place draining thin serosanguineous drainage with 160 mL output in the last 24 hours. - Labs CBC & Chem 7: 01/11/22 04:00 01/11/22 04:00 Labs: Abnormal Lab Results - Last 24 Hours (Table) 01/10/22 01/10/22 01/10/22 Range/Units 11:53 16:33 20:31 RBC (4.30-5.90) m/uL Hgb (13.0-17.5) gm/dL Hct (39.0-53.0) % Plt Count (150-450) k/uL Sodium (137-145) mmol/L BUN (9-20) mg/dL Glucose (74-99) mg/dL POC Glucose (mg/dL) 134 H 116 H 115 H (70-110) mg/dL Calcium (8.4-10.2) mg/dL Total Protein (6.3-8.2) g/dL Albumin (3.5-5.0) g/dL 01/11/22 01/11/22 Range/Units 04:00 04:00 RBC 2.34 L (4.30-5.90) m/uL Hgb 7.3 L (13.0-17.5) gm/dL Hct 22.0 L (39.0-53.0) % Plt Count 136 L (150-450) k/uL Sodium 135 L (137-145) mmol/L BUN 28 H (9-20) mg/dL Glucose 118 H (74-99) mg/dL POC Glucose (mg/dL) (70-110) mg/dL Calcium 8.0 L (8.4-10.2) mg/dL Total Protein 5.1 L (6.3-8.2) g/dL Albumin 3.1 L (3.5-5.0) g/dL Assessment and Plan Plan: Coronary artery disease, status post coronary artery bypass grafting 3 with a SAMUELS to LAD, SVG to the OM1, SVG to the RCA. Left atrial appendage clipping with a 35 mm Atriclip. Postoperative day #3. The patient is doing well. Hemodynamically stable. Cardiac rhythm is still A. fib. The patient has been extubated adequately and the patient is currently on 2 L of nasal cannula with a pulse ox of 99% Post thoracotomy, currently patient has chest tubes in place Anemia, expected, current hemoglobin 7.3, received 1 unit of packed red blood cells this admission Morbid obesity with a BMI of 44 kg/m Hypertension, history of Hyperlipidemia Prostate cancer History of left lower extremity DVT, previous filter placed, maintained on Xarelto on outpatient setting Nonsmoker, FEV1 value 2.21 L Plan: Chest x-ray was reviewed Wean down the FiO2 Continue using incentive spirometer Continue metoprolol 12.5 mg twice a day and albuterol 4 mg by mouth twice a day in combination with aspirin, Plavix and Lipitor We'll remove the chest tubes today Lasix 40 mg IV push Remove the right lower extremity GUNJAN drain Replace calcium We'll continue to follow. Keep the patient ICU for another 24 hours.
--- NOTE | 2022-01-11 14:15 | P.PN ---
Subjective Progress Note Date: 01/11/22 (delayed charting seen at 1130) Patient is an 81-year-old male with a history of coronary artery disease, obesity, and dyslipidemia who presented for coronary artery bypass grafting 3. Patient seen and examined at bedside ICU. He states he was able to get up and walk today but has felt lightheaded due to the medications. He denies any nausea, vomiting. He has not had a bowel movement since surgery. He states his pain is fairly controlled. General: nontoxic, no distress, appears at stated age, obese Derm: warm, dry Head: atraumatic, normocephalic, symmetric Eyes: EOMI, no lid lag, anicteric sclera Mouth: no lip lesion, mucus membranes dry Cardiovascular: S1S2 reg, no murmur, positive posterior tibial pulse bilateral, Lungs: Decreased bilateral, no rhonchi, no rales , no accessory muscle use Abdominal: soft, nontender to palpation, no guarding, no appreciable organomegaly Ext: no gross muscle atrophy, trace edema, no contractures Neuro: CN II-XI grossly intact, no focal neuro deficits Psych: Alert, oriented, appropriate affect Assessment/plan: Coronary artery bypass grafting 3 Hypertension Dyslipidemia Paroxysmal atrial fibrillation - amio - ASA, plavix - lipitor - cardiothoracic surgery recs Constipation - milk of mag, if no improvement in AM then add miralax Prediabetes with recent A1c 6 -Currently on sliding scale insulin, has not required consistent dosing -He'll need outpatient follow-up with his primary Morbid obesity with BMI 41.3 on admission -Outpatient structured weight loss Postoperative acute blood loss anemia, anticipated outcome of surgery Normocytic anemia, common occurrence after surgery - oral iron to continue for 30 days. -Monitor CBC HX DVT DVT prophylaxis: Heparin Discussed with: patient, nursing A total of 25 minutes was spent on the care of this complex patient more than 50% of the time was spent in counseling and care coordination. Objective - Vital Signs Vital signs: Vital Signs Temp 98.3 F 01/11/22 12:00 Pulse 80 01/11/22 13:00 Resp 16 01/11/22 13:00 BP 109/66 01/11/22 13:00 Pulse Ox 99 01/11/22 13:00 FiO2 50 01/09/22 08:02 Intake & Output 01/10/22 01/11/22 01/11/22 18:59 06:59 18:59 Intake Total 1010.055 618.099 281.853 Output Total 740 810 660 Balance 270.055 -191.901 -378.147 Weight 127.5 kg 127.5 kg Intake: IV 428 338 156 CO/CI flush 80 Lactated Ringers 1,000 ml 270 260 120 @ 20 mls/hr IV .Q24H [facility] Rx#:[id number] Pressure Lines 78 78 36 Intake, IV Titration 182.055 280.099 25.853 Amount Albumin Human 5% 250 ml 250 In Empty Bag 1 bag @ 250 mls/hr IVPB ONCE STA Rx#: [id number] Amiodarone 360 mg In 16 Dextrose 5% in Water 200 ml @ 1 MG/MIN 34.533 mls/ hr IV .Q6H [facility] Rx#: [id number] Amiodarone 450 mg In 161.114 Dextrose 5% in Water 250 ml @ 0.5 MG/MIN 16.667 mls/hr IV .Q15H [facility] Rx#: [id number] Insulin Regular 100 unit 4.941 In Sodium Chloride 0.9% 100 ml @ Per Protocol IV .Q0M [facility] Rx#:[id number] Norepinephrine 4 mg In 30.099 25.853 Sodium Chloride 0.9% 250 ml @ 0.02 MCG/KG/MIN 9. 098 mls/hr IV .Q24H [facility] Rx#:[id number] Oral 400 100 Output: Chest Tube Drainage 110 Left Pleaural 50 Mediastinal 60 Drainage 250 120 50 Left Chest 100 0 Medial Chest 100 0 Right Thigh 50 120 50 Urine 490 580 610 Other: Voiding Method Indwelling Catheter Indwelling Catheter Indwelling Catheter ABP, PAP, CO, CI - Last Documented Arterial Blood Pressure 133/58 Pulmonary Artery Pressure 37/18 Cardiac Output 6 Cardiac Index 2.6 - Labs CBC & Chem 7: 01/11/22 04:00 01/11/22 04:00 Labs: Abnormal Lab Results - Last 24 Hours (Table) 01/10/22 01/10/22 01/11/22 Range/Units 16:33 20:31 04:00 RBC 2.34 L (4.30-5.90) m/uL Hgb 7.3 L (13.0-17.5) gm/dL Hct 22.0 L (39.0-53.0) % Plt Count 136 L (150-450) k/uL Sodium (137-145) mmol/L BUN (9-20) mg/dL Glucose (74-99) mg/dL POC Glucose (mg/dL) 116 H 115 H (70-110) mg/dL Calcium (8.4-10.2) mg/dL Total Protein (6.3-8.2) g/dL Albumin (3.5-5.0) g/dL 01/11/22 Range/Units 04:00 RBC (4.30-5.90) m/uL Hgb (13.0-17.5) gm/dL Hct (39.0-53.0) % Plt Count (150-450) k/uL Sodium 135 L (137-145) mmol/L BUN 28 H (9-20) mg/dL Glucose 118 H (74-99) mg/dL POC Glucose (mg/dL) (70-110) mg/dL Calcium 8.0 L (8.4-10.2) mg/dL Total Protein 5.1 L (6.3-8.2) g/dL Albumin 3.1 L (3.5-5.0) g/dL
--- NOTE | 2022-01-11 16:37 | CDI ---
Documentation Clarification Form Date: 01/11/2022 04:00:01 PM From: Sammie White RN, CCDS Admit Date: 01/08/2022 05:38:00 AM Patient Name: Blaise Medina Visit Number: [id number] Discharge Date: ATTENTION: The Clinical Documentation Specialists (CDI) and [facility] Coding Staff appreciate your assistance in clarifying documentation. Please respond to the clarification below the line at the bottom and electronically sign. The CDI & [facility] Coding staff will review the response and follow-up if needed. Please note: Queries are made part of the Legal Health Record. If you have any questions, please contact the author of this message via ITS. Dr. Mark Caruso Acute hypoxic respiratory failure most likely secondary to post-surgical atelectasis is documented in the medical consult on 01/09 and 01/10/22 and patient had CABG X3 on 01/08/22. Additional clarification is requested regarding the relationship, if any, that exists between the diagnosis and the procedure. Patients Admitting Diagnosis: Coronary artery disease Post-Operative Diagnosis: Same Procedure performed: Coronary artery bypass grafting x3 vessels (left internal mammary artery to left Anterior descending artery, saphenous vein graft to obtuse marginal artery, saphenous vein graft to distal right coronary artery). Endoscopic harvest of right greater saphenous vein. History/Risk Factors: Hypertension, Morbid obesity, Prostate cancer, DVT-Left lower extremity, Clinical Indicators: 81-year-old male with multivessel coronary artery disease present for elective CAGB. She was intubated and was extubated at 03:00 AM 01/09/22 to nasal cannula at 4/L. 01/11 vital sign: (08:45) 106/42 17 93 % 3/L NC, (09:30) 94/42 21 90 % 3/l NC, (12:00) 109/62 18 98 % 4/L NC 01/09 Labs: WBC 8.6, HGB 6.7, and HCT 19.9 01/09 Medical consult: Acute hypoxic respiratory failure most likely secondary to post-surgical atelectasis 01/09 pulmonary progress notes: Chest x-ray some scattered pleural parenchymal opacities most likely atelectasis. Treatment: Cardiac/Telemetry Mechanical ventilation (per pulmonary extubated 01/09 approximately 3:00 AM.) Titrate FIO2 as tolerated Duoneb 0.5Mg-3 MG/3 ML Soln RT-QID Encouraged incentive spirometer What relationship, if any, exists between the diagnosis of acute hypoxic respiratory failure most likely secondary to post-surgical atelectasis and the procedure? [ ] Post-surgical atelectasis is a complication of surgical procedure [x ] Post-surgical atelectasis is an expected outcome of the surgical procedure [ ] Post-surgical atelectasis is related to patients co-morbid condition(s) of [insert co-morbid dxs] & not a complication of the procedure [ ] Acute hypoxic respiratory failure and post-surgical atelectasis has been ruled out [ ] Other please specify ____ [ ] Unable to determine (Template Last Revised: August 2020) MTDD
[2022-01-11 16:43] LABS: Glucose,Whole Blood 98 mg/dL (70-110)
[2022-01-11 20:19] LABS: Glucose,Whole Blood 129 mg/dL (70-110)
[2022-01-11] MEDS: SENNOSIDES-DOCUSATE SODIUM 1 EACH TAB PO SCH (21:00)
[2022-01-11] MEDS: MELATONIN 5 MG TABLET PO SCH (21:01)
[2022-01-12] MEDS: NOREPINEPHRINE 4 MG in SODIUM CHLORIDE 0.9% 250 ML IV SCH (01:07)
[2022-01-12 04:57] LABS: Basophils % (A) 0 %; Eosinophils # (A) 0.2 k/uL (0-0.7); Eosinophils % (A) 2 %; HCT 22.3 % (39.0-53.0); HGB 7.4 gm/dL (13.0-17.5); Lymphocytes # (A) 1.2 k/uL (1.0-4.8); Lymphocytes % (A) 15 %; MCH 31.6 pg (25.0-35.0); MCHC 33.2 g/dL (31.0-37.0); MCV 95.1 fL (80.0-100.0); Mean Platelet Volume 8.4; Monocytes # (A) 0.4 k/uL (0-1.0); Monocytes % (A) 5 %; Neutrophils # (A) 5.9 k/uL (1.3-7.7); Neutrophils % (A) 76 %; Platelet Count 163 k/uL (150-450); RBC 2.35 m/uL (4.30-5.90); RDW 14.6 % (11.5-15.5); WBC 7.8 k/uL (3.8-10.6)
[2022-01-12 05:14] LABS: ALT 7 U/L (4-49); AST 26 U/L (17-59); African American GFR (CKD) >90 (>60 ml/min/1.73 sqM); Albumin 2.9 g/dL (3.5-5.0); Alkaline Phosphatase 62 U/L (38-126); Anion Gap 1 mmol/L; Blood Urea Nitrogen 32 mg/dL (9-20); Calcium 8.4 mg/dL (8.4-10.2); Carbon Dioxide 29 mmol/L (22-30); Chloride 106 mmol/L (98-107); Glucose 110 mg/dL (74-99); Non-African American GFR(CKD) 79 (>60 ml/min/1.73 sqM); Potassium 4.5 mmol/L (3.5-5.1); Sodium 136 mmol/L (137-145); Total Bilirubin 0.8 mg/dL (0.2-1.3); Total Protein 5.1 g/dL (6.3-8.2)
[2022-01-12 07:02] LABS: Glucose,Whole Blood 112 mg/dL (70-110)
[2022-01-12] MEDS: INSULIN ASPART (NovoLOG) 100 UNIT/ML VIAL SQ SCH ×4 (07:07→21:02)
--- NOTE | 2022-01-12 07:07 | XR ---
EXAMINATION TYPE: XR chest 2V DATE OF EXAM: 01/12/2022 COMPARISON: 01/11/2022 TECHNIQUE: PA and lateral views submitted. HISTORY: Postop cardiac surgery FINDINGS: Postsurgical changes with cardiomegaly, bilateral infiltrate and pleural effusion. No pneumothorax. A therosclerotic change aorta. Degenerative change of the spine. Could not exclude an epicardial lead. Chest tube has been removed. IMPRESSION: 1. Cardiomegaly with bilateral infiltrate and pleural effusion stable. Chest tube has been removed wi th no sizable pneumothorax.
[2022-01-12] MEDS: IPRATROPIUM-ALBUTEROL 3 ML NEB INHALATION SCH ×4 (08:00→19:58)
[2022-01-12] MEDS: bisacodyL 10 MG SUPP RECTAL PRN (08:19)
[2022-01-12] MEDS: HEPARIN SODIUM,PORCINE/PF 5,000 UNIT/0.5 ML SYRINGE SQ SCH ×2 (08:19→16:14)
[2022-01-12] MEDS: ATORVASTATIN 40 MG TAB PO SCH (08:20)
[2022-01-12] MEDS: CLOPIDOGREL 75 MG TAB PO SCH (08:20)
[2022-01-12] MEDS: AMIODARONE 200 MG TAB PO SCH ×2 (08:20→20:59)
[2022-01-12] MEDS: ASPIRIN 325 MG TAB PO SCH (08:20)
[2022-01-12] MEDS ORDERED: METOPROLOL TARTRATE 25 MG TAB PO SCH (09:00)
[2022-01-12] MEDS ORDERED: FUROSEMIDE 10 MG/ML 4 ML VIAL IV STA (09:19)
--- NOTE | 2022-01-12 09:41 | P.PN ---
Subjective Progress Note Date: 01/12/22 The patient is an 81-year-old male who is currently admitted to the hospital after undergoing coronary bypass 3. Postoperative complications include acute blood loss anemia. Chest tubes were removed yesterday. Patient has been weaned off of the low and is now up in the recliner chair. He does report some substernal discomfort but denies any chest heaviness. No dizziness or lightheadedness when ambulating to the chair. He states he is breathing well. GENERAL: Well-appearing, well-nourished and in no acute distress. NECK: Supple without JVD or thyromegaly. LUNGS: Breath sounds diminished to auscultation bilaterally. Respiration equal and unlabored. No wheezes, rales or rhonchi. HEART: Regular rate and rhythm without murmurs, rubs or gallops. S1 and S2 heard. EXTREMITIES: Normal range of motion. +2 edema. No clubbing or cyanosis. Peripheral pulses intact and strong. VITALS: Blood pressure 134/58, respiratory rate 15, pulse 102, SpO2 97% on 2 L is cannula TELEMETRY: Sinus rhythm overnight LABS: WBC 7.8, hemoglobin 7.4, hematocrit 22.3, platelet 163, sodium 136, potassium 4.5, BUN 32, creatinine 0.91, AST 26, ALT 7 IMPRESSION: Multivessel coronary artery disease Status post triple-vessel bypass Postoperative acute blood loss anemia History of hypertension History of hyperlipidemia PLAN: Continue supportive treatment Aggressive pulmonary hygiene Further recommendations will be based on patient's clinical course I am dictating on behalf of Dr Beto Philip's history/physical and assessment/plan. Objective - Vital Signs Vital signs: Vital Signs Temp 37.1 F L 01/12/22 00:00 Pulse 102 H 01/12/22 08:00 Resp 15 01/12/22 08:00 BP 102/60 01/12/22 08:00 Pulse Ox 97 01/12/22 08:00 FiO2 50 01/09/22 08:02 Intake & Output 01/11/22 01/12/22 01/12/22 18:59 06:59 18:59 Intake Total 651.853 312 172 Output Total 860 375 100 Balance -208.147 -63 72 Weight 127.5 kg 127.1 kg Intake: IV 286 312 52 Lactated Ringers 1,000 ml 220 240 40 @ 20 mls/hr IV .Q24H [facility] Rx#:[id number] Pressure Lines 66 72 12 Intake, IV Titration 25.853 Amount Norepinephrine 4 mg In 25.853 Sodium Chloride 0.9% 250 ml @ 0.02 MCG/KG/MIN 9. 098 mls/hr IV .Q24H [facility] Rx#:[id number] Oral 340 120 Output: Drainage 50 Right Thigh 50 Urine 810 375 100 Other: Voiding Method Indwelling Catheter Urinal Urinal ABP, PAP, CO, CI - Last Documented Arterial Blood Pressure 134/58 Pulmonary Artery Pressure 37/18 Cardiac Output 6 Cardiac Index 2.6 - Labs CBC & Chem 7: 01/12/22 04:48 01/12/22 04:48 Labs: Abnormal Lab Results - Last 24 Hours (Table) 01/11/22 01/12/22 01/12/22 Range/Units 20:17 04:48 04:48 RBC 2.35 L (4.30-5.90) m/uL Hgb 7.4 L (13.0-17.5) gm/dL Hct 22.3 L (39.0-53.0) % Sodium 136 L (137-145) mmol/L BUN 32 H (9-20) mg/dL Glucose 110 H (74-99) mg/dL POC Glucose (mg/dL) 129 H (70-110) mg/dL Total Protein 5.1 L (6.3-8.2) g/dL Albumin 2.9 L (3.5-5.0) g/dL 01/12/22 Range/Units 07:00 RBC (4.30-5.90) m/uL Hgb (13.0-17.5) gm/dL Hct (39.0-53.0) % Sodium (137-145) mmol/L BUN (9-20) mg/dL Glucose (74-99) mg/dL POC Glucose (mg/dL) 112 H (70-110) mg/dL Total Protein (6.3-8.2) g/dL Albumin (3.5-5.0) g/dL
--- NOTE | 2022-01-12 11:15 | P.PN ---
Subjective Progress Note Date: 01/12/22 Principal diagnosis: Coronary artery disease. Past medical history significant for hypertension, hyperlipidemia, morbid obesity with a BMI of 41.3 kg/m, history of prostate cancer, status post radiation therapy, left lower extremity DVT with previous IVC filter placement and is maintained on Xarelto on an outpatient basis, history of kidney stones and nonrheumatic aortic valve insufficiency. POD #4 coronary artery bypass grafting 3 vessels with left internal mammary artery to left anterior descending coronary artery, a greater saphenous vein graft to the obtuse marginal coronary artery, and a greater saphenous vein graft to the distal right coronary artery. Endoscopic harvesting of the right greater saphenous vein, ligation of left atrial appendage using a 35 mm Atriclip, epi- aortic ultrasound, intraoperative transesophageal echocardiogram and closure of the sternum using titanium plating system. Postoperative acute blood loss anemia, expected given hemodilution and cardiopulmonary bypass. Paroxysmal atrial fibrillation, a known common occurrence after cardiac surgery. The patient is seen and examined in follow-up today 01/12/2022 at his bedside in the intensive care unit. Denies any complaints of pain or shortness of breath at this time, although is complaining of some generalized postoperative weakness. He is sitting up to the bedside chair, is awake, alert, oriented 3 and is in no acute distress. Oxygen saturation are 95% on 2 L nasal cannula and he is achieving 1000 mL on his incentive spirometry with much encouragement. Bedside telemetry continues to show atrial fibrillation heart rate 102 BPM. He remained hemodynamically stable and is currently on no inotropic pressor support. His Oconnell catheter was removed yesterday without incident, and he has been voiding without difficulty and his urine output in the last 8 hours was 375 mL. His mediastinal and left pleural chest tubes removed yesterday without incident. Laboratory results this morning show a WBC count of 7.8, hemoglobin 7.4, hematocrit 22.3, platelets 163, sodium 136, potassium 4.5, BUN 32, creatinine 0.91, platelets 110, and calcium 8.4. The patient has been up a mbulating in the intensive care unit hallway with standby assistance from nursing and therapy staff. He has been afebrile the last 24 hours. Atrial and ventricular epicardial pacemaker wires remained in place and grounded. Objective - Vital Signs Vital signs: Vital Signs Temp 37.1 F L 01/12/22 00:00 Pulse 102 H 01/12/22 08:00 Resp 15 01/12/22 08:00 BP 102/60 01/12/22 08:00 Pulse Ox 97 01/12/22 08:00 FiO2 50 01/09/22 08:02 Intake & Output 01/11/22 01/12/22 01/12/22 18:59 06:59 18:59 Intake Total 651.853 312 172 Output Total 860 375 100 Balance -208.147 -63 72 Weight 127.5 kg 127.1 kg Intake: IV 286 312 52 Lactated Ringers 1,000 ml 220 240 40 @ 20 mls/hr IV .Q24H [facility] Rx#:[id number] Pressure Lines 66 72 12 Intake, IV Titration 25.853 Amount Norepinephrine 4 mg In 25.853 Sodium Chloride 0.9% 250 ml @ 0.02 MCG/KG/MIN 9. 098 mls/hr IV .Q24H [facility] Rx#:[id number] Oral 340 120 Output: Drainage 50 Right Thigh 50 Urine 810 375 100 Other: Voiding Method Indwelling Catheter Urinal Urinal ABP, PAP, CO, CI - Last Documented Arterial Blood Pressure 134/58 Pulmonary Artery Pressure 37/18 Cardiac Output 6 Cardiac Index 2.6 - Exam CONSTITUTIONAL: Sitting up to the bedside chair in the intensive care unit, appears comfortable, cooperative, no apparent acute distress. HEENT: Neck is supple, no JVD, no lymphadenopathy. RESPIRATORY: Lungs sounds essentially clear throughout, diminished to his bilateral bases. Respirations are symmetrical and nonlabored. Currently on 2 L nasal cannula with oxygen saturations 95%. Able to achieve 1000 mL on his incentive spirometry with much encouragement. Strong cough. CARDIOVASCULAR: Irregular rhythm and tachycardic rate. S1 and S2 present, nega tive for S3, gallop or murmur. Sternum is stable. Palpable peripheral pulses bilaterally, +1 edema to his bilateral lower extremities. No calf pain or tenderness noted. Heart hugger in place with patient demonstrating appropriate use. Knee-high AMANDA hose and sequential compression devices in place to his bilateral lower extremities. Bedside telemetry showing atrial fibrillation heart rate 102 BPM. GASTROINTESTINAL: Abdomen soft, nontender, nondistended. Active bowel sounds present 4 quadrants. Tolerating diet. Passing flatus. No guarding or rigidity. GENITOURINARY: Continues to void. 375 mL of urine output in the last 8 hours. INTEGUMENTARY: Skin is warm and dry with no evidence of clubbing or cyanosis. Midline sternal incision clean dry and well approximated, covered with dry intact dressing. Right lower extremity EVH sites well approximated without redness or drainage. Pale. MUSKULOSKELETAL: Able to move all extremities, strength equal bilaterally, generalized weakness. PSYCHIATRIC: Alert and oriented to person place and time, appropriate affect, intact judgment and insight. INVASIVE LINES AND TUBES: Right radial arterial line present. - Allied health notes Allied health notes reviewed: nursing - Labs CBC & Chem 7: 01/12/22 04:48 01/12/22 04:48 Labs: Abnormal Lab Results - Last 24 Hours (Table) 01/11/22 01/12/22 01/12/22 Range/Units 20:17 04:48 04:48 RBC 2.35 L (4.30-5.90) m/uL Hgb 7.4 L (13.0-17.5) gm/dL Hct 22.3 L (39.0-53.0) % Sodium 136 L (137-145) mmol/L BUN 32 H (9-20) mg/dL Glucose 110 H (74-99) mg/dL POC Glucose (mg/dL) 129 H (70-110) mg/dL Total Protein 5.1 L (6.3-8.2) g/dL Albumin 2.9 L (3.5-5.0) g/dL 01/12/22 Range/Units 07:00 RBC (4.30-5.90) m/uL Hgb (13.0-17.5) gm/dL Hct (39.0-53.0) % Sodium (137-145) mmol/L BUN (9-20) mg/dL Glucose (74-99) mg/dL POC Glucose (mg/dL) 112 H (70-110) mg/dL Total Protein (6.3-8.2) g/dL Albumin (3.5-5.0) g/dL - Imaging and Cardiology Chest x-ray: report reviewed, image reviewed Assessment and Plan Assessment: 1. Coronary artery disease, status post three-vessel coronary artery bypass grafting surgery 2. History of hypertension 3. Hyperlipidemia 4. History of nonrheumatic aortic valve insufficiency 5. History of left lower extremity DVT with previous IVC filter placement, maintained on Xarelto on an outpatient basis 6. Morbid obesity with a BMI of 41.3 kg/m 7. History of prostate cancer, status post radiation therapy 8. History of kidney stones 9. Postoperative acute blood loss anemia, expected 10. Paroxysmal atrial fibrillation, a known common occurrence after cardiac surgery Plan: 1. Continue aspirin, statin, Plavix, beta charles. We will increase metoprolol tartrate 25 mg by mouth 3 times a day. Continue amiodarone 400 mg by mouth twice a day for atrial fibrillation prophylaxis. 2. Wean O2 as tolerated. Encourage incentive spirometry is 10 times every hour while awake. Bronchodilators per pulmonology. Patient needs strong encouragement for pulmonary toileting. 3. Increase activity as tolerated. PT/OT/cardiac rehab following. 4. Will monitor daily labs and chest x-rays. Electrolyte replacement per p rotocol. No blood transfusion today. 5. Insulin management per primary care service. Patient is not a diabetic, preoperative hemoglobin A1c 6.0% 6. Pain control with current medication regimen. 7. Remove right IJ cordis. 8. We will remove his atrial and ventricular epicardial pacemaker wires today. Once his epicardial pacemaker wires have been removed he will need to be on bedrest for 1 hour post pacemaker wire removal. 9. Continue to record strict accurate intake and output. May bladder scan every 6 hours and when necessary postvoid residual. If greater than 300 mL of urine may straight cath. Daily weights. 10. GI/DVT prophylaxis. 11. Lasix 40 mg IV 1 now. 12. Continue melatonin 5 mg by mouth daily at bedtime. 13. Consult Dr. Field for inpatient rehab evaluation. 14. Discharge planning is in place, anticipate discharge within the next 24-48 hours. 15. More recommendations to follow based on patient's clinical course. Time with Patient: Greater than 30
--- NOTE | 2022-01-12 11:42 | P.CONS ---
History of Present Illness - Chief Complaint Cardiac debility - History of Present Illness I had the opportunity to see patient for inpatient rehab consultation with regard to cardiac debility. Patient admitted to [facility] January [address] Caruso with known cardiac disease recent Catheterization by Dr. Farris. Underwent CABG. Seen by Dr. Gipson for pulmonary and ICU care and seen by Dr. Le and Hina for medical. Has been seen by cardiology. Chest x-rays followed for cardiomegaly, infiltrates and effusions. Chest tubes noted. Has started therapy. PT reports two-person maximal assistance to stand and transfer and minimal assistance for gait 80 feet. Nurse reports patient ambulates around the hallway two-person assist. OT reports independent with feeding, moderate assistance for grooming and upper dressing, total assistance for lower dressing and toileting and maximal assistance for bathing. 2 person maximal assistance functional mobility and transfer. Previous functional history as elicited from patient: 81-year-old right-handed white male who is lives in one form with basement with . works full-time, 6 hours per day. They both can do the cooking, laundry, driving. Patient independent with standing shower and gait without device. PCP Dr. Peterson. Denies tobacco or alcohol. Review of Systems Review of systems: ENT: Denies sneezes or discharge. Eyes: Denies discharge or photophobia. Cardiac: Perhaps some sternal discomfort. Pulmonary: Mild shortness of breath. Gastrointestinal: Denies nausea, emesis, constipation, diarrhea. Genitourinary: Denies discharge or frequency. Musculoskeletal: Denies muscle or bone aches. Neurologic: Neural weakness. Endocrine: Denies shakes or sweats. Oncology: Denies cancers. Dermatologic: Denies rash, itching, pruritus. ALLERGY/immunology: Denies sneezes, rashes. Past Medical History Past Medical History: Cancer, Chest Pain / Angina, COPD, Deep Vein Thrombosis (DVT), Hyperlipidemia, Hypertension, Prostate Disorder Additional Past Medical History / Comment(s): prostate cancer-radiation tx, edema of legs, "low potassium", chest tightness, SOB, constipation, hx. DVT leg 3 years ago History of Any Multi-Drug Resistant Organisms: None Reported Past Surgical History: Heart Catheterization, Prostate Surgery, Tonsillectomy Additional Past Surgical History / Comment(s): surgery for kidney stones, hemorrhoidectomy, tara cataracts, Past Anesthesia/Blood Transfusion Reactions: No Reported Reaction Smoking Status: Former smoker - Past Family History Mother Family Medical History: No Reported History Medications and Allergies Home Medications Medication Instructions Recorded Confirmed Type Atorvastatin [Lipitor] 80 mg PO HS 12/24/21 01/06/22 History Furosemide [Lasix] 80 mg PO DAILY 12/24/21 01/06/22 History Metoprolol Succinate [Metoprolol 50 mg PO DAILY 12/24/21 01/06/22 History Succinate ER] Potassium Chloride [Klor-Con M10] 10 meq PO DAILY 12/24/21 01/06/22 History Rivaroxaban [Xarelto] 20 mg PO DAILY 12/24/21 01/06/22 History Aspirin 325 mg PO DAILY 12/29/21 01/06/22 History Isosorbide Mononitrate ER [Imdur] 30 mg PO DAILY 12/29/21 01/06/22 History Allergies Allergy/AdvReac Type Severity Reaction Status Date / Time Penicillins Allergy hives Verified 01/06/22 15:40 Physical Exam Vitals: Vital Signs Temp Pulse Resp BP Pulse Ox 01/12/22 10:00 100 12 97 01/12/22 09:00 98.4 F 96 16 94 L 01/12/22 08:00 102 H 15 102/60 97 01/12/22 07:00 105 H 14 98 01/12/22 06:00 109 H 13 95 01/12/22 05:00 79 17 98 01/12/22 04:00 90 12 98 01/12/22 03:00 96 14 95 01/12/22 02:00 83 35 H 92 L 01/12/22 01:00 89 16 96 01/12/22 00:00 37.1 F L 87 16 95 01/11/22 23:00 80 15 94 L 01/11/22 22:00 95 15 92 L 01/11/22 21:00 103 H 17 96 01/11/22 20:00 37.9 F L 92 19 96 01/11/22 19:00 109 H 16 97 01/11/22 18:10 97 15 95 01/11/22 17:00 96 16 98 01/11/22 16:00 98 F 75 14 98 01/11/22 15:00 87 18 97 01/11/22 14:19 80 17 96 01/11/22 13:00 80 16 109/66 99 01/11/22 12:00 98.3 F 89 14 111/55 98 Intake and Output 01/11/22 01/12/22 01/12/22 22:59 06:59 14:59 Intake Total 448 208 224 Output Total 200 375 101 Balance 248 -167 123 Intake: IV 208 208 104 Lactated Ringers 1,000 ml 160 160 80 @ 20 mls/hr IV .Q24H [facility] Rx#:[id number] Pressure Lines 48 48 24 Oral 240 120 Output: Urine 200 375 100 Stool 1 Other: Voiding Method Urinal Urinal Urinal Weight 127.1 kg ABP, PAP, CO, CI - Last 8 Hours Arterial Blood Pressure 140/80 Arterial Blood Pressure 119/48 Arterial Blood Pressure 134/58 Arterial Blood Pressure 111/41 Arterial Blood Pressure 160/59 Arterial Blood Pressure 128/49 Arterial Blood Pressure 114/42 Skin: Atrophic, intact. General: Obese build and comfortable appearance. Head: Normocephalic, atraumatic. Eyes: Symmetric. Pupils equal round. Ears: Symmetric. Hearing within normal limits. Mouth: Clear. Neck: Supple. Carotid without bruit. Cardiac: Regular rate and rhythm. Heart hugger. Lungs: Clear anteriorly and posteriorly. Abdomen: Soft active nontender. Overweight. Extremities: Normal tone. Wraps on lower legs. Neurological: Mental status: Alert, cooperative, pleasant. Cranial nerves: Symmetric facial tone and trapezius. Motor: Able to elevate arms, antigravity. Legs poor. Sensation: Intact throughout. DTRs: Symmetric and equal throughout. Mobility: Two-person assist per therapy notes and nursing. Results CBC & Chem 7: 01/12/22 04:48 01/12/22 04:48 Labs: Abnormal Lab Results - Last 24 Hours (Table) 01/11/22 01/12/22 01/12/22 Range/Units 20:17 04:48 04:48 RBC 2.35 L (4.30-5.90) m/uL Hgb 7.4 L (13.0-17.5) gm/dL Hct 22.3 L (39.0-53.0) % Sodium 136 L (137-145) mmol/L BUN 32 H (9-20) mg/dL Glucose 110 H (74-99) mg/dL POC Glucose (mg/dL) 129 H (70-110) mg/dL Total Protein 5.1 L (6.3-8.2) g/dL Albumin 2.9 L (3.5-5.0) g/dL 01/12/22 Range/Units 07:00 RBC (4.30-5.90) m/uL Hgb (13.0-17.5) gm/dL Hct (39.0-53.0) % Sodium (137-145) mmol/L BUN (9-20) mg/dL Glucose (74-99) mg/dL POC Glucose (mg/dL) 112 H (70-110) mg/dL Total Protein (6.3-8.2) g/dL Albumin (3.5-5.0) g/dL Assessment and Plan Plan: Impression: Cardiac debility with recent CABG. Comments and plan: At this time PT and OT are ongoing. Safety concerns noted. Would currently anticipate need and benefit of inpatient rehab when medically appropriate. Will continue to follow closely with yourself.
[2022-01-12 11:59] LABS: Glucose,Whole Blood 127 mg/dL (70-110)
[2022-01-12] MEDS: LACTATED RINGERS 1,000 ML IV SCH (12:03)
--- NOTE | 2022-01-12 12:26 | P.PN ---
Subjective Progress Note Date: 01/12/22 On today's evaluation on 01/12/2072, the patient is being seen for a follow-up. The patient is calm and comfortable. The patient has been doing very well. The patient is postop day #3 and the patient undergone three-vessel bypass surgery involving a SAMUELS to the LAD. The patient's is a morbidly obese male patient with a body mass index of 44. He is known to have other medical problems and comorbidities including previous history of a left lower extremity DVT and the patient has an IVC filter in place. The patient has a history of prostatism and prostate cancer and the patient has a Oconnell catheter in place and the patient was started on Flomax. The patient is also known to have history of kidney stones and hypertension hyperlipidemia. On today's evaluation, the patient using incentive spirometer rather adequately. The patient is able to generate adequate 1.5 L on his incentive spirometer. His cardiac rhythm is in atrial fibrillation and the patient is well-controlled with amiodarone. The patient remains on low-dose norepinephrine infusion which is running at 0.01 g respiratory and per minute and I'm hoping this to be discontinued today. The patient has a left pleural chest tube isn't draining around 30 mL over the past 8 hours and 150 mL over the past 24 hours. Mediastinal chest tubes and drains 40 she is over the past 8 hours and 160s over the past 24 hours. Rest of the blood work shows a hemoglobin of 7.3 with a white cell count of 8.7. Platelet counts are normal at 136. The BNP is a 28 with a creatinine of 1.0. No altered mentation. No focal neurological deficit. No other significant events overnight. No cardiac arrhythmias have been noted. Urology and the case regarding the patient's urine retention. On today's evaluation of 01/12/2022, the patient is doing well. The patient is calm and comfortable. The patient is postop day #4. The patient has no specific complaints. The patient is using incentive spirometer. The patient is pulling approximately 1000. He is on 2 L of O2 nasal cannula with a pulse ox of 95%. Cardiac rhythm is showing chronic atrial fibrillation the rate is controlled for now. Add metoprolol dose has been increased by cardiology. He is mediastinal left pleural chest tubes were removed yesterday without any complication. The patient is ambulating. No nausea no vomiting. No diarrhea. No chest pain. No focal neurological deficits. The H1N1 ventricular epicardial pacemaker wires remain in place and there is some background. On his blood work, the patient has a white cell count of 7.8 with hemoglobin of 7.4. He is a 32 with a creatinine of 0.9. Sodium is at 136. Chest x-ray shows Abnormalities. There is cardiomegaly and atelectatic changes in lung bases bilaterally. Objective - Vital Signs Vital signs: Vital Signs Temp 37.1 F L 01/12/22 00:00 Pulse 102 H 01/12/22 08:00 Resp 15 01/12/22 08:00 BP 102/60 01/12/22 08:00 Pulse Ox 97 01/12/22 08:00 FiO2 50 01/09/22 08:02 Intake & Output 01/11/22 01/12/22 01/12/22 18:59 06:59 18:59 Intake Total 651.853 312 172 Output Total 860 375 100 Balance -208.147 -63 72 Weight 127.5 kg 127.1 kg Intake: IV 286 312 52 Lactated Ringers 1,000 ml 220 240 40 @ 20 mls/hr IV .Q24H [facility] Rx#:[id number] Pressure Lines 66 72 12 Intake, IV Titration 25.853 Amount Norepinephrine 4 mg In 25.853 Sodium Chloride 0.9% 250 ml @ 0.02 MCG/KG/MIN 9. 098 mls/hr IV .Q24H [facility] Rx#:[id number] Oral 340 120 Output: Drainage 50 Right Thigh 50 Urine 810 375 100 Other: Voiding Method Indwelling Catheter Urinal Urinal ABP, PAP, CO, CI - Last Documented Arterial Blood Pressure 134/58 Pulmonary Artery Pressure 37/18 Cardiac Output 6 Cardiac Index 2.6 - Exam CONSTITUTIONAL: Sitting up to the bedside chair in the intensive care unit, appears comfortable, cooperative, no apparent acute distress. The patient remains on O2 at 2 L per minute nasal cannula. Breathing is nonlabored HHEENT: Neck is supple, no JVD, no lymphadenopathy. RESPIRATORY: Lungs sounds essentially clear throughout, diminished to his bilateral bases. Respirations are symmetrical and nonlabored. Currently on 2 L nasal cannula with oxygen saturations 95%. Able to achieve 1000 mL on his incentive spirometry with much encouragement. Strong cough. CARDIOVASCULAR: Irregular rhythm and tachycardic rate. S1 and S2 present, negative for S3, gallop or murmur. Sternum is stable. Palpable peripheral pulses bilaterally, +1 edema to his bilateral lower extremities. No calf pain or tenderness noted. Heart hugger in place with patient demonstrating appropriate use. Knee-high AMANDA hose and sequential compression devices in place to his bilateral lower extremities. Bedside telemetry showing atrial fibrillat ion heart rate 102 BPM. GASTROINTESTINAL: Abdomen soft, nontender, nondistended. Active bowel sounds present 4 quadrants. Tolerating diet. Passing flatus. No guarding or rigidity. GENITOURINARY: Continues to void. 375 mL of urine output in the last 8 hours. INTEGUMENTARY: Skin is warm and dry with no evidence of clubbing or cyanosis. Midline sternal incision clean dry and well approximated, covered with dry intact dressing. Right lower extremity EVH sites well approximated without red ness or drainage. Pale. MUSKULOSKELETAL: Able to move all extremities, strength equal bilaterally, generalized weakness. PSYCHIATRIC: Alert and oriented to person place and time, appropriate affect, intact judgment and insight. INVASIVE LINES AND TUBES: Right radial arterial line present. - Labs CBC & Chem 7: 01/12/22 04:48 01/12/22 04:48 Labs: Abnormal Lab Results - Last 24 Hours (Table) 01/11/22 01/12/22 01/12/22 Range/Units 20:17 04:48 04:48 RBC 2.35 L (4.30-5.90) m/uL Hgb 7.4 L (13.0-17.5) gm/dL Hct 22.3 L (39.0-53.0) % Sodium 136 L (137-145) mmol/L BUN 32 H (9-20) mg/dL Glucose 110 H (74-99) mg/dL POC Glucose (mg/dL) 129 H (70-110) mg/dL Total Protein 5.1 L (6.3-8.2) g/dL Albumin 2.9 L (3.5-5.0) g/dL 01/12/22 Range/Units 07:00 RBC (4.30-5.90) m/uL Hgb (13.0-17.5) gm/dL Hct (39.0-53.0) % Sodium (137-145) mmol/L BUN (9-20) mg/dL Glucose (74-99) mg/dL POC Glucose (mg/dL) 112 H (70-110) mg/dL Total Protein (6.3-8.2) g/dL Albumin (3.5-5.0) g/dL Assessment and Plan Plan: Coronary artery disease, status post coronary artery bypass grafting 3 with a SAMUELS to LAD, SVG to the OM1, SVG to the RCA. Left atrial appendage clipping with a 35 mm Atriclip. Postoperative day #4. The patient is doing well. Hemodynamically stable. Cardiac rhythm is still A. fib. The patient has been extubated adequately and the patient is currently on 2 L of nasal cannula with a pulse ox of 99%. paroxymal atrial fibrillation, controlled the patient is currently on oral amiodarone and Lopressor. No anticoagulants for now. Post thoracotomy, currently patient has chest tubes removed , and the chest x- ray showing some postsurgical changes Anemia, expected, current hemoglobin of 7.4 Morbid obesity with a BMI of 44 kg/m Hypertension, history of Hyperlipidemia Prostate cancer History of left lower extremity DVT, previous filter placed, maintained on Xarelto on outpatient setting Nonsmoker, FEV1 value 2.21 L Plan: Chest x-ray was reviewed Wean down the FiO2, currently on 2 L Continue using incentive spirometer Continue metoprolol 25 mg twice a day and amiodarone 400mg by mouth twice a day in combination with aspirin, Plavix and Lipitor chest tubes removed Lasix 40 mg IV push Removed the right lower extremity GUNJAN drain Increase mobility as tolerated and the patient will be ambulated We'll continue to follow Keep the patient ICU for another 24 hours.
--- NOTE | 2022-01-12 13:35 | P.PN ---
Subjective Progress Note Date: 01/12/22 (delayed charting seen at 1030) Patient is an 81-year-old male with a history of coronary artery disease, obesity, and dyslipidemia who presented for coronary artery bypass grafting 3. Patient seen and examined at bedside ICU. He is feeling tired after walking. He has a BM and feels better. He states that his breathing is stable. Pain is stable and controlled. General: nontoxic, no distress, appears at stated age, obese Derm: warm, dry Head: atraumatic, normocephalic, symmetric Eyes: EOMI, no lid lag, anicteric sclera Mouth: no lip lesion, mucus membranes dry Cardiovascular: S1S2 reg, no murmur, positive posterior tibial pulse bilateral, Lungs: Decreased bilateral, no wheeze, no accessory muscle use Abdominal: soft, nontender to palpation, no guarding, no appreciable organomegaly Ext: no gross muscle atrophy, trace edema, no contractures Neuro: CN II-XI grossly intact, no focal neuro deficits Psych: Alert, oriented, appropriate affect Assessment/plan: Coronary artery bypass grafting 3 Hypertension Dyslipidemia Paroxysmal atrial fibrillation - amio - ASA, plavix - lipitor - cardiothoracic surgery recs Constipation - milk of mag, if no improvement in AM then add miralax Prediabetes with recent A1c 6 -Currently on sliding scale insulin, has not required consistent dosing -He'll need outpatient follow-up with his primary Morbid obesity with BMI 41.3 on admission -Outpatient structured weight loss Postoperative acute blood loss anemia, anticipated outcome of surgery Normocytic anemia, common occurrence after surgery - oral iron to continue for 30 days. - Monitor CBC HX DVT DVT prophylaxis: Heparin Discussed with: patient, nursing A total of 25 minutes was spent on the care of this complex patient more than 50% of the time was spent in counseling and care coordination. Active Medications Generic Name Dose Route Start Last Admin Trade Name Freq PRN Reason Stop Dose Admin Acetaminophen 650 mg 01/11/22 08:33 Acetaminophen Tab 325 Mg Tab PO Q4HR PRN Fever and/ or Pain Albuterol/Ipratropium 3 ml 01/08/22 14:35 Ipratropium-Albuterol 3 Ml Neb INHALATION RT-Q2H PRN Shortness Of Breath Or Wheezing Albuterol/Ipratropium 3 ml 01/08/22 20:00 01/12/22 11:38 Ipratropium-Albuterol 3 Ml Neb INHALATION Not Given RT-QID [facility] Amiodarone HCl 400 mg 01/10/22 09:00 01/12/22 08:20 Amiodarone 200 Mg Tab PO 400 mg BID [facility] Administration Ascorbic Acid 500 mg 01/09/22 12:30 01/11/22 12:39 Ascorbic Acid 500 Mg Tab PO 500 mg W/LUNCH [facility] Administration Aspirin 325 mg 01/09/22 09:00 01/12/22 08:20 Aspirin 325 Mg Tab PO 325 mg DAILY [facility] Administration Atorvastatin Calcium 40 mg 01/09/22 09:00 01/12/22 08:20 Atorvastatin 40 Mg Tab PO 40 mg DAILY [facility] Administration Bisacodyl 10 mg 01/09/22 09:00 01/12/22 08:19 Bisacodyl 10 Mg Supp RECTAL 10 mg DAILY PRN Administration Constipation Clopidogrel Bisulfate 75 mg 01/09/22 09:00 01/12/22 08:20 Clopidogrel 75 Mg Tab PO 75 mg DAILY [facility] Administration Ferrous Sulfate 325 mg 01/09/22 12:30 01/11/22 12:39 Ferrous Sulfate 325 Mg Tab PO 325 mg W/LUNCH [facility] Administration Heparin Sodium (Porcine) 5,000 unit 01/08/22 16:00 01/12/22 08:19 Heparin Sodium,Porcine/Pf 5,000 Unit/0.5 Ml Syringe SQ 5,000 unit Q8HR [facility] Administration Calcium Gluconate/Sodium 100 mls @ 100 mls/hr 01/08/22 14:35 Chloride 2 gm/ IV Solution IVPB 01/17/22 14:36 ONCE PRN Ionized Calcium less than 4.4 Lactated Ringer's 1,000 mls @ 20 mls/hr 01/08/22 14:35 01/12/22 12:03 Lactated Ringers IV Not Given .Q24H [facility] Insulin Human Regular 100 unit 101 mls @ 0 mls/hr 01/08/22 14:35 01/10/22 09:00 / Sodium Chloride IV 0 unit/hr .Q0M [facility] 0 mls/hr Titration Protocol Per Protocol Norepinephrine Bitartrate 4 mg 254 mls @ 9.098 mls/hr 01/11/22 00:45 01/12/22 01:07 / Sodium Chloride IV Not Given .Q24H [facility] Protocol 0.02 MCG/KG/MIN Insulin Aspart 0 unit 01/10/22 12:30 01/12/22 12:02 Insulin Aspart (Novolog) 100 Unit/Ml Vial SQ Not Given ACHS [facility] Protocol Magnesium Hydroxide 2,400 mg 01/09/22 09:00 Magnesium Hydroxide 2,400 Mg/10 Ml Cup PO BID PRN Constipation Melatonin 5 mg 01/10/22 21:00 01/11/22 21:01 Melatonin 5 Mg Tablet PO 5 mg HS [facility] Administration Metoclopramide HCl 10 mg 01/08/22 14:35 Metoclopramide 5 Mg/Ml 2 Ml Vial IVP Q4H PRN Nausea And Vomiting Metoprolol Tartrate 25 mg 01/12/22 16:00 Metoprolol Tartrate 25 Mg Tab PO TID [facility] Miscellaneous Information 1 each 01/08/22 14:35 Potassium Replacement Protocol 1 Each Misc MISCELLANE DAILY PRN Per Protocol Protocol Miscellaneous Information 1 each 01/08/22 14:35 Magnesium Replacement Protocol 1 Each Misc MISCELLANE DAILY PRN Per Protocol Protocol Ondansetron HCl 4 mg 01/08/22 14:35 01/11/22 21:00 Ondansetron 4 Mg/2 Ml Vial IVP 4 mg Q6HR PRN Administration Nausea And Vomiting Senna/Docusate Sodium 2 each 01/09/22 21:00 01/11/22 21:00 Sennosides-Docusate Sodium 1 Each Tab PO 2 each HS [facility] Administration Sodium Chloride 10 ml 01/08/22 21:00 01/12/22 10:10 Sodium Chloride 0.9% Flush 10 Ml Syringe IV 10 ml BID [facility] Administration Objective - Vital Signs Vital signs: Vital Signs Temp 98.4 F 01/12/22 09:00 Pulse 84 01/12/22 12:00 Resp 8 L 01/12/22 12:00 BP 102/60 01/12/22 08:00 Pulse Ox 95 01/12/22 12:00 FiO2 50 01/09/22 08:02 Intake & Output 01/11/22 01/12/22 01/12/22 18:59 06:59 18:59 Intake Total 651.853 312 224 Output Total 860 375 377 Balance -208.147 -63 -153 Weight 127.5 kg 127.1 kg Intake: IV 286 312 104 Lactated Ringers 1,000 ml 220 240 80 @ 20 mls/hr IV .Q24H [facility] Rx#:[id number] Pressure Lines 66 72 24 Intake, IV Titration 25.853 Amount Norepinephrine 4 mg In 25.853 Sodium Chloride 0.9% 250 ml @ 0.02 MCG/KG/MIN 9. 098 mls/hr IV .Q24H [facility] Rx#:[id number] Oral 340 120 Output: Drainage 50 Right Thigh 50 Urine 810 375 375 Stool 2 Other: Voiding Method Indwelling Catheter Urinal Urinal ABP, PAP, CO, CI - Last Documented Arterial Blood Pressure 137/58 Pulmonary Artery Pressure 37/18 Cardiac Output 6 Cardiac Index 2.6 - Labs CBC & Chem 7: 01/12/22 04:48 01/12/22 04:48 Labs: Abnormal Lab Results - Last 24 Hours (Table) 01/11/22 01/12/22 01/12/22 Range/Units 20:17 04:48 04:48 RBC 2.35 L (4.30-5.90) m/uL Hgb 7.4 L (13.0-17.5) gm/dL Hct 22.3 L (39.0-53.0) % Sodium 136 L (137-145) mmol/L BUN 32 H (9-20) mg/dL Glucose 110 H (74-99) mg/dL POC Glucose (mg/dL) 129 H (70-110) mg/dL Total Protein 5.1 L (6.3-8.2) g/dL Albumin 2.9 L (3.5-5.0) g/dL 01/12/22 01/12/22 Range/Units 07:00 11:58 RBC (4.30-5.90) m/uL Hgb (13.0-17.5) gm/dL Hct (39.0-53.0) % Sodium (137-145) mmol/L BUN (9-20) mg/dL Glucose (74-99) mg/dL POC Glucose (mg/dL) 112 H 127 H (70-110) mg/dL Total Protein (6.3-8.2) g/dL Albumin (3.5-5.0) g/dL
[2022-01-12] MEDS: FERROUS SULFATE 325 MG TAB PO SCH (16:14)
[2022-01-12] MEDS: METOPROLOL TARTRATE 25 MG TAB PO SCH ×2 (16:14→20:59)
[2022-01-12] MEDS: ASCORBIC ACID 500 MG TAB PO SCH (16:15)
[2022-01-12 16:41] LABS: Glucose,Whole Blood 101 mg/dL (70-110)
[2022-01-12 20:51] LABS: Glucose,Whole Blood 130 mg/dL (70-110)
[2022-01-12] MEDS: SENNOSIDES-DOCUSATE SODIUM 1 EACH TAB PO SCH (20:58)
[2022-01-12] MEDS: MELATONIN 5 MG TABLET PO SCH (20:59)
[2022-01-13] MEDS: HEPARIN SODIUM,PORCINE/PF 5,000 UNIT/0.5 ML SYRINGE SQ SCH ×2 (00:24→08:40)
[2022-01-13] MEDS: NOREPINEPHRINE 4 MG in SODIUM CHLORIDE 0.9% 250 ML IV SCH (04:08)
[2022-01-13 06:15] LABS: Albumin 2.9 g/dL (3.5-5.0); Calcium 8.4 mg/dL (8.4-10.2); Magnesium 2.2 mg/dL (1.6-2.3); Potassium 4.6 mmol/L (3.5-5.1); Total Bilirubin 0.9 mg/dL (0.2-1.3); Total Protein 5.2 g/dL (6.3-8.2)
[2022-01-13 06:53] LABS: Glucose,Whole Blood 112 mg/dL (70-110)
[2022-01-13 06:55] LABS: Anisocytosis Slight; Basophils % (A) 0 %; Eosinophils # (A) 0.2 k/uL (0-0.7); Eosinophils % (A) 3 %; HCT 21.6 % (39.0-53.0); HGB 7.2 gm/dL (13.0-17.5); Lymphocytes # (A) 1.3 k/uL (1.0-4.8); Lymphocytes % (A) 18 %; MCH 32.2 pg (25.0-35.0); MCHC 33.4 g/dL (31.0-37.0); MCV 96.3 fL (80.0-100.0); Macrocytosis Slight; Mean Platelet Volume 8.4; Monocytes # (A) 0.6 k/uL (0-1.0); Monocytes % (A) 8 %; Neutrophils # (A) 4.9 k/uL (1.3-7.7); Neutrophils % (A) 67 %; Platelet Count 201 k/uL (150-450); RBC 2.24 m/uL (4.30-5.90); RDW 16.4 % (11.5-15.5); WBC 7.2 k/uL (3.8-10.6)
[2022-01-13] MEDS: METOPROLOL TARTRATE 25 MG TAB PO SCH ×3 (07:00→21:03)
[2022-01-13] MEDS: AMIODARONE 200 MG TAB PO SCH (07:00)
[2022-01-13] MEDS: INSULIN ASPART (NovoLOG) 100 UNIT/ML VIAL SQ SCH ×3 (07:04→16:52)
--- NOTE | 2022-01-13 08:20 | XR ---
EXAMINATION TYPE: XR chest 1V portable DATE OF EXAM: 01/13/2022 HISTORY: Shortness of breath. COMPARISON: 01/12/2022 TECHNIQUE: Single view of the chest is submitted. FINDINGS: Demonstrated are scattered senescent parenchymal change. Persistent cardiomegaly with pulmonary venous congestion. Small bilateral pleural effusions and scatt ered infiltrates. Hilar and mediastinal structures are within normal limits. Degenerative changes are seen of the dorsal spine. IMPRESSION: 1. Persistent cardiomegaly with pulmonary venous congestion. Small bilateral pleural effusions and s cattered infiltrates.
[2022-01-13] MEDS: ASPIRIN 325 MG TAB PO SCH (08:40)
[2022-01-13] MEDS: CLOPIDOGREL 75 MG TAB PO SCH (08:40)
[2022-01-13] MEDS: ATORVASTATIN 40 MG TAB PO SCH (08:40)
[2022-01-13] MEDS: IPRATROPIUM-ALBUTEROL 3 ML NEB INHALATION SCH ×4 (08:49→19:17)
--- NOTE | 2022-01-13 09:00 | P.PN ---
Subjective Progress Note Date: 01/13/22 Patient is an 81-year-old male with a history of coronary artery disease, obesity, and dyslipidemia who presented for coronary artery bypass grafting 3. Patient seen and examined at bedside ICU. He reports feeling very tired. He is not having much pain or shortness of breath. He denies any nausea. had BM yesterday. General: nontoxic, no distress, appears at stated age, obese Derm: warm, dry Head: atraumatic, normocephalic, symmetric Eyes: EOMI, no lid lag, anicteric sclera Mouth: no lip lesion, mucus membranes dry Cardiovascular: S1S2 reg, no murmur, positive posterior tibial pulse bilateral, Lungs: Decreased bilateral, no wheeze, no accessory muscle use Abdominal: soft, nontender to palpation, no guarding, no appreciable organomegaly Ext: no gross muscle atrophy, 1+ pedal edema, no contractures Neuro: CN II-XI grossly intact, no focal neuro deficits Psych: Alert, oriented, appropriate affect Assessment/plan: Coronary artery bypass grafting 3 Hypertension Dyslipidemia Paroxysmal atrial fibrillation - amio - ASA, plavix - lipitor - cardiothoracic surgery recs Prediabetes with recent A1c 6 -Currently on sliding scale insulin, has not required consistent dosing -He'll need outpatient follow-up with his primary Morbid obesity with BMI 41.3 on admission -Outpatient structured weight loss Postoperative acute blood loss anemia, anticipated outcome of surgery Normocytic anemia, common occurrence after surgery - oral iron to continue for 30 days. - Monitor CBC HX DVT Constipation, resolved DVT prophylaxis: Heparin Discussed with: patient, nursing A total of 25 minutes was spent on the care of this complex patient more than 50% of the time was spent in counseling and care coordination. Active Medications Generic Name Dose Route Start Last Admin Trade Name Freq PRN Reason Stop Dose Admin Acetaminophen 650 mg 01/11/22 08:33 Acetaminophen Tab 325 Mg Tab PO Q4HR PRN Fever and/ or Pain Albuterol/Ipratropium 3 ml 01/08/22 14:35 Ipratropium-Albuterol 3 Ml Neb INHALATION RT-Q2H PRN Shortness Of Breath Or Wheezing Albuterol/Ipratropium 3 ml 01/08/22 20:00 01/13/22 08:49 Ipratropium-Albuterol 3 Ml Neb INHALATION 3 ml RT-QID [facility] Administration Amiodarone HCl 400 mg 01/10/22 09:00 01/13/22 07:00 Amiodarone 200 Mg Tab PO 400 mg BID [facility] Administration Ascorbic Acid 500 mg 01/09/22 12:30 01/12/22 16:15 Ascorbic Acid 500 Mg Tab PO 500 mg W/LUNCH [facility] Administration Aspirin 325 mg 01/09/22 09:00 01/13/22 08:40 Aspirin 325 Mg Tab PO 325 mg DAILY [facility] Administration Atorvastatin Calcium 40 mg 01/09/22 09:00 01/13/22 08:40 Atorvastatin 40 Mg Tab PO 40 mg DAILY [facility] Administration Bisacodyl 10 mg 01/09/22 09:00 01/12/22 08:19 Bisacodyl 10 Mg Supp RECTAL 10 mg DAILY PRN Administration Constipation Clopidogrel Bisulfate 75 mg 01/09/22 09:00 01/13/22 08:40 Clopidogrel 75 Mg Tab PO 75 mg DAILY [facility] Administration Ferrous Sulfate 325 mg 01/09/22 12:30 01/12/22 16:14 Ferrous Sulfate 325 Mg Tab PO 325 mg W/LUNCH [facility] Administration Heparin Sodium (Porcine) 5,000 unit 01/08/22 16:00 01/13/22 08:40 Heparin Sodium,Porcine/Pf 5,000 Unit/0.5 Ml Syringe SQ 5,000 unit Q8HR [facility] Administration Calcium Gluconate/Sodium 100 mls @ 100 mls/hr 01/08/22 14:35 Chloride 2 gm/ IV Solution IVPB 01/17/22 14:36 ONCE PRN Ionized Calcium less than 4.4 Insulin Human Regular 100 unit 101 mls @ 0 mls/hr 01/08/22 14:35 01/10/22 09:00 / Sodium Chloride IV 0 unit/hr .Q0M [facility] 0 mls/hr Titration Protocol Per Protocol Norepinephrine Bitartrate 4 mg 254 mls @ 9.098 mls/hr 01/11/22 00:45 01/13/22 04:08 / Sodium Chloride IV Not Given .Q24H [facility] Protocol 0.02 MCG/KG/MIN Insulin Aspart 0 unit 01/10/22 12:30 01/13/22 07:04 Insulin Aspart (Novolog) 100 Unit/Ml Vial SQ Not Given ACHS [facility] Protocol Magnesium Hydroxide 2,400 mg 01/09/22 09:00 Magnesium Hydroxide 2,400 Mg/10 Ml Cup PO BID PRN Constipation Melatonin 5 mg 01/10/22 21:00 01/12/22 20:59 Melatonin 5 Mg Tablet PO 5 mg HS [facility] Administration Metoclopramide HCl 10 mg 01/08/22 14:35 Metoclopramide 5 Mg/Ml 2 Ml Vial IVP Q4H PRN Nausea And Vomiting Metoprolol Tartrate 25 mg 01/12/22 16:00 01/13/22 07:00 Metoprolol Tartrate 25 Mg Tab PO 25 mg TID [facility] Administration Miscellaneous Information 1 each 01/08/22 14:35 Potassium Replacement Protocol 1 Each Misc MISCELLANE DAILY PRN Per Protocol Protocol Miscellaneous Information 1 each 01/08/22 14:35 Magnesium Replacement Protocol 1 Each Misc MISCELLANE DAILY PRN Per Protocol Protocol Ondansetron HCl 4 mg 01/08/22 14:35 01/11/22 21:00 Ondansetron 4 Mg/2 Ml Vial IVP 4 mg Q6HR PRN Administration Nausea And Vomiting Senna/Docusate Sodium 2 each 01/09/22 21:00 01/12/22 20:58 Sennosides-Docusate Sodium 1 Each Tab PO 2 each HS [facility] Administration Sodium Chloride 10 ml 01/08/22 21:00 01/13/22 08:40 Sodium Chloride 0.9% Flush 10 Ml Syringe IV 10 ml BID [facility] Administration Objective - Vital Signs Vital signs: Vital Signs Temp 98.0 F 01/13/22 04:00 Pulse 85 01/13/22 08:00 Resp 13 01/13/22 08:00 BP 101/66 01/13/22 08:00 Pulse Ox 85 L 01/13/22 08:00 FiO2 50 01/09/22 08:02 Intake & Output 01/12/22 01/13/22 01/13/22 18:59 06:59 18:59 Intake Total 704 100 Output Total 977 426 Balance -273 -326 Weight 126 kg Intake: IV 104 Lactated Ringers 1,000 ml 80 @ 20 mls/hr IV .Q24H [facility] Rx#:[id number] Pressure Lines 24 Oral 600 100 Output: Urine 975 425 Stool 2 1 Other: Voiding Method Urinal Bedside Commode Bedside Commode Urinal Urinal # Voids 0 0 # Bowel Movements 0 0 ABP, PAP, CO, CI - Last Documented Arterial Blood Pressure 137/58 Pulmonary Artery Pressure 37/18 Cardiac Output 6 Cardiac Index 2.6 - Labs CBC & Chem 7: 01/13/22 05:32 01/13/22 05:27 Labs: Abnormal Lab Results - Last 24 Hours (Table) 01/12/22 01/12/22 01/13/22 Range/Units 11:58 20:50 05:27 RBC (4.30-5.90) m/uL Hgb (13.0-17.5) gm/dL Hct (39.0-53.0) % RDW (11.5-15.5) % Sodium 136 L (137-145) mmol/L BUN 35 H (9-20) mg/dL Glucose 102 H (74-99) mg/dL POC Glucose (mg/dL) 127 H 130 H (70-110) mg/dL Total Protein 5.2 L (6.3-8.2) g/dL Albumin 2.9 L (3.5-5.0) g/dL 01/13/22 01/13/22 Range/Units 05:32 06:51 RBC 2.24 L (4.30-5.90) m/uL Hgb 7.2 L (13.0-17.5) gm/dL Hct 21.6 L (39.0-53.0) % RDW 16.4 H (11.5-15.5) % Sodium (137-145) mmol/L BUN (9-20) mg/dL Glucose (74-99) mg/dL POC Glucose (mg/dL) 112 H (70-110) mg/dL Total Protein (6.3-8.2) g/dL Albumin (3.5-5.0) g/dL
--- NOTE | 2022-01-13 09:47 | P.PN ---
Subjective Progress Note Date: 01/13/22 The patient is an 81-year-old male who is currently admitted to the hospital after undergoing coronary bypass 3. Postoperative complications include acute blood loss anemia. Chest tubes were removed yesterday. Patient has been weaned off of the low and is now up in the recliner chair. The patient was resting comfortably at the initial time of my examination. He was easily awakened. He states other than being tired, he has no current complaints. His legs feel a little heavy when ambulating, but no dizziness or lightheadedness with positional changes. No difficulty breathing at rest. No chest pain or chest pressure. GENERAL: Well-appearing, well-nourished and in no acute distress. NECK: Supple without JVD or thyromegaly. LUNGS: Breath sounds diminished to auscultation bilaterally. Respiration equal and unlabored. Fine crackles in right lower lobe. HEART: Regular rate and rhythm without murmurs, rubs or gallops. S1 and S2 heard. EXTREMITIES: Normal range of motion. +2 edema. No clubbing or cyanosis. Peripheral pulses intact and strong. VITALS: Blood pressure 101/66, pulse 85, respiratory rate 13 TELEMETRY: Rate controlled atrial fibrillation LABS: WBC 7.2, hemoglobin 7.2, hematocrit 21.6, platelet 201, sodium 136, potassium 4.6, BUN 35, creatinine 0.97, AST 28, ALT 6 IMPRESSION: Multivessel coronary artery disease Status post triple-vessel bypass Postoperative acute blood loss anemia Postoperative atrial fibrillation, rate controlled with beta charles History of hypertension History of hyperlipidemia PLAN: Continue supportive treatment Aggressive pulmonary hygiene Agree with transfer to rehab facility I am dictating on behalf of Dr Beto Philip's history/physical and assessment/plan. Objective - Vital Signs Vital signs: Vital Signs Temp 98.0 F 01/13/22 04:00 Pulse 80 01/13/22 08:57 Resp 13 01/13/22 08:00 BP 101/66 01/13/22 08:00 Pulse Ox 85 L 01/13/22 08:00 FiO2 50 01/09/22 08:02 Intake & Output 01/12/22 01/13/22 01/13/22 18:59 06:59 18:59 Intake Total 704 100 Output Total 354 426 175 Balance -273 -326 -175 Weight 126 kg Intake: IV 104 Lactated Ringers 1,000 ml 80 @ 20 mls/hr IV .Q24H [facility] Rx#:[id number] Pressure Lines 24 Oral 600 100 Output: Urine 975 425 175 Stool 2 1 Other: Voiding Method Urinal Bedside Commode Bedside Commode Urinal Urinal # Voids 0 0 # Bowel Movements 0 0 ABP, PAP, CO, CI - Last Documented Arterial Blood Pressure 137/58 Pulmonary Artery Pressure 37/18 Cardiac Output 6 Cardiac Index 2.6 - Labs CBC & Chem 7: 01/13/22 05:32 01/13/22 05:27 Labs: Abnormal Lab Results - Last 24 Hours (Table) 01/12/22 01/12/22 01/13/22 Range/Units 11:58 20:50 05:27 RBC (4.30-5.90) m/uL Hgb (13.0-17.5) gm/dL Hct (39.0-53.0) % RDW (11.5-15.5) % Sodium 136 L (137-145) mmol/L BUN 35 H (9-20) mg/dL Glucose 102 H (74-99) mg/dL POC Glucose (mg/dL) 127 H 130 H (70-110) mg/dL Total Protein 5.2 L (6.3-8.2) g/dL Albumin 2.9 L (3.5-5.0) g/dL 01/13/22 01/13/22 Range/Units 05:32 06:51 RBC 2.24 L (4.30-5.90) m/uL Hgb 7.2 L (13.0-17.5) gm/dL Hct 21.6 L (39.0-53.0) % RDW 16.4 H (11.5-15.5) % Sodium (137-145) mmol/L BUN (9-20) mg/dL Glucose (74-99) mg/dL POC Glucose (mg/dL) 112 H (70-110) mg/dL Total Protein (6.3-8.2) g/dL Albumin (3.5-5.0) g/dL
--- NOTE | 2022-01-13 10:48 | P.PN ---
Subjective Progress Note Date: 01/13/22 On today's evaluation on 01/12/2072, the patient is being seen for a follow-up. The patient is calm and comfortable. The patient has been doing very well. The patient is postop day #3 and the patient undergone three-vessel bypass surgery involving a SAMUELS to the LAD. The patient's is a morbidly obese male patient with a body mass index of 44. He is known to have other medical problems and comorbidities including previous history of a left lower extremity DVT and the patient has an IVC filter in place. The patient has a history of prostatism and prostate cancer and the patient has a Oconnell catheter in place and the patient was started on Flomax. The patient is also known to have history of kidney stones and hypertension hyperlipidemia. On today's evaluation, the patient using incentive spirometer rather adequately. The patient is able to generate adequate 1.5 L on his incentive spirometer. His cardiac rhythm is in atrial fibrillation and the patient is well-controlled with amiodarone. The patient remains on low-dose norepinephrine infusion which is running at 0.01 g respiratory and per minute and I'm hoping this to be discontinued today. The patient has a left pleural chest tube isn't draining around 30 mL over the past 8 hours and 150 mL over the past 24 hours. Mediastinal chest tubes and drains 40 she is over the past 8 hours and 160s over the past 24 hours. Rest of the blood work shows a hemoglobin of 7.3 with a white cell count of 8.7. Platelet counts are normal at 136. The BNP is a 28 with a creatinine of 1.0. No altered mentation. No focal neurological deficit. No other significant events overnight. No cardiac arrhythmias have been noted. Urology and the case regarding the patient's urine retention. On today's evaluation of 01/12/2022, the patient is doing well. The patient is calm and comfortable. The patient is postop day #4. The patient has no specific complaints. The patient is using incentive spirometer. The patient is pulling approximately 1000. He is on 2 L of O2 nasal cannula with a pulse ox of 95%. Cardiac rhythm is showing chronic atrial fibrillation the rate is controlled for now. Add metoprolol dose has been increased by cardiology. He is mediastinal left pleural chest tubes were removed yesterday without any complication. The patient is ambulating. No nausea no vomiting. No diarrhea. No chest pain. No focal neurological deficits. The H1N1 ventricular epicardial pacemaker wires remain in place and there is some background. On his blood work, the patient has a white cell count of 7.8 with hemoglobin of 7.4. He is a 32 with a creatinine of 0.9. Sodium is at 136. Chest x-ray shows Abnormalities. There is cardiomegaly and atelectatic changes in lung bases bilaterally. On today's evaluation of 01/13/2022, the patient is postop day #5. The patient is clinically stable resting comfortably on his recliner chair. He is on oxygen at 2 L per minute nasal cannula and the patient is using incentive spirometer and is pulling approximately 1500 which is improved compared to yesterday. The chest x-ray from today shows postsurgical changes without any new complications. All of the chest as of removed. Cardiac rhythm is atrial fibrillation and the patient is on metoprolol for rate control at a dose of 25 mg by mouth twice a day and this was moved up to 3 times a day for better rate control. The patient will be also started on anticoagulation with Xarelto today. The atrial and ventricular epicardial pacemaker wires were removed Objective - Vital Signs Vital signs: Vital Signs Temp 98.0 F 01/13/22 04:00 Pulse 80 01/13/22 08:57 Resp 13 01/13/22 08:00 BP 101/66 01/13/22 08:00 Pulse Ox 85 L 01/13/22 08:00 FiO2 50 01/09/22 08:02 Intake & Output 01/12/22 01/13/22 01/13/22 18:59 06:59 18:59 Intake Total 704 100 Output Total 977 426 175 Balance -273 -326 -175 Weight 126 kg Intake: IV 104 Lactated Ringers 1,000 ml 80 @ 20 mls/hr IV .Q24H [facility] Rx#:[id number] Pressure Lines 24 Oral 600 100 Output: Urine 975 425 175 Stool 2 1 Other: Voiding Method Urinal Bedside Commode Bedside Commode Urinal Urinal # Voids 0 0 # Bowel Movements 0 0 ABP, PAP, CO, CI - Last Documented Arterial Blood Pressure 137/58 Pulmonary Artery Pressure 37/18 Cardiac Output 6 Cardiac Index 2.6 - Exam CONSTITUTIONAL: Sitting up to the bedside chair in the intensive care unit, appears comfortable, cooperative, no apparent acute distress. The patient remains on O2 at 2 L per minute nasal cannula. Breathing is nonlabored HHEENT: Neck is supple, no JVD, no lymphadenopathy. RESPIRATORY: Lungs sounds essentially clear throughout, diminished to his bilateral bases. Respirations are symmetrical and nonlabored. Currently on 2 L nasal cannula with oxygen saturations 95%. Able to achieve 1000 mL on his incentive spirometry with much encouragement. Strong cough. CARDIOVASCULAR: Irregular rhythm and tachycardic rate. S1 and S2 present, negative for S3, gallop or murmur. Sternum is stable. Palpable peripheral pulses bilaterally, +1 edema to his bilateral lower extremities. No calf pain or tenderness noted. Heart hugger in place with patient demonstrating appropriate use. Knee-high AMANDA hose and sequential compression devices in place to his bilateral lower extremities. Bedside telemetry showing atrial fibrillation heart rate 102 BPM. GASTROINTESTINAL: Abdomen soft, nontender, nondistended. Active bowel sounds present 4 quadrants. Tolerating diet. Passing flatus. No guarding or rigidity. GENITOURINARY: Continues to void. 375 mL of urine output in the last 8 hours. INTEGUMENTARY: Skin is warm and dry with no evidence of clubbing or cyanosis. Midline sternal incision clean dry and well approximated, covered with dry intact dressing. Right lower extremity EVH sites well approximated without redness or drainage. Pale. MUSKULOSKELETAL: Able to move all extremities, strength equal bilaterally, generalized weakness. PSYCHIATRIC: Alert and oriented to person place and time, appropriate affect, intact judgment and insight. INVASIVE LINES AND TUBES: Right radial arterial line present. - Labs CBC & Chem 7: 01/13/22 05:32 01/13/22 05:27 Labs: Abnormal Lab Results - Last 24 Hours (Table) 01/12/22 01/12/22 01/13/22 Range/Units 11:58 20:50 05:27 RBC (4.30-5.90) m/uL Hgb (13.0-17.5) gm/dL Hct (39.0-53.0) % RDW (11.5-15.5) % Sodium 136 L (137-145) mmol/L BUN 35 H (9-20) mg/dL Glucose 102 H (74-99) mg/dL POC Glucose (mg/dL) 127 H 130 H (70-110) mg/dL Total Protein 5.2 L (6.3-8.2) g/dL Albumin 2.9 L (3.5-5.0) g/dL 01/13/22 01/13/22 Range/Units 05:32 06:51 RBC 2.24 L (4.30-5.90) m/uL Hgb 7.2 L (13.0-17.5) gm/dL Hct 21.6 L (39.0-53.0) % RDW 16.4 H (11.5-15.5) % Sodium (137-145) mmol/L BUN (9-20) mg/dL Glucose (74-99) mg/dL POC Glucose (mg/dL) 112 H (70-110) mg/dL Total Protein (6.3-8.2) g/dL Albumin (3.5-5.0) g/dL Assessment and Plan Plan: Coronary artery disease, status post coronary artery bypass grafting 3 with a SAMUELS to LAD, SVG to the OM1, SVG to the RCA. Left atrial appendage clipping with a 35 mm Atriclip. Postoperative day #5. The patient is doing well. Hemodynamically stable. Cardiac rhythm is still A. fib. The patient has been extubated adequately and the patient is currently on 2 L of nasal cannula with a pulse ox of 99%. atrial fibrillation, controlled the patient is currently on oral amiodarone 400 mg by mouth twice a day and Lopressor 25 mg by mouth 3 times a day. Post thoracotomy, currently patient has chest tubes removed , and the chest x- ray showing some postsurgical changes Anemia, expected, current hemoglobin of 7.2 Morbid obesity with a BMI of 44 kg/m Hypertension, history of Hyperlipidemia Prostate cancer History of left lower extremity DVT, previous filter placed, maintained on Xarelto on outpatient setting Nonsmoker, FEV1 value 2.21 L Plan: Chest x-ray was reviewed Wean down the FiO2, currently on 2 L Continue using incentive spirometer Continue metoprolol 25 mg TID and amiodarone 400mg by mouth twice a day in combination with aspirin, Plavix and Lipitor chest tubes removed The pacemaker epicardial leads have been removed Chest x-ray from today showing hepatomegaly and limited atelectatic changes small effusion the lung bases bilaterally Increase mobility as tolerated and the patient will be ambulated We'll continue to follow Consider transferring this patient to ECF May transfer to telemetry today
[2022-01-13 11:42] LABS: Glucose,Whole Blood 120 mg/dL (70-110)
[2022-01-13] MEDS ORDERED: FUROSEMIDE 10 MG/ML 4 ML VIAL IV STA (11:48)
--- NOTE | 2022-01-13 12:57 | P.PN ---
Subjective Progress Note Date: 01/13/22 Principal diagnosis: Coronary artery disease. Past medical history significant for hypertension, hyperlipidemia, morbid obesity with a BMI of 41.3 kg/m, history of prostate cancer, status post radiation therapy, left lower extremity DVT with previous IVC filter placement and is maintained on Xarelto on an outpatient basis, history of kidney stones and nonrheumatic aortic valve insufficiency. POD #5 coronary artery bypass grafting 3 vessels with left internal mammary artery to left anterior descending coronary artery, a greater saphenous vein graft to the obtuse marginal coronary artery, and a greater saphenous vein graft to the distal right coronary artery. Endoscopic harvesting of the right greater saphenous vein, ligation of left atrial appendage using a 35 mm Atriclip, epi- aortic ultrasound, intraoperative transesophageal echocardiogram and closure of the sternum using titanium plating system. Postoperative acute blood loss anemia, expected given hemodilution and cardiopulmonary bypass. Paroxysmal atrial fibrillation, a known common occurrence after cardiac surgery. The patient was seen and examined in follow-up today 01/13/2022 at bedside in the intensive care unit. He reports he feels better today, although is still complaining of some generalized weakness mostly to his legs and continues to deny any pain or shortness of breath at this time. Oxygen saturation are 98% on 1 L nasal cannula and he is achieving 1750 mL on his incentive spirometry with encouragement. Bedside telemetry showing atrial fibrillation heart rate 79 BPM. He remains hemodynamically stable and is currently on no inotropic or pressor support. He has been up ambulating in the intensive care unit hallway with assistance from nursing and therapy staff. Bedside telemetry showing atrial fibrillation heart rate 79 BPM. His pacemaker wires were removed without incide nt yesterday and he has been restarted on Xarelto 20 mg by mouth daily per his home dose. Laboratory results this morning show a WBC count of 7.2, hemoglobin 7.2, hematocrit 21.6, platelets 201, sodium 136, potassium 4.6, BUN 35, creatinine 0.97 and calcium 8.4. He's been afebrile the last 24 hours. Discharge planning is in place which has been discussed with the patient and his . Objective - Vital Signs Vital signs: Vital Signs Temp 98.0 F 01/13/22 04:00 Pulse 80 01/13/22 08:57 Resp 13 01/13/22 08:00 BP 101/66 01/13/22 08:00 Pulse Ox 85 L 01/13/22 08:00 FiO2 50 01/09/22 08:02 Intake & Output 01/12/22 01/13/22 01/13/22 18:59 06:59 18:59 Intake Total 704 100 Output Total 977 426 175 Balance -273 -326 -175 Weight 126 kg Intake: IV 104 Lactated Ringers 1,000 ml 80 @ 20 mls/hr IV .Q24H [facility] Rx#:[id number] Pressure Lines 24 Oral 600 100 Output: Urine 975 425 175 Stool 2 1 Other: Voiding Method Urinal Bedside Commode Bedside Commode Urinal Urinal # Voids 0 0 # Bowel Movements 0 0 ABP, PAP, CO, CI - Last Documented Arterial Blood Pressure 137/58 Pulmonary Artery Pressure 37/18 Cardiac Output 6 Cardiac Index 2.6 - Exam CONSTITUTIONAL: Sitting up to the bedside chair in the intensive care unit, appears comfortable, cooperative, no apparent acute distress. HEENT: Neck is supple, no JVD, no lymphadenopathy. RESPIRATORY: Lungs sounds essentially clear throughout, diminished to his bilateral bases. Respirations are symmetrical and nonlabored. Currently on 1 L nasal cannula with oxygen saturations 98%. Able to achieve 1750 mL on his incentive spirometry with much encouragement. Strong cough. CARDIOVASCULAR: Irregular rhythm and controlled rate. S1 and S2 present, negative for S3, gallop or murmur. Sternum is stable. Palpable peripheral pulses bilaterally, +1 edema to his bilateral lower extremities. No calf pain or tenderness noted. Heart hugger in place with patient demonstrating appropriate use. Knee-high AMANDA hose and sequential compression devices in place to his bilateral lower extremities. Bedside telemetry showing atrial fibrillation heart rate 79 BPM. GASTROINTESTINAL: Abdomen soft, nontender, nondistended. Active bowel sounds present 4 quadrants. Tolerating diet. Passing flatus. No guarding or rigidity. Bowel movement yesterday 01/12/2022. GENITOURINARY: Continues to void. 375 mL of urine output in the last 8 hours. INTEGUMENTARY: Skin is warm and dry with no evidence of clubbing or cyanosis. Midline sternal incision clean dry and well approximated, covered with dry intact dressing. Right lower extremity EVH sites well approximated without redness or drainage. Pale. MUSKULOSKELETAL: Able to move all extremities, strength equal bilaterally, generalized weakness. PSYCHIATRIC: Alert and oriented to person place and time, appropriate affect, intact judgment and insight. - Allied health notes Allied health notes reviewed: nursing - Labs CBC & Chem 7: 01/13/22 05:32 01/13/22 05:27 Labs: Abnormal Lab Results - Last 24 Hours (Table) 01/12/22 01/12/22 01/13/22 Range/Units 11:58 20:50 05:27 RBC (4.30-5.90) m/uL Hgb (13.0-17.5) gm/dL Hct (39.0-53.0) % RDW (11.5-15.5) % Sodium 136 L (137-145) mmol/L BUN 35 H (9-20) mg/dL Glucose 102 H (74-99) mg/dL POC Glucose (mg/dL) 127 H 130 H (70-110) mg/dL Total Protein 5.2 L (6.3-8.2) g/dL Albumin 2.9 L (3.5-5.0) g/dL 01/13/22 01/13/22 Range/Units 05:32 06:51 RBC 2.24 L (4.30-5.90) m/uL Hgb 7.2 L (13.0-17.5) gm/dL Hct 21.6 L (39.0-53.0) % RDW 16.4 H (11.5-15.5) % Sodium (137-145) mmol/L BUN (9-20) mg/dL Glucose (74-99) mg/dL POC Glucose (mg/dL) 112 H (70-110) mg/dL Total Protein (6.3-8.2) g/dL Albumin (3.5-5.0) g/dL - Imaging and Cardiology Chest x-ray: report reviewed, image reviewed Assessment and Plan Assessment: 1. Coronary artery disease, status post three-vessel coronary artery bypass grafting surgery 2. History of hypertension 3. Hyperlipidemia 4. History of nonrheumatic aortic valve insufficiency 5. History of left lower extremity DVT with previous IVC filter placement, maintained on Xarelto on an outpatient basis 6. Morbid obesity with a BMI of 41.3 kg/m 7. History of prostate cancer, status post radiation therapy 8. History of kidney stones 9. Postoperative acute blood loss anemia, expected 10. Paroxysmal atrial fibrillation, a known common occurrence after cardiac surgery 11. Cardiac debility with recent CABG Plan: 1. Continue aspirin, statin, Plavix, beta charles. We will increase metoprolol as tolerated. 2. Wean O2 as tolerated. Encourage incentive spirometry is 10 times every hour while awake. Bronchodilators per pulmonology. Patient needs strong encouragement for pulmonary toileting. 3. Increase activity as tolerated. PT/OT/cardiac rehab following. 4. Will monitor daily labs and chest x-rays. Electrolyte replacement per protocol. 5. Insulin management per primary care service. Patient is not a diabetic, preoperative hemoglobin A1c 6.0% 6. Pain control with current medication regimen. 7. Continue amiodarone 400 mg by mouth twice a day for atrial fibrillation prophylaxis. We will taper his oral amiodarone as ordered. 8. Xarelto 20 mg by mouth daily started today per his home dose. 9. Continue to record strict accurate intake and output. May bladder scan every 6 hours and when necessary postvoid residual. If greater than 300 mL of urine may straight cath. Daily weights. 10. GI/DVT prophylaxis. 11. Lasix 40 mg IV 1 now. 12. Continue melatonin 5 mg by mouth daily at bedtime. 13. Consult Dr. Field consult note and appreciated. 14. Discharge planning is in place, anticipate discharge within the next 24-48 hours to inpatient rehab. Insurance operation patient pending. 15. Transfer orders have been placed to the third floor cardiac stepdown unit. 16. More recommendations to follow based on patient's clinical course. Time with Patient: Greater than 30
[2022-01-13] MEDS: ASCORBIC ACID 500 MG TAB PO SCH (13:50)
[2022-01-13] MEDS: RIVAROXABAN 20 MG TAB PO SCH (13:50)
[2022-01-13] MEDS: FERROUS SULFATE 325 MG TAB PO SCH (13:50)
--- NOTE | 2022-01-13 16:35 | P.CONS ---
History of Present Illness - Chief Complaint Cardiac debility - History of Present Illness I had the opportunity to see patient for inpatient rehab consultation with regard to cardiac debility. Patient admitted to [facility] January 08 with known cardiac disease, CABG performed by Dr. Caruso. Seen in ICU by Dr. Gipson. Was also seen by Dr. Patience Le appeared to by cardiology, known by Dr. Philip for CAD G and CABG. Chest x-rays followed cardiomegaly, congestion, and mild effusions. Has started therapies. PT reports minimal assistance for gait total 180 feet with IV pole, limited endurance. OT reports independent with feeding, minimal assistance for grooming and upper dressing and functional debility, maximal assistance lower dressing and toileting and moderate assistance for bathing. Previous functional history as elicited from patient: 81-year-old right-handed white male who is lives in one floor home with . Both are retired. They share the cooking, laundry, driving. Patient independent with sitdown or standup shower and gait without device. PCP Dr. Peterson. Denies tobacco or alcohol. Review of Systems Review of systems: ENT: Denies sneezes or discharge. Eyes: Denies discharge or photophobia. Cardiac: Mild sternal discomfort. Pulmonary: Mild shortness of breath. Gastrointestinal: Denies nausea, emesis, constipation, diarrhea. Genitourinary: Denies discharge or frequency. Musculoskeletal: Denies muscle or bone aches. Neurologic: Mild to moderate generalized weakness. Endocrine: Denies shakes or sweats. Oncology: Denies cancers. Dermatologic: Denies rash, itching, pruritus. ALLERGY/immunology: Denies sneezes, rashes. Past Medical History Past Medical History: Cancer, Chest Pain / Angina, COPD, Deep Vein Thrombosis (DVT), Hyperlipidemia, Hypertension, Prostate Disorder Additional Past Medical History / Comment(s): prostate cancer-radiation tx, edema of legs, "low potassium", chest tightness, SOB, constipation, hx. DVT leg 3 years ago History of Any Multi-Drug Resistant Organisms: None Reported Past Surgical History: Heart Catheterization, Prostate Surgery, Tonsillectomy Additional Past Surgical History / Comment(s): surgery for kidney stones, hemorrhoidectomy, tara cataracts, Past Anesthesia/Blood Transfusion Reactions: No Reported Reaction Smoking Status: Former smoker - Past Family History Mother Family Medical History: No Reported History Medications and Allergies Home Medications Medication Instructions Recorded Confirmed Type Atorvastatin [Lipitor] 80 mg PO HS 12/24/21 01/06/22 History Furosemide [Lasix] 80 mg PO DAILY 12/24/21 01/06/22 History Metoprolol Succinate [Metoprolol 50 mg PO DAILY 12/24/21 01/06/22 History Succinate ER] Potassium Chloride [Klor-Con M10] 10 meq PO DAILY 12/24/21 01/06/22 History Rivaroxaban [Xarelto] 20 mg PO DAILY 12/24/21 01/06/22 History Aspirin 325 mg PO DAILY 12/29/21 01/06/22 History Isosorbide Mononitrate ER [Imdur] 30 mg PO DAILY 12/29/21 01/06/22 History Allergies Allergy/AdvReac Type Severity Reaction Status Date / Time Penicillins Allergy hives Verified 01/06/22 15:40 Physical Exam Vitals: Vital Signs Temp Pulse Resp BP Pulse Ox 01/13/22 16:20 90 01/13/22 16:09 100 01/13/22 14:00 55 L 17 130/62 97 01/13/22 13:54 57 L 12 96 01/13/22 11:00 89 12 119/58 92 L 01/13/22 10:21 102 H 34 H 101/66 95 01/13/22 09:00 70 12 93/62 100 01/13/22 08:57 80 01/13/22 08:49 74 01/13/22 08:00 85 13 101/66 85 L 01/13/22 07:00 96 15 125/72 96 01/13/22 06:00 55 L 12 122/46 97 01/13/22 05:00 56 L 16 119/55 98 01/13/22 04:00 98.0 F 61 7 L 109/43 89 L 01/13/22 03:00 56 L 17 109/43 97 01/13/22 02:00 59 L 3 L 106/48 92 L 01/13/22 01:00 58 L 17 106/48 96 01/13/22 00:00 97.6 F 58 L 13 101/48 99 01/12/22 23:09 64 9 L 101/48 97 01/12/22 23:00 63 36 H 101/48 96 07/19/22 22:00 53 L 25 H 115/53 97 01/12/22 21:00 65 8 L 119/57 96 01/12/22 20:00 98.8 F 63 8 L 122/53 99 01/12/22 19:00 67 20 117/51 88 L 01/12/22 18:00 61 20 109/68 100 01/12/22 17:00 107 H 13 125/51 96 Intake and Output 01/13/22 01/13/22 01/13/22 06:59 14:59 22:59 Intake Total 240 Output Total 175 275 400 Balance -175 -35 -400 Intake: Oral 240 Output: Urine 175 275 400 Other: Voiding Method Bedside Commode Bedside Commode Urinal Urinal # Voids 0 0 # Bowel Movements 0 0 Weight 126 kg Skin: Atrophic, intact. General: Overweight build and comfortable appearance. Head: Normocephalic, atraumatic. Eyes: Symmetric. Pupils equal round. Ears: Symmetric. Hearing within normal limits. Mouth: Clear. Neck: Supple. Carotid without bruit. Cardiac: Regular rate and rhythm. Clean and dressed sternal incision. Heart hugger. Lungs: Clear anteriorly and posteriorly. Abdomen: Soft active nontender. Overweight. Extremities: Normal tone. Overweight. Thuan wraps lower legs. Neurological: Mental status: Alert, cooperative, pleasant. Cranial nerves: Symmetric facial tone and trapezius. Motor: Arms at least antigravity. Legs less than antigravity. Sensation: Intact throughout. DTRs: Symmetric and equal throughout. Mobility: Sitting in Rupinder chair. Requires assistance for any functional mobility.. Results CBC & Chem 7: 01/13/22 05:32 01/13/22 05:27 Labs: Abnormal Lab Results - Last 24 Hours (Table) 01/12/22 01/13/22 01/13/22 Range/Units 20:50 05:27 05:32 RBC 2.24 L (4.30-5.90) m/uL Hgb 7.2 L (13.0-17.5) gm/dL Hct 21.6 L (39.0-53.0) % RDW 16.4 H (11.5-15.5) % Sodium 136 L (137-145) mmol/L BUN 35 H (9-20) mg/dL Glucose 102 H (74-99) mg/dL POC Glucose (mg/dL) 130 H (70-110) mg/dL Total Protein 5.2 L (6.3-8.2) g/dL Albumin 2.9 L (3.5-5.0) g/dL 01/13/22 01/13/22 Range/Units 06:51 11:41 RBC (4.30-5.90) m/uL Hgb (13.0-17.5) gm/dL Hct (39.0-53.0) % RDW (11.5-15.5) % Sodium (137-145) mmol/L BUN (9-20) mg/dL Glucose (74-99) mg/dL POC Glucose (mg/dL) 112 H 120 H (70-110) mg/dL Total Protein (6.3-8.2) g/dL Albumin (3.5-5.0) g/dL Assessment and Plan Plan: Comments and plan: Patient appears to have cardiac debility with regard to CAD, CABG. Complication of overweight/obese. Has started therapies and safety concerns noted as is limited endurance. Suspect support for return to home would be . Must determine 's goals or return to home. This would help to determine inpatient rehab goals and appropriateness. Discussed with patient that insurance would have rules as well regard to IP admission.
[2022-01-13 16:49] LABS: Glucose,Whole Blood 108 mg/dL (70-110)
[2022-01-13] MEDS ORDERED: AMIODARONE 200 MG TAB PO SCH ×2 (21:00)
[2022-01-13] MEDS: SENNOSIDES-DOCUSATE SODIUM 1 EACH TAB PO SCH (21:04)
[2022-01-13] MEDS: MELATONIN 5 MG TABLET PO SCH (21:04)
[2022-01-13 21:10] LABS: Glucose,Whole Blood 139 mg/dL (70-110)
[2022-01-14 02:04] LABS: Glucose,Whole Blood 117 mg/dL (70-110)
[2022-01-14] MEDS: INSULIN ASPART (NovoLOG) 100 UNIT/ML VIAL SQ SCH ×5 (02:15→21:10)
[2022-01-14] MEDS: ACETAMINOPHEN TAB 325 MG TAB PO PRN ×2 (04:46→21:11)
[2022-01-14 06:39] LABS: Glucose,Whole Blood 111 mg/dL (70-110)
--- NOTE | 2022-01-14 07:19 | XR ---
EXAMINATION TYPE: XR chest 2V DATE OF EXAM: 01/14/2022 COMPARISON: 01/13/2022 HISTORY: 81-year-old male postoperative cardiac surgery TECHNIQUE: PA and lateral views FINDINGS: Median sternotomy wires as well as sternal plate and screw fixation is noted. Heart remains enlarged. Median sternotomy wires are demonstrated. Diffuse interstitial densities persist. Patchy bibasilar o pacities show slight improvement. Continued trace to small bilateral pleural effusions. IMPRESSION: Similar cardiomegaly and pulmonary vascular congestion. Patchy bibasilar opacities show some improvem ent. Continued trace to small bilateral pleural effusions.
[2022-01-14] MEDS: METOPROLOL TARTRATE 25 MG TAB PO SCH ×2 (08:04→17:39)
[2022-01-14] MEDS: RIVAROXABAN 20 MG TAB PO SCH (08:04)
[2022-01-14] MEDS: ASPIRIN 81 MG PO SCH (08:04)
[2022-01-14] MEDS: ATORVASTATIN 40 MG TAB PO SCH (08:04)
[2022-01-14] MEDS: AMIODARONE 200 MG TAB PO SCH ×2 (08:04→21:10)
[2022-01-14] MEDS: IPRATROPIUM-ALBUTEROL 3 ML NEB INHALATION SCH ×4 (08:27→20:14)
[2022-01-14 08:43] LABS: Anisocytosis Slight; HCT 24.9 % (39.0-53.0); Hypochromasia Slight; MCH 31.9 pg (25.0-35.0); MCV 99.8 fL (80.0-100.0); Macrocytosis Slight; Mean Platelet Volume 7.8; Platelet Count 298 k/uL (150-450); RDW 16.8 % (11.5-15.5); WBC 8.5 k/uL (3.8-10.6)
[2022-01-14 09:01] LABS: Calcium 8.7 mg/dL (8.4-10.2); Potassium 3.8 mmol/L (3.5-5.1)
[2022-01-14] MEDS ORDERED: FUROSEMIDE 10 MG/ML 4 ML VIAL IV STA (09:12)
--- NOTE | 2022-01-14 09:37 | P.PN ---
Subjective Progress Note Date: 01/14/22 Principal diagnosis: Coronary artery disease. Previous history of hypertension, hyperlipidemia, previous tobacco dependence, morbid obesity, prostate cancer approximately 2 years ago status post radiation therapy, left lower extremity DVT with previous IVC filter placement on Xarelto outpatient, kidney stones, and nonrheumatic aortic valve insufficiency. POD #6 coronary artery bypass grafting 3 vessels with left internal mammary artery to left anterior descending coronary artery, a greater saphenous vein graft to the obtuse marginal coronary artery, and a greater saphenous vein graft to the distal right coronary artery. Endoscopic harvesting of the right greater saphenous vein, ligation of left atrial appendage using a 35 mm Atriclip, epi- aortic ultrasound, intraoperative transesophageal echocardiogram and closure of the sternum using titanium plating system. Postoperative acute blood loss anemia, expected given hemodilution and cardiopulmonary bypass. Paroxysmal atrial fibrillation, a known common occurrence after cardiac surgery The patient was seen and examined this morning sitting up in a recliner on the cardiac stepdown unit in no acute distress although does appear very exhausted and a bit short of breath. Remains in sinus rhythm. Currently on 2 L nasal cannula with oxygen saturation in the mid to high 90s. Initially was only able to achieve 750 mL on incentive spirometry, after much encouragement was able to achieve 1500 mL on his incentive spirometry. Appears with generalized edema. Continues to void. Patient appears to have no energy and needs a lot of encouragement. He did ambulate this morning with nursing but with several josé luis ks. Being considered for inpatient rehab if insurance authorization is approved. Objective - Vital Signs Vital signs: Vital Signs Temp 97.4 F L 01/14/22 08:00 Pulse 60 01/14/22 08:00 Resp 20 01/14/22 08:00 BP 109/52 01/14/22 08:00 Pulse Ox 95 01/14/22 08:00 FiO2 50 01/09/22 08:02 Intake & Output 01/13/22 01/14/22 01/14/22 18:59 06:59 18:59 Intake Total 600 247 Output Total 1000 270 100 Balance -400 -270 147 Weight 123.6 kg Intake: IV 10 Invasive Line 5 10 Oral 600 237 Output: Urine 1000 270 100 Other: Voiding Method Bedside Commode Urinal Urinal Urinal # Voids 0 3 # Bowel Movements 0 ABP, PAP, CO, CI - Last Documented Arterial Blood Pressure 137/58 Pulmonary Artery Pressure 37/18 Cardiac Output 6 Cardiac Index 2.6 - Exam CONSTITUTIONAL: Appears exhausted, a bit short of breath, needs much encouragement RESPIRATORY: Lungs sounds very diminished bilaterally, left greater than right. Respirations even, nonlabored although appears a bit short of breath. Currently on 2 L nasal cannula with oxygen saturation 97%. Able to achieve 750- 1500 mL on incentive spirometry. Strong nonproductive cough. CARDIOVASCULAR: S1, S2 present. Regular rate and rhythm, sinus rhythm on telemetry. Sternum stable. Palpable peripheral pulses bilaterally. Generalized edema present. No calf pain or tenderness noted. Heart hugger in place with patient demonstrating appropriate use with encouragement. Antiembolism stockings, SCDs present. GASTROINTESTINAL: Abdomen soft, nontender, nondistended. Active bowel sounds present 4 quadrants. Tolerating diet. Positive bowel movement. GENITOURINARY: Continues to void. Output 1270 mL in the last 24 hours INTEGUMENTARY: Skin is warm and dry with evidence of good perfusion. Anterior chest incision well approximated and covered with dry intact dressing. Right lower extremity EVH site well approximated without redness or drainage. NEUROLOGIC: Cranial nerves II through XII intact MUSKULOSKELETAL: Able to move all extremities, strength equal bilaterally although generalized weakness present, gait normal but requires breaks PSYCHIATRIC: Alert and oriented to person place and time, appropriate affect, intact judgment and insight - Allied health notes Allied health notes reviewed: nursing - Labs CBC & Chem 7: 01/14/22 07:59 01/14/22 07:59 Labs: Abnormal Lab Results - Last 24 Hours (Table) 01/13/22 01/13/22 01/14/22 Range/Units 11:41 21:09 02:02 RBC (4.30-5.90) m/uL Hgb (13.0-17.5) gm/dL Hct (39.0-53.0) % RDW (11.5-15.5) % BUN (9-20) mg/dL Glucose (74-99) mg/dL POC Glucose (mg/dL) 120 H 139 H 117 H (70-110) mg/dL 01/14/22 01/14/22 01/14/22 Range/Units 06:38 07:59 07:59 RBC 2.50 L (4.30-5.90) m/uL Hgb 8.0 L (13.0-17.5) gm/dL Hct 24.9 L (39.0-53.0) % RDW 16.8 H (11.5-15.5) % BUN 31 H (9-20) mg/dL Glucose 104 H (74-99) mg/dL POC Glucose (mg/dL) 111 H (70-110) mg/dL - Imaging and Cardiology Chest x-ray: report reviewed, image reviewed Assessment and Plan Assessment: 1. Coronary artery disease, status post three-vessel CABG 2. History of hypertension 3. History of hyperlipidemia, treated 4. Previous tobacco dependence with preoperative FEV1 88% of predicted 5. Morbid obesity 6. Prostate cancer approximately 2 years ago status post radiation therapy 7. Left lower extremity DVT with previous IVC filter placement on Xarelto outpatient 8. History of kidney stones 9. Nonrheumatic aortic valve insufficiency. 10. Postoperative acute blood loss anemia, expected 11. Paroxysmal atrial fibrillation, currently sinus and amiodarone and Xarelto, status post left atrial appendage ligation 12. Cardiac debility after recent CABG Plan: 1. Continue aspirin, statin, beta charles. Will increase metoprolol as tolerated. 2. Continue amiodarone with weekly stepdown dose. Continue Xarelto 3. Wean O2 as tolerated. Encourage incentive spirometry is 10 times every hour while awake. Bronchodilators per pulmonology. Patient needs strong encouragement for pulmonary toileting. 4. Increase activity as tolerated. PT/OT/cardiac rehab following. 5. Will monitor daily labs and chest x-rays. Electrolyte replacement per pro tocol. Will give Lasix 40 mg IV push 1 6. Insulin management per primary care service. Patient is not a diabetic, preoperative hemoglobin A1c 6.0% 7. Pain control with current medication regimen. 8. Continue to record strict accurate intake and output. May bladder scan every 6 hours and when necessary postvoid residual. If greater than 300 mL of urine may straight cath. Daily weights. 9. GI/DVT prophylaxis. 10. Discharge planning is in place, anticipate discharge to inpatient rehab, pending insurance authorization. Patient needs daily physician visits and lab work 11. More recommendations to follow based on patient's clinical course.
[2022-01-14 10:52] LABS: Glucose,Whole Blood 119 mg/dL (70-110)
[2022-01-14] MEDS: ASCORBIC ACID 500 MG TAB PO SCH (10:54)
[2022-01-14] MEDS: FERROUS SULFATE 325 MG TAB PO SCH (10:54)
[2022-01-14] MEDS ORDERED: polyethylene glycoL 3350 17 GM POWD.PACK PO STA (11:26)
--- NOTE | 2022-01-14 12:45 | P.PN ---
Subjective Progress Note Date: 01/14/22 HISTORY OF PRESENT ILLNESS: This is an 81-year-old male who is postop day #6 CABG 3 vessels with left internal mammary artery to left anterior descending coronary artery, a greater s aphenous vein graft to the obtuse marginal coronary artery, and a greater saphenous vein graft to the distal right coronary artery. Patient examined this afternoon at the bedside. He is resting comfortably in bed. No complaints of chest pain or shortness of breath. Vital signs are stable. PHYSICAL EXAM: VITAL SIGNS: Reviewed. GENERAL: Well-developed in no acute distress. NECK: Supple. No JVD or thyromegaly LUNGS: Respirations even and unlabored. Lungs essentially clear to auscultation bilaterally, although diminished. HEART: Regular rate and rhythm. S1 and S2 heard. EXTREMITIES: Normal range of motion. No clubbing or cyanosis. Peripheral pulses intact. Trace lower extremity edema ASSESSMENT: Coronary artery disease, status post CABG 3 vessels Hypertension Hyperlipidemia History of DVT, on Xarelto Paroxysmal atrial fibrillation Morbid obesity Former nicotine dependence History of prostate cancer PLAN: Continue postoperative management per CTS Continue current cardiac medications Increase activity as tolerated Encouraged use of incentive spirometer Discharge planning is in place for inpatient rehab Further recommendations pending patient's course Patient to follow up post discharge with Dr. Farris Nurse practitioner note has been reviewed by physician. Signing provider agrees with the documented findings, assessment, and plan of care. Objective - Vital Signs Vital signs: Vital Signs Temp 97.6 F 01/14/22 11:08 Pulse 61 01/14/22 11:08 Resp 20 01/14/22 11:08 BP 118/57 01/14/22 11:08 Pulse Ox 98 01/14/22 11:08 FiO2 50 01/09/22 08:02 Intake & Output 01/13/22 01/14/22 01/14/22 18:59 06:59 18:59 Intake Total 600 497 Output Total 1000 270 450 Balance -400 -270 47 Weight 123.6 kg Intake: IV 20 Invasive Line 5 20 Oral 600 477 Output: Urine 1000 270 450 Other: Voiding Method Bedside Commode Urinal Urinal Urinal # Voids 0 3 1 # Bowel Movements 0 ABP, PAP, CO, CI - Last Documented Arterial Blood Pressure 137/58 Pulmonary Artery Pressure 37/18 Cardiac Output 6 Cardiac Index 2.6 - Labs CBC & Chem 7: 01/14/22 07:59 07/21/22 07:59 Labs: Abnormal Lab Results - Last 24 Hours (Table) 01/13/22 01/14/22 01/14/22 Range/Units 21:09 02:02 06:38 RBC (4.30-5.90) m/uL Hgb (13.0-17.5) gm/dL Hct (39.0-53.0) % RDW (11.5-15.5) % BUN (9-20) mg/dL Glucose (74-99) mg/dL POC Glucose (mg/dL) 139 H 117 H 111 H (70-110) mg/dL 01/14/22 01/14/22 01/14/22 Range/Units 07:59 07:59 10:50 RBC 2.50 L (4.30-5.90) m/uL Hgb 8.0 L (13.0-17.5) gm/dL Hct 24.9 L (39.0-53.0) % RDW 16.8 H (11.5-15.5) % BUN 31 H (9-20) mg/dL Glucose 104 H (74-99) mg/dL POC Glucose (mg/dL) 119 H (70-110) mg/dL
--- NOTE | 2022-01-14 13:55 | P.PN ---
Subjective Progress Note Date: 01/14/22 Principal diagnosis: CAD, status post CABG On 01/14/2022 patient seen in follow-up on selective care unit, he was transferred out of intensive care unit yesterday. He is fatigued, but awake and alert, responding to questions appropriately, a bit pale, but does not appear to be in any acute distress, he stated he is not sleeping well, he is been sleepy and tired. But responding to questions appropriate. Patient is on 3 L of oxygen pulse ox is 95-98%, vitals have been stable, no fever or chills, blood pressure is stable. Patient is postoperative day #6, status post coronary artery bypass grafting surgery 3. No acute events overnight, patient still in atrial fibrillation with a controlled rate. Patient is on oral amiodarone 400 mg twice daily, and has been started on Xarelto. Today's chest x-ray has been reviewed showing cardiac megaly pulmonary vascular congestion and patient received a dose of IV Lasix per CT surgery. Today's labs have been reviewed, with little quantity 0.5, hemoglobin is 8.0, a large joints and renal profile are unremarkable. Objective - Vital Signs Vital signs: Vital Signs Temp 97.6 F 01/14/22 11:08 Pulse 61 01/14/22 11:08 Resp 20 01/14/22 11:08 BP 118/57 01/14/22 11:08 Pulse Ox 98 01/14/22 11:08 FiO2 50 01/09/22 08:02 Intake & Output 01/13/22 01/14/22 01/14/22 18:59 06:59 18:59 Intake Total 600 497 Output Total 1000 270 450 Balance -400 -270 47 Weight 123.6 kg Intake: IV 20 Invasive Line 5 20 Oral 600 477 Output: Urine 1000 270 450 Other: Voiding Method Bedside Commode Urinal Urinal Urinal # Voids 0 3 1 # Bowel Movements 0 ABP, PAP, CO, CI - Last Documented Arterial Blood Pressure 137/58 Pulmonary Artery Pressure 37/18 Cardiac Output 6 Cardiac Index 2.6 - Exam GENERAL EXAM: Lethargic but arousable, 81-year-old white male, resting in bed, appears a bit pale and fatigued, but no acute distress was noted. Patient is currently on 3 L of oxygen with pulse ox of 90% HEAD: Normocephalic/atraumatic. EYES: Normal reaction of pupils, equal size. Conjunctiva pink, sclera white. NOSE: Clear with pink turbinates. THROAT: No erythema or exudates. NECK: No masses, no JVD, no thyroid enlargement, no adenopathy. CHEST: No chest wall deformity. Symmetrical expansion. Midsternal incision is clean dry and intact, former chest tube sites are clean dry and intact LUNGS: Equal air entry with no crackles, wheeze, rhonchi or dullness. CVS: Irregular rate and rhythm, normal S1 and S2, no gallops, no murmurs, no rubs ABDOMEN: Soft, nontender. No hepatosplenomegaly, normal bowel sounds, no guar ding or rigidity. EXTREMITIES: No clubbing, no edema, no cyanosis, 2+ pulses and upper and lower extremities. MUSCULOSKELETAL: Muscle strength and tone normal. SPINE: No scoliosis or deformity SKIN: No rashes CENTRAL NERVOUS SYSTEM: Alert and oriented -3. No focal deficits, tone is normal in all 4 extremities. PSYCHIATRIC: Alert and oriented -3. Appropriate affect. Intact judgment and insight. - Labs CBC & Chem 7: 01/14/22 07:59 01/14/22 07:59 Labs: Abnormal Lab Results - Last 24 Hours (Table) 01/13/22 01/14/22 01/14/22 Range/Units 21:09 02:02 06:38 RBC (4.30-5.90) m/uL Hgb (13.0-17.5) gm/dL Hct (39.0-53.0) % RDW (11.5-15.5) % BUN (9-20) mg/dL Glucose (74-99) mg/dL POC Glucose (mg/dL) 139 H 117 H 111 H (70-110) mg/dL 01/14/22 01/14/22 01/14/22 Range/Units 07:59 07:59 10:50 RBC 2.50 L (4.30-5.90) m/uL Hgb 8.0 L (13.0-17.5) gm/dL Hct 24.9 L (39.0-53.0) % RDW 16.8 H (11.5-15.5) % BUN 31 H (9-20) mg/dL Glucose 104 H (74-99) mg/dL POC Glucose (mg/dL) 119 H (70-110) mg/dL Assessment and Plan Plan: Assessment: Coronary artery disease, status post coronary artery bypass grafting 3 with a SAMUELS to LAD, SVG to the OM1, SVG to the RCA. Left atrial appendage clipping with a 35 mm Atriclip. Postoperative day #6. The patient is doing well. Hemodynamically stable. Cardiac rhythm is still A. fib. The patient has been extubated adequately and the patient is currently on 2 L of nasal cannula with a pulse ox of 99%. atrial fibrillation, controlled the patient is currently on oral amiodarone 400 mg by mouth twice a day and Lopressor 25 mg by mouth 3 times a day. Post thoracotomy, currently patient has chest tubes removed , and the chest x- ray showing some postsurgical changes Anemia, expected, current hemoglobin of 8.0 Morbid obesity with a BMI of 44 kg/m Hypertension, history of Hyperlipidemia Prostate cancer History of left lower extremity DVT, previous filter placed, maintained on Xarelto on outpatient setting Nonsmoker, FEV1 value 2.21 L Plan: Continue encouraging deep breathing and coughing And incentive spirometry use Hemodynamically stable Remains in A. fib with a controlled rate Rate control medications and anticoagulation per CT surgery and cardiology Chest x-ray has been reviewed showing pulmonary vessel congestion, small effusions, patient received a dose of Lasix Appears fatigued and lethargic today, Monitor neurological status Continue to follow I have personally seen and examined the patient, performed the documentation and the assessment and plan as written. I have personally seen and examined the patient and reviewed the documentation. I performed a joint evaluation with the nurse practitioner in this evaluation was done more than 20 minutes. I fully agree with the documentation above and the plan of care.. The patient is a bit more lethargic than usual. Nevertheless, hemodynamically stable. Chest x-ray is unchanged. We'll continue to follow. No focal neurological deficits for now. Time with Patient: Less than 30
--- NOTE | 2022-01-14 14:36 | P.PN ---
Subjective Progress Note Date: 01/14/22 (delayed charting seen at 1130) Patient is an 81-year-old male with a history of coronary artery disease, obesity, and dyslipidemia who presented for coronary artery bypass grafting 3. Patient seen and examined at bedside. He has no chest pain currently. He is very constipated currently. He feels very tired and is frustrated that his legs need to be lifted. General: nontoxic, no distress, appears at stated age, obese Derm: warm, dry Head: atraumatic, normocephalic, symmetric Eyes: EOMI, no lid lag, anicteric sclera Mouth: no lip lesion, mucus membranes dry Cardiovascular: S1S2 reg, no murmur, positive posterior tibial pulse bilateral, Lungs: Decreased bilateral, no wheeze, no accessory muscle use Abdominal: soft, nontender to palpation, no guarding, no appreciable organomegaly Ext: no gross muscle atrophy, 1+ pedal edema, no contractures Neuro: CN II-XI grossly intact, no focal neuro deficits Psych: Alert, oriented, appropriate affect Assessment/plan: Coronary artery bypass grafting 3 Hypertension Dyslipidemia Paroxysmal atrial fibrillation - amio - ASA, plavix - lipitor - cardiothoracic surgery recs Constipation - add miralax, if no BM by this afternoon nurse will alert me Prediabetes with recent A1c 6 -Currently on sliding scale insulin, has not required consistent dosing -He'll need outpatient follow-up with his primary, no plans for meds on discharge Morbid obesity with BMI 41.3 on admission -Outpatient structured weight loss Postoperative acute blood loss anemia, anticipated outcome of surgery Normocytic anemia, common occurrence after surgery - oral iron to continue for 30 days. - Monitor CBC HX DVT Constipation, resolved DVT prophylaxis: Heparin Discussed with: patient, nursing A total of 25 minutes was spent on the care of this complex patient more than 50% of the time was spent in counseling and care coordination. Active Medications Generic Name Dose Route Start Last Admin Trade Name Freq PRN Reason Stop Dose Admin Acetaminophen 650 mg 01/11/22 08:33 01/14/22 04:46 Acetaminophen Tab 325 Mg Tab PO 650 mg Q4HR PRN Administration Fever and/ or Pain Albuterol/Ipratropium 3 ml 01/08/22 14:35 Ipratropium-Albuterol 3 Ml Neb INHALATION RT-Q2H PRN Shortness Of Breath Or Wheezing Albuterol/Ipratropium 3 ml 01/08/22 20:00 01/14/22 11:58 Ipratropium-Albuterol 3 Ml Neb INHALATION Not Given RT-QID AUDREY Amiodarone HCl 400 mg 01/14/22 09:00 01/14/22 08:04 Amiodarone 200 Mg Tab PO 01/30/22 08:59 400 mg BID AUDREY Administration Taper Ascorbic Acid 500 mg 01/09/22 12:30 01/14/22 10:54 Ascorbic Acid 500 Mg Tab PO 500 mg W/LUNCH AUDREY Administration Aspirin 81 mg 01/14/22 09:00 01/14/22 08:04 Aspirin 81 Mg PO 81 mg DAILY AUDREY Administration Atorvastatin Calcium 40 mg 01/09/22 09:00 01/14/22 08:04 Atorvastatin 40 Mg Tab PO 40 mg DAILY AUDREY Administration Bisacodyl 10 mg 01/09/22 09:00 01/12/22 08:19 Bisacodyl 10 Mg Supp RECTAL 10 mg DAILY PRN Administration Constipation Ferrous Sulfate 325 mg 01/09/22 12:30 01/14/22 10:54 Ferrous Sulfate 325 Mg Tab PO 325 mg W/LUNCH AUDREY Administration Insulin Aspart 0 unit 01/10/22 12:30 01/14/22 10:55 Insulin Aspart (Novolog) 100 Unit/Ml Vial SQ Not Given ACHS [facility] Protocol Magnesium Hydroxide 2,400 mg 01/09/22 09:00 Magnesium Hydroxide 2,400 Mg/10 Ml Cup PO BID PRN Constipation Melatonin 5 mg 01/10/22 21:00 01/13/22 21:04 Melatonin 5 Mg Tablet PO 5 mg HS AUDREY Administration Metoclopramide HCl 10 mg 01/08/22 14:35 Metoclopramide 5 Mg/Ml 2 Ml Vial IVP Q4H PRN Nausea And Vomiting Metoprolol Tartrate 25 mg 01/12/22 16:00 01/14/22 08:04 Metoprolol Tartrate 25 Mg Tab PO 25 mg TID AUDREY Administration Miscellaneous Information 1 each 01/08/22 14:35 Potassium Replacement Protocol 1 Each Misc MISCELLANE DAILY PRN Per Protocol Protocol Miscellaneous Information 1 each 01/08/22 14:35 Magnesium Replacement Protocol 1 Each Misc MISCELLANE DAILY PRN Per Protocol Protocol Ondansetron HCl 4 mg 01/08/22 14:35 01/11/22 21:00 Ondansetron 4 Mg/2 Ml Vial IVP 4 mg Q6HR PRN Administration Nausea And Vomiting Rivaroxaban 20 mg 01/13/22 10:15 01/14/22 08:04 Rivaroxaban 20 Mg Tab PO 20 mg DAILY AUDREY Administration Protocol Senna/Docusate Sodium 2 each 01/09/22 21:00 01/13/22 21:04 Sennosides-Docusate Sodium 1 Each Tab PO 2 each HS AUDREY Administration Sodium Chloride 10 ml 01/08/22 21:00 01/14/22 08:04 Sodium Chloride 0.9% Flush 10 Ml Syringe IV 10 ml BID AUDREY Administration Objective - Vital Signs Vital signs: Vital Signs Temp 97.6 F 01/14/22 11:08 Pulse 61 01/14/22 11:08 Resp 20 01/14/22 11:08 BP 118/57 01/14/22 11:08 Pulse Ox 98 01/14/22 11:08 FiO2 50 01/09/22 08:02 Intake & Output 01/13/22 01/14/22 01/14/22 18:59 06:59 18:59 Intake Total 600 497 Output Total 1000 270 450 Balance -400 -270 47 Weight 123.6 kg Intake: IV 20 Invasive Line 5 20 Oral 600 477 Output: Urine 1000 270 450 Other: Voiding Method Bedside Commode Urinal Urinal Urinal # Voids 0 3 1 # Bowel Movements 0 ABP, PAP, CO, CI - Last Documented Arterial Blood Pressure 137/58 Pulmonary Artery Pressure 37/18 Cardiac Output 6 Cardiac Index 2.6 - Labs CBC & Chem 7: 01/14/22 07:59 01/14/22 07:59 Labs: Abnormal Lab Results - Last 24 Hours (Table) 01/13/22 01/14/22 01/14/22 Range/Units 21:09 02:02 06:38 RBC (4.30-5.90) m/uL Hgb (13.0-17.5) gm/dL Hct (39.0-53.0) % RDW (11.5-15.5) % BUN (9-20) mg/dL Glucose (74-99) mg/dL POC Glucose (mg/dL) 139 H 117 H 111 H (70-110) mg/dL 07/21/22 07/21/22 07/21/22 Range/Units 07:59 07:59 10:50 RBC 2.50 L (4.30-5.90) m/uL Hgb 8.0 L (13.0-17.5) gm/dL Hct 24.9 L (39.0-53.0) % RDW 16.8 H (11.5-15.5) % BUN 31 H (9-20) mg/dL Glucose 104 H (74-99) mg/dL POC Glucose (mg/dL) 119 H (70-110) mg/dL
[2022-01-14 16:48] LABS: Glucose,Whole Blood 121 mg/dL (70-110)
[2022-01-14] MEDS ORDERED: DEXTROSE 5% IN WATER 100 ML with AMIODARONE 150 MG IV ONE (17:00)
[2022-01-14 19:35] LABS: Glucose,Whole Blood 149 mg/dL (70-110)
[2022-01-14] MEDS: MELATONIN 5 MG TABLET PO SCH (21:10)
[2022-01-14] MEDS: SENNOSIDES-DOCUSATE SODIUM 1 EACH TAB PO SCH (21:10)
[2022-01-14] MEDS: METOPROLOL TARTRATE 50 MG TAB PO SCH (21:15)
[2022-01-14] MEDS ORDERED: ALPRAZolam 0.25 MG TAB PO STA (22:49)
[2022-01-15 06:31] LABS: Glucose,Whole Blood 112 mg/dL (70-110)
[2022-01-15] MEDS: INSULIN ASPART (NovoLOG) 100 UNIT/ML VIAL SQ SCH ×4 (06:49→20:36)
--- NOTE | 2022-01-15 07:36 | XR ---
EXAMINATION TYPE: XR chest 2V DATE OF EXAM: 01/15/2022 COMPARISON: 01/14/2022 HISTORY: Shortness of breath TECHNIQUE: Frontal and lateral views of the chest are obtained. FINDINGS: Scattered senescent parenchymal changes noted. Hyperinflation compatible with COPD. Persistent pulmonary venous congestion with interstitial edema as well as small effusions and cardiom egaly. Mediastinal structures are stable and grossly unremarkable. No evidence for hilar prominence. Degenerative changes dorsal spine. IMPRESSION: 1. Persistent pulmonary venous congestion with interstitial edema as well as small effusions and card iomegaly.
[2022-01-15] MEDS: IPRATROPIUM-ALBUTEROL 3 ML NEB INHALATION SCH ×4 (08:27→20:18)
[2022-01-15] MEDS: ACETAMINOPHEN TAB 325 MG TAB PO PRN (08:34)
[2022-01-15] MEDS: ASPIRIN 81 MG PO SCH (08:35)
[2022-01-15] MEDS: RIVAROXABAN 20 MG TAB PO SCH (08:35)
[2022-01-15] MEDS: AMIODARONE 200 MG TAB PO SCH ×2 (08:35→21:28)
--- NOTE | 2022-01-15 08:35 | P.PN ---
Subjective Progress Note Date: 01/15/22 Principal diagnosis: Coronary artery disease. Previous history of hypertension, hyperlipidemia, previous tobacco dependence, morbid obesity, prostate cancer approximately 2 years ago status post radiation therapy, left lower extremity DVT with previous IVC filter placement on Xarelto outpatient, kidney stones, and nonrheumatic aortic valve insufficiency. POD #7 coronary artery bypass grafting 3 vessels with left internal mammary artery to left anterior descending coronary artery, a greater saphenous vein graft to the obtuse marginal coronary artery, and a greater saphenous vein graft to the distal right coronary artery. Endoscopic harvesting of the right greater saphenous vein, ligation of left atrial appendage using a 35 mm Atriclip, epi- aortic ultrasound, intraoperative transesophageal echocardiogram and closure of the sternum using titanium plating system. Postoperative acute blood loss anemia, expected given hemodilution and cardiopulmonary bypass. Paroxysmal atrial fibrillation, a known common occurrence after cardiac surgery Cardiac debility post surgery The patient was seen and examined this morning sitting up in a recliner on the cardiac stepdown unit in no acute distress, appears better than yesterday. Has had a couple more episodes of brief controlled atrial fibrillation, remains on amiodarone and is overall toe as well as Lopressor. Currently on 2 L nasal cannula with oxygen saturation in the mid to high 90s. Able to achieve 1750 mL on his incentive spirometry. Continues to void. Patient appears to have no energy and needs a lot of encouragement. Reports feeling very tired and unable to sleep, lack of appetite, asking for something to knock him out tonight. Denies any significant pain. He did ambulate in the hallway yesterday with nursing and physical therapy but required breaks. Peer to peer completed with patient's insurance company, unfortunately they state he does not have a diagnosis which will they will approve inpatient rehab for. Discharge plan is home with home care versus subacute rehab depending on patient/family's wishes. Objective - Vital Signs Vital signs: Vital Signs Temp 97.6 F 01/15/22 04:00 Pulse 61 01/15/22 04:00 Resp 18 01/15/22 04:00 BP 106/63 01/15/22 04:00 Pulse Ox 98 01/15/22 04:00 FiO2 50 01/09/22 08:02 Intake & Output 01/14/22 01/15/22 01/15/22 18:59 06:59 18:59 Intake Total 744 240 Output Total 1950 300 Balance -1206 -60 Weight 123.6 kg 122.6 kg Intake: IV 30 Invasive Line 5 30 Oral 714 240 Output: Urine 1950 300 Other: Voiding Method Urinal Urinal # Voids 3 2 # Bowel Movements 0 ABP, PAP, CO, CI - Last Documented Arterial Blood Pressure 137/58 Pulmonary Artery Pressure 37/18 Cardiac Output 6 Cardiac Index 2.6 - Exam CONSTITUTIONAL: Appears better this morning, no acute distress RESPIRATORY: Lungs sounds diminished bilaterally, left greater than right. Respirations even, nonlabored. Currently on 2 L nasal cannula with oxygen saturation 98%. Able to achieve 1750 mL on incentive spirometry. Strong nonproductive cough. CARDIOVASCULAR: S1, S2 present. Irregular rate and rhythm, controlled atrial fibrillation on telemetry. Sternum stable. Palpable peripheral pulses bilaterally. Generalized edema present. No calf pain or tenderness noted. Heart hugger in place with patient demonstrating appropriate use with enco uragement. Thuan wraps from toes to knees bilaterally, SCDs present. GASTROINTESTINAL: Abdomen soft, nontender, nondistended. Active bowel sounds present 4 quadrants. Tolerating diet. Positive bowel movement 01/12/22. GENITOURINARY: Continues to void. Output 2250 mL in the last 24 hours INTEGUMENTARY: Skin is warm and dry with evidence of good perfusion. Anterior chest incision well approximated. Right lower extremity EVH site well approximated without redness or drainage. NEUROLOGIC: Cranial nerves II through XII intact MUSKULOSKELETAL: Able to move all extremities, strength equal bilaterally although generalized weakness present, gait normal but requires breaks PSYCHIATRIC: Alert and oriented to person place and time, appropriate affect, intact judgment and insight - Allied health notes Allied health notes reviewed: nursing - Labs CBC & Chem 7: 01/15/22 07:41 01/15/22 07:41 Labs: Abnormal Lab Results - Last 24 Hours (Table) 01/14/22 01/14/22 01/14/22 Range/Units 07:59 07:59 10:50 RBC 2.50 L (4.30-5.90) m/uL Hgb 8.0 L (13.0-17.5) gm/dL Hct 24.9 L (39.0-53.0) % RDW 16.8 H (11.5-15.5) % BUN 31 H (9-20) mg/dL Glucose 104 H (74-99) mg/dL POC Glucose (mg/dL) 119 H (70-110) mg/dL 01/14/22 01/14/22 01/15/22 Range/Units 16:47 19:34 06:30 RBC (4.30-5.90) m/uL Hgb (13.0-17.5) gm/dL Hct (39.0-53.0) % RDW (11.5-15.5) % BUN (9-20) mg/dL Glucose (74-99) mg/dL POC Glucose (mg/dL) 121 H 149 H 112 H (70-110) mg/dL - Imaging and Cardiology Chest x-ray: report reviewed, image reviewed Assessment and Plan Assessment: 1. Coronary artery disease, status post three-vessel CABG 2. History of hypertension 3. History of hyperlipidemia, treated 4. Previous tobacco dependence with preoperative FEV1 88% of predicted 5. Morbid obesity 6. Prostate cancer approximately 2 years ago status post radiation therapy 7. Left lower extremity DVT with previous IVC filter placement on Xarelto outpatient 8. History of kidney stones 9. Nonrheumatic aortic valve insufficiency. 10. Postoperative acute blood loss anemia, expected 11. Paroxysmal atrial fibrillation, currently sinus and amiodarone and Xarelto, status post left atrial appendage ligation 12. Cardiac debility after recent CABG Plan: 1. Continue aspirin, statin, beta charles. Will increase metoprolol as tolerated, increased to 50 mg twice daily last night. 2. Continue amiodarone with weekly stepdown dose. Continue Xarelto 3. Wean O2 as tolerated. Encourage incentive spirometry is 10 times every hour while awake. Bronchodilators per pulmonology. Patient needs strong encouragement for pulmonary toileting. 4. Increase activity as tolerated. PT/OT/cardiac rehab following. 5. Will monitor daily labs and chest x-rays. Electrolyte replacement per protocol. Will give Lasix 40 mg IV push 1 6. Insulin management per primary care service. Patient is not a diabetic, preoperative hemoglobin A1c 6.0% 7. Pain control with current medication regimen. 8. Continue to record strict accurate intake and output. Daily weights. 9. GI/DVT prophylaxis. 10. Discharge planning is in place, anticipate discharge to subacute rehab versus home with home care dependent on patient's/family's wishes 11. More recommendations to follow based on patient's clinical course.
[2022-01-15] MEDS: ATORVASTATIN 40 MG TAB PO SCH (08:36)
[2022-01-15 08:41] LABS: Anisocytosis Slight; HCT 25.2 % (39.0-53.0); Hypochromasia Slight; MCH 31.4 pg (25.0-35.0); MCHC 31.9 g/dL (31.0-37.0); MCV 98.5 fL (80.0-100.0); Macrocytosis Slight; Mean Platelet Volume 7.8; Platelet Count 317 k/uL (150-450); Poikilocytosis Slight; RBC 2.56 m/uL (4.30-5.90); RDW 17.1 % (11.5-15.5); WBC 8.2 k/uL (3.8-10.6)
[2022-01-15 08:58] LABS: Calcium 8.6 mg/dL (8.4-10.2); Magnesium 2.1 mg/dL (1.6-2.3); Potassium 3.9 mmol/L (3.5-5.1)
[2022-01-15] MEDS ORDERED: FUROSEMIDE 10 MG/ML 4 ML VIAL IV STA (09:20)
--- NOTE | 2022-01-15 10:22 | P.PN ---
Subjective Progress Note Date: 01/15/22 Patient is an 81-year-old male with a history of coronary artery disease, obesity, and dyslipidemia who presented for coronary artery bypass grafting 3. Patient seen and examined at bedside. Still no BM, pain well controlled. Wants Kandy to talk with his to decide discharge plan. General: nontoxic, no distress, appears at stated age, obese Derm: warm, dry Head: atraumatic, normocephalic, symmetric Eyes: EOMI, no lid lag, anicteric sclera Mouth: no lip lesion, mucus membranes dry Cardiovascular: S1S2 reg, no murmur, positive posterior tibial pulse bilateral, Lungs: Decreased bilateral, no wheeze, no accessory muscle use Abdominal: soft, nontender to palpation, no guarding, no appreciable organomegaly Ext: no gross muscle atrophy, 1+ pedal edema, no contractures Neuro: CN II-XI grossly intact, no focal neuro deficits Psych: Alert, oriented, appropriate affect Assessment/plan: Coronary artery bypass grafting 3 Hypertension Dyslipidemia Paroxysmal atrial fibrillation - amio - ASA, plavix - lipitor - cardiothoracic surgery recs Constipation - dulcolax X 1 Prediabetes with recent A1c 6 -Currently on sliding scale insulin, has not required consistent dosing -He'll need outpatient follow-up with his primary for A1C in 3 months, no plans for meds on discharge Morbid obesity with BMI 41.3 on admission -Outpatient structured weight loss Postoperative acute blood loss anemia, anticipated outcome of surgery Normocytic anemia, common occurrence after surgery - oral iron to continue for 30 days. - Monitor CBC HX DVT Constipation, resolved DVT prophylaxis: Heparin Discussed with: patient, nursing A total of 25 minutes was spent on the care of this complex patient more than 50% of the time was spent in counseling and care coordination. Active Medications Generic Name Dose Route Start Last Admin Trade Name Freq PRN Reason Stop Dose Admin Acetaminophen 650 mg 01/11/22 08:33 01/15/22 08:34 Acetaminophen Tab 325 Mg Tab PO 650 mg Q4HR PRN Administration Fever and/ or Pain Albuterol/Ipratropium 3 ml 01/08/22 14:35 Ipratropium-Albuterol 3 Ml Neb INHALATION RT-Q2H PRN Shortness Of Breath Or Wheezing Albuterol/Ipratropium 3 ml 01/08/22 20:00 01/15/22 08:27 Ipratropium-Albuterol 3 Ml Neb INHALATION 3 ml RT-QID AUDREY Administration Amiodarone HCl 400 mg 01/14/22 09:00 01/15/22 08:35 Amiodarone 200 Mg Tab PO 01/30/22 08:59 400 mg BID AUDREY Administration Taper Ascorbic Acid 500 mg 01/09/22 12:30 01/14/22 10:54 Ascorbic Acid 500 Mg Tab PO 500 mg W/LUNCH AUDREY Administration Aspirin 81 mg 01/14/22 09:00 01/15/22 08:35 Aspirin 81 Mg PO 81 mg DAILY AUDREY Administration Atorvastatin Calcium 40 mg 01/09/22 09:00 01/15/22 08:36 Atorvastatin 40 Mg Tab PO 40 mg DAILY AUDREY Administration Bisacodyl 10 mg 01/09/22 09:00 01/12/22 08:19 Bisacodyl 10 Mg Supp RECTAL 10 mg DAILY PRN Administration Constipation Ferrous Sulfate 325 mg 01/09/22 12:30 01/14/22 10:54 Ferrous Sulfate 325 Mg Tab PO 325 mg W/LUNCH AUDREY Administration Insulin Aspart 0 unit 01/10/22 12:30 01/15/22 06:49 Insulin Aspart (Novolog) 100 Unit/Ml Vial SQ Not Given ACHS [facility] Protocol Magnesium Hydroxide 2,400 mg 01/09/22 09:00 Magnesium Hydroxide 2,400 Mg/10 Ml Cup PO BID PRN Constipation Melatonin 5 mg 01/10/22 21:00 01/14/22 21:10 Melatonin 5 Mg Tablet PO 5 mg HS AUDREY Administration Metoclopramide HCl 10 mg 01/08/22 14:35 Metoclopramide 5 Mg/Ml 2 Ml Vial IVP Q4H PRN Nausea And Vomiting Metoprolol Tartrate 50 mg 01/14/22 21:00 01/14/22 21:15 Metoprolol Tartrate 50 Mg Tab PO 50 mg BID AUDREY Administration Miscellaneous Information 1 each 01/08/22 14:35 Potassium Replacement Protocol 1 Each Misc MISCELLANE DAILY PRN Per Protocol Protocol Miscellaneous Information 1 each 01/08/22 14:35 Magnesium Replacement Protocol 1 Each Misc MISCELLANE DAILY PRN Per Protocol Protocol Ondansetron HCl 4 mg 01/08/22 14:35 01/11/22 21:00 Ondansetron 4 Mg/2 Ml Vial IVP 4 mg Q6HR PRN Administration Nausea And Vomiting Rivaroxaban 20 mg 01/13/22 10:15 01/15/22 08:35 Rivaroxaban 20 Mg Tab PO 20 mg DAILY AUDREY Administration Protocol Senna/Docusate Sodium 2 each 01/09/22 21:00 01/14/22 21:10 Sennosides-Docusate Sodium 1 Each Tab PO 2 each HS AUDREY Administration Sodium Chloride 10 ml 01/08/22 21:00 01/15/22 08:37 Sodium Chloride 0.9% Flush 10 Ml Syringe IV 10 ml BID AUDREY Administration Objective - Vital Signs Vital signs: Vital Signs Temp 97.5 F L 01/15/22 08:00 Pulse 92 01/15/22 08:39 Resp 15 01/15/22 08:00 BP 94/52 01/15/22 08:00 Pulse Ox 100 01/15/22 08:30 FiO2 50 01/09/22 08:02 Intake & Output 01/14/22 01/15/22 01/15/22 18:59 06:59 18:59 Intake Total 744 240 237 Output Total 1950 300 Balance -1206 -60 237 Weight 123.6 kg 122.6 kg Intake: IV 30 Invasive Line 5 30 Oral 714 240 237 Output: Urine 1950 300 Other: Voiding Method Urinal Urinal # Voids 3 2 # Bowel Movements 0 ABP, PAP, CO, CI - Last Documented Arterial Blood Pressure 137/58 Pulmonary Artery Pressure 37/18 Cardiac Output 6 Cardiac Index 2.6 - Labs CBC & Chem 7: 01/15/22 07:41 01/15/22 07:41 Labs: Abnormal Lab Results - Last 24 Hours (Table) 01/14/22 01/14/22 01/14/22 Range/Units 10:50 16:47 19:34 RBC (4.30-5.90) m/uL Hgb (13.0-17.5) gm/dL Hct (39.0-53.0) % RDW (11.5-15.5) % BUN (9-20) mg/dL POC Glucose (mg/dL) 119 H 121 H 149 H (70-110) mg/dL 01/15/22 01/15/22 01/15/22 Range/Units 06:30 07:41 07:41 RBC 2.56 L (4.30-5.90) m/uL Hgb 8.0 L (13.0-17.5) gm/dL Hct 25.2 L (39.0-53.0) % RDW 17.1 H (11.5-15.5) % BUN 29 H (9-20) mg/dL POC Glucose (mg/dL) 112 H (70-110) mg/dL
[2022-01-15] MEDS: bisacodyL 10 MG SUPP RECTAL PRN (10:50)
[2022-01-15] MEDS: METOPROLOL TARTRATE 50 MG TAB PO SCH ×2 (11:05→21:28)
--- NOTE | 2022-01-15 11:53 | P.PN ---
Subjective HISTORY OF PRESENT ILLNESS: This is an 81-year-old male who is postop day #6 CABG 3 vessels with left internal mammary artery to left anterior descending coronary artery, a greater saphenous vein graft to the obtuse marginal coronary artery, and a greater saphenous vein graft to the distal right coronary artery. Patient examined this afternoon at the bedside. He is resting comfortably in bed. No complaints of chest pain or shortness of breath. Vital signs are stable. 01/15/2022 Patient examined this morning. He is sitting up in the chair. He denies chest pain or pressure. Denies SOB. He continues to be very weak and needs help to ambulate. Telemetry reveals atrial fibrillation with controlled ventricular rates. PHYSICAL EXAM: VITAL SIGNS: Reviewed. GENERAL: Well-developed in no acute distress. NECK: Supple. No JVD or thyromegaly LUNGS: Respirations even and unlabored. Lungs essentially clear to auscultation bilaterally, although diminished. HEART: Irregular rate and rhythm. S1 and S2 heard. EXTREMITIES: Normal range of motion. No clubbing or cyanosis. Peripheral pulses intact. Trace lower extremity edema ASSESSMENT: Coronary artery disease, status post CABG 3 vessels Hypertension Hyperlipidemia History of DVT, on Xarelto Paroxysmal atrial fibrillation Morbid obesity Former nicotine dependence History of prostate cancer PLAN: Continue postoperative management per CTS Continue current cardiac medications Increase activity as tolerated Encouraged use of incentive spirometer Discharge planning is in place for subacute rehab tomorrow Further recommendations pending patient's course Patient to follow up post discharge with Dr. Farris Nurse practitioner note has been reviewed by physician. Signing provider agrees with the documented findings, assessment, and plan of care. Objective - Vital Signs Vital signs: Vital Signs Temp 97.5 F L 01/15/22 11:03 Pulse 92 01/15/22 11:30 Resp 20 01/15/22 11:03 BP 117/66 01/15/22 11:03 Pulse Ox 98 01/15/22 11:03 FiO2 50 01/09/22 08:02 Intake & Output 01/14/22 01/15/22 01/15/22 18:59 06:59 18:59 Intake Total 744 240 474 Output Total 1950 300 0 Balance -1206 -60 474 Weight 123.6 kg 122.6 kg Intake: IV 30 Invasive Line 5 30 Oral 714 240 474 Output: Urine 1950 300 0 Other: Voiding Method Urinal Urinal # Voids 3 2 # Bowel Movements 0 0 ABP, PAP, CO, CI - Last Documented Arterial Blood Pressure 137/58 Pulmonary Artery Pressure 37/18 Cardiac Output 6 Cardiac Index 2.6 - Labs CBC & Chem 7: 01/15/22 07:41 01/15/22 07:41 Labs: Abnormal Lab Results - Last 24 Hours (Table) 01/14/22 01/14/22 01/15/22 Range/Units 16:47 19:34 06:30 RBC (4.30-5.90) m/uL Hgb (13.0-17.5) gm/dL Hct (39.0-53.0) % RDW (11.5-15.5) % BUN (9-20) mg/dL POC Glucose (mg/dL) 121 H 149 H 112 H (70-110) mg/dL 01/15/22 01/15/22 Range/Units 07:41 07:41 RBC 2.56 L (4.30-5.90) m/uL Hgb 8.0 L (13.0-17.5) gm/dL Hct 25.2 L (39.0-53.0) % RDW 17.1 H (11.5-15.5) % BUN 29 H (9-20) mg/dL POC Glucose (mg/dL) (70-110) mg/dL
[2022-01-15 11:54] LABS: Glucose,Whole Blood 121 mg/dL (70-110)
[2022-01-15] MEDS: ASCORBIC ACID 500 MG TAB PO SCH (12:55)
[2022-01-15] MEDS: FERROUS SULFATE 325 MG TAB PO SCH (12:55)
--- NOTE | 2022-01-15 14:34 | P.PN ---
Subjective Progress Note Date: 01/15/22 Principal diagnosis: Coronary artery disease status post coronary artery bypass grafting This is a 81-year-old male patient with a known history of hyperlipidemia, hypertension, morbid obesity, prostate cancer, DVT of the left lower extremity with previous IVC filter placement maintained on Xarelto, aortic insufficiency. He had been having issues with chest discomfort and shortness of breath and it undergone cardiac catheterization by Dr. Farris on 12/29/2021 her son has sign ificant coronary artery disease. Pulmonary function testing revealed good lung function with an FEV1 value of 2.21 L and 90% of predicted. He is a nonsmoker. He presented here today for an elective coronary artery bypass grafting surgery done by Dr. Caruso. He did receive a SAMUELS to the LAD, saphenous vein graft to the RCA, saphenous vein graft to the OM1, exclusion of left atrial appendage utilizing the 35mm 8 treat clip. He was returned to the ICU today at approximately 1500. Remains intubated on mechanical ventilator. Current settings reveal assist-control mode with a rate of 14, tidal 500, FiO2 100% and a PEEP of 10 based on his BMI 41.3 kg per metered squared. He has lactated Ringer's running at 50 ML's per hour. Norepinephrine at 0.03 mcg/kg/m. Nitroglycerin drip at 5 mcg/m. Milrinone at 0.3 mcg/kg/m and propofol at 20 mcg/kg/m. Cardiac output 4.7. Cardiac index 2.1. PA pressure 43/21. He is atrial pacing at 80. Right internal jugular Shawnee-Ubaldo catheter in place. Right radial arterial line in place. Chest x-ray reveals 2 mediastinal chest tubes and 1 left pleural chest tube. Both connected to wall suction. No leaks noted. White count 9.7. Hemoglobin 9.6. Pletal it's 152. INR 1.2. Sodium 138. Potassium 4.4. Chloride 109. Bicarb 23. BUN 17. Creatinine 0.66. Glucose 130. AST 50. ALT 8. Albumin 3.1. Magnesium 2.5. Calcium 7.9. Ionized calcium 4.6. The patient is seen today 01/09/2022 in follow-up. Postoperative day #1. He was extubated approximately 3:00 this morning. He is having issues with labile blood pressure and required a unit of packed red blood cells. Current hemoglobin 6.7. Platelets 158. Another unit of packed red blood cells are pending. White count 8.5. Sodium 140. Potassium 3.9. Bicarb 26. BUN 20. Creatinine 0.92. Glucose 150. Calcium 7.9. Albumin 3.1. AST 30. ALT 9. He is currently on lactated Ringer's at 50 MLS per hour. Milrinone at 0.1 mcg/kg/m. Insulin drip at 1.5 units per hour. He is maintaining good O2 saturations in the 90s on 4 L/m per nasal cannula. He is afebrile. Mean arterial pressure 59. PA pressure 43/16. CVP 13. Cardiac output 6.0. Cardiac index 2.6. Chest x-ray reveals no sizable pneumothorax. Left-sided and mediastinal chest tubes remain in place. Some scattered pleural parenchymal opacities most likely atelectasis. Encouraged regarding these incentive rasheed meter. Continue bronchodilators. Heparin for DVT prophylaxis. He did receive albumin earlier this morning. Currently in a -541, balance. The patient is seen today 01/10/2022 in follow-up. Postoperative day #2. He is currently sitting up in a chair at the bedside. Awake and alert in no acute distress. He is maintaining O2 saturations in the 90s on 4 L/m per nasal cannula. Lactated Ringer's at 20 ML's per hour. Chest x-ray reveals bibasilar opacities. Stable. Shawnee-Ubaldo catheter, mediastinal and left chest tubes remain in place. No evidence of pneumothorax. He is status post 1 unit of packed red blood cells. Current hemoglobin 7.9. Platelets 126. White count 7.8. Sodium 135. Potassium 3.9. BUN 23. Creatinine 0.90. Glucose 131. He is currently in a -540 ML balance. Currently sinus rhythm. He remains on oral amiodarone. Heparin for DVT prophylaxis. He needs to need increased encouragement regarding the incentive spirometer use. Mean arterial pressure 66. PA pressures 38/19. CVP 15. Cardiac output 5. Cardiac index 2.2. The patient is seen today 01/15/2022 in follow-up on the selective care unit. Postoperative day #7 of a coronary artery bypass grafting 3 vessels. He is currently sitting up in a chair at the bedside. Awake and alert in no acute d istress. His x-ray shows persistent pulmonary venous congestion with interstitial edema and small effusions with cardiomegaly. He continues to work well with his incentive spirometer. He is maintaining good O2 saturations in the upper 90s on 3 L/m per nasal cannula. Afebrile. Hemodynamically stable. He is status post 1 unit of packed red blood cells this admission. Current hemoglobin 8.0. Platelets 317. White count 8.2. Sodium 1:30. Potassium 3.9. BUN 29. Creatinine 0.97. Glucose 121. He is continued on DuoNeb inhalations. Anticoagulated with Xarelto. Objective - Vital Signs Vital signs: Vital Signs Temp 97.5 F L 01/15/22 11:03 Pulse 92 01/15/22 11:30 Resp 20 01/15/22 11:03 BP 117/66 01/15/22 11:03 Pulse Ox 98 01/15/22 11:03 FiO2 50 01/09/22 08:02 Intake & Output 01/14/22 01/15/22 01/15/22 18:59 06:59 18:59 Intake Total 744 240 474 Output Total 1950 300 500 Balance -1206 -60 -26 Weight 123.6 kg 122.6 kg Intake: IV 30 Invasive Line 5 30 Oral 714 240 474 Output: Urine 1950 300 500 Other: Voiding Method Urinal Urinal # Voids 3 2 # Bowel Movements 0 0 ABP, PAP, CO, CI - Last Documented Arterial Blood Pressure 137/58 Pulmonary Artery Pressure 37/18 Cardiac Output 6 Cardiac Index 2.6 - Exam GENERAL EXAM: Awake, alert, obese 81-year-old male patient on 3 L nasal cannula, up in a chair at the bedside, in no apparent distress. HEAD: Normocephalic. EYES: Normal reaction of pupils, equal size. NOSE: Clear with pink turbinates. THROAT: No erythema or exudates. NECK: No masses, no JVD. CHEST: Sternal dressing dry and intact. Heart Hugger in place. LUNGS: Equal air entry with faint crackles in the posterior bases. CVS: S1 and S2 normal with no audible murmur, regular rhythm. ABDOMEN: No hepatosplenomegaly, no guarding or rigidity. SPINE: No scoliosis or deformity SKIN: No rashes CENTRAL NERVOUS SYSTEM: Alert, oriented. Tone is normal in all 4 extremities. EXTREMITIES:Thuan wrap support bilateral lower extremities. There is 1+ peripheral edema. Peripheral pulses are intact. - Labs CBC & Chem 7: 01/15/22 07:41 01/15/22 07:41 Labs: Abnormal Lab Results - Last 24 Hours (Table) 01/14/22 01/14/22 01/15/22 Range/Units 16:47 19:34 06:30 RBC (4.30-5.90) m/uL Hgb (13.0-17.5) gm/dL Hct (39.0-53.0) % RDW (11.5-15.5) % BUN (9-20) mg/dL POC Glucose (mg/dL) 121 H 149 H 112 H (70-110) mg/dL 01/15/22 01/15/22 01/15/22 Range/Units 07:41 07:41 11:52 RBC 2.56 L (4.30-5.90) m/uL Hgb 8.0 L (13.0-17.5) gm/dL Hct 25.2 L (39.0-53.0) % RDW 17.1 H (11.5-15.5) % BUN 29 H (9-20) mg/dL POC Glucose (mg/dL) 121 H (70-110) mg/dL Assessment and Plan Assessment: Coronary artery disease, status post coronary artery bypass grafting 3 with a SAMUELS to LAD, SVG to the OM1, SVG to the RCA. Left atrial appendage clipping with a 35 mm Atriclip. Postoperative day #7 Anemia, expected, current hemoglobin 8.0, received 1 unit of packed red blood cells this admission Paroxysmal atrial fibrillation, currently in sinus rhythm, remains on amio darone, anticoagulated with Xarelto Morbid obesity with a BMI of 42.3 kg/m Hypertension, history of Hyperlipidemia Prostate cancer History of left lower extremity DVT, previous filter placed, maintained on Xarelto on outpatient setting Nonsmoker, FEV1 value 2.21 L Plan: The patient was seen and evaluated Chest x-ray, labs and medications reviewed Received Lasix milligrams IVP 1 Remains on bronchodilators Continues to work with the incentive spirometer Anticoagulated with Xarelto Currently up in a chair at the bedside Titrate down the FiO2 as tolerated Plan is for subacute rehabilitation versus home with home care I have personally seen and examined the patient, performed the documentation and the assessment and plan as written. I have personally seen and examined the patient and reviewed the documentation. I performed a joint evaluation with the nurse practitioner in this evaluation was done more than 20 minutes. I fully agree with the documentation above and the plan of care. The patient's condition is stable as the patient is recovering from surgery. The patient is postop day #7. He is looking for an ECF transferred
[2022-01-15 16:55] LABS: Glucose,Whole Blood 123 mg/dL (70-110)
[2022-01-15] MEDS ORDERED: MELATONIN 5 MG TABLET PO PRN (17:59)
[2022-01-15 20:08] LABS: Glucose,Whole Blood 134 mg/dL (70-110)
[2022-01-15] MEDS ORDERED: traZODone HCL 50 MG TAB PO SCH (21:00)
[2022-01-15] MEDS: SENNOSIDES-DOCUSATE SODIUM 1 EACH TAB PO SCH (21:28)
[2022-01-16] MEDS: INSULIN ASPART (NovoLOG) 100 UNIT/ML VIAL SQ SCH (06:12)
[2022-01-16 06:17] LABS: Glucose,Whole Blood 111 mg/dL (70-110)
--- NOTE | 2022-01-16 07:38 | P.DS ---
Providers Date of admission: 01/08/22 05:38 Expected date of discharge: 01/16/22 Attending physician: Mark Caruso Consults: 01/08/22 14:35 Consult Physician Routine Consulting Provider: Ruben Gipson Consult Reason/Comments: General Merchandise Salesperson Consult: post cardiac surgery Do you want consulting provider notified?: Yes Consult Physician Routine Consulting Provider: Judith Brown Consult Reason/Comments: med mgmt; [facility] patient Do you want consulting provider notified?: Yes Consult Physician Routine Consulting Provider: Katie Kirkland Consult Reason/Comments: Basket Filler Consult: post cardiac surgery Do you want consulting provider notified?: Yes 01/12/22 09:47 Consult Physician Routine Consulting Provider: Gurpreet Field Consult Reason/Comments: Evaluation inpatient rehab Do you want consulting provider notified?: Yes Primary care physician: Lloyd Peterson [facility] Course: FINAL DIAGNOSIS: 1. Coronary artery disease 2. History of hypertension 3. History of hyperlipidemia, treated 4. Previous tobacco dependence with preoperative FEV1 88% of predicted 5. Morbid obesity 6. Prostate cancer approximately 2 years ago status post radiation therapy 7. Left lower extremity DVT with previous IVC filter placement on Xarelto outpatient 8. History of kidney stones 9. Nonrheumatic aortic valve insufficiency 10. Postoperative acute blood loss anemia 11. Paroxysmal atrial fibrillation 12. Cardiac stability after recent CABG PRINCIPAL PROCEDURE: 1. Coronary artery bypass grafting 3 vessels with left internal mammary artery to the left anterior descending artery, greater saphenous vein graft to the obtuse marginal coronary artery, greater saphenous vein graft to the distal right coronary artery 2. Endoscopic harvesting of the right greater saphenous vein 3. Ligation of the left atrial appendage using a 35 mm AtriClip 4. Epi-aortic ultrasound 5. Intraoperative transesophageal echocardiogram 6. Closure of the sternum using titanium plating system HISTORY OF PRESENT ILLNESS: This is an 81-year-old gentleman who follows on an outpatient basis with Dr. Peterson for primary care and Dr. Farris for cardiology. He was reporting progressively worsening chest pain with minimal exertion for proximally 7 months, mild associated shortness of breath and mild lower extremity edema. He underwent stress testing which was abnormal and was recommended to undergo heart catheterization. Catheterization revealed multivessel coronary artery disease. The patient was referred to Dr. Caruso from cardiothoracic surgery. He was recommended to undergo coronary artery bypass graft surgery. The usual perioperative course was discussed in detail with the patient and his family, all risks and benefits were explained, all questions were answered, and consent was obtained to proceed with surgery. The patient was scheduled for elective surgery at the earliest possible date. HOSPITAL COURSE: The patient was brought to the hospital on 01/08/22, taken to the preoperative area, prepared in the usual fashion, and subsequently taken to the operating room where Dr. Caruso performed three-vessel CABG. Upon completion of surgery the patient was transferred to the cardiovascular intensive care unit where he was recovered and monitored hemodynamically. He was extubated, all lines, tubes, and drips were discontinued when appropriate, and he was transferred to 3 S cardiac stepdown unit for further monitoring and rehabilitation. His oxygen was titrated down, he continued to work with physical and occupational therapy, he was tolerating oral diet, his pain was controlled, and he was ready to be discharged to [facility] subacute rehab on postoperative day #8. He did experience postoperative paroxysmal atrial fibrillation which is controlled on amiodarone, expected tapered dose. He received written and verbal instruction regarding his medications, activity restrictions, signs and symptoms requiring physician notification, and follow-up appointments. Patient Condition at Discharge: Stable Plan - Discharge Summary Discharge Rx Participant: No New Discharge Prescriptions: New Aspirin 81 mg PO DAILY tab Amiodarone [Cordarone] 400 mg PO BID tab Ipratropium-Albuterol Nebulize [Duoneb 0.5 mg-3 mg/3 ml Soln] 3 ml INHALATION RT-QID each Ipratropium-Albuterol Nebulize [Duoneb 0.5 mg-3 mg/3 ml Soln] 3 ml INHALATION RT-Q2H PRN each PRN Reason: Shortness Of Breath Or Wheezing Ferrous Sulfate [Iron (65 MG Elemental)] 325 mg PO W/LUNCH tab Metoprolol Tartrate [Lopressor] 50 mg PO BID tab Magnesium Hydroxide [Milk of Magnesia Concentrate] 2,400 mg PO BID PRN ml PRN Reason: Constipation Sennosides-Docusate Sodium [Senokot-S] 2 each PO HS tab Acetaminophen Tab [Tylenol] 650 mg PO Q4HR PRN tab PRN Reason: Fever And/ Or Pain Ascorbic Acid [Vitamin C] 500 mg PO W/LUNCH tab Continue Potassium Chloride [Klor-Con M10] 10 meq PO DAILY Rivaroxaban [Xarelto] 20 mg PO DAILY Atorvastatin [Lipitor] 80 mg PO HS Changed Furosemide [Lasix] 40 mg PO DAILY #0 Discontinued Isosorbide Mononitrate ER [Imdur] 30 mg PO DAILY Metoprolol Succinate [Metoprolol Succinate ER] 50 mg PO DAILY Aspirin 325 mg PO DAILY Discharge Medication List Atorvastatin [Lipitor] 80 mg PO HS 12/24/21 [History] Potassium Chloride [Klor-Con M10] 10 meq PO DAILY 12/24/21 [History] Rivaroxaban [Xarelto] 20 mg PO DAILY 12/24/21 [History] Acetaminophen Tab [Tylenol] 650 mg PO Q4HR PRN tab 01/16/22 [Rx] Amiodarone [Cordarone] 400 mg PO BID tab 01/16/22 [Rx] Ascorbic Acid [Vitamin C] 500 mg PO W/LUNCH tab 01/16/22 [Rx] Aspirin 81 mg PO DAILY tab 01/16/22 [Rx] Ferrous Sulfate [Iron (65 MG Elemental)] 325 mg PO W/LUNCH tab 01/16/22 [Rx] Furosemide [Lasix] 40 mg PO DAILY #0 01/16/22 [Rx] Ipratropium-Albuterol Nebulize [Duoneb 0.5 mg-3 mg/3 ml Soln] 3 ml INHALATION RT-Q2H PRN each 01/16/22 [Rx] Ipratropium-Albuterol Nebulize [Duoneb 0.5 mg-3 mg/3 ml Soln] 3 ml INHALATION RT-QID each 01/16/22 [Rx] Magnesium Hydroxide [Milk of Magnesia Concentrate] 2,400 mg PO BID PRN ml 01/16/22 [Rx] Metoprolol Tartrate [Lopressor] 50 mg PO BID tab 01/16/22 [Rx] Sennosides-Docusate Sodium [Senokot-S] 2 each PO HS tab 01/16/22 [Rx] Follow up Appointment(s)/Referral(s): Rehab Monik ZAVALA,Cardiac [NON-STAFF] - 4 Weeks (You will receive a phone call in approximately 4-6 weeks for evaluation for cardiac rehab) José Luis Farris MD [STAFF PHYSICIAN] - 02/02/22 11:30 am Shaila Cornejo NPC [Nurse Practitioner] - 02/17/22 3:00 pm Lloyd Peterson MD [Primary Care Provider] - 1 Week (Please make follow up appointment upon discharge from rehab) Mark Caruso MD [STAFF PHYSICIAN] - 02/05/22 9:45 am Ambulatory/Diagnostic Orders: Complete Blood Count w/diff [LAB.AMB] Time Frame: 3 Days, Location: None Selected Comprehensive Metabolic Panel [LAB.AMB] Time Frame: 3 Days, Location: None Selected Activity/Diet/Wound Care/Special Instructions: DISCHARGE INSTRUCTIONS: 1. No driving for 4 weeks, or until physician gives their ok. 2. The patient should sleep in their own bed, no medical bed needed. 3. Stairs are not an issue. If the bedroom is upstairs, it is advised that the patient go up at night and down in the morning for the first week. Go slowly, using handrail and take 1 step at a time. 4. AMANDA hose are to be worn for 30 days or until physician discontinues. 5. Heart hugger is to be worn 100% of the time until physician discontinues.(except when showering) 6. No lifting, pushing, or pulling more than 10 pounds for 12 weeks. The physician will advise of any restriction changes. 7. The patient is expected to continue the prescribed walking program. 8. Continue pain control per as needed orders. 9. Continue with incentive spirometry and splinting/heart hugger until otherwise directed by the physician. 10. Must shower daily using liquid antibacterial soap and a separate white was hcloth for each individual incision. 11. Routine sternal incision care. No powders, lotions, ointments on incisions. No dressings are necessary on incisions unless they are draining. Dermabond tape is to remain on sternal incision until surgeon follow-up. 12. Please call surgeon/FURNACE COOLER for temp greater than 101 F or purulent drainage from incisions. 13. You should weigh yourself daily, record and bring log with you to follow up appointments. 14. All prescriptions given by surgeon for 30 days. Refills need to be filled through sound engineer audio control/primary care physician. 15. A Red armband has been placed on the patient. It should be worn for 30 days post surgery and will be removed by the cardiac surgeons. If an ER visit is necessary, please make sure the number on the Red armband is called. 16. You have been referred to and are expected to begin Cardiac Rehab in approximately 4-6 weeks. SUBACUTE REHAB/HOME HEALTH SERVICES TO PROVIDE: RN SKILLED HOME CARE SERVICES FOR POST-OP SURGICAL PATIENTS WITH THE FOLLOWING: Coronary Artery Bypass Surgery (CABG), Mitral Valve Replacement/Repair ( MVR), Aortic Valve Replacement/Repair (AVR) RN TO CONTINUE EDUCATION FROM ``ROAD TO A HEALTH HEART PATIENT EDUCATION MANUAL (GIVEN TO PATIENT IN THE HOSPITAL) MEDICATION RECONCILIATION WITH EDUCATION NEEDED ON FIRST HOME VISIT EMPHASIZE IMPORTANCE OF WEARING BREAST SUPPORT/HEART HUGGER ENCOURAGE USE OF INCENTIVE SPIROMETER 10 X EVERY HOUR WHILE AWAKE ENCOURAGE UTILIZATION OF LOWER EXTREMITY COMPRESSION STOCKINGS/AMANDA HOSE and ELEVATE LEGS ABOVE LEVEL OF HEART WHILE AT REST. ENCOURAGE AMBULATION 3-5x/day INCREASING TOLERATES, WHILE AVOIDING EXTREMES IN TEMPERATURE LABORATORY: CBC, CMP TO BE DRAWN ON THE THIRD DAY AT REHAB, (RAN STAT) FAX RESULTS TO [phone]. PARAMETERS: WEIGHT: NOTIFY SURGEON/FURNACE COOLER OF WEIGHT GAIN OF 2 LBS IN 24 HOURS OR 5 LBS IN ONE WEEK HR: NOTIFY SURGEON/FURNACE COOLER OF HR <55 BPM OR HR>100 BPM BP: NOTIFY SURGEON/FURNACE COOLER IF BP <90/55 OR BP>140/100 O2 SAT: NOTIFY SURGEON/FURNACE COOLER IF PO2<93% ON ROOM AIR Recommend repeat A1C in 3 months. *Amiodarone should be given according to instructions: 400 mg twice daily until 01/21/22, then 200 mg twice daily until 01/28/22, then 200 mg daily until 02/04/22, then stop* Discharge Disposition: TRANSFER TO SNF/ECF
--- NOTE | 2022-01-16 07:47 | XR ---
EXAMINATION TYPE: XR chest 2V DATE OF EXAM: 01/16/2022 7:10 AM COMPARISON: Chest radiographs from 01/15/2022 TECHNIQUE: XR chest 2V Frontal and lateral views of the chest. CLINICAL INDICATION:Male, 81 years old with history of post cardiac surgery; FINDINGS: Lungs/Pleura: No pneumothorax. Small bilateral pleural effusions are unchanged. Bibasilar atelectasis . Hyperinflation compatible with COPD. Pulmonary vascularity: Persistent pulmonary venous congestion with interstitial edema. Heart/mediastinum: Cardiomediastinal silhouette is enlarged and stable. Postoperative changes are pr esent in the mediastinum. Musculoskeletal: Midline sternotomy wires are noted and stable. Degenerative changes visualized spine . IMPRESSION: Overall unchanged examination with persistent pulmonary venous congestion with interstitial edema as well as small bilateral pleural effusions and cardiomegaly.
[2022-01-16] MEDS: IPRATROPIUM-ALBUTEROL 3 ML NEB INHALATION SCH (08:17)
--- NOTE | 2022-01-16 08:17 | P.PN ---
Subjective Progress Note Date: 01/16/22 Patient is an 81-year-old male with a history of coronary artery disease, obesity, and dyslipidemia who presented for coronary artery bypass grafting 3. Patient seen and examined at bedside. Had a soft BM yesterday, no chest pain, no shortness of breath. Feeling better over all. General: nontoxic, no distress, appears at stated age, obese Derm: warm, dry Head: atraumatic, normocephalic, symmetric Eyes: EOMI, no lid lag, anicteric sclera Mouth: no lip lesion, mucus membranes dry Cardiovascular: S1S2 reg, no murmur, positive posterior tibial pulse bilateral, Lungs: CTA bilateral, no wheeze, no accessory muscle use Abdominal: soft, nontender to palpation, no guarding, no appreciable or ganomegaly Ext: no gross muscle atrophy, 1+ pedal edema, no contractures Neuro: CN II-XI grossly intact, no focal neuro deficits Psych: Alert, oriented, appropriate affect Assessment/plan: Coronary artery bypass grafting 3 Hypertension Dyslipidemia Paroxysmal atrial fibrillation - amio - ASA, plavix - lipitor - cardiothoracic surgery recs Constipation - add miralax if no bowel movement in 48 hours to D/C medications. Prediabetes with recent A1c 6 -Currently on sliding scale insulin, has not required consistent dosing -He'll need outpatient follow-up with his primary for A1C in 3 months, no plans for meds on discharge Morbid obesity with BMI 41.3 on admission -Outpatient structured weight loss Postoperative acute blood loss anemia, anticipated outcome of surgery Normocytic anemia, common occurrence after surgery - oral iron to continue for 30 days. - Monitor CBC HX DVT Constipation, resolved DVT prophylaxis: Heparin Discussed with: patient, nursing A total of 25 minutes was spent on the care of this complex patient more than 50% of the time was spent in counseling and care coordination. Active Medications Generic Name Dose Route Start Last Admin Trade Name Freq PRN Reason Stop Dose Admin Acetaminophen 650 mg 01/11/22 08:33 01/15/22 08:34 Acetaminophen Tab 325 Mg Tab PO 650 mg Q4HR PRN Administration Fever and/ or Pain Albuterol/Ipratropium 3 ml 01/08/22 14:35 Ipratropium-Albuterol 3 Ml Neb INHALATION RT-Q2H PRN Shortness Of Breath Or Wheezing Albuterol/Ipratropium 3 ml 01/08/22 20:00 01/15/22 20:18 Ipratropium-Albuterol 3 Ml Neb INHALATION Not Given RT-QID AUDREY Amiodarone HCl 400 mg 01/14/22 09:00 01/15/22 21:28 Amiodarone 200 Mg Tab PO 01/30/22 08:59 400 mg BID AUDREY Administration Taper Ascorbic Acid 500 mg 01/09/22 12:30 01/15/22 12:55 Ascorbic Acid 500 Mg Tab PO 500 mg W/LUNCH AUDREY Administration Aspirin 81 mg 01/14/22 09:00 01/15/22 08:35 Aspirin 81 Mg PO 81 mg DAILY AUDREY Administration Atorvastatin Calcium 40 mg 01/09/22 09:00 01/15/22 08:36 Atorvastatin 40 Mg Tab PO 40 mg DAILY AUDREY Administration Bisacodyl 10 mg 01/09/22 09:00 01/15/22 10:50 Bisacodyl 10 Mg Supp RECTAL 10 mg DAILY PRN Administration Constipation Ferrous Sulfate 325 mg 01/09/22 12:30 01/15/22 12:55 Ferrous Sulfate 325 Mg Tab PO 325 mg W/LUNCH AUDREY Administration Insulin Aspart 0 unit 01/10/22 12:30 01/16/22 06:12 Insulin Aspart (Novolog) 100 Unit/Ml Vial SQ Not Given ACHS [facility] Protocol Magnesium Hydroxide 2,400 mg 01/09/22 09:00 Magnesium Hydroxide 2,400 Mg/10 Ml Cup PO BID PRN Constipation Melatonin 5 mg 01/15/22 17:59 Melatonin 5 Mg Tablet PO HS PRN Insomnia Metoclopramide HCl 10 mg 01/08/22 14:35 Metoclopramide 5 Mg/Ml 2 Ml Vial IVP Q4H PRN Nausea And Vomiting Metoprolol Tartrate 50 mg 01/14/22 21:00 01/15/22 21:28 Metoprolol Tartrate 50 Mg Tab PO 50 mg BID AUDREY Administration Miscellaneous Information 1 each 01/08/22 14:35 Potassium Replacement Protocol 1 Each Misc MISCELLANE DAILY PRN Per Protocol Protocol Miscellaneous Information 1 each 01/08/22 14:35 Magnesium Replacement Protocol 1 Each Misc MISCELLANE DAILY PRN Per Protocol Protocol Ondansetron HCl 4 mg 01/08/22 14:35 01/11/22 21:00 Ondansetron 4 Mg/2 Ml Vial IVP 4 mg Q6HR PRN Administration Nausea And Vomiting Rivaroxaban 20 mg 01/13/22 10:15 01/15/22 08:35 Rivaroxaban 20 Mg Tab PO 20 mg DAILY AUDREY Administration Protocol Senna/Docusate Sodium 2 each 01/09/22 21:00 01/15/22 21:28 Sennosides-Docusate Sodium 1 Each Tab PO 2 each HS AUDREY Administration Sodium Chloride 10 ml 01/08/22 21:00 01/15/22 21:28 Sodium Chloride 0.9% Flush 10 Ml Syringe IV 10 ml BID AUDREY Administration Trazodone HCl 50 mg 01/15/22 21:00 01/15/22 21:28 Trazodone Hcl 50 Mg Tab PO 50 mg HS AUDREY Administration Objective - Vital Signs Vital signs: Vital Signs Temp 97.8 F 01/16/22 03:37 Pulse 64 01/16/22 06:09 Resp 18 01/16/22 06:09 BP 107/68 01/16/22 06:09 Pulse Ox 98 01/16/22 06:09 FiO2 50 01/09/22 08:02 Intake & Output 01/15/22 01/16/22 01/16/22 18:59 06:59 18:59 Intake Total 474 Output Total 500 200 Balance -26 -200 Intake: Oral 474 Output: Urine 500 200 Other: Voiding Method Urinal # Voids 1 # Bowel Movements 0 ABP, PAP, CO, CI - Last Documented Arterial Blood Pressure 137/58 Pulmonary Artery Pressure 37/18 Cardiac Output 6 Cardiac Index 2.6 - Labs CBC & Chem 7: 01/15/22 07:41 01/15/22 07:41 Labs: Abnormal Lab Results - Last 24 Hours (Table) 01/15/22 01/15/22 01/15/22 Range/Units 07:41 07:41 11:52 RBC 2.56 L (4.30-5.90) m/uL Hgb 8.0 L (13.0-17.5) gm/dL Hct 25.2 L (39.0-53.0) % RDW 17.1 H (11.5-15.5) % BUN 29 H (9-20) mg/dL POC Glucose (mg/dL) 121 H (70-110) mg/dL 01/15/22 01/15/22 01/16/22 Range/Units 16:53 20:05 06:10 RBC (4.30-5.90) m/uL Hgb (13.0-17.5) gm/dL Hct (39.0-53.0) % RDW (11.5-15.5) % BUN (9-20) mg/dL POC Glucose (mg/dL) 123 H 134 H 111 H (70-110) mg/dL
[2022-01-16 08:37] LABS: Anisocytosis Slight; HCT 26.2 % (39.0-53.0); HGB 8.3 gm/dL (13.0-17.5); Hypochromasia Moderate; MCH 32.1 pg (25.0-35.0); MCHC 31.7 g/dL (31.0-37.0); MCV 101.4 fL (80.0-100.0); Macrocytosis Moderate; Mean Platelet Volume 8.2; Platelet Count 350 k/uL (150-450); Poikilocytosis Slight; RBC 2.58 m/uL (4.30-5.90); WBC 8.2 k/uL (3.8-10.6)
[2022-01-16 08:48] VITALS: BP 123/57; PULSE 78; RESP 14; TEMP 97.7
[2022-01-16] MEDS: AMIODARONE 200 MG TAB PO SCH (08:48)
[2022-01-16] MEDS: ATORVASTATIN 40 MG TAB PO SCH (08:48)
[2022-01-16] MEDS: METOPROLOL TARTRATE 50 MG TAB PO SCH (08:49)
[2022-01-16] MEDS: RIVAROXABAN 20 MG TAB PO SCH (08:49)
[2022-01-16] MEDS: ASPIRIN 81 MG PO SCH (08:49)
[2022-01-16 08:51] LABS: African American GFR (CKD) >90 (>60 ml/min/1.73 sqM); Anion Gap 6 mmol/L; Blood Urea Nitrogen 27 mg/dL (9-20); Calcium 8.7 mg/dL (8.4-10.2); Carbon Dioxide 29 mmol/L (22-30); Chloride 103 mmol/L (98-107); Glucose 91 mg/dL (74-99); Magnesium 2.1 mg/dL (1.6-2.3); Non-African American GFR(CKD) 80 (>60 ml/min/1.73 sqM); Sodium 138 mmol/L (137-145)
[2022-01-16] MEDS ORDERED: FUROSEMIDE 10 MG/ML 4 ML VIAL IV STA (09:10)
--- NOTE | 2022-01-16 11:53 | P.PN ---
Subjective Progress Note Date: 01/16/22 This is a 81-year-old male patient with a known history of hyperlipidemia, hypertension, morbid obesity, prostate cancer, DVT of the left lower extremity with previous IVC filter placement maintained on Xarelto, aortic insufficiency. He had been having issues with chest discomfort and shortness of breath and it undergone cardiac catheterization by Dr. Farris on 12/29/2021 her son has significant coronary artery disease. Pulmonary function testing revealed good lung function with an FEV1 value of 2.21 L and 90% of predicted. He is a nonsmoker. He presented here today for an elective coronary artery bypass grafting surgery done by Dr. Caruso. He did receive a SAMUELS to the LAD, saphenous vein graft to the RCA, saphenous vein graft to the OM1, exclusion of left atrial appendage utilizing the 35mm 8 treat clip. cked red blood cells this admission. Current hemoglobin 8.0. Platelets 317. White count 8.2. Sodium 1:30. Potassium 3.9. BUN 29. Creatinine 0.97. Glucose 121. He is continued on DuoNeb inhalations. Anticoagulated with Xarelto. 01/16/2022, the patient is postop day #8 Doing well. No specific complaints for now. The patient underwent three-vessel bypass surgery. The patient is currently on room air oxygen. Using incentive spirometer. No cough sputum production chest tightness or wheezing. Sternum stable clean and intact. The patient is also anticoagulants with Xarelto. Chest x-ray showing some postsurgical atelectatic and small pleural effusions, anticipated outcome of surgery. On the blood work, the patient has a hemoglobin of 8.3 with a white cell count of 8.2. BUN is at 27 with a creatinine of 0.9. The patient is going to [facility] for further rehabilitation. Objective - Vital Signs Vital signs: Vital Signs Temp 97.7 F 01/16/22 08:44 Pulse 78 01/16/22 08:44 Resp 14 01/16/22 08:44 BP 123/57 01/16/22 08:44 Pulse Ox 96 01/16/22 08:44 FiO2 50 01/09/22 08:02 Intake & Output 01/15/22 01/16/22 01/16/22 18:59 06:59 18:59 Intake Total 474 0 Output Total 500 200 120 Balance -26 -200 -120 Intake: Oral 474 0 Output: Urine 500 200 120 Other: Voiding Method Urinal # Voids 1 # Bowel Movements 0 ABP, PAP, CO, CI - Last Documented Arterial Blood Pressure 137/58 Pulmonary Artery Pressure 37/18 Cardiac Output 6 Cardiac Index 2.6 - Exam GENERAL EXAM: Awake, alert, obese 81-year-old male patient on room air oxygen, up in a chair at the bedside, in no apparent distress. HEAD: Normocephalic. EYES: Normal reaction of pupils, equal size. NOSE: Clear with pink turbinates. THROAT: No erythema or exudates. NECK: No masses, no JVD. CHEST: Sternal dressing dry and intact. Heart Hugger in place. LUNGS: Equal air entry with faint crackles in the posterior bases. CVS: S1 and S2 normal with no audible murmur, regular rhythm. ABDOMEN: No hepatosplenomegaly, no guarding or rigidity. SPINE: No scoliosis or deformity SKIN: No rashes CENTRAL NERVOUS SYSTEM: Alert, oriented. Tone is normal in all 4 extremities. EXTREMITIES:Thuan wrap support bilateral lower extremities. There is 1+ peripheral edema. Peripheral pulses are intact. - Labs CBC & Chem 7: 01/16/22 07:24 01/16/22 07:24 Labs: Abnormal Lab Results - Last 24 Hours (Table) 01/15/22 01/15/22 01/15/22 Range/Units 11:52 16:53 20:05 RBC (4.30-5.90) m/uL Hgb (13.0-17.5) gm/dL Hct (39.0-53.0) % MCV (80.0-100.0) fL RDW (11.5-15.5) % BUN (9-20) mg/dL POC Glucose (mg/dL) 121 H 123 H 134 H (70-110) mg/dL 01/16/22 01/16/22 01/16/22 Range/Units 06:10 07:24 07:24 RBC 2.58 L (4.30-5.90) m/uL Hgb 8.3 L (13.0-17.5) gm/dL Hct 26.2 L (39.0-53.0) % MCV 101.4 H (80.0-100.0) fL RDW 18.0 H (11.5-15.5) % BUN 27 H (9-20) mg/dL POC Glucose (mg/dL) 111 H (70-110) mg/dL Assessment and Plan Plan: Assessment: Coronary artery disease, status post coronary artery bypass grafting 3 with a SAMUELS to LAD, SVG to the OM1, SVG to the RCA. Left atrial appendage clipping with a 35 mm Atriclip. Postoperative day #8. The patient is doing well. Hemodynamically stable. Cardiac rhythm is still A. fib. The patient has been extubated adequately and the patient is currently on room air oxygen atrial fibrillation, controlled the patient is currently on oral amiodarone 400 mg by mouth twice a day and Lopressor 25 mg by mouth 3 times a day. The patient is also done anticoagulation with Xarelto. Post thoracotomy, currently patient has chest tubes removed , and the chest x- ray showing some postsurgical changes Anemia, expected, current hemoglobin of 8.3 Morbid obesity with a BMI of 44 kg/m Hypertension, history of Hyperlipidemia Prostate cancer History of left lower extremity DVT, previous filter placed, maintained on Xarelto on outpatient setting Nonsmoker, FEV1 value 2.21 L Plan: Discharge this patient to [facility] Continue aspirin Continue amiodarone 400 mg by mouth twice a day Continue metoprolol 50 mg twice a day With the patient is Xarelto 20 mg by mouth daily Using incentive spirometer Increase activity and rehabilitation Clear for discharge from a pulmonary standpoint
== END 2022-01-16 10:44 | DRG 235 ==
LOC: 2ORMAIN 05:38 → 2SICU 14:44 → 3SCARD 01-13 18:02
PROVIDERS: ADMIT Surgery; ATTEND Surgery
PROC: 5A1221Z Performance of Cardiac Output, Continuous (ICD-10-PCS; principal; 2022-01-08 08:00)
PROC: 021109W Bypass Coronary Artery, Two Arteries from Aorta with Autologous Venous Tissue, Open Approach (ICD-10-PCS; principal; 2022-01-08 08:00)
PROC: 02100Z9 Bypass Coronary Artery, One Artery from Left Internal Mammary, Open Approach (ICD-10-PCS; principal; 2022-01-08 08:00)
PROC: 02L70CK Occlusion of Left Atrial Appendage with Extraluminal Device, Open Approach (ICD-10-PCS; principal; 2022-01-08 08:00)
PROC: B24BZZ4 Ultrasonography of Heart with Aorta, Transesophageal (ICD-10-PCS; principal; 2022-01-08 08:00)
PROC: 06BP4ZZ Excision of Right Saphenous Vein, Percutaneous Endoscopic Approach (ICD-10-PCS; principal; 2022-01-08 08:00)
PROC: 30233N1 Transfusion of Nonautologous Red Blood Cells into Peripheral Vein, Percutaneous Approach (ICD-10-PCS; 2022-01-09)
PROC: 3E033XZ Introduction of Vasopressor into Peripheral Vein, Percutaneous Approach (ICD-10-PCS; 2022-01-11)
PROC: 05HF33Z Insertion of Infusion Device into Left Cephalic Vein, Percutaneous Approach (ICD-10-PCS; 2022-01-12 10:30)
DX: I25.10 Atherosclerotic heart disease of native coronary artery without angina pectoris (principal); J96.01 Acute respiratory failure with hypoxia; J98.11 Atelectasis; Z68.41 Body mass index [BMI] 40.0-44.9, adult; D62 Acute posthemorrhagic anemia; E66.01 Morbid (severe) obesity due to excess calories; I95.9 Hypotension, unspecified; J44.9 Chronic obstructive pulmonary disease, unspecified; I48.0 Paroxysmal atrial fibrillation; E78.5 Hyperlipidemia, unspecified; I10 Essential (primary) hypertension; I35.1 Nonrheumatic aortic (valve) insufficiency; N40.1 Benign prostatic hyperplasia with lower urinary tract symptoms; R33.8 Other retention of urine; G47.00 Insomnia, unspecified; R73.03 Prediabetes; K59.00 Constipation, unspecified; Z79.82 Long term (current) use of aspirin; Z79.01 Long term (current) use of anticoagulants; Z79.899 Other long term (current) drug therapy; Z87.891 Personal history of nicotine dependence; Z85.46 Personal history of malignant neoplasm of prostate; Z92.3 Personal history of irradiation; Z87.442 Personal history of urinary calculi; Z86.718 Personal history of other venous thrombosis and embolism; Z95.828 Presence of other vascular implants and grafts; Z71.3 Dietary counseling and surveillance; Z88.0 Allergy status to penicillin; Z82.49 Family history of ischemic heart disease and other diseases of the circulatory system; Z83.79 Family history of other diseases of the digestive system
CPT/HCPCS: 36410; 71045; 71046; 76937; 80048; 80053; 82330; 82805; 83735; 84450; 84460; 85025; 85027; 85384; 85610; 85730; 86850; 86891; 86900; 86901; 86920; 94002; 94640; 94760

== ENCOUNTER → 2022-02-03 | Outpatient (CLI) | payer MEDICARE ==
[2022-02-03 17:48] LABS: Basophils # (A) 0.06 X 10*3/uL (0.00-0.10); Basophils % (A) 0.7 %; Eosinophils # (A) 0.39 X 10*3/uL (0.04-0.35); Eosinophils % (A) 4.9 %; HCT 34.8 % (39.6-50.0); HGB 11.5 g/dL (13.0-17.0); Immature Grans, Automated 0.2 %; Lymphocytes # (A) 1.66 X 10*3/uL (0.90-5.00); Lymphocytes % (A) 20.7 %; MCH 30.4 pg (27.0-32.0); MCV 92.1 fL (80.0-97.0); Mean Platelet Volume 10.3 fL (9.5-12.2); Monocytes # (A) 0.76 X 10*3/uL (0.20-1.00); Monocytes % (A) 9.5 %; NRBC Per 100 WBC 0 /100 WBCS (0.0-0.0); Neutrophils # (A) 5.14 X 10*3/uL (1.80-7.70); Platelet Count 395 X 10*3/uL (140-440); RBC 3.78 X 10*6/uL (4.40-5.60); RDW 15.8 % (11.5-14.5); WBC 8.03 X 10*3/uL (4.50-10.00)
[2022-02-03 19:27] LABS: % Iron Saturation 21.82 (15.00-50.00); ALT 14 U/L (10-49); AST 45 U/L (14-35); African American GFR (CKD) 58.2 (60.0-200.0); Albumin 3.9 g/dL (3.8-4.9); Alkaline Phosphatase 152 U/L (41-126); BUN/Creat Ratio 23.18 Ratio (12.00-20.00); Blood Urea Nitrogen 30.6 mg/dL (9.0-27.0); Calcium 9.8 mg/dL (8.7-10.3); Carbon Dioxide 24.4 mmol/L (20.0-27.5); Chloride 94 mmol/L (96-109); Globulin 2.8 g/dL (1.6-3.3); Glucose 109 mg/dL (70-110); Iron 56 ug/dL (65-175); Non-African American GFR(CKD) 50.2 (60.0-200.0); Sodium 136 mmol/L (135-145); Total Iron Binding Capacity 256 ug/dL (228-460); Total Protein 6.7 g/dL (6.2-8.2)
[2022-02-03 20:54] LABS: Prostate Specific Antigen <0.01 ng/mL (0.00-6.50)
== END | disposition home or self-care (01) ==
LOC: LABWHC1 12:32
PROVIDERS: ATTEND Family Medicine
DX: Z12.5 Encounter for screening for malignant neoplasm of prostate (principal); I48.91 Unspecified atrial fibrillation; D50.9 Iron deficiency anemia, unspecified
CPT/HCPCS: 36415; 80053; 82728; 83540; 83550; 84153; 84439; 84443; 85025

== ENCOUNTER 2022-10-22 21:37 | Emergency (ER) | payer MEDICARE ==
[2022-10-22 21:47] VITALS: TEMP 98.2
[2022-10-22] MEDS ORDERED: HYDROcodone/APAP 5-325MG 1 EACH TAB PO STA (22:04)
--- NOTE | 2022-10-22 22:04 | ED ---
General Adult HPI - General Source: patient Mode of arrival: ambulatory Limitations: no limitations <Javier Arita - Last Filed: 10/22/22 23:08> <Az Yarbrough - Last Filed: 10/25/22 02:49> - General Chief complaint: Fall Stated complaint: Fall Lt shoulder/rib pain @1330 Time Seen by Provider: 10/22/22 21:50 - History of Present Illness Initial comments: Dictation was produced using [employer] dictation software. please excuse any grammatical, word or spelling errors. Chief Complaint: 81-year-old male presents emergency Department with left rib and left upper quadrant abdominal pain History of Present Illness: Is 81-year-old male he was driving back from [place] with his . They took a stop in [place]. At the wrist up he got out. He was walking when he stepped on an uneven surface causing him to fall landing on his left side. States he landed on his left shoulder, left arm and left wrist. After the fall he knows he had severe pain over his left lower chest and left upper abdomen. Denies any head injury. Denies any loss of consciousness. Patient has no headache or neck The ROS documented in this emergency department record has been reviewed and confirmed by me. Those systems with pertinent positive or negative responses have been documented in the HPI. All other systems are other negative and/or noncontributory. (Javier Arita) - Related Data Home Medications Medication Instructions Recorded Confirmed Atorvastatin [Lipitor] 80 mg PO HS 12/24/21 01/06/22 Potassium Chloride [Klor-Con M10] 10 meq PO DAILY 12/24/21 01/06/22 Rivaroxaban [Xarelto] 20 mg PO DAILY 12/24/21 01/06/22 Previous Rx's Medication Instructions Recorded Acetaminophen Tab [Tylenol] 650 mg PO Q4HR PRN tab 01/16/22 Amiodarone [Cordarone] 400 mg PO BID tab 01/16/22 Ascorbic Acid [Vitamin C] 500 mg PO W/LUNCH tab 01/16/22 Aspirin 81 mg PO DAILY tab 01/16/22 Ferrous Sulfate [Iron (65 MG 325 mg PO W/LUNCH tab 01/16/22 Elemental)] Furosemide [Lasix] 40 mg PO DAILY #0 01/16/22 Ipratropium-Albuterol Nebulize 3 ml INHALATION RT-Q2H PRN each 01/16/22 [Duoneb 0.5 mg-3 mg/3 ml Soln] Ipratropium-Albuterol Nebulize 3 ml INHALATION RT-QID each 01/16/22 [Duoneb 0.5 mg-3 mg/3 ml Soln] Magnesium Hydroxide [Milk of 2,400 mg PO BID PRN ml 01/16/22 Magnesia Concentrate] Metoprolol Tartrate [Lopressor] 50 mg PO BID tab 01/16/22 Sennosides-Docusate Sodium 2 each PO HS tab 01/16/22 [Senokot-S] polyethylene glycoL 3350 [Miralax] 17 gm PO Q48H #30 packet 01/16/22 Amiodarone [Cordarone] 200 mg PO BID #13 tab 01/25/22 Ascorbic Acid [Vitamin C] 500 mg PO W/LUNCH #7 tablet 01/25/22 Aspirin 81 mg PO DAILY #30 tab 01/25/22 Atorvastatin Calcium [Lipitor] 80 mg PO DAILY #30 tablet 01/25/22 Ferrous Sulfate [Iron (65 MG 325 mg PO W/LUNCH #7 tab 01/25/22 Elemental)] Furosemide [Lasix] 40 mg PO DAILY #7 tablet 01/25/22 Metoprolol Tartrate [Lopressor] 50 mg PO BID #60 tab 01/25/22 Potassium Chloride [Klor-Con M10] 10 meq PO DAILY #7 tab 01/25/22 Rivaroxaban [Xarelto] 20 mg PO DAILY #30 tab 01/25/22 Sennosides/Docusate Sodium [Senna 2 each PO HS #14 capsule 01/25/22 Plus 8.6-50 mg Softgel] HYDROcodone/APAP 5-325MG [Panaca 1 tab PO Q4HR PRN 3 Days #18 tab 10/23/22 5-325] HYDROcodone/APAP 5-325MG [Panaca 1 tab PO Q4HR PRN 3 Days #18 tab 10/24/22 5-325] Allergies Allergy/AdvReac Type Severity Reaction Status Date / Time Penicillins Allergy hives Verified 01/06/22 15:40 Review of Systems ROS Other: All systems not noted in ROS Statement are negative. <Javier Arita D - Last Filed: 10/22/22 23:08> ROS Other: All systems not noted in ROS Statement are negative. <Az Yarbrough - Last Filed: 10/25/22 02:49> ROS Statement: Those systems with pertinent positive or pertinent negative responses have been documented in the HPI. Past Medical History Past Medical History: Cancer, Chest Pain / Angina, COPD, Deep Vein Thrombosis (DVT), Hyperlipidemia, Hypertension, Prostate Disorder Additional Past Medical History / Comment(s): prostate cancer-radiation tx, edema of legs, "low potassiums", chest tightness, SOB, constipation, History of Any Multi-Drug Resistant Organisms: None Reported Past Surgical History: Prostate Surgery, Tonsillectomy Additional Past Surgical History / Comment(s): surgery for kidney stones, hemorrhoidectomy, tara cataracts, Past Anesthesia/Blood Transfusion Reactions: No Reported Reaction Past Psychological History: No Psychological Hx Reported Smoking Status: Former smoker - Past Family History Mother Family Medical History: No Reported History <Javier Arita - Last Filed: 10/22/22 23:08> General Exam Limitations: no limitations <Javier Arita - Last Filed: 10/22/22 23:08> - General Exam Comments Initial Comments: PHYSICAL EXAM: General Impression: Alert and oriented x3, not in acute distress HEENT: Normocephalic atraumatic, extra-ocular movements intact, pupils equal and reactive to light bilaterally, mucous membranes moist. Cardiovascular: Heart regular rate and rhythm Chest: Able to complete full sentences, no retractions, no tachypnea, significant tenderness to the left lower rib margin Abdomen: abdomen soft, non-tender, non-distended, no organomegaly Musculoskeletal: Pulses present and equal in all extremities, no peripheral edema Motor: no focal deficits noted Neurological: CN II-XII grossly intact, no focal motor or sensory deficits noted Skin: Intact with no visualized rashes Psych: Normal affect and mood (Javier Arita) Course Vital Signs 10/22/22 10/23/22 21:40 00:13 Temperature 98.2 F Pulse Rate 65 87 Respiratory 18 16 Rate Blood Pressure 142/78 139/63 O2 Sat by Pulse 99 Oximetry Medical Decision Making <Javier Arita - Last Filed: 10/22/22 23:08> - Lab Data Result diagrams: 10/22/22 23:00 10/22/22 23:00 <Az Yarbrough - Last Filed: 10/25/22 02:49> - Medical Decision Making Was pt. sent in by a medical professional or institution ([facility], [facility], urgent care, hospital, or fpc...) When possible be specific @ -No Did you speak to anyone other than the patient for history (EMS, parent, family, police, friend...)? What history was obtained from this source @ -No Did you review nursing and triage notes (agree or disagree)? Why? @ -I reviewed and agree with nursing and triage notes Were old charts reviewed (outside hosp., previous admission, EMS record, old EKG, old radiological studies, urgent care reports/EKG's, fpc records)? Report findings @ -No old charts were reviewed Differential Diagnosis (chest pain, altered mental status, abdominal pain women, abdominal pain men, vaginal bleeding, musculoskeletal, weakness, fever, dyspnea, syncope, headache, dizziness, GI bleed, back pain, seizure, CVA, palpatations, mental health)? @ -Intracranial bleed, rib fracture, pulmonary contusion, splenic laceration EKG interpreted by me (3pts min.). @ -None done X-rays interpreted by me (1pt min.). @ -Wrist x-rays pending CT interpreted by me (1pt min.). @ -CT Scan of the brain, C-spine chest abdomen pelvis pending U/S interpreted by me (1pt. min.). @ -None done What testing was considered but not performed or refused? (CT, X-rays, U/S, labs)? Why? @ -None What meds were considered but not given or refused? Why? @ -None Did you discuss the management of the patient with other professionals (professionals i.e. [facility], [facility], lab, RT, psych nurse, director of social media marketing, mat repairer, teacher, senior major gifts officer, rn case mgr)? Give summary @ -No Was smoking cessation discussed for >3mins.? @ -No Was critical care preformed (if so, how long)? @ -No Were there social determinants of health that impacted care today? How? (Homelessness, low income, unemployed, alcoholism, drug addiction, transportation, low edu. Level, literacy, decrease access to med. care, custodial, rehab)? @ -No Was there de-escalation of care discussed even if they declined (Discuss DNR or withdrawal of care, Hospice)? DNR status @ -No What co-morbidities impacted this encounter? (DM, HTN, Smoking, COPD, CAD, Cancer, CVA, ARF, Chemo, Hep., AIDS, mental health diagnosis, sleep apnea, morbid obesity)? @ -History of anticoagulation use Was patient admitted / discharged? Hospital course, mention meds given and route, prescriptions, significant lab abnormalities, going to OR and other pertinent info. @ -81 y Old male presents emergency Department after mechanical fall. Patient complaining mostly of left lower chest pain and left upper quadrant abdominal pain. His presentation is complicated by history of anticoagulation use Undiagnosed new problem with uncertain prognosis? @ -No Drug Therapy requiring intensive monitoring for toxicity (Heparin, Nitro, Insulin, Cardizem)? @ -No Were any procedures done? @ -No Diagnosis/symptom? Acute, or Chronic, or Acute on Chronic? Uncomplicated (without systemic symptoms) or Complicated (systemic symptoms)? @ -1. Acute fall Side effects of treatment? @ -No Exacerbation, Progression, or Severe Exacerbation? @ -No Poses a threat to life or bodily function? How? (Chest pain, [place], [place], pneumonia, PE, COPD, DKA, ARF, appy, cholecystitis, CVA, Diverticulitis, Homicidal, Suicidal, threat to staff... and all critical care pts) @ -yes patient care signed out to Dr. Yarbrough at 11pm (Javier Arita) I receive this patient as sign out pending the result of x-ray Was patient admitted / discharged? Hospital course, mention meds given and route, prescriptions, significant lab abnormalities, going to OR and other pertinent info. @ -[Discharged. I discussed with the patient the appropriate further care and follow-up. Discussed that although the initial x-ray of the wrist is negative, sometimes an occult fracture is later found. I did provide a bulky dressing for the left wrist, discussed appropriate further care and follow-up as well as recommendation for reimaging if no improvement. Undiagnosed new problem with uncertain prognosis? @ -[No] Drug Therapy requiring intensive monitoring for toxicity (Heparin, Nitro, Insuli n, Cardizem)? @ -[No] Were any procedures done? @ -[No] Diagnosis/symptom? @ -[1. Fall 2. Acute rib fracture 3. Acute left wrist injury Acute, or Chronic, or Acute on Chronic? @ -[Acute Uncomplicated (without systemic symptoms) or Complicated (systemic symptoms)? @ -[Uncomplicated Side effects of treatment? @ -[No] Exacerbation, Progression, or Severe Exacerbation? @ -[No] Poses a threat to life or bodily function? How? (Chest pain, [place], [place], pneumonia, PE, COPD, DKA, ARF, appy, cholecystitis, CVA, Diverticulitis, Homicidal, S uicidal, threat to staff... and all critical care pts) @ -[No] (Az Yarbrough) - Lab Data Lab Results 10/22/22 10/22/22 Range/Units 23:00 23:00 WBC 9.3 (3.8-10.6) k/uL RBC 4.77 (4.30-5.90) m/uL Hgb 14.5 (13.0-17.5) gm/dL Hct 42.8 (39.0-53.0) % MCV 89.7 (80.0-100.0) fL MCH 30.5 (25.0-35.0) pg MCHC 34.0 (31.0-37.0) g/dL RDW 13.9 (11.5-15.5) % Plt Count 241 (150-450) k/uL MPV 8.0 Neutrophils % 74 % Lymphocytes % 15 % Monocytes % 6 % Eosinophils % 4 % Basophils % 0 % Neutrophils # 6.9 (1.3-7.7) k/uL Lymphocytes # 1.4 (1.0-4.8) k/uL Monocytes # 0.5 (0-1.0) k/uL Eosinophils # 0.3 (0-0.7) k/uL Basophils # 0.0 (0-0.2) k/uL Sodium 136 L (137-145) mmol/L Potassium 4.5 (3.5-5.1) mmol/L Chloride 105 (98-107) mmol/L Carbon Dioxide 21 L (22-30) mmol/L Anion Gap 10 mmol/L BUN 24 H (9-20) mg/dL Creatinine 0.66 (0.66-1.25) mg/dL Est GFR (CKD-EPI)AfAm >90 (>60 ml/min/1.73 sqM) Est GFR (CKD-EPI)NonAf >90 (>60 ml/min/1.73 sqM) Glucose 104 H (74-99) mg/dL Calcium 8.7 (8.4-10.2) mg/dL Disposition <Javier Arita - Last Filed: 10/22/22 23:08> Is patient prescribed a controlled substance at d/c from ED?: Yes <Az Yarbrough - Last Filed: 10/25/22 02:49> Clinical Impression: Fall, Rib fractures, Left wrist injury Disposition: HOME SELF-CARE Condition: Good Instructions (If sedation given, give patient instructions): Wrist Injury (ED), Rib Fracture (ED), Fall Prevention for Older Adults (ED) Prescriptions: HYDROcodone/APAP 5-325MG [Panaca 5-325] 1 tab PO Q4HR PRN 3 Days #18 tab PRN Reason: Pain HYDROcodone/APAP 5-325MG [Panaca 5-325] 1 tab PO Q4HR PRN 3 Days #18 tab PRN Reason: Pain Referrals: Lloyd Peterson MD [Primary Care Provider] - 1-2 days Kurt Greenberg MD [Medical Doctor] - 1-2 days
[2022-10-22] MEDS ORDERED: LIDOCAINE 5% PATCH TOPICAL STA (22:06)
--- NOTE | 2022-10-22 23:13 | CT ---
EXAMINATION TYPE: CT brain cspine wo con CT DLP: combined DLP 3535.8 mGycm, Automated exposure control for dose reduction was used. DATE OF EXAM: 10/22/2022 10:39 PM COMPARISON: None. CLINICAL INDICATION:Male, 81 years old with history of fall; fall; weakness TECHNIQUE: Brain: Multiple axial CT images of the brain were obtained without IV contrast. Cspine: Axial CT images from the skull base to the inferior aspect of T2 we obtained without intraven ous contrast. Coronal and sagittal reformatted images were also reviewed. FINDINGS: Brain: Extra-axial spaces: No abnormal extra-axial fluid collections. Ventricular system: Within normal limits Cerebral parenchyma: No acute intraparenchymal hemorrhage or mass effect. The curry-white junction is well differentiated. Cerebellum: Unremarkable. Mass effect: No evidence of midline shift. Intracranial vasculature: Atherosclerotic calcifications of the intracranial vessels. Soft tissues: Normal. Calvarium/osseous structures: No depressed skull fracture. Paranasal sinuses and mastoid air cells: Mild scattered mucosal thickening and or secretions. Visualized orbits: Bilateral aphakia Cervical spine: Fracture: None. Osseous structures: Multilevel degenerative disc disease changes with endplate spurring and disc oste ophyte complex's. Vertebral alignment: Within normal limits. Spinal canal/Neural Foramina: Disc osteophyte complexes at C5-C6 with at least mild spinal canal sten osis. No evidence for significant neural foraminal stenosis. Neck soft tissues: Prevertebral soft tissues are within normal limits. Other: The airway is patent. The lung apices are clear. Sternotomy wires are partially visualized. IMPRESSION: 1. No acute intracranial process. 2. No evidence of cervical spine fracture. 3. Mild multilevel degenerative disc disease.
[2022-10-22 23:15] LABS: Basophils % (A) 0 %; Eosinophils # (A) 0.3 k/uL (0-0.7); Eosinophils % (A) 4 %; HCT 42.8 % (39.0-53.0); HGB 14.5 gm/dL (13.0-17.5); Lymphocytes # (A) 1.4 k/uL (1.0-4.8); Lymphocytes % (A) 15 %; MCH 30.5 pg (25.0-35.0); MCV 89.7 fL (80.0-100.0); Monocytes # (A) 0.5 k/uL (0-1.0); Monocytes % (A) 6 %; Neutrophils # (A) 6.9 k/uL (1.3-7.7); Neutrophils % (A) 74 %; Platelet Count 241 k/uL (150-450); RBC 4.77 m/uL (4.30-5.90); RDW 13.9 % (11.5-15.5); WBC 9.3 k/uL (3.8-10.6)
[2022-10-22 23:17] LABS: African American GFR (CKD) >90 (>60 ml/min/1.73 sqM); Anion Gap 10 mmol/L; Blood Urea Nitrogen 24 mg/dL (9-20); Calcium 8.7 mg/dL (8.4-10.2); Carbon Dioxide 21 mmol/L (22-30); Chloride 105 mmol/L (98-107); Glucose 104 mg/dL (74-99); Non-African American GFR(CKD) >90 (>60 ml/min/1.73 sqM); Sodium 136 mmol/L (137-145)
[2022-10-22 23:36] LABS: Potassium 4.5 mmol/L (3.5-5.1)
--- NOTE | 2022-10-22 23:49 | CT ---
EXAMINATION TYPE: CT ChestAbdPelvis wo con CT DLP: combined DLP 3535.8 mGycm, Automated exposure control for dose reduction was used. DATE OF EXAM: 10/22/2022 10:39 PM COMPARISON: CT chest 01/04/2022 CLINICAL INDICATION:Male, 81 years old with history of fall, LUQ pain, rib pain; PHH, fall. LUQ abdom inal pain, rib pain, left shoulder/wrist pain. Technique: Multiple axial images of the chest, abdomen, and pelvis were obtained. Two-dimensional cor onal and sagittal reconstructions were obtained. Contrast used: None Oral contrast used: without Oral Contrast Findings: CHEST: LUNGS/ PLEURA: Consolidation, pneumothorax or pleural effusion. There is thickening of interlobular s epta. Evaluation for pulmonary nodules is limited due to motion, with that said, the right upper lobe 5 mm ., left upper lobe pulmonary nodules appear similar. AIRWAY: Patent and unremarkable. HEART: Heart is enlarged for size. Coronary artery cusp patient's. Aortic valve leaflet calcification s. Atrial appendage occlusion device present. MEDIASTINUM: No gross evidence of adenopathy. VASCULATURE: No aortic aneurysm. Atherosclerosis of the arterial vasculature is present. MUSCULOSKELETAL: There is cortical buckling of left rib 4 5X anterior laterally. Sternotomy wires are present. SOFT TISSUES/LYMPH NODES: Unremarkable. LOWER NECK: No significant findings. ABDOMEN: ABDOMEN LIVER: Unremarkable GALLBLADDER AND BILE DUCTS: Unremarkable. PANCREAS: Unremarkable. SPLEEN: Unremarkable. ADRENAL GLANDS: Unremarkable. KIDNEYS AND URETERS: No evidence of hydronephrosis or renal calculus. The ureters are unremarkable. Calculi in the left renal sinus are felt to be vascular in etiology. PELVIS BLADDER: Unremarkable REPRODUCTIVE: Unremarkable. ABDOMEN & PELVIS STOMACH AND BOWEL: No evidence of bowel obstruction. Small hiatal hernia. PERITONEUM: No evidence of pneumoperitoneum or free fluid. Similar juve mesentery from prior CT. VASCULATURE: No evidence of aortic aneurysm. IVC filter in place. MUSCULOSKELETAL: No acute osseous abnormalities, multilevel disc degeneration changes throughout the spine with lower lumbar spine spinous processes abut each other. There is vacuum disc phenomenon oste ophytes throughout the spine. LYMPH NODES: No gross evidence for lymphadenopathy. SOFT TISSUE/ABDOMINAL WALL: Fat-containing umbilical hernia. IMPRESSION: 1. Cortical buckling of the left anterior ribs of 4, 5 and 6 correlate with point tenderness. 2. Cardiomegaly with coronary artery disease. 3. Small hiatal hernia. 4. Fat-containing umbilical hernia. 5. Limited evaluation for pulmonary nodule stability from prior 01/04/2022 secondary to motion artifa ct. What is visualized appears stable from prior.
--- NOTE | 2022-10-22 23:50 | XR ---
EXAMINATION TYPE: XR wrist complete LT DATE OF EXAM: 10/22/2022 11:13 PM INDICATION: Patient age:Male; 81 years old; Reason for study: wrist pain; COMPARISON: None TECHNIQUE: left wrist was examined in the. Frontal, navicular, lateral, and oblique. FINDINGS: Feces osseous demineralization. Scattered multifocal degeneration most pronounced at the fi rst digit carpal metacarpal joint. No acute osseous pathology, joint dislocation, or joint effusion. No evidence of any soft tissue swelling is seen. IMPRESSION: No acute osseous pathology. If there remains concern consider CT.
[2022-10-23 00:17] VITALS: BP 139/63; PULSE 87; RESP 16
== END 2022-10-23 01:01 | disposition home or self-care (01) ==
LOC: EC 21:37
DX: S22.32XA Fracture of one rib, left side, initial encounter for closed fracture (principal); S69.92XA Unspecified injury of left wrist, hand and finger(s), initial encounter; I10 Essential (primary) hypertension; J44.9 Chronic obstructive pulmonary disease, unspecified; E78.5 Hyperlipidemia, unspecified; Z79.01 Long term (current) use of anticoagulants; Z79.899 Other long term (current) drug therapy; Z87.891 Personal history of nicotine dependence; Z88.0 Allergy status to penicillin; Z86.718 Personal history of other venous thrombosis and embolism; W01.0XXA Fall on same level from slipping, tripping and stumbling without subsequent striking against object, initial encounter; Y93.01 Activity, walking, marching and hiking
CPT/HCPCS: 36415; 70450; 71250; 72125; 74176; 80048; 85025; 93005; 99285